=== PATIENT | female | born 1945 | race Caucasian/White ===

== ENCOUNTER 2018-09-01 10:24 | Inpatient (IN) ==
[2018-09-01] MEDS ORDERED: LEVAQUIN 750 MG/D5W 750 MG/150 ML IVPB IV SCH (17:15)
[2018-09-01] MEDS ORDERED: VANCOMYCIN IV PER PHARMACY MISC SCH (17:15)
[2018-09-01] MEDS: NS 1,000 ML IV SCH (17:45)
--- NOTE | 2018-09-01 17:45 | Diag Imaging Result Doc PS360 ---
CHEST-PORTABLE - 09/01/2018 INDICATION: congestion COMPARISON: 07/10/2018 FINDINGS: There is a right chest port in good position with the catheter tip at the cavoatrial junction. Lung volumes are severely low. There is bronchovascular crowding centrally bilaterally. There is also mild cardiomegaly. Stable left shoulder replacement. Stable spinal fusion hardware. No new or focal infiltrates. IMPRESSION: New right chest port. Otherwise no change from prior. Electronically signed by Darryl Moore 09/01/2018 5:43 PM
--- NOTE | 2018-09-01 17:47 | Diag Imaging Result Doc PS360 ---
FOOT 2 VIEWS RIGHT - 09/01/2018 INDICATION: wound TECHNIQUE: COMPARISON: None FINDINGS: Bones are severely osteopenic. There is soft tissue swelling over the great toe and the dorsum of the foot. There may be soft tissue gas at the great toe distally. No fractures or bony erosions. IMPRESSION: Severe osteopenia. Soft tissue swelling of the great toe and the foot. Possible soft tissue gas at the tip of the great toe. Electronically signed by Darryl Moore 09/01/2018 5:44 PM
[2018-09-01 18:17] LABS: BASO# 0.01 X1000 (0.0-0.2); BASO% 0.2 % (0.0-0.8); EOS# 0.19 X1000 (0.0-0.7); EOS% 3.3 % (0.0-10.0); HEMOGLOBIN 10.2 g/dL (12.0-16.0); LYMPH# 1.29 X1000 (1.2-3.4); LYMPH% 22.1 % (20.5-51.1); MCH 25.6 PG (27-31); MCV 85.2 FL (81-99); MONO# 0.41 X1000 (0.11-0.59); MPV 11.2 FL (7.4-10.4); NEUT# 3.93 X1000 (1.4-6.5); NEUT% 67.4 % (42.2-75.2); PLT 165 X1000 (130-400); RBC 3.99 XMIL (4.2-5.4); WBC 5.83 X1000 (4.8-10.8)
[2018-09-01] MEDS: NORCO-10 PO PRN (18:20)
[2018-09-01] MEDS: LOVENOX SUBQ SCH (18:22)
[2018-09-01] MEDS: PROTONIX IV SCH (18:26)
[2018-09-01 18:35] LABS: CALCIUM 8.5 mg/dL (8.8-10.2); POTASSIUM 4.2 mmol/L (3.5-5.1)
[2018-09-01] MEDS ORDERED: VANCOMYCIN 1,650 MG in NS 250 ML IV ONE (20:00)
[2018-09-01] MEDS: DESYREL PO SCH (21:18)
[2018-09-01] MEDS: ABILIFY PO SCH (21:18)
[2018-09-01] MEDS: REQUIP PO SCH (21:18)
[2018-09-02] MEDS: NORCO-10 PO PRN ×4 (00:51→21:33)
--- NOTE | 2018-09-02 06:22 | HISTORY AND PHYSICAL ---
HISTORY OF PRESENT ILLNESS: Ms. Heredia is a 72-year-old white female, who has been bedridden for a long time, has developed cellulitis on the right leg as well as right foot. There was some pus-containing discharge from the right big toe, and the cellulitis did not improve with oral Levaquin therapy, and she was admitted as an outpatient failure for her treatment. She is a known case of severe degenerative disk disease in the entire spine including cervical, dorsal, and lumbar spine. She had multiple spine surgeries, somewhere around 17 surgeries on the spine. She had multiple abdominal surgeries and knee replacement as well as hip replacement. Ms. Heredia recently underwent suprapubic cystostomy as she had a chronic indwelling catheter, which was leaking with recurrent UTIs, and she was found to have multiple bladder and bilateral renal calculi, and the renal calculi were taken care of with lithotripsy by under the guidance of Dr. Hancock. She has been on chronic pain medication for a long time. MEDICATIONS: Her medicines include Abilify or aripiprazole, aspirin, baclofen 10 mg 3 times a day, Klonopin 1 mg b.i.d., donepezil for dementia, duloxetine for multiple joint pains, oral fluconazole for a history of previous fungemia, and fluticasone nasal spray, folic acid, Lasix 40 mg twice a day, [place] 10 four times a day p.r.n., Imdur 60 mg daily, multivitamin tablets, nitroglycerin p.r.n. for chest pain, Zofran, Prilosec, prescribed Protonix 40 mg daily, KCl 10 mEq daily, ropinirole 2 mg b.i.d., and trazodone 50 mg at bedtime. SOCIAL HISTORY: She is a nonsmoker. Does not drink. She has severe edema of the left forearm and has bilateral leg edema. REVIEW OF SYSTEMS: At present, except for pain in both feet, is noncontributory. PHYSICAL EXAMINATION: VITAL SIGNS: Temperature normal. Pulse 88 per minute, respiratory rate 20 per minute, blood pressure 136/80. HEAD: Normocephalic. PUPILS: PERRLA. Fundus examination normal. NECK: Supple. JVP normal. ENT: Unremarkable. LYMPHOVASCULAR: There is no evidence of lymphadenopathy, thyroid enlargement, or calf tenderness. She has bilateral leg edema as well as edema on her feet with severe cellulitis in both feet more on the right side. There is some pus coming up from the right big toe with cellulitis over the foot. BREAST: Normal. CHEST: Normal inspection. LUNGS: Clear on auscultation. HEART: PMI in the normal position. Heart sounds normal. No murmur, gallop, or rub noted. ABDOMEN: Nondistended. Hernial orifices normal. No guarding, rigidity, free fluid, masses, or organomegaly. Bowel sounds normal. RECTAL: Deferred. BARBERING TEACHER: Higher functions are normal. Cranial nerves normal. Motor and sensory system examination unremarkable except for the presence of coarse tremors from Parkinson disease. Deep tendon reflexes normal. Plantars downgoing. Skull and spine examination reveals multiple surgeries on the spine with multiple scars, severely painful movements of the lumbosacral and cervical spine. No cerebellar signs or signs of meningeal irritation. Focal motor exam and skin exam unremarkable. She has a Port-A-Cath on the right side and a suprapubic catheter. CLINICAL IMPRESSION: Severe cellulitis on the right leg more than the left and right foot with possible osteomyelitis of the right big toe. PLAN: Start IV antibiotics first, later on get circulation studies. Arterial and venous flow studies in her legs. cc: Amando Berman MD
[2018-09-02] MEDS ORDERED: PROTONIX PO SCH (09:00)
[2018-09-02] MEDS ORDERED: MICRO-K PO SCH (09:00)
[2018-09-02] MEDS: DIFLUCAN PO SCH (09:28)
[2018-09-02] MEDS: UROGESIC-BLUE PO SCH ×3 (09:28→18:15)
[2018-09-02] MEDS: NITROGLYCERIN 0.4 MG/HR PATCH TD SCH ×2 (09:28→09:42)
[2018-09-02] MEDS: THERA M PLUS PO SCH (09:28)
[2018-09-02] MEDS: CYMBALTA PO SCH (09:28)
[2018-09-02] MEDS: REQUIP PO SCH ×2 (09:28→19:54)
[2018-09-02] MEDS: KLOR-CON PO SCH (09:28)
[2018-09-02] MEDS: FOLIC ACID PO SCH (09:28)
[2018-09-02] MEDS: LIORESAL PO SCH ×3 (09:29→18:15)
[2018-09-02] MEDS: ASPIRIN PO SCH (09:29)
[2018-09-02] MEDS: ARICEPT PO SCH (09:29)
[2018-09-02] MEDS: IMDUR PO SCH (09:29)
[2018-09-02] MEDS: FLONASE NAS SCH (09:32)
[2018-09-02] MEDS: LASIX IV SCH ×2 (09:32→19:54)
--- NOTE | 2018-09-02 09:47 | PROGRESS NOTE ---
DATE: 09/02/2018 Ms. Heredia was admitted last night with severe cellulitis. I am going to ask for an ID consult with Dr. Elaine, vascular studies and after that I will ask for surgical consultation if necessary. -2 cc: Amando Berman MD
[2018-09-02] MEDS: AZACTAM 1 GM in NS 50 ML IV SCH ×2 (15:06→21:34)
[2018-09-02] MEDS: CUBICIN 500 MG in NS 100 ML IV SCH (16:11)
[2018-09-02] MEDS: LOVENOX SUBQ SCH (18:15)
[2018-09-02] MEDS: SODIUM CHLORIDE 0.9% INJ SCH (18:15)
[2018-09-02] MEDS: PROTONIX IV SCH (18:15)
[2018-09-02] MEDS: NS 1,000 ML IV SCH (18:16)
[2018-09-02] MEDS: ABILIFY PO SCH (19:55)
[2018-09-03] MEDS: ABILIFY PO SCH ×2 (02:45→20:02)
[2018-09-03] MEDS: DESYREL PO SCH ×2 (02:46→20:02)
[2018-09-03] MEDS: LASIX IV SCH ×3 (02:46→20:14)
[2018-09-03] MEDS: REQUIP PO SCH ×3 (02:46→20:02)
[2018-09-03] MEDS: NORCO-10 PO PRN ×4 (03:24→21:54)
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
[2018-09-03] MEDS: AZACTAM 1 GM in NS 50 ML IV SCH ×3 (05:49→21:53)
[2018-09-03] MEDS ORDERED: VANCOMYCIN 1,450 MG in NS 250 ML IV SCH (08:00)
--- NOTE | 2018-09-03 08:45 | VASCULAR LAB ---
DATE: 09/01/2018 PROCEDURE: Bilateral lower extremity segmental Doppler exam. REQUESTING PHYSICIAN: Amando Berman MD. INTERPRETING PHYSICIAN: Adan Walters MD. MACHINE HAND: Darlene. INDICATION: Leg pain and edema. FINDINGS: Brachial on the right is 67. High thigh on the right is 131, on the left 122. Low thigh on the right is 96, on the left 88. Calf on the right is 97, on the left 97. DP on the right is 80, on the left 74. PT on the right is 80, on the left not obtainable. Toe pressure on the right is 43, on the left 51. CHUCK on the right is 1.1, on the left 1.10. Toe-brachial index on the right is 0.64, on the left 0.76. IMPRESSION: Pulsatile flow noted to the level of the toes. The PT is absent in the left which would suggest some degree of atherosclerotic changes, but the ABIs are maintained in the runoff vessels. Some blunting of the waveforms is noted throughout but pressures appear normal. If clinical suspicion is high, would recommend correlation with angiography. cc: MD Amando Nichole MD
--- NOTE | 2018-09-03 09:11 | PROGRESS NOTE ---
DATE: 09/03/2018 Ms. Heredia is doing fairly well. She was seen by Dr. Elaine yesterday. He changed antibiotics to daptomycin, and aztreonam, or Azactam q.8 hours. She appears to have some venous and arterial insufficiency. However, we had done the venous and arterial flow studies, a foot x- ray shows presence of severe osteoporosis. Three-phase bone scan has been ordered. Depending on the vascular and other results as well as the cultures, we will decide about surgical consult at a later date. cc: Amadno Berman MD
[2018-09-03] MEDS: KLOR-CON PO SCH (10:09)
[2018-09-03] MEDS: DIFLUCAN PO SCH (10:09)
[2018-09-03] MEDS: ARICEPT PO SCH (10:09)
[2018-09-03] MEDS: IMDUR PO SCH (10:09)
[2018-09-03] MEDS: LIORESAL PO SCH ×3 (10:09→17:38)
[2018-09-03] MEDS: UROGESIC-BLUE PO SCH ×3 (10:09→17:38)
[2018-09-03] MEDS: FOLIC ACID PO SCH (10:09)
[2018-09-03] MEDS: ASPIRIN PO SCH (10:09)
[2018-09-03] MEDS: THERA M PLUS PO SCH (10:09)
[2018-09-03] MEDS: CYMBALTA PO SCH (10:09)
[2018-09-03] MEDS: NITROGLYCERIN 0.4 MG/HR PATCH TD SCH (10:18)
[2018-09-03] MEDS: FLONASE NAS SCH (10:23)
--- NOTE | 2018-09-03 12:22 | INFECTIOUS DISEASE PROGRESS NO ---
DATE: 09/03/2018 PRESENT ILLNESS: Ms. Heredia has a bilateral lower extremity cellulitis, which is improving on IV antibiotics. So far, there is no growth on the preliminary culture. MEDICATIONS: She is receiving daptomycin 500 mg IV every 24 hours and aztreonam 1 gram IV every 8 hours. She is also on fluconazole 100mg p.o. daily as prophylactic treatment due to her fungemia history. PHYSICAL EXAM: Vital Signs: Temperature is 98.2 degrees, pulse rate 52, respiratory rate 16, blood pressure 118/82, O2 saturation 99% on 2 L nasal cannula. General: This is a chronically ill- appearing, elderly female. She is lying in the bed. Currently with some mild pain to her lower extremities. HEENT: Atraumatic, normocephalic. Oral mucous membranes are pink and moist. Conjunctivae are pink. Neck: Has a decrease in suppleness. Trachea is midline. Cardiovascular: Heart rate is regular. Pedal and radial pulses are weak bilaterally. Respiratory: Lung sounds are generally clear to auscultation. Diminished in the bases. Abdomen: Soft, obese and nontender. Bowel sounds are active. Integumentary: Skin is warm and dry. She does have erythematous areas to both feet and calves bilaterally, which have improved since yesterday. She also has a dried eschar on her right great toe. There is palpable and visible metal in her left arm, which has not come through the skin, but looks as though it may in the near future. There is generalized edema noted of all extremities, particularly the right lower and left upper which is 2 to 3+. There is a Port-A-Cath in place to the right chest wall. The site is without edema, erythema, or drainage. Neurologic: She is awake, alert, and oriented. She does have paralysis to her lower extremities and left upper extremity, but is able to use her right arm and hand. LABORATORY AND X-RAY: None available today. So far, the routine culture of her right great toe has no growth, and blood cultures have shown no growth after 48 hours. No imaging reports today. ASSESSMENT AND PLAN: Ms. Heredia has bilateral lower extremity cellulitis which has improved quite a bit since yesterday. Since she is doing so well, we will continue her daptomycin and aztreonam as ordered, and check a creatine kinase as well as regular lab work on Thursday. We are awaiting the results of her triple phase bone scan, which was done this morning. She has a history of fungemia, so we will continue daily fluconazole. These plans have been discussed with and recommended by Dr. Elaine. COMORBIDITIES: for Ms. Heredia include that she is elderly and bed bound with paraplegia, recurrent urinary tract infections with suprapubic catheter, and extensive metal in her left arm. Dictated by BABS Martins for Lucio Elaine MD This chart was documented by, BABS Martins and accurately reflects the services performed, treatment plan and medical decisions as attested by the providers signature Lucio Elaine MD. cc: MD Amando Mc MD MTDD
--- NOTE | 2018-09-03 14:01 | Extremity Venous Study ---
PROCEDURE NAME: Venous U/S Bilateral Legs - 09/01/2018 PICKING CREW SUPERVISOR: Darlene REQUESTING PHYSICIAN: Dr. Berman INDICATION: Edema. FINDINGS: The deep and superficial veins of bilateral lower extremities were visualized along their course. All vessel appear compressible with forward flow. No evidence of deep or superficial venous thrombus. There was edema noted in bilateral lower legs. SUMMARY: No deep or superficial venous thrombus seen in bilateral lower extremities. cc: MD Amando Nichole MD
[2018-09-03] MEDS: CUBICIN 500 MG in NS 100 ML IV SCH (16:34)
--- NOTE | 2018-09-03 16:49 | Diag Imaging Result Doc PS360 ---
3 PHASE BONE SCAN - 09/02/2018 INDICATION: bilateral foot osteomyelitis TECHNIQUE: Three phase bone scan of the feet. 28.7 mCi of MDP was administered. COMPARISON: X-rays from 09/01/2018 FINDINGS: There is diffuse hyperemia and increased blood pool phase activity throughout the right lower leg, ankle and foot. There is some mild increased blood pool phase activity at the left midfoot of uncertain origin. The right great toe was not imaged very well. There is some degenerative uptake at the right ankle and left midfoot. IMPRESSION: 1. Right great toe was not imaged well. Repeat exam recommended. 2. Apparent diffuse cellulitis of the right lower leg, ankle and foot. 3. Mildly increased uptake at the left midfoot, this may also represent some cellulitis. Electronically signed by Darryl Moore 09/03/2018 4:47 PM
[2018-09-03] MEDS: NS 1,000 ML IV SCH (17:38)
[2018-09-03] MEDS: PROTONIX IV SCH (17:38)
[2018-09-03] MEDS: LOVENOX SUBQ SCH (17:38)
[2018-09-03] MEDS: SODIUM CHLORIDE 0.9% INJ SCH (17:38)
[2018-09-04] MEDS: AZACTAM 1 GM in NS 50 ML IV SCH ×3 (05:36→21:29)
[2018-09-04] MEDS: NORCO-10 PO PRN ×3 (08:17→20:18)
[2018-09-04] MEDS: REQUIP PO SCH ×2 (08:18→20:18)
[2018-09-04] MEDS: NITROGLYCERIN 0.4 MG/HR PATCH TD SCH (08:18)
[2018-09-04] MEDS: LASIX IV SCH ×2 (08:18→20:19)
[2018-09-04] MEDS: DIFLUCAN PO SCH (08:19)
[2018-09-04] MEDS: ASPIRIN PO SCH (08:19)
[2018-09-04] MEDS: CYMBALTA PO SCH (08:19)
[2018-09-04] MEDS: THERA M PLUS PO SCH (08:19)
[2018-09-04] MEDS: UROGESIC-BLUE PO SCH ×3 (08:19→17:55)
[2018-09-04] MEDS: LIORESAL PO SCH ×3 (08:19→17:55)
[2018-09-04] MEDS: ARICEPT PO SCH (08:19)
[2018-09-04] MEDS: KLOR-CON PO SCH (08:19)
[2018-09-04] MEDS: IMDUR PO SCH (08:20)
[2018-09-04] MEDS: FLONASE NAS SCH (08:20)
[2018-09-04] MEDS: FOLIC ACID PO SCH (08:20)
--- NOTE | 2018-09-04 14:48 | PROGRESS NOTE ---
DATE: 09/04/2018 SUBJECTIVE: A 72-year-old white female who is well known to this hospital, patient of Dr. Berman, admitted on 09/01/2018. Cellulitis of the right leg more than the left. Osteomyelitis possible in the right big toe. PAST MEDICAL HISTORY: Reviewed. PAST SURGICAL HISTORY: Reviewed. MEDICINES: Reviewed. ALLERGIES: Reviewed. REVIEW OF SYSTEMS: Not able to be obtained. Patient is confused. Consultants notes were reviewed by Dr. Lucio Elaine. EXAMINATION: Vital Signs: Temperature is 97, pulse is 99 on 2 liters nasal cannula 100%. Vitals are stable. This is heavy set. Bedridden with multiple surgeries in the past. No anemia, no cyanosis. Chest: Bilateral air entry. Heart: Sounds are regular. Abdomen: Belly is soft, nontender. Redness is getting better on the right leg. INVESTIGATIONS: Blood cultures: 1 is positive for Staph epidermatitis. Labs were not done since 09/01/2018. ASSESSMENT AND PLAN: 1. Cellulitis of the right leg. Intravenous daptomycin 500 q. 24 hours, aztreonam 1 g q. 8 hours. Bone scan did not show any evidence of osteomyelitis. , 2. Anxiety and depression on Abilify and trazodone and Klonopin. 3. Dementia on Aricept. 4. Chronic pain with depression on Cymbalta. 5. Deep vein thrombosis prophylaxis with Lovenox. 6. Oral thrush on Diflucan. 7. Gastric prophylaxis with intravenous Protonix. We will check the labs on . LEVEL OF DOCUMENTATION: 36 minutes. cc: MD Amando Almazan MD MTDD
[2018-09-04] MEDS: CUBICIN 500 MG in NS 100 ML IV SCH (15:14)
[2018-09-04] MEDS: PROTONIX IV SCH (17:55)
[2018-09-04] MEDS: NS 1,000 ML IV SCH (17:55)
[2018-09-04] MEDS: SODIUM CHLORIDE 0.9% INJ SCH (17:55)
[2018-09-04] MEDS: LOVENOX SUBQ SCH (17:55)
[2018-09-04] MEDS: ABILIFY PO SCH (20:18)
[2018-09-04] MEDS: DESYREL PO SCH (20:19)
[2018-09-05] MEDS: NORCO-10 PO PRN ×4 (02:33→21:18)
[2018-09-05] MEDS: AZACTAM 1 GM in NS 50 ML IV SCH ×3 (05:43→21:18)
[2018-09-05] MEDS: REQUIP PO SCH ×2 (08:33→21:18)
[2018-09-05] MEDS: DIFLUCAN PO SCH (08:33)
[2018-09-05] MEDS: CYMBALTA PO SCH (08:33)
[2018-09-05] MEDS: ASPIRIN PO SCH (08:33)
[2018-09-05] MEDS: LIORESAL PO SCH ×3 (08:33→16:51)
[2018-09-05] MEDS: NITROGLYCERIN 0.4 MG/HR PATCH TD SCH (08:33)
[2018-09-05] MEDS: ARICEPT PO SCH (08:33)
[2018-09-05] MEDS: IMDUR PO SCH (08:34)
[2018-09-05] MEDS: UROGESIC-BLUE PO SCH ×3 (08:34→16:50)
[2018-09-05] MEDS: FOLIC ACID PO SCH (08:34)
[2018-09-05] MEDS: LASIX IV SCH ×2 (08:34→21:18)
[2018-09-05] MEDS: THERA M PLUS PO SCH (08:34)
[2018-09-05] MEDS: KLOR-CON PO SCH (08:34)
[2018-09-05] MEDS: FLONASE NAS SCH (08:35)
--- NOTE | 2018-09-05 15:34 | PROGRESS NOTE ---
DATE: 09/05/2018 SUBJECTIVE: The patient's daughter is at bedside. Patient is in good spirits. No complaints. Feeling better. Right leg redness still present. REVIEW OF SYSTEMS: None reported. EXAMINATION: Vital Signs: Afebrile. Vitals are stable. General: The patient is bedridden with multiple surgeries. Right leg is decreasing cellulitis. ASSESSMENT AND PLAN: 1. Cellulitis of right leg. On IV daptomycin, and Aztreonam as per Dr. Elaine. 2. Anxiety, depression. Continue present medical therapy. 3. Chronic pain, on pain management. 4. DVT prophylaxis. As per the order sheet. 5. Checking the labs tomorrow by Dr. Elaine. LEVEL OF DOCUMENTATION: 25 minutes. cc: MD Amando Almazan MD MTDD
[2018-09-05] MEDS: CUBICIN 500 MG in NS 100 ML IV SCH (16:50)
[2018-09-05] MEDS: SODIUM CHLORIDE 0.9% INJ SCH (17:00)
[2018-09-05] MEDS: PROTONIX IV SCH (17:00)
[2018-09-05] MEDS: NS 1,000 ML IV SCH (17:17)
[2018-09-05] MEDS: LOVENOX SUBQ SCH (17:18)
[2018-09-05] MEDS: KLONOPIN PO PRN (21:18)
[2018-09-05] MEDS: ABILIFY PO SCH (21:18)
[2018-09-05] MEDS: DESYREL PO SCH (21:19)
[2018-09-06] MEDS: AZACTAM 1 GM in NS 50 ML IV SCH ×3 (06:25→21:15)
[2018-09-06 07:14] LABS: BASO# 0.02 X1000 (0.0-0.2); BASO% 0.4 % (0.0-0.8); EOS# 0.19 X1000 (0.0-0.7); EOS% 3.9 % (0.0-10.0); HEMATOCRIT 31.3 % (37.0-47.0); HEMOGLOBIN 9.3 g/dL (12.0-16.0); LYMPH# 1.38 X1000 (1.2-3.4); LYMPH% 28.5 % (20.5-51.1); MCH 25.5 PG (27-31); MCHC 29.7 g/dL (33-37); MONO# 0.33 X1000 (0.11-0.59); MONO% 6.8 % (1.7-9.3); MPV 11.3 FL (7.4-10.4); NEUT# 2.93 X1000 (1.4-6.5); NEUT% 60.4 % (42.2-75.2); PLT 135 X1000 (130-400); RBC 3.64 XMIL (4.2-5.4); RDW 14.7 % (11.5-14.5); WBC 4.85 X1000 (4.8-10.8)
[2018-09-06 07:35] LABS: CALCIUM 8.2 mg/dL (8.8-10.2); POTASSIUM 3.5 mmol/L (3.5-5.1)
[2018-09-06] MEDS: FOLIC ACID PO SCH (08:15)
[2018-09-06] MEDS: IMDUR PO SCH (08:15)
[2018-09-06] MEDS: LIORESAL PO SCH ×3 (08:15→17:37)
[2018-09-06] MEDS: CYMBALTA PO SCH (08:15)
[2018-09-06] MEDS: THERA M PLUS PO SCH (08:15)
[2018-09-06] MEDS: KLOR-CON PO SCH (08:15)
[2018-09-06] MEDS: UROGESIC-BLUE PO SCH ×3 (08:15→17:37)
[2018-09-06] MEDS: ASPIRIN PO SCH (08:15)
[2018-09-06] MEDS: REQUIP PO SCH ×2 (08:16→21:15)
[2018-09-06] MEDS: ARICEPT PO SCH (08:16)
[2018-09-06] MEDS: DIFLUCAN PO SCH (08:16)
[2018-09-06] MEDS: LASIX IV SCH ×2 (08:21→21:16)
[2018-09-06] MEDS: NORCO-10 PO PRN ×3 (08:24→21:15)
[2018-09-06] MEDS: NITROGLYCERIN 0.4 MG/HR PATCH TD SCH (08:28)
[2018-09-06] MEDS: FLONASE NAS SCH (08:28)
--- NOTE | 2018-09-06 09:54 | PROGRESS NOTE ---
DATE: 09/06/2018 Ms. Heredia is in 371-A. She is improving as far as the cellulitis is concerned. Her vascular studies are unremarkable actually. The nuclear bone scan was not very informative about the osteomyelitis. It does say that the patient has cellulitis. However, they could not evaluate the big toe. Repeat test was advised. However, we will ask for a surgical consult with Dr. Walters to see if he can offer any surgical treatment. In the meantime, we will continue daptomycin and Azactam as prescribed by Dr. Elaine. cc: Amando Berman MD
[2018-09-06] MEDS: CUBICIN 500 MG in NS 100 ML IV SCH (15:00)
[2018-09-06] MEDS: NS 1,000 ML IV SCH (17:34)
[2018-09-06] MEDS: LOVENOX SUBQ SCH (17:37)
[2018-09-06] MEDS: SODIUM CHLORIDE 0.9% INJ SCH (17:37)
[2018-09-06] MEDS: PROTONIX IV SCH (17:37)
--- NOTE | 2018-09-06 18:42 | CONSULTATION ---
DATE OF CONSULTATION: 09/06/2018 CONSULTING PHYSICIAN: Dash Hampton MD. REASON FOR CONSULTATION: Urinary incontinence. HISTORY OF PRESENT ILLNESS: 72-year-old female known to me secondary to a history of bilateral renal stones as well as bladder stones and neurogenic bladder as well as recurrent UTIs. She underwent cystoscopy with suprapubic tube placement in June of 2018 followed by left extracorporal shock for lithotripsy on a left staghorn stone. She also has undergone cystolitholapaxy for the bladder stones. Her bladder is currently managed with suprapubic tube. She was seen in my office approximately two weeks ago at which time her suprapubic tube was changed for the first time by our nursing staff. She reports that she has done fairly well, but over the last several days, she developed worsening incontinence via her urethra. She denies significant incontinence around the suprapubic tube. She reports that there is quite a bit of urine coming out through the suprapubic tube. She denies flank pain currently. She reports two day left flank pain history over a week ago which then resolved and was followed by passage of the kidney stone. PAST MEDICAL HISTORY: Cervical injury leading to quadriplegia, hypertension, degenerative disk disease, recurrent UTIs, and urolithiasis. PAST SURGICAL HISTORY: Lumbar and cervical fusions, left shoulder arthroplasty , abdominal herniorrhaphy, knee replacement, hysterectomy. ALLERGIES: Demerol, codeine, penicillin and Reglan. HOME MEDICATIONS: 1. Aripiprazole. 2. Aspirin. 3. Baclofen. 4. Klonopin. 5. Folic acid. 6. Lasix. 7. ISMN 8. Urogesic Blue. 9. Multivitamin. 10.Nitroglycerin. 11.Zofran. 12.Potassium. 13.Ropinirole. 14.Trazodone. 15.Aricept. 16.Cymbalta. 17.Fluticasone. 18.Protonix. 19.[place]. 20.Diflucan. SOCIAL HISTORY: She denies tobacco, alcohol or drug use. FAMILY HISTORY: No malignancies. REVIEW OF SYSTEMS: 12 systems were reviewed and were reviewed with the exception of right lower extremity cellulitis and purulent drainage from the right big toe. PHYSICAL EXAMINATION: Vital signs: Temperature 98, pulse 63, blood pressure 93/59. General: No acute distress. Pleasant female. Resting in bed. HEENT: Normocephalic, atraumatic. Cardiovascular: Regular rhythm. Pulmonary: Bilateral breath sounds. Abdomen : Nontender to palpation. Suprapubic tube in good position, healthy granulation tissue noted around the tube. Green urine seen coming through the suprapubic tube. Bladder is nontender to palpation. Flank has no CVA tenderness. Dermatologic: No obvious skin rashes, but there is erythema over the right lower extremity. Neurological: Alert and oriented x3. Psychiatric: Appropriate mood and affect. LABORATORY: White cell count 5,000, creatinine 1.0. Pertinent microbiology: none. Pertinent images: none. ASSESSMENT AND PLAN: 72-year-old female with neurogenic bladder managed with suprapubic tube who has leakage via the urethra. Her suprapubic tube drains well, and we discussed that leakage via the urethra is likely due to bladder spasms. She has tried Urogesic Blue, and it did not seem to help. I have discussed with her that we could try anticholinergics, but in elderly people and people with dementia, one of the side effects could be related to cognition. We also discussed dry mouth and constipation. The patient also asked me if I could address her right staghorn calculus which we discussed she would need PCNL for. I have explained to her that if Dr. Walters has to operate with her having an infected toe, it may not be the most optimal time to do percutaneous nephrostolithotomy, but if general surgery went well, and she was recovering well and wanted to proceed with PCNL while in the hospital, that would be reasonable by me if cleared by her other doctors. PLAN: 1. Ditropan 5 mg t.i.d. 2. Will follow. cc: MD Amando Castro MD [facility]ITALDeirdre
--- NOTE | 2018-09-06 19:27 | INFECTIOUS DISEASE PROGRESS NO ---
DATE: 09/06/2018 PRESENT ILLNESS: The patient is admitted the hospital with bilateral leg cellulitis. The patient at one time had fungemia and the patient does have metal in her which may have become infected hematogenously. MEDICATIONS: The patient is on a combination now of daptomycin and aztreonam. The patient also receives fluconazole daily on a chronic basis. PHYSICAL EXAMINATION: Vital Signs: Temperature is 98 degrees, pulse 63, respirations 18, blood pressure 93/50. General: This is a chronically ill-appearing elderly female. She is in no acute distress. Head, eyes, ears, nose, and throat: She can hear my spoken words and see near objects. She does not have any white coating on her tongue. Neck: No meningismus. Lungs: Clear to auscultation. Cardiovascular: Regular heart rate. Thorax: The patient's Port-A-Cath site on the right side is not erythematous or swollen. Abdomen: Soft and nontender. Neurologic: Patient is awake. It is difficult for her to move her extremities. She is extremely weak. Integument: No rash noted. LAB AND X-RAY: The patient's right great toe grew Staph epidermidis. Blood cultures are negative. CK is 18, creatinine is 1. GFR is 55. CBC shows a white count of 4850, hemoglobin 9.3, and platelet count 135,000. PHYSICAL EXAM: Vital signs: Temperature is 98 degrees, pulse 63, respirations 18, blood pressure 93/50. General: This is an ill-appearing elderly female. She is in no acute distress. Head, eyes, ears, nose, and throat: She can hear my spoken words and see near objects. There was no white coating on her tongue. Neck: No meningismus. Lungs: Clear to auscultation. Cardiovascular: Regular heart rate. Abdomen: Soft and nontender. A suprapubic catheter is in place. Bones, joints, muscles: There is extensive metal that can be palpated in the patient's left arm. Thorax: Patient has a Port-A-Cath present on the right side. The site is not erythematous or swollen. Neurologic: Patient is awake, she is very weak. There is no tremor. LAB AND X-RAY: No new radiographic study for today. The culture from the great toe grew Staph epidermidis. Blood cultures negative. Creatinine is 1. GFR is 55. CK is 18. CBC shows a white count of 4850, hemoglobin 9.3, and platelet count 135,000. ASSESSMENT AND PLAN: The patient has bilateral leg cellulitis. I plan to continue both daptomycin and aztreonam. She is doing much better. Regarding the patient's cellulitis, we plan to continue keeping the patient's legs elevated and giving the patient daptomycin and aztreonam. As regarding the patient's prior fungemia we will be continuing fluconazole on a chronic basis. Patient has leg cellulitis. We will continue the current antibiotics. Dr. Walters is going to be seeing the patient. COMORBIDITIES: She is elderly, she is bed bound, she has recurrent urinary tract infections. She has a suprapubic catheter in place and extensive metal in her left arm. cc: MD Amando Mc MD
[2018-09-06] MEDS: ABILIFY PO SCH (21:15)
[2018-09-06] MEDS: DESYREL PO SCH (21:15)
[2018-09-07] MEDS: NORCO-10 PO PRN ×4 (03:36→22:34)
[2018-09-07] MEDS: AZACTAM 1 GM in NS 50 ML IV SCH ×3 (06:47→22:35)
--- NOTE | 2018-09-07 09:28 | PROGRESS NOTE ---
DATE: 09/07/2018 Ms. Heredia is feeling better. Cellulitis is somewhat better. We are going to increase the Lasix as there is more edema. She was seen by Dr. Hancock yesterday who wants to put her on Ditropan to prevent a leak from the bladder and wants to follow her after that. She has not been seen by Dr. Walters yet. We are continuing the IV antibiotics. We will repeat her electrolytes today. cc: Amando Berman MD
[2018-09-07] MEDS: ARICEPT PO SCH (11:12)
[2018-09-07] MEDS: KLOR-CON PO SCH (11:12)
[2018-09-07] MEDS: LIORESAL PO SCH ×3 (11:12→18:20)
[2018-09-07] MEDS: ASPIRIN PO SCH (11:12)
[2018-09-07] MEDS: IMDUR PO SCH (11:12)
[2018-09-07] MEDS: DIFLUCAN PO SCH (11:13)
[2018-09-07] MEDS: THERA M PLUS PO SCH (11:13)
[2018-09-07] MEDS: FOLIC ACID PO SCH (11:13)
[2018-09-07] MEDS: UROGESIC-BLUE PO SCH ×3 (11:13→18:21)
[2018-09-07] MEDS: DITROPAN PO SCH ×3 (11:13→18:20)
[2018-09-07] MEDS: CYMBALTA PO SCH (11:13)
[2018-09-07] MEDS: REQUIP PO SCH ×2 (11:13→20:56)
[2018-09-07] MEDS: FLONASE NAS SCH (11:14)
[2018-09-07] MEDS: NITROGLYCERIN 0.4 MG/HR PATCH TD SCH (11:14)
[2018-09-07] MEDS: LASIX IV SCH ×2 (11:15→20:56)
[2018-09-07] MEDS: CUBICIN 500 MG in NS 100 ML IV SCH (16:19)
[2018-09-07] MEDS: ZOFRAN IV PRN (16:58)
[2018-09-07] MEDS: LOVENOX SUBQ SCH (18:20)
[2018-09-07] MEDS: PROTONIX IV SCH (18:21)
[2018-09-07] MEDS: NS 1,000 ML IV SCH (18:21)
--- NOTE | 2018-09-07 19:33 | GENERAL SURGERY CONSULTATION ---
DATE: 09/07/2018 HISTORY OF PRESENT ILLNESS: This is a 72-year-old female known to me. She has a history of quadriplegia or hemiparesis. She has poor peripheral access. I have had to place ports and remove them for infections in the past. She presents with apparently erythema and cellulitis of her lower extremities. She was admitted on 09/01/2018. She has been treated for this. She has had workup, including bone scans and x-rays and no obvious evidence of abscess or infection. Apparently she is improved. Dr. Hancock was seeing her for nephrolithiasis, staghorn calculi, and possibly plans to intervene here. PAST MEDICAL HISTORY: 1. Cervical spine injury causing quadriplegia. 2. Hypertension. 3. Recurrent UTIs. 4. Nephrolithiasis and urolithiasis. SURGICAL HISTORY: She has had multiple spinal operations, shoulder arthroplasty, hysterectomy, and knee replacement. She has had multiple ports placed and removed. MEDICATIONS: Numerous. SOCIAL HISTORY: No current tobacco, alcohol, or drugs. FAMILY HISTORY: Reviewed. REVIEW OF SYSTEMS: A 10-point review of systems negative, otherwise as mentioned in HPI. OBJECTIVE: Temperature is 98.0, pulse 65, blood pressure 99/50, oxygen saturation 100%. General: She is a chronically ill appearing female, but she is alert and seems to be in good spirits. HEENT: There is no scleral icterus. Cardiovascular: Normal rate. Pulmonary: No increased work of breathing. Abdomen: Abdomen is soft. Integument: Warm and dry. Psychiatric: Appropriate affect. Neurologic: Quadriplegia with only trace of movements of her upper extremities. Peripheral vascular: She has 2+ lower extremity edema. She has a right internal jugular vein port with no cellulitis at its access. It seems to be functioning well with her baseline amount of upper extremity edema. Musculoskeletal: She does have chronic deformities of her feet. She has no evidence of ulcerations. I do not see any cellulitis at this time. No open wounds. LABS: We reviewed her labs. White count is normal at 4. Creatinine is 1.0. ASSESSMENT AND PLAN: This is a 72-year-old female with multiple medical issues. She was admitted for cellulitis. I do not see any signs of abscess or ongoing infection of her feet. I would strongly advise against any surgical intervention on her toes at this juncture, as this would most definitely leave her with a nonhealing wound. Will continue to monitor her closely and follow along. cc: MD Amando Nichole MD
[2018-09-07] MEDS: DESYREL PO SCH (20:56)
[2018-09-07] MEDS: ABILIFY PO SCH (20:56)
--- NOTE | 2018-09-08 01:01 | INFECTIOUS DISEASE PROGRESS NO ---
DATE: 09/07/2018 PRESENT ILLNESS: The patient has bilateral leg cellulitis. The patient had fungemia, and this could have infected the metal she has in her body, especially that in the left arm. The fungemia happened a while ago. MEDICATIONS: The patient is receiving daptomycin and aztreonam for the cellulitis. The patient takes fluconazole daily on a chronic basis, in case some of the metal in the patient may have become infected hematogenously. It would be extremely hard to thoroughly sterilize the metal from becoming infected with the fungus. PHYSICAL EXAMINATION: Vital Signs: Temperature is 98 degrees, pulse 65, respirations 20, blood pressure 99/50. General: This is a chronically ill-appearing, elderly female. She is in no acute distress. Head, Eyes, Ears, Nose, and Throat: She can hear my spoken words, see near objects. She does not have any white coating on her tongue. Neck: No stiffness. Lungs: Clear to auscultation. Cardiovascular: Regular heart rate. Thorax: The patient has a Port-A- Cath on the right side. The site is not swollen or draining. Abdomen: Soft and nontender. The patient has a suprapubic catheter in place. Neurologic: The patient can only move her right arm. The rest of her extremities are paralyzed. Extremities: The extensive metal the patient has in her left arm is palpable. LAB AND X-RAY: The patient's CK is 18. There is no other new laboratory study. Also, there is no new radiographic study. ASSESSMENT AND PLAN: The patient has bilateral leg cellulitis. I plan to continue with the current antibiotics, namely daptomycin and aztreonam. As for the patient's prior fungemia, I plan to keep the patient on fluconazole on a chronic basis. COMORBIDITIES: She is elderly. She is bed-bound. She has recurrent urinary tract infections. She has a suprapubic tube in place. She has extensive metal in her left arm. cc: MD Amando Mc MD
[2018-09-08] MEDS: NORCO-10 PO PRN ×3 (04:28→18:18)
[2018-09-08] MEDS: AZACTAM 1 GM in NS 50 ML IV SCH ×4 (05:16→15:01)
--- NOTE | 2018-09-08 09:22 | PROGRESS NOTE ---
DATE: 09/08/2018 SUBJECTIVE: Ms. Heredia is doing better. The cellulitis is slowly improving. She is s seen by Dr. Walters, who mentions that surgical treatment is not indicated at the present time. He wants to wait. She was seen by Dr. Hancock earlier, who put her on Ditropan thinking probably she had leakage because of bladder spasm. He does not think it is the proper time to do the percutaneous nephrolithotomy. He decided that surgical treatment is not needed at the present time. cc: Amando Berman MD
[2018-09-08] MEDS: KLOR-CON PO SCH (09:26)
[2018-09-08] MEDS: THERA M PLUS PO SCH (09:26)
[2018-09-08] MEDS: LASIX IV SCH ×2 (09:26→20:47)
[2018-09-08] MEDS: ASPIRIN PO SCH (09:26)
[2018-09-08] MEDS: DIFLUCAN PO SCH (09:26)
[2018-09-08] MEDS: DITROPAN PO SCH ×3 (09:26→20:47)
[2018-09-08] MEDS: NITROGLYCERIN 0.4 MG/HR PATCH TD SCH ×2 (09:26→09:35)
[2018-09-08] MEDS: ARICEPT PO SCH (09:26)
[2018-09-08] MEDS: LIORESAL PO SCH ×3 (09:27→20:47)
[2018-09-08] MEDS: IMDUR PO SCH (09:27)
[2018-09-08] MEDS: CYMBALTA PO SCH (09:27)
[2018-09-08] MEDS: UROGESIC-BLUE PO SCH ×3 (09:27→20:47)
[2018-09-08] MEDS: FOLIC ACID PO SCH (09:27)
[2018-09-08] MEDS: REQUIP PO SCH ×2 (09:27→20:47)
[2018-09-08] MEDS: FLONASE NAS SCH (09:32)
[2018-09-08 09:33] LABS: AGAP 9; BUN 24 mg/dL (8-22); CALCIUM 7.9 mg/dL (8.8-10.2); CHLORIDE 101 mmol/L (98-107); COSMO 287; CREATININE 0.8 mg/dL (0.5-0.9); ESTIMATED GFR > 60; GLUCOSE 93 mg/dL (70-104); POTASSIUM 3.8 mmol/L (3.5-5.1); SODIUM 142 mmol/L (136-145); TCO2 32 mmol/L (25-35)
[2018-09-08 09:46] LABS: ALB/GLOB RATIO 1.6; ALBUMIN 3.1 g/dL (3.5-5.0); ALKALINE PHOSPHATASE 95 U/L (32-104); DIRECT BILIRUBIN < 0.10 mg/dL (0.00-0.20); GOT 16 U/L (10-30); GPT 10 U/L (10-36); TOTAL BILIRUBIN 0.16 mg/dL (0.20-1.00)
[2018-09-08] MEDS: ZOFRAN IV PRN (16:27)
[2018-09-08] MEDS: CUBICIN 500 MG in NS 100 ML IV SCH (16:28)
[2018-09-08] MEDS: LOVENOX SUBQ SCH ×2 (16:33→18:19)
[2018-09-08] MEDS: PROTONIX IV SCH ×2 (16:33→18:19)
[2018-09-08] MEDS: SODIUM CHLORIDE 0.9% INJ SCH (16:33)
[2018-09-08] MEDS: NS 1,000 ML IV SCH (18:21)
[2018-09-08] MEDS ORDERED: CALMOSEPTINE OINTMENT TOP PRN (18:36)
[2018-09-08] MEDS: ABILIFY PO SCH (20:47)
[2018-09-08] MEDS: KLONOPIN PO PRN (20:47)
[2018-09-08] MEDS: DESYREL PO SCH (20:47)
[2018-09-09] MEDS: NORCO-10 PO PRN ×4 (00:13→19:49)
[2018-09-09] MEDS: ZOFRAN IV PRN ×4 (00:50→22:35)
--- NOTE | 2018-09-09 04:53 | INFECTIOUS DISEASE PROGRESS NO ---
DATE: 09/08/2018 PRESENT ILLNESS: The patient has lower extremity cellulitis bilaterally. There is also a history of fungemia in March of last year, with extensive metal to her left upper extremity. MEDICATIONS: She is on day 6 of daptomycin 500 mg IV every 24 hours and aztreonam 1 g IV every 8 hours. She is also receiving fluconazole 100 mg p.o. daily as a prophylactic dose due to her history of fungemia with metal in her arm. PHYSICAL EXAM: Vital Signs: Temperature is 98.9 degrees, pulse rate 63, respiratory rate 20, blood pressure 88/48, O2 saturation 97% on 2 L nasal cannula. General: This is a chronically ill- appearing, elderly female. She is lying in the bed currently in no acute distress. HEENT: Atraumatic, normocephalic. Oral mucous membranes are pink and moist. Conjunctivae are pale. Neck: Has a decrease in suppleness. Trachea is midline. Respiratory: Lung sounds are clear to auscultation. Cardiovascular: Heart rate is regular. Pedal and radial pulses are palpable bilaterally. She does have a generalized edema noted, pitting to her bilateral lower extremities and left upper extremity, 2-3+. There is also a Port-A-Cath site to the right chest without any edema, erythema, or drainage to the site. Abdomen: Soft, obese, and nontender. Bowel sounds are active. She does have a suprapubic catheter in place. Neurologic: She does have a history of paralysis with limited mobility. She can move her right upper extremity with less weakness. LABORATORY AND X-RAY: Today her creatinine is 0.8. Estimated GFR is greater than 60. AST is 16, ALT 10, alkaline phosphatase 95. No CBC today. Her right great toe has grown a Staph epidermidis. No imaging reports today. ASSESSMENT AND PLAN: Ms. Heredia has bilateral lower extremity cellulitis, which has improved somewhat. She still complains of some stinging and burning to her legs, and there is some mild erythema to the right lower extremity. For now, we will continue her daptomycin and aztreonam as ordered. We will also continue her fluconazole as a prophylactic dose for her prior fungemia due to the metal she has in her left upper extremity. These plans have been discussed with and recommended by Dr. Elaine. COMORBIDITIES: for Ms. Heredia include that she is elderly and bedbound with a suprapubic catheter and recurrent urinary tract infections as well as extensive metal to the left upper extremity. Dictated by BABS Martins for Lucio Elaine MD This chart was documented by, BABS Martins and accurately reflects the services performed, treatment plan and medical decisions as attested by the providers signature Lucio Elaine MD. cc: MD Amando Mc MD [facility]ITAL[facility]irdre
--- NOTE | 2018-09-09 04:54 | GENERAL SURGERY PROGRESS NOTE ---
DATE: 09/08/2018 SUBJECTIVE: No complaints. No events overnight. OBJECTIVE: Vital Signs: No fevers. No tachycardia. General: She is alert. Extremities: Bilateral legs have stable edema with no cellulitis. Laboratory Data: No new labs other than a creatinine of 0.8 and a glucose of 93. ASSESSMENT/PLAN: This is a 72-year-old female with cellulitis of bilateral lower extremities. This seems to be improving. We will continue to follow along. I agree with current antibiotics. Dr. Hancock plans on a stone procedure and from a general surgery standpoint, I would not let anything with her feet hold that up. cc: MD Amando Nichole MD
[2018-09-09] MEDS: LASIX IV SCH ×3 (09:13→22:38)
[2018-09-09] MEDS: AZACTAM 1 GM in NS 50 ML IV SCH ×2 (09:13→16:20)
[2018-09-09] MEDS: REQUIP PO SCH ×3 (09:15→22:39)
[2018-09-09] MEDS: FLONASE NAS SCH (09:15)
[2018-09-09] MEDS: KLOR-CON PO SCH (09:16)
[2018-09-09] MEDS: CYMBALTA PO SCH (09:16)
[2018-09-09] MEDS: THERA M PLUS PO SCH (09:16)
[2018-09-09] MEDS: ARICEPT PO SCH (09:16)
[2018-09-09] MEDS: IMDUR PO SCH (09:16)
[2018-09-09] MEDS: ASPIRIN PO SCH (09:16)
[2018-09-09] MEDS: DITROPAN PO SCH ×3 (09:16→17:55)
[2018-09-09] MEDS: LIORESAL PO SCH ×3 (09:16→17:55)
[2018-09-09] MEDS: FOLIC ACID PO SCH (09:16)
[2018-09-09] MEDS: DIFLUCAN PO SCH (09:16)
[2018-09-09] MEDS: UROGESIC-BLUE PO SCH ×3 (09:17→17:55)
[2018-09-09] MEDS: NITROGLYCERIN 0.4 MG/HR PATCH TD SCH (09:18)
--- NOTE | 2018-09-09 09:38 | PROGRESS NOTE ---
DATE: 09/09/2018 Ms. Heredia is receiving IV daptomycin as well as Azactam for her severe cellulitis, which is improving. She still has some redness and some symptoms of pain and burning in the foot. She is to go through urology procedure tomorrow by Dr Hancock Vital signs are stable. Overall condition is unchanged. We will continue with the current management on her. cc: Amando Berman MD MTDD
--- NOTE | 2018-09-09 11:40 | GENERAL SURGERY PROGRESS NOTE ---
DATE: 09/09/2018 SUBJECTIVE: She is doing okay. She has had some tingling in her legs and feet, but no fevers. No tachycardia. OBJECTIVE: Vital signs: Blood pressure 100/50. General: She is alert. Extremities: Bilateral feet edema is stable. There is no cellulitis of her toes or feet. No new labs today. ASSESSMENT AND PLAN: A 72-year-old female with quadriplegia and lower extremity cellulitis that seems to have resolved. I do not see any open wounds that need debridement. cc: MD Amando Nichole MD
--- NOTE | 2018-09-09 11:45 | PROGRESS NOTE ---
DATE: 09/09/2018 SUBJECTIVE: Ms. Heredia has had a decent night overnight. I have discussed her situation with Dr. Berman, and he is on board with the patient having right percutaneous nephrostolithotomy of a right staghorn stone. OBJECTIVE: Vital Signs: T 98.1, P 52, BP 100/50. Her urine output was recorded in the amount of 2950 mL. PHYSICAL EXAMINATION: General: In no acute distress. Abdomen nontender and nondistended. : Bladder is nontender to palpation. Suprapubic tube in place draining straw- colored urine. PERTINENT LABORATORIES: None today. ASSESSMENT AND PLAN: A 72-year-old female with a right staghorn calculus and recurrent urinary tract infections. She desires to proceed with right percutaneous nephrostolithotomy. We discussed cystoscopy with a right occlusion balloon placement, percutaneous antegrade nephroscopy access, right percutaneous nephrostolithotomy with the risks of the procedure including but not limited to bleeding, infection, injury to the kidney, injury to adjacent structures, inability to remove all of the stone burden and need for additional interventions explained. She voiced understanding and wants to proceed. I have also discussed with her that she would either have a nephrostomy tube at the conclusion of the case which could be removed the next day versus ureteral stent which would be removed a couple of weeks after the procedure. She voiced understanding and wants to proceed. PLAN: 1. NPO after midnight. 2. To OR tomorrow for above-stated procedure. cc: MD Amando Castro MD [facility]
--- NOTE | 2018-09-09 13:02 | PROGRESS NOTE ---
DATE: 09/08/2018 SUBJECTIVE: Ms. Heredia reported a decent night overnight. She is not sure if she has less leakage from the suprapubic tube. She was reportedly told by Dr. Walters that she did not need surgical intervention on her lower extremity. She desires to have her right staghorn renal stone treated if possible. OBJECTIVE: Vital Signs: T 98.1 degrees, P 68, BP 129/74. General: No acute distress. Abdomen: Nontender, Not distended Genitourinary: Suprapubic tube is draining straw-colored urine. PERTINENT DIAGNOSTIC DATA: From 09/08/2018, her creatinine is 0.8. ASSESSMENT AND PLAN: 1. A 72-year-old female who was admitted with cellulitis that is nonoperative per General Surgery. 2. She feels strongly about having her staghorn stone addressed, and I have discussed with the patient that I will clear it with Dr. Berman, as well as the Surgery Board in order to accommodate her in the next couple days. cc: MD Amando Castro MD [facility]
[2018-09-09] MEDS: CUBICIN 500 MG in NS 100 ML IV SCH (14:01)
[2018-09-09] MEDS: LOVENOX SUBQ SCH (17:55)
[2018-09-09] MEDS: PROTONIX IV SCH (17:56)
[2018-09-09] MEDS: KLONOPIN PO PRN (19:50)
[2018-09-09] MEDS: NS 1,000 ML IV SCH (19:50)
[2018-09-09] MEDS: ABILIFY PO SCH ×2 (19:50→22:39)
[2018-09-09] MEDS: DESYREL PO SCH ×2 (19:50→22:39)
--- NOTE | 2018-09-10 00:49 | INFECTIOUS DISEASE PROGRESS NO ---
DATE: 09/09/2018 PRESENTING ILLNESS: The patient had lower extremity cellulitis bilaterally. This has all cleared up well. She had fungemia last year, and the metal in her left arm could have become hematogenously infected from it. MEDICATIONS: This is the 7th day of treatment with daptomycin and aztreonam. The patient is on fluconazole 100 mg daily as a prophylactic measure because of the fungemia last year, which may have hematogenously infected the metal in her left arm. PHYSICAL EXAMINATION: Vital Signs: Temperature is 98.1 degrees, pulse 59, respirations 18, blood pressure 132/82. General: This is a chronically ill-appearing elderly female. She is in no acute distress. Head, Eyes, Ears, Nose, and Throat: She can hear my spoken words and see near objects. There is no drainage from the nose or ears. Neck: No stiffness. Lungs: Clear to auscultation. Cardiovascular: Heart rate is regular. Thorax: The patient has a Port-A-Cath in the right chest area. The site is not erythematous or draining. Abdomen: Soft and nontender. Patient has a suprapubic tube in place. Neurologic: Patient is alert. She has paralysis, except for her right arm. LAB AND X-RAY: Creatinine 0.8, GFR is greater than 60. Liver function studies are normal. ASSESSMENT AND PLAN: Patient's cellulitis has cleared. I am discontinuing daptomycin and aztreonam. The patient is on fluconazole on a chronic basis, and that will be continued. I will discontinue the aztreonam tomorrow night, rather than now, because she is going to have some type of lithotripsy done tomorrow, and if there is a Gram negative christo with the stones, then the aztreonam will prevent it from being systemic. COMORBIDITIES: She is elderly. She is bed-bound. She has suprapubic catheter. She has recurrent urinary tract infections. She has extensive metal in her left arm. I am signing off the patient's case now. I have discontinued aztreonam and daptomycin. I am available to see her on a p.r.n. basis. cc: MD Amando Mc MD
[2018-09-10] MEDS: NORCO-10 PO PRN ×2 (02:03→19:58)
[2018-09-10] MEDS: AZACTAM 1 GM in NS 50 ML IV SCH ×3 (02:03→15:10)
[2018-09-10] MEDS ORDERED: HURRICAINE SPRAY (DOSE) ONE (07:50)
[2018-09-10] MEDS ORDERED: LUBRIFRESH PM OPH OINTMENT ONE (07:52)
[2018-09-10] MEDS ORDERED: STERILE WATER INJ. ONE (08:05)
[2018-09-10] MEDS ORDERED: DIPRIVAN 1% ONE (08:05)
[2018-09-10] MEDS ORDERED: NORCURON ONE (08:05)
[2018-09-10] MEDS ORDERED: XYLOCAINE-MPF 2% ONE (08:05)
[2018-09-10] MEDS ORDERED: ROBINUL ONE (08:05)
[2018-09-10] MEDS ORDERED: QUELICIN (DOSE) ONE (08:05)
[2018-09-10] MEDS ORDERED: FENTANYL ONE (08:06)
[2018-09-10 08:41] LABS: BASO# 0.01 X1000 (0.0-0.2); BASO% 0.2 % (0.0-0.8); EOS# 0.19 X1000 (0.0-0.7); EOS% 3.4 % (0.0-10.0); HEMATOCRIT 29.8 % (37.0-47.0); LYMPH# 1.27 X1000 (1.2-3.4); LYMPH% 22.8 % (20.5-51.1); MCHC 30.2 g/dL (33-37); MCV 86.1 FL (81-99); MONO# 0.32 X1000 (0.11-0.59); MONO% 5.7 % (1.7-9.3); MPV 11.5 FL (7.4-10.4); NEUT# 3.78 X1000 (1.4-6.5); NEUT% 67.9 % (42.2-75.2); PLT 135 X1000 (130-400); RBC 3.46 XMIL (4.2-5.4); RDW 14.7 % (11.5-14.5); WBC 5.57 X1000 (4.8-10.8)
[2018-09-10 09:01] LABS: INR 0.96; PROTIME 13.6 Seconds (11.0-16.0)
[2018-09-10] MEDS: ZOFRAN IV PRN (09:01)
[2018-09-10 09:03] LABS: AGAP 10; BUN 25 mg/dL (8-22); CHLORIDE 98 mmol/L (98-107); COSMO 283; CREATININE 0.7 mg/dL (0.5-0.9); ESTIMATED GFR > 60; GLUCOSE 91 mg/dL (70-104); POTASSIUM 3.8 mmol/L (3.5-5.1); SODIUM 140 mmol/L (136-145); TCO2 32 mmol/L (25-35)
[2018-09-10] MEDS ORDERED: NEO-SYNEPHRINE ONE (09:24)
[2018-09-10] MEDS ORDERED: SODIUM CHLORIDE 0.9% 0 ML ONE (09:24)
[2018-09-10] MEDS ORDERED: EPHEDRINE ONE (09:26)
[2018-09-10] MEDS ORDERED: SODIUM CHLORIDE 0.9% 10 ML ONE (09:26)
--- NOTE | 2018-09-10 10:34 | PROGRESS NOTE ---
DATE: 09/10/2018 Ms. Heredia's vital signs are stable. She is doing fairly well this morning. She has gone now for surgery for right-sided nephrolithostomy to get the stone out. She has a suprapubic catheter. Overall condition is unchanged. She is basically admitted with cellulitis and has been on daptomycin and Azactam. We will continue the current management. cc: Amando Berman MD
[2018-09-10] MEDS ORDERED: ZOFRAN ONE ×2 (10:35→13:24)
[2018-09-10] MEDS ORDERED: NEOSTIGMINE ONE (11:03)
--- NOTE | 2018-09-10 12:38 | Diag Imaging Result Doc PS360 ---
EXAM: FLUROSCOPY CYSTO HISTORY: PERCUTANEOUS NEPHROLITHOTOMY, STENT PLACEMENT RIGHT TECHNIQUE: Five films submitted COMPARISON: None. FINDINGS: There is contrast within the right ureter. Film show the placement of a right sided stent. Electronically signed by Prosper Gonzalez 09/10/2018 12:35 PM
[2018-09-10] MEDS: MORPHINE ONE ×4 (13:13→13:31)
[2018-09-10 13:16] LABS: HEMATOCRIT 30.5 % (37.0-47.0); HEMOGLOBIN 9.4 g/dL (12.0-16.0); MCH 26.5 PG (27-31); MCHC 30.8 g/dL (33-37); MCV 85.9 FL (81-99); MPV 11.6 FL (7.4-10.4); RBC 3.55 XMIL (4.2-5.4); RDW 14.7 % (11.5-14.5); WBC 9.02 X1000 (4.8-10.8)
--- NOTE | 2018-09-10 13:27 | Diag Imaging Result Doc PS360 ---
EXAM: CHEST-PORTABLE HISTORY: pacu 2 post op perc neph TECHNIQUE: Portable chest COMPARISON: 09/01/2018 FINDINGS: The patient is rotated to the right. The lungs are well expanded. There are no infiltrates. No cardiomegaly. No pleural effusions identified. No change in the right-sided portacatheter. There are surgical clips and sutures in the mid and upper right chest. IMPRESSION: Negative exam. Electronically signed by Prosper Gonzalez 09/10/2018 1:25 PM
[2018-09-10 13:30] LABS: AGAP 12; BUN 24 mg/dL (8-22); CALCIUM 7.8 mg/dL (8.8-10.2); CHLORIDE 100 mmol/L (98-107); COSMO 288; CREATININE 0.7 mg/dL (0.5-0.9); ESTIMATED GFR > 60; GLUCOSE 118 mg/dL (70-104); POTASSIUM 3.2 mmol/L (3.5-5.1); SODIUM 142 mmol/L (136-145); TCO2 30 mmol/L (25-35)
[2018-09-10] MEDS: NORCO-10 ONE ×2 (13:43→17:43)
[2018-09-10] MEDS: ZOFRAN ONE ×2 (13:46→17:43)
[2018-09-10] MEDS: UROGESIC-BLUE PO SCH ×3 (15:11→17:49)
[2018-09-10] MEDS: DITROPAN PO SCH ×3 (15:12→17:49)
[2018-09-10] MEDS: LIORESAL PO SCH ×3 (15:12→17:49)
[2018-09-10] MEDS: REQUIP PO SCH ×2 (15:12→19:59)
[2018-09-10] MEDS: FOLIC ACID PO SCH (15:13)
[2018-09-10] MEDS: LASIX IV SCH ×3 (15:13→22:20)
[2018-09-10] MEDS: NITROGLYCERIN 0.4 MG/HR PATCH TD SCH (15:14)
[2018-09-10] MEDS: ASPIRIN PO SCH (15:15)
[2018-09-10] MEDS: CYMBALTA PO SCH (15:15)
[2018-09-10] MEDS: ARICEPT PO SCH (15:16)
[2018-09-10] MEDS: THERA M PLUS PO SCH (15:18)
[2018-09-10] MEDS: KLOR-CON PO SCH (15:19)
[2018-09-10] MEDS: DIFLUCAN PO SCH (15:22)
[2018-09-10] MEDS: IMDUR PO SCH (15:22)
[2018-09-10] MEDS: FLONASE NAS SCH (17:37)
[2018-09-10] MEDS: CHLORASEPTIC SPRAY MT PRN (17:47)
[2018-09-10] MEDS: PROTONIX IV SCH (17:55)
[2018-09-10] MEDS: KLONOPIN PO PRN (19:58)
[2018-09-10] MEDS: DESYREL PO SCH (19:59)
[2018-09-10] MEDS: NS 1,000 ML IV SCH (19:59)
[2018-09-10] MEDS: ABILIFY PO SCH (19:59)
[2018-09-11] MEDS: NORCO-10 PO PRN ×4 (02:42→22:35)
[2018-09-11] MEDS: TYLENOL PO PRN ×2 (05:13→16:32)
[2018-09-11] MEDS: ZOFRAN IV PRN ×3 (06:56→19:36)
[2018-09-11 07:45] LABS: BASO# 0.02 X1000 (0.0-0.2); BASO% 0.1 % (0.0-0.8); EOS# 0.02 X1000 (0.0-0.7); EOS% 0.1 % (0.0-10.0); HEMATOCRIT 24.4 % (37.0-47.0); HEMOGLOBIN 7.5 g/dL (12.0-16.0); IMM GRAN# 0.03 X1000 (0.0-0.04); IMM GRAN% 0.2 % (0.0-0.5); LYMPH# 0.52 X1000 (1.2-3.4); LYMPH% 3.7 % (20.5-51.1); MCH 26.3 PG (27-31); MCHC 30.7 g/dL (33-37); MCV 85.6 FL (81-99); MONO# 0.53 X1000 (0.11-0.59); MONO% 3.8 % (1.7-9.3); NEUT# 12.85 X1000 (1.4-6.5); NEUT% 92.1 % (42.2-75.2); PLT 145 X1000 (130-400); RBC 2.85 XMIL (4.2-5.4); RDW 15.1 % (11.5-14.5); WBC 13.97 X1000 (4.8-10.8)
[2018-09-11 08:14] LABS: CALCIUM 7.5 mg/dL (8.8-10.2); POTASSIUM 3.8 mmol/L (3.5-5.1)
[2018-09-11 08:16] LABS: BANDS 22 % (0-1); MONO 2 % (1-9); SEGS 76 % (42-75)
[2018-09-11 08:17] LABS: ANISOCYTOSIS OCCASIONAL; MICROCYTOSIS OCCASIONAL
[2018-09-11] MEDS: ARICEPT PO SCH (09:15)
[2018-09-11] MEDS: CYMBALTA PO SCH (09:15)
[2018-09-11] MEDS: KLOR-CON PO SCH (09:15)
[2018-09-11] MEDS: ASPIRIN PO SCH (09:15)
[2018-09-11] MEDS: THERA M PLUS PO SCH (09:15)
[2018-09-11] MEDS: REQUIP PO SCH ×2 (09:15→21:25)
[2018-09-11] MEDS: DITROPAN PO SCH ×3 (09:15→18:16)
[2018-09-11] MEDS: LASIX IV SCH ×2 (09:15→21:25)
[2018-09-11] MEDS: LIORESAL PO SCH ×3 (09:15→18:17)
[2018-09-11] MEDS: IMDUR PO SCH (09:15)
[2018-09-11] MEDS: DIFLUCAN PO SCH (09:15)
[2018-09-11] MEDS: FLONASE NAS SCH (09:16)
[2018-09-11] MEDS: FOLIC ACID PO SCH (09:16)
[2018-09-11] MEDS: NITROGLYCERIN 0.4 MG/HR PATCH TD SCH (09:16)
[2018-09-11] MEDS: UROGESIC-BLUE PO SCH (09:17)
--- NOTE | 2018-09-11 09:54 | PROGRESS NOTE ---
DATE: 09/11/2018 SUBJECTIVE: Ms. Heredia reports having done reasonably well overnight. She has had right flank pain which she states has improved this morning. She also reports having had fevers. Her documented highest temperature was 102.1 at 4:00 a.m. She denies chills or nausea. OBJECTIVE: Vital Signs: T 99.5, P 96, BP 100/60. Her urine output was recorded in the amount of 2150 mL. PHYSICAL EXAMINATION: General: No apparent distress. Upper extremities: Stable bruising of both arms. Abdomen is nontender, nondistended. : Suprapubic tube in place, draining dark cranberry-colored urine without clots. PERTINENT LABORATORY DATA: Her white cell count is 14,000. Hematocrit is 24.4. Creatinine is 1.0. ASSESSMENT AND PLAN: A 72-year-old female status post right percutaneous nephrostolithotomy of the large staghorn stone who is doing fairly well. I have discussed with the patient that postop fever could be related secondary to release of bacteria, likely harbored by the large renal stone. She is on Azactam per Dr. Elaine' recommendations as well as Diflucan orally secondary to history of Candidemia. I have reviewed her urine culture reports in the past. In 06/2018 , she had Klebsiella pneumonia. I have attempted to contact Dr. Elaine, but he is reportedly not available on Saturdays. I have also discussed the patient with Dr. Wolfe. I recommended observing her temperature for now and not expand antibiotic coverage at this time. I also was called to the patient's bedside yesterday evening secondary to her daughter being concerned about patient having bruising of upper extremities after the procedure. The patient is quadriplegic and has fairly contracted upper extremities. She has been on Lovenox and is on aspirin 81 mg. I have discussed with the patient and her daughter that we have handled her very carefully, and I was present in the room during the patient being moved onto the operating room table and, after the surgery, back on the stretcher. We discussed that secondary to her contracted upper extremities, we did our best to pad both of them, but obviously her upper body likely had some compression onto those upper extremities which has led to bruising. I have reassured the patient and her daughter that this should be temporary. PLAN: 1. Continue antibiotics per Dr. Elaine. 2. Keep suprapubic tube to gravity drainage. 3. I will follow the patient. cc: MD Amando Castro MD [facility]
--- NOTE | 2018-09-11 10:24 | PROGRESS NOTE ---
DATE: 09/11/2018 SUBJECTIVE: A 72-year-old white female patient with multiple medical problems. Admitted with severe cellulitis affecting both feet more so on the right than the left. The patient also had some fever. Multiple medical problems. The patient was not responding to outpatient treatment. The patient had a surgical consult done by Dr. Walters and recommendation noted. The patient had a large staghorn calculus. Patient underwent lithotripsy yesterday. Patient spiked fever around 102.1 degrees last night. The patient is on Azactam which we continue. The patient was given some Tylenol. Her fever came down to 99.5. Patient is also on Diflucan. Her presentation and plan discussed with the urologist. The patient was also complaining of a bruised left forearm and arm more than the right forearm and arm which the patient was attributing to strapping during surgery. The patient claims she does have hardware in both of her arms. She did have some nausea. No vomiting. No diarrhea. No typical chest pain. History part was limited. Past medical history and medications noted. Admission history and physical reviewed. OBJECTIVE: Vital Signs: Blood pressure 100/60, pulse 96, temperature 99.5, O2 saturation was 99%. The patient does have a bruised left upper limb. Lungs: Decreased air entry both the bases. CVS: 2/6 systolic murmur at the apex. Abdomen soft, globular. Bowel sounds present. No acute DVT in the legs. 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 LABORATORY DATA: The patient's lab data done today: WBC count 13.97, hemoglobin 7.5, hematocrit 24.4, platelet count 145,000. BUN 26, creatinine 1. PATIENT'S PROBLEMS: 1. Fever. 2. Nephrolithiasis. 3. Chronic pain. 4. She had a history of cellulitis in the feet but doing better. 5. History of recurrent urinary tract infection. 6. Anxiety and depression. 7. The patient had multiple back surgeries and chronic back pain. PLAN: Lab and medication noted. We are going to recheck blood work tomorrow. Overall plan discussed with the patient, and she is in agreement. Dr. Hancock requested ID consult. cc: MD Amando Tyson MD
[2018-09-11] MEDS: CHLORASEPTIC SPRAY MT PRN ×2 (12:47→21:25)
[2018-09-11] MEDS: NS 1,000 ML IV SCH (18:17)
[2018-09-11] MEDS: SODIUM CHLORIDE 0.9% INJ SCH (18:17)
[2018-09-11] MEDS: PROTONIX IV SCH (18:17)
[2018-09-11] MEDS: ABILIFY PO SCH (21:25)
[2018-09-11] MEDS: KLONOPIN PO PRN (21:26)
[2018-09-11] MEDS: DESYREL PO SCH (21:26)
[2018-09-12] MEDS: ZOFRAN IV PRN ×4 (02:56→23:20)
[2018-09-12] MEDS: NORCO-10 PO PRN ×4 (05:00→23:19)
[2018-09-12 07:56] LABS: BASO# 0.01 X1000 (0.0-0.2); BASO% 0.2 % (0.0-0.8); EOS# 0.14 X1000 (0.0-0.7); EOS% 2.3 % (0.0-10.0); HEMATOCRIT 20.8 % (37.0-47.0); HEMOGLOBIN 6.1 g/dL (12.0-16.0); LYMPH# 0.64 X1000 (1.2-3.4); LYMPH% 10.6 % (20.5-51.1); MCH 25.3 PG (27-31); MCHC 29.3 g/dL (33-37); MCV 86.3 FL (81-99); MONO# 0.36 X1000 (0.11-0.59); MPV 12.1 FL (7.4-10.4); NEUT# 4.86 X1000 (1.4-6.5); NEUT% 80.9 % (42.2-75.2); PLT 113 X1000 (130-400); RBC 2.41 XMIL (4.2-5.4); WBC 6.01 X1000 (4.8-10.8)
[2018-09-12 08:12] LABS: ALB/GLOB RATIO 1.1; ALBUMIN 2.4 g/dL (3.5-5.0); CREATININE 1.2 mg/dL (0.5-0.9); MAGNESIUM 1.6 mg/dL (1.5-2.7); POTASSIUM 3.8 mmol/L (3.5-5.1); TOTAL BILIRUBIN 0.23 mg/dL (0.20-1.00); TOTAL PROTEIN 4.5 g/dL (6.3-8.3)
[2018-09-12 08:20] LABS: CALCIUM 6.8 mg/dL (8.8-10.2)
--- NOTE | 2018-09-12 10:19 | PROGRESS NOTE ---
DATE: 09/12/2018 SUBJECTIVE: Ms. Heredia is doing fair. She was concerned about hardware in her left upper limb. Also, pain in the right shoulder. She denied any typical chest pain, unusual shortness of breath. The patient did have some bleeding from her sinuses, which was minor. No typical chest pain. Oral intake is variable. The patient had a lithotripsy done for large staghorn calculi. Her vital signs noted. Her fever is under control. T-max yesterday was 99.6. Patient does have bruise funmi on the left upper limb, also on the right shoulder. OBJECTIVE: Neck: Supple. Lungs: Bibasilar crepitation. Heart: S1 and S2 heard. Abdomen: Soft, globular. Bowel sounds present. GLAZIER METAL FURNITURE: Alert, awake, answering questions fairly well. LABORATORY DATA: Lab data done: Hemoglobin 6.1, WBC count 6.01, platelet count was 113. Electrolytes: Calcium was 6.8, corrected calcium is normal. Potassium 3.8, sodium 138, BUN 28, creatinine 1.2. CONSIDERATION: Anemia most likely due to blood loss. The patient does have bruise funmi on the left upper limb and right shoulder patient is concerned about. I am going to get x-ray done. Kidney stones status post lithotripsy, chronic pain, resistant depression, dementia. PLAN: To continue current treatment and close observation. We are going to transfuse 2 units of packed RBC. Infectious Disease specialist is going to evaluate the patient today. The plan discussed with the patient and she is in agreement. cc: MD Amando Tyson MD
[2018-09-12] MEDS: REQUIP PO SCH ×2 (10:45→20:40)
[2018-09-12] MEDS: IMDUR PO SCH (10:46)
[2018-09-12] MEDS: FOLIC ACID PO SCH (10:46)
[2018-09-12] MEDS: CYMBALTA PO SCH (10:46)
[2018-09-12] MEDS: ARICEPT PO SCH (10:47)
[2018-09-12] MEDS: KLOR-CON PO SCH (10:47)
[2018-09-12] MEDS: ASPIRIN PO SCH (10:47)
[2018-09-12] MEDS: LIORESAL PO SCH ×3 (10:47→17:10)
[2018-09-12] MEDS: THERA M PLUS PO SCH (10:47)
[2018-09-12] MEDS: DIFLUCAN PO SCH (10:47)
[2018-09-12] MEDS: LOVENOX SUBQ SCH (10:48)
[2018-09-12] MEDS: DITROPAN PO SCH ×3 (10:48→17:10)
[2018-09-12] MEDS: FLONASE NAS SCH (10:48)
[2018-09-12] MEDS: NITROGLYCERIN 0.4 MG/HR PATCH TD SCH (10:49)
[2018-09-12] MEDS: LASIX IV SCH ×2 (10:51→20:41)
--- NOTE | 2018-09-12 11:30 | Diag Imaging Result Doc PS360 ---
EXAM: SHOULDER 1 VIEW RIGHT - 09/12/2018 HISTORY: c/o pain TECHNIQUE: Portable AP right shoulder one view COMPARISON: None. FINDINGS: The bones are possibly osteopenic. There are some osteoarthritic changes. There are no erosive or destructive changes identified. There is no fracture or dislocation identified. IMPRESSION: Osteoarthritic changes. No visible acute bony abnormality. Electronically signed by Fab Feliciano 09/12/2018 11:28 AM
--- NOTE | 2018-09-12 11:37 | Diag Imaging Result Doc PS360 ---
EXAM: HUMERUS-LEFT - 09/12/2018 HISTORY: c/o pain TECHNIQUE: Left humerus two views COMPARISON: 11/27/2011 left shoulder FINDINGS: There is a left shoulder prosthesis. There is associated intramedullary christo in the left humerus. There is a metallic plate with anchoring wires and screw which extends along the mid and distal left humerus. There is mild deformity at the proximal shaft of the left humerus just above the proximal margin of the metallic plate. There is curvilinear lucency in the lateral cortex at the deformity, which may relate to fracture. There is no substantial displacement identified. There is prominent dense material lateral near the elbow, which appears to extend from the distal humerus to the overlying lateral soft tissues. This may represent unusually prominent heterotopic bone formation. IMPRESSION: Postsurgical changes with metallic hardware. Possible nondisplaced fracture at proximal shaft of humerus. Apparent prominent heterotopic bone formation about the distal humerus. Electronically signed by Fab Feliciano 09/12/2018 11:34 AM
[2018-09-12] MEDS: SODIUM CHLORIDE 0.9% INJ SCH (17:10)
[2018-09-12] MEDS: PROTONIX IV SCH (17:10)
[2018-09-12] MEDS: NS 1,000 ML IV SCH (19:47)
[2018-09-12] MEDS: TYLENOL PO PRN (20:40)
[2018-09-12] MEDS: ABILIFY PO SCH (20:40)
[2018-09-12 21:53] LABS: BASO# 0.04 X1000 (0.0-0.2); BASO% 0.4 % (0.0-0.8); EOS# 0.16 X1000 (0.0-0.7); EOS% 1.8 % (0.0-10.0); HEMATOCRIT 31.7 % (37.0-47.0); HEMOGLOBIN 9.9 g/dL (12.0-16.0); IMM GRAN# 0.02 X1000 (0.0-0.04); IMM GRAN% 0.2 % (0.0-0.5); LYMPH# 0.65 X1000 (1.2-3.4); LYMPH% 7.3 % (20.5-51.1); MCH 28.1 PG (27-31); MCHC 31.2 g/dL (33-37); MCV 90.1 FL (81-99); MONO# 0.52 X1000 (0.11-0.59); MONO% 5.8 % (1.7-9.3); MPV 12.6 FL (7.4-10.4); NEUT% 84.5 % (42.2-75.2); PLT 112 X1000 (130-400); RBC 3.52 XMIL (4.2-5.4); RDW 15.5 % (11.5-14.5); WBC 8.89 X1000 (4.8-10.8)
[2018-09-13] MEDS: DESYREL PO SCH ×2 (03:44→20:16)
[2018-09-13] MEDS: ZOFRAN IV PRN ×4 (05:13→23:55)
[2018-09-13] MEDS: NORCO-10 PO PRN ×4 (05:13→23:55)
[2018-09-13] MEDS: CYMBALTA PO SCH (08:32)
[2018-09-13] MEDS: REQUIP PO SCH ×2 (08:32→20:16)
[2018-09-13] MEDS: FOLIC ACID PO SCH (08:33)
[2018-09-13] MEDS: LIORESAL PO SCH ×3 (08:33→16:13)
[2018-09-13] MEDS: DIFLUCAN PO SCH (08:33)
[2018-09-13] MEDS: KLOR-CON PO SCH (08:33)
[2018-09-13] MEDS: ASPIRIN PO SCH (08:33)
[2018-09-13] MEDS: ARICEPT PO SCH (08:33)
[2018-09-13] MEDS: IMDUR PO SCH (08:33)
[2018-09-13] MEDS: LOVENOX SUBQ SCH (08:33)
[2018-09-13] MEDS: DITROPAN PO SCH ×3 (08:33→16:14)
[2018-09-13] MEDS: THERA M PLUS PO SCH (08:33)
[2018-09-13] MEDS: LASIX IV SCH ×2 (08:33→20:16)
[2018-09-13] MEDS: FLONASE NAS SCH (08:33)
--- NOTE | 2018-09-13 08:51 | Diag Imaging Result Doc PS360 ---
EXAM: FOREARM-LEFT HISTORY: c/o pain TECHNIQUE: Left forearm, two views COMPARISON: None. FINDINGS: The bones are markedly osteopenic. There has been extensive surgery to the humerus. There is deformity to the distal radius from an old healed fracture. Long-standing arthritic changes are found at the wrist. IMPRESSION: No acute bony injury. Electronically signed by Prosper Gonzalez 09/13/2018 8:48 AM
[2018-09-13] MEDS ORDERED: CALCIUM GLUCONATE IV PUSH ONE (09:19)
[2018-09-13] MEDS: NITROGLYCERIN 0.4 MG/HR PATCH TD SCH (09:21)
--- NOTE | 2018-09-13 09:35 | PROGRESS NOTE ---
DATE: 09/13/2018 SUBJECTIVE: Ms. Heredia had a Nephrology procedure done. She still is passing some blood in the urine. She became anemic, was transfused 2 units over the weekend. Hemoglobin has come back up from 6.1 to 9.9 now. Her electrolytes are stable this morning. The creatinine is 1.2 and a calcium was 6.8 earlier. We will give her some extra calcium today. -0 cc: Amando Berman MD
[2018-09-13] MEDS ORDERED: CALCIUM GLUCONATE 1 GM in NS 50 ML IV ONE (10:00)
[2018-09-13] MEDS: SODIUM CHLORIDE 0.9% INJ SCH (15:56)
[2018-09-13] MEDS: NS 1,000 ML IV SCH ×2 (17:38→19:41)
[2018-09-13] MEDS: PROTONIX IV SCH (19:40)
[2018-09-13] MEDS: TYLENOL PO PRN (19:41)
[2018-09-13] MEDS: ABILIFY PO SCH (20:16)
--- NOTE | 2018-09-13 23:20 | GENERAL SURGERY PROGRESS NOTE ---
DATE: 09/13/2018 SUBJECTIVE: She has had some bruising on her arm related to her urologic procedure. Otherwise she seems to be doing okay. No complaints of lower extremities. No fevers. No tachycardia. Blood pressure been systolics in the 90s for the most part. Oxygen saturation high 90s, low 100. Reviewed her labs. She has been anemic but this is improved. White count remains normal. ASSESSMENT AND PLAN: This is a 72-year-old female cellulitis of legs has resolved. She is having procedure related to her stones be managed by Urology. Will continue to follow but no plans for surgical intervention. cc: MD Amando Nichole MD
[2018-09-14] MEDS: NORCO-10 PO PRN ×2 (05:46→12:17)
[2018-09-14] MEDS: ZOFRAN IV PRN ×2 (05:46→11:46)
--- NOTE | 2018-09-14 07:33 | PROGRESS NOTE ---
DATE: 09/13/2018 SUBJECTIVE: Ms. Heredia reports she had a good night overnight. She did receive 2 units of red blood cells secondary to a drop in her hemoglobin to 7.5 from 9.4. It has come up to 9.9. She denies flank pain. She reports suprapubic pressure and urgency. She still continues to do well with a suprapubic tube without significant leakage. OBJECTIVE: Vital Signs: T 98.3 degrees, P 54, BP 100/58. The urine output was recorded in the amount of 1150 mL. Physical Examination: General: No acute distress. Abdomen: Nontender, nondistended. : Suprapubic tube in place, draining brownish-appearing urine without evidence of clots. Pertinent Labs: Hematocrit is 32. Creatinine is 1.2. ASSESSMENT: A 72-year-old female status post right percutaneous nephrostolithotomy. She is currently doing well. She reports slowly improving discomfort from the bruising to her upper extremities. Of note, her x-rays of the forearm, shoulder, and humerus were all without evidence of fracture. I have discussed with the patient and her daughter that from the urologic standpoint, she is clear for discharge. She has a right ureteral stent which we will remove in clinic in approximately 2 weeks. From the wound care standpoint, she has chromic sutures over her back incision which will dissolve on their own. There is a dressing that can be changed as needed over it, just to keep her clothes from being soiled. The family voiced understanding. PLAN: No further urologic intervention needed at this point. We will follow while the patient in the hospital. cc: MD Amando Castro MD
[2018-09-14 08:46] LABS: CALCIUM 7.6 mg/dL (8.8-10.2); CREATININE 1.2 mg/dL (0.5-0.9); POTASSIUM 3.8 mmol/L (3.5-5.1)
[2018-09-14] MEDS: FLONASE NAS SCH (08:57)
[2018-09-14] MEDS: LASIX IV SCH (08:57)
[2018-09-14] MEDS: IMDUR PO SCH (08:57)
[2018-09-14] MEDS: CYMBALTA PO SCH (08:57)
[2018-09-14] MEDS: REQUIP PO SCH (08:57)
[2018-09-14] MEDS: LOVENOX SUBQ SCH (08:57)
[2018-09-14] MEDS: THERA M PLUS PO SCH (08:58)
[2018-09-14] MEDS: LIORESAL PO SCH (08:58)
[2018-09-14] MEDS: DITROPAN PO SCH (08:58)
[2018-09-14] MEDS: DIFLUCAN PO SCH (08:58)
[2018-09-14] MEDS: KLOR-CON PO SCH (08:58)
[2018-09-14] MEDS: ARICEPT PO SCH (08:58)
[2018-09-14] MEDS: FOLIC ACID PO SCH (08:58)
[2018-09-14] MEDS: ASPIRIN PO SCH (08:58)
[2018-09-14] MEDS: NITROGLYCERIN 0.4 MG/HR PATCH TD SCH (08:59)
[2018-09-14 09:00] LABS: BASO# 0.01 X1000 (0.0-0.2); BASO% 0.2 % (0.0-0.8); EOS# 0.17 X1000 (0.0-0.7); EOS% 3.3 % (0.0-10.0); HEMATOCRIT 26.5 % (37.0-47.0); LYMPH# 0.89 X1000 (1.2-3.4); LYMPH% 17.3 % (20.5-51.1); MCH 26.8 PG (27-31); MCHC 30.2 g/dL (33-37); MCV 88.9 FL (81-99); MONO# 0.48 X1000 (0.11-0.59); MONO% 9.3 % (1.7-9.3); MPV 11.3 FL (7.4-10.4); NEUT# 3.59 X1000 (1.4-6.5); NEUT% 69.9 % (42.2-75.2); PLT 151 X1000 (130-400); RBC 2.98 XMIL (4.2-5.4); RDW 15.2 % (11.5-14.5); WBC 5.14 X1000 (4.8-10.8)
--- NOTE | 2018-09-14 09:41 | PROGRESS NOTE ---
DATE: 09/14/2018 SUBJECTIVE/OBJECTIVE: Ms. Heredia is doing better. Her vital signs are stable. Lungs clear. Abdomen is soft, nontender. ASSESSMENT AND PLAN: She was seen by Dr. Hancock who mentioned that no urological intervention is necessary for the time being. Her cellulitis is better. I am going to discharge her today. -3 cc: Amando Berman MD
--- NOTE | 2018-09-14 09:43 | PROGRESS NOTE ---
DATE: 09/14/2018 SUBJECTIVE: Ms. Heredia reports no events overnight. She has had right shoulder pain which she states has minimally improved. OBJECTIVE: Vital Signs: T 98, P 50, BP 125/70. Her urine output was recorded in the amount of 3300 mL. Physical Examination: General: No acute distress. Abdomen: Nontender, nondistended. : Suprapubic tube in place, draining diluted cranberry juice colored urine without clots. Pertinent Labs: Hematocrit is 26.5. Her creatinine is 1.2. ASSESSMENT AND PLAN: A 72-year-old female status post right percutaneous nephrostolithotomy which went well but she has had acute blood loss anemia as well as bruising to her upper extremities secondary to immobility despite adequate precautions for padding intraoperatively. Her bruising appears to be improved. Her shoulder pain is no worse. I have reassured the patient that she would have to give it some time. I have discussed with her that from a urologic standpoint, there is nothing to do during this hospitalization and as long as her blood count stabilizes, she will be cleared for discharge from my standpoint, with a plan to have the stent removed in 2 weeks. cc: MD Amando Castro MD
[2018-09-14 14:15] VITALS: BP 92/49
--- NOTE | 2018-09-15 09:42 | DISCHARGE SUMMARY ---
ADMISSION DATE: 09/02/2018 DISCHARGE DATE: 09/14/2018 REASON FOR HOSPITALIZATION: Ms. Heredia, who is a 72-year-old white female, had cellulitis which was not responding to outpatient therapy. LAB DATA IN THE HOSPITAL: CBC was unremarkable. Hemoglobin was 9 grams which fell to 6.1. She was transfused 2 units, and repeat hemoglobin was 9.9. Electrolytes are normal. BUN 28, creatinine 1.2, calcium was 6.8. At one point, stone analysis has been done. The results are not back. INR was 0.96. COURSE IN THE HOSPITAL: She was initially treated with IV antibiotics. Dr. Elaine was consulted, and he changed it to daptomycin and Azactam. They were continued. IV Lasix was given. She continued to improve. She had some leakage from the suprapubic catheter. Dr. Hancock was consulted. Ditropan was started. Later on, he did a percutaneous nephrostomy procedure. Postoperative complications were none, and she was discharged. Prior to discharge, she was transfused 2 units. We will see her in the office in about 7 days. cc: Amando Berman MD
--- NOTE | 2018-10-14 12:59 | OPERATIVE NOTE ---
PROCEDURE DATE: 09/10/2018 SURGEON: Dr. Kavin Hancock. PREOPERATIVE DIAGNOSIS: Right large staghorn calculus (over 3 cm), chronic urinary tract infection, neurogenic bladder, suprapubic tube. PROCEDURE: Cystoscopy with placement of right ureteral open-ended catheter, antegrade nephrostomy access with a stick via lower pole calyx, right percutaneous nephrostolithotomy of the staghorn stone, placement of 6-Irish, 24 cm ureteral stent. INDICATIONS: A 72-year-old, pleasant female with history of paraplegia after an unfortunate fall. She has neurogenic bladder and has had suprapubic tube placed in the past. She has had recurrent UTIs with imaging revealing bilateral staghorn stones. She has undergone left-sided ESWL with partial fragmentation. Given the partial fragmentation, she was counseled on right PCNL of her staghorn stone on that side. She wants to proceed. FINDINGS: Access was gained via lower pole calyx. Approximately 90% of the stone burden was addressed. There were 2 or 3 smaller stone fragments that were difficult to access due to the angle. Successful placement of 6-Irish, 24 cm stent which was confirmed fluoroscopically. PROCEDURE IN DETAIL: After obtaining informed consent, patient was brought to the operating room. Perioperative antibiotics and general endotracheal anesthesia were administered. She was placed in a frogleg position, although her extremities did not bend easily on the stretcher. Her genitals were prepped and draped in sterile fashion. The suprapubic tube was clamped and a 21- Irish rigid cystoscope was used to gain access to the urethra and the bladder. It was briefly examined and had erythematous mucosa consistent with chronic indwelling suprapubic tube, as well as small bladder stones, but no evidence of concerning mucosal lesions. I turned attention to right ureteral orifice, which was cannulated with PTFE wire that was in turn advanced up to the level of the renal pelvis. I then introduced a 5-Irish open-ended ureteral catheter over the wire to the approximately 20 cm funmi. We then removed the rigid cystoscope and introduced 16- Irish Arnold catheter with 10 mL of sterile water introduced in the balloon, and we secured the open-ended ureteral catheter to the Arnold catheter with 0 silk suture. The ureteral catheter was connected to IV tubing in order to be able to perform retrograde pyelograms. We then carefully repositioned the patient into prone orientation. We padded her upper and lower extremities, but of course her extremities were very stiff due to her paraplegia. We then prepped and draped her. We used the fourth arm in the anterior-posterior orientation, as well as a 20 degree angle, to identify a lower pole calyx. After injecting 50% diluted Omnipaque dye, I then used a finder needle after making a small stab incision with 11 blade under skin to introduce into the lower pole calyx. Once the inner sheath was removed, I was able to visualize clear urine emanating from the needle. I then used PTFE wire and introduced it via the needle sheath into the renal pelvis. It was difficult to advance it into the ureter due to the large staghorn in the way. Hence, we elected to use that as our safety wire. The needle was withdrawn. Her incision on the bag was deepened with 11 blade, as well as extended to approximately 1 cm. We then used 8-Irish dilator followed by 10-Irish dilator and 12-Irish dilator to sequentially dilate the tract over the PTFE wire with the tip of the dilator into the lower pole calyx. This was followed by introduction of the dual lumen sheath over the wire and removal of the inner sheath in order to accommodate introduction of a second wire which was a Sensor wire. It also appeared to curl in the renal pelvis. Once that was done, I introduced the dilator balloon with the radiopaque tip at the level of the lower pole calyx. This was done over the wire. Then Omnipaque dye was instilled into the balloon up to a pressure of 12 cm of water. We appeared to have excellent angle into the lower pole calyx. We then advanced a 30-Irish sheath over the balloon. The balloon was deflated and retrieved. We then used a rigid nephroscope and gained access to the lower pole calyx. She had again a very large staghorn stone and I was able to visualize the stone beginning at the proximal portion of the calyx and the renal pelvis. We used ultrasound wand to address the stone in the renal pelvis as well as the upper pole calyx and lower pole calyx. Due to the angle, the interpolar sariah was hard to access. I also used Perc NCircle in order to retrieve some of the larger fragments. I then switched to a flexible 16-Irish cystoscope and was able to use a Zero Nitinol basket to bring some of the inner pole fragments into the renal pelvis that were eventually dressed without ultrasonic wand or retrieval through the sheath. On fluoroscopy, we were satisfied with the disappearance of the staghorn stone in the renal pelvis and lower pole. There appeared to be a 7 to 8 mm fragment in the inner pole area, as well as a 6 to 7 mm fragment in the upper pole. There was an approximately 4 to 5 mm fragment that appeared to be just adjacent to the sheath, but likely a very acute angle. I used the flexible cystoscope and, for some time, continued to look for those fragments. Eventually I was able to find 1 of them and we addressed that by retrieval. As the patient has been on operating room table for quite some time and, in order to prevent hypothermia given the amount of fluids we had to irrigate the nephroscope with, we decided to stop the procedure. I estimated we took care of over 90% of the stone burden. Nephroscope was retrieved and a 21-Irish rigid cystoscope was introduced via the sheath. The PTFE wire was now introduced down the ureteropelvic junction area, which did not appear to have injury or stones lodged in it. Open-ended ureteral catheter was removed and the wire was advanced into the bladder as confirmed fluoroscopically. We then placed 6-Irish, 24 cm ureteral stent over the wire until the bladder coil was visualized fluoroscopically and the proximal coil in the renal pelvis was directly seen. We obviously detached the string. We then removed the cystoscope and sheath. Her incision was closed with interrupted 3-0 chromic sutures with application of surgical dressing over it. We then carefully turned the patient over on her back. She was extubated and taken to PACU for further recovery. ESTIMATED BLOOD LOSS: 200 mL. COMPLICATIONS: None. DISPOSITION: To PACU with chest x-ray and blood work and subsequently onto the floor. cc: MD Amando Castro MD
== END 2018-09-14 14:23 | disposition home health service (06) | DRG 982 ==
LOC: DIRADM 10:24 → 3N 16:13
PROVIDERS: ADMIT Internal Medicine; ATTEND Internal Medicine
CPT/HCPCS: 36430; 71010; 71045; 73020; 73060; 73090; 73620; 76000; 78315; 80048; 80053; 80076; 82360; 82550; 83735; 85025; 85027; 85610; 86850; 86870; 86900; 86901; 86905; 86920; 86922; 87040; 87070; 87077; 87186; 88300; 93923; 93970; 94760; 94761; A9270; A9503; C9113; J0330; J0610; J0878; J1650; J1940; J1956; J2270; J2370; J2405; J3010; J3370; J7030; J7050; P9016; S0073; S0164

== ENCOUNTER 2018-10-13 16:26 | Inpatient (IN) ==
[2018-10-13] MEDS ORDERED: LEVAQUIN 750 MG/D5W 750 MG/150 ML IVPB IV ONE ×2 (17:17→22:36)
--- NOTE | 2018-10-13 17:49 | PROVIDER DOCUMENTATION ---
This chart was entered by Azra Sierra Scribe, acting as scribe for Candelario Marin MD. HPI-General Adult - General Stated Complaint: FTT Time Seen by Provider: 10/13/18 16:54 Source: family (daughter) Allergies/Adverse Reactions: Patient Allergies Allergy/AdvReac Type Severity Reaction Status Date / Time codeine [Codeine] Allergy Unknown Unknown Verified 04/02/16 14:11 meperidine HCl * Allergy Unknown Unknown Verified 04/02/16 14:11 [From Demerol] metoclopramide HCl * Allergy Unknown Unknown Verified 04/02/16 14:11 [From Reglan] Penicillins Allergy Unknown Unknown Verified 04/02/16 14:11 Sulfa (Sulfonamide Allergy Unknown Unknown Verified 04/02/16 14:11 Antibiotics) Home Medications: Home Medication List Medication Instructions Recorded Confirmed Last Taken Type Aripiprazole 1 each PO QHS 07/10/18 09/01/18 08/31/18 21:00 History Aspirin 81 mg PO QAM 07/10/18 09/01/18 09/01/18 09:00 History Baclofen 10 mg PO TID 07/10/18 09/01/18 09/01/18 09:00 History Clonazepam 1 each PO BID PRN PRN 07/10/18 09/01/18 08/31/18 21:00 History Folic Acid 1 each PO QAM 07/10/18 09/01/18 09/01/18 09:00 History Furosemide [Lasix] 40 mg PO BID 07/10/18 09/01/18 09/01/18 09:00 History Isosorbide Mononitrate [Isosorbide 60 mg PO QAM 07/10/18 09/01/18 09/01/18 09: 00 History Mononitrate ER] Methen/Sod Phos/Meth Blue/Hyos 1 each PO TID 07/10/18 09/01/18 09/01/18 09:00 History [In-Bzxowj-Bw-Hyo 1 Tablet] Multivitamin [Multivitamins] 1 each PO QAM 07/10/18 09/01/18 09/01/18 09:00 History Nitroglycerin [Nitroglycerin 0.4 1 each TD QAM 07/10/18 09/01/18 09/01/18 09:00 History mg/Hr Patch] Ondansetron [Zofran Odt] 4 mg SL TID 07/10/18 09/01/18 08/31/18 21:00 History Potassium Chloride 1 each PO QAM 07/10/18 09/01/18 09/01/18 09:00 History Ropinirole HCl 2 mg PO BID 07/10/18 09/01/18 09/01/18 09:00 History Donepezil [Aricept] 10 mg PO QAM tablet 07/23/18 09/01/18 09/01/18 09:00 Rx Duloxetine [Cymbalta] 60 mg PO QAM capsule 07/23/18 09/01/18 09/01/18 09:00 Rx Fluticasone 50 Mcg Nasal Egnar 1 spray PALMER DAILY bottle 07/23/18 09/01/1809/01 09:00 Rx [Flonase] Hydrocodone/APAP 10 mg/325 mg 1 each PO Q6H PRN PRN tablet 07/23/18 09/01/18 09:00 Rx [Flushing-10] Pantoprazole [Protonix] 40 mg PO QAM tablet 07/23/18 09/01/18 09/01/18 09:00 Rx Trazodone [Desyrel] 50 mg PO QHS tablet 07/23/18 09/01/18 08/31/18 21:00 Rx Fluconazole 100 mg PO DAILY 09/01/18 09/01/18 09/01/18 09:00 History Furosemide [Lasix] 09/01/18 09/01/18 Unknown History Acetaminophen [Tylenol] 500 mg PO Q6H PRN PRN tablet 09/14/18 Unknown Rx Aripiprazole [Abilify] 5 mg PO QHS tablet 09/14/18 Unknown Rx Aspirin 81 mg PO QAM chewtab 09/14/18 Unknown Rx Baclofen [Lioresal] 10 mg PO TID tablet 09/14/18 Unknown Rx Clonazepam [Klonopin] 1 mg PO BID PRN PRN tablet 09/14/18 Unknown Rx Donepezil [Aricept] 10 mg PO QAM tablet 09/14/18 Unknown Rx Duloxetine [Cymbalta] 60 mg PO QAM capsule 09/14/18 Unknown Rx Fluconazole [Diflucan] 100 mg PO DAILY tablet 09/14/18 Unknown Rx Fluticasone 50 Mcg Nasal Egnar 1 spray PALMER DAILY bottle 09/14/18 Unknown Rx [Flonase] Folic Acid 0.4 mg PO QAM tablet 09/14/18 Unknown Rx Hydrocodone/APAP 10 mg/325 mg 1 each PO Q6H PRN PRN tablet 09/14/18 Unknown Rx [Flushing-10] Isosorbide Mononitrate E.r. [Imdur] 60 mg PO QAM tablet 09/14/18 Unknown Rx Menthol/Zinc Oxide Ointment 1 gm TOP PRN PRN tube 09/14/18 Unknown Rx [Calmoseptine Ointment] Multivit,Fe,Ca,FA & Min [Thera M 1 each PO QAM tablet 09/14/18 Unknown Rx Plus] Nitroglycerin [Nitroglycerin 0.4 1 each TD QAM patch.td24 09/14/18 Unknown Rx mg/Hr Patch] Oxybutynin [Ditropan] 5 mg PO TID tablet 09/14/18 Unknown Rx Phenol 1.4% Egnar [Chloraseptic 1 ml MT PRN PRN bottle 09/14/18 Unknown Rx Egnar] Potassium Chloride E.r. [Klor-Con] 10 meq PO QAM tablet 09/14/18 Unknown Rx Ropinirole [Requip] 2 mg PO BID tablet 09/14/18 Unknown Rx Trazodone [Desyrel] 50 mg PO QHS tablet 09/14/18 Unknown Rx - History of Present Illness -Gen Adult Nature of Presenting Problems: Patient is a 72 year old female who presents to the ED via EMS with multiple complaints. Patient's daughter states symptoms of weakness, constipation, nausea and hallucinations. Patient's daughter states symptoms have been gradually worsening for 2 weeks. Patient's daughter states patient has a history of UTI and kidney stones. Patient's daughter states patient is paralysis on left side due to a prior spinal injury 9 years ago. Location of Pain/Injury: reports: none Pain Radiation: reports: no radiation Quality of Pain: reports: none Severity: reports: mild Onset/Duration: reports: gradual, other (2 weeks ago) Timing: reports: still present, getting worse Modifying Factors: improves with: nothing Associated Symptoms: reports: constipation, nausea, weakness, other ( hallucinations) Similar Symptoms Previously?: Yes Recently seen or treated by another doctor?: Yes Review of Systems - Adult - REVIEW OF SYSTEMS - ADULT ROS:: ROS per family (mother) Constitutional: reports: no symptoms reported. denies: chills, fever, fatique Eyes: reports: no symptoms reported Ears, Nose, Mouth & Throat: reports: no symptoms reported Cardiovascular: reports: no symptoms reported Respiratory: reports: no symptoms reported Gastrointestinal: reports: constipation, nausea. denies: abdominal pain, diarrhea, vomiting Genitourinary: reports: no symptoms reported Musculoskeletal: reports: muscle weakness. denies: back pain, muscle aches, neck pain Integumentary: reports: no symptoms reported Neurological: reports: no symptoms reported Psychiatric: reports: other (hallucinations). denies: anxiety, depression, suicidal thoughts Endocrine: reports: no symptoms reported Hematologic/Lymphatic: reports: no symptoms reported Allergic/Immunologic: reports: no symptoms reported All Other Systems: Reviewed and Negative Past History - Adult - PAST MEDICAL HISTORY-ADULT Review of Records: reports: Nursing Assessment Review, Medications Reviewed, Social history reviewed & non-contributory. Major Childhood Illnesses: reports: denies history Cardiovascular: reports: CHF Respiratory: reports: asthma, COPD Gastrointestinal: reports: denies history Obstetrical/Gynecological: reports: denies history Genitourinary: reports: chronic UTI's Musculoskeletal: reports: denies history Neurological: reports: Parkinson's, other (paralysis) Psychiatric: reports: denies history Endocrine/Immune: reports: denies history Other Conditions: reports: denies history Additional History: paralysis from left arm and bilateral legs - PRIOR SURGERIES/PROCEDURES Surgical/Procedure History: reports: cholecystectomy, tonsillectomy, hernia repair, orthopedic (extremity) (shoulder), joint replacement (TKR) - IMMUNIZATION STATUS Childhood Immunizations: See Nurse Assessment Flu Vaccine: See Nurse Assessment - FAMILY HISTORY Family History: reviewed, not pertinent - SOCIAL HISTORY Smoking: denies Substance Use: denies Living Situation: family Physical Exam-General - PHYSICAL EXAM-ADULT Initial Vital Signs Reviewed: Yes - CONSTITUTIONAL General Appearance: alert, no apparent distress - RESPIRATORY Respiratory: chest non-tender, lungs clear, normal breath sounds - CARDIOVASCULAR Cardiovascular: normal peripheral pulses, regular rate, rhythm - MUSCULOSKELETAL Extremity: erythema (right 1st, 2nd and 3rd toes), swelling (right 1st, 2nd and 3rd toes), tenderness (right 1st, 2nd and 3rd toes) - SKIN Integumentary: erythema (right 1st, 2nd and 3rd toes), swelling (right 1st, 2nd and 3rd toes), tenderness (right 1st, 2nd and 3rd toes) - NEUROLOGIC Neurologic: grossly normal, no motor/sensory deficits - PSYCHIATRIC Psych/Mental Status: normal mood/affect Progress - CONSULTS/PCP/HOSPITALIST Notification #1 *Consult/PCP/Hospitalist*: DR ALARCON Time Discussed: 19:09 Consult Disposition: Admit, other (WILL BE GLAD TO CAME TO ER AND SEE AND ADMIT THE PT FOR UTI AND MENTAL STATUS CHANGES.) Departure - Departure Date of Disposition Decision: 10/13/18 Time of Disposition Decision: 19:08 DIAGNOSIS: UTI (urinary tract infection), Altered mental status Disposition: ADMITTED INPATIENT 09 Certified Medical Emergency: Emergent Condition: Stable - Critical Care Note This patient required my direct & personal management of CC.: Yes Total Time (mins): 15 Critical Care Statement: This patient required my direct personal management to treat or rule out processes, the absence of which, could potentiallly result in sudden, clinically significant life or limb threatening deterioration. Attestation - Physician/ YOKO Attestation Patient care was provided by Advanced Practice Provider:: No The physician spent face to face time with patient:: Yes Advanced Practice Provider documentation review:: Supervising physician onsite and consulted in the evaluation and care of this patient. The physician did have a face to face encounter with the patient. This chart was documented by the indicated scribe, (Azra Sierra Scribe) and accurately reflects the services I performed and decisions made by me, Candelario Marin MD, as attested by the provider's signature.
[2018-10-13 18:22] LABS: URINE SOURCE CATH
[2018-10-13 18:35] LABS: BILIRUBIN URINE NEGATIVE (NEGATIVE); BLOOD URINE SMALL (NEGATIVE); COLOR YELLOW; GLUCOSE URINE NEGATIVE (NEGATIVE); KETONE URINE NEGATIVE (NEGATIVE); LEUKOCYTES URINE LARGE (NEGATIVE); NITRITE URINE NEGATIVE (NEGATIVE); PH URINE 6.5; PROTEIN URINE NEGATIVE (NEGATIVE); TURBIDITY URINE HAZY (CLEAR); UROBILINOGEN URINE NORMAL (NORMAL)
[2018-10-13 18:36] LABS: UR EPITHELIAL CELLS <10 /HPF (<10); URINE BACTERIA 3+ /HPF; URINE RBC <10 /HPF (<10); URINE WBC TNTC /HPF (<10)
--- NOTE | 2018-10-13 18:55 | ED EKG INTERP ---
This chart was entered by Trace Lamar Scribe, acting as scribe for Candelario Marin MD. EKG Interpretation - EKG Time of EKG reading by physician:: 18:29 EKG Read and Signed by:: Candelario Marin EKG Interpretation (*Must complete 3 of following elements*): Abnormal Rate: 62 Rhythm: NSR Comments: Junctional ST depression, probabley abnormal Attestation - Physician/ YOKO Attestation Patient care was provided by Advanced Practice Provider:: No The physician spent face to face time with patient:: Yes Advanced Practice Provider documentation review:: Supervising physician onsite and consulted in the evaluation and care of this patient. The physician did have a face to face encounter with the patient. This chart was documented by the indicated scribe, (Trace Lamar Scribe) and accurately reflects the services I performed and decisions made by me, Candelario Marin MD, as attested by the provider's signature.
[2018-10-13] MEDS ORDERED: CALMOSEPTINE OINTMENT TOP PRN (20:21)
[2018-10-13] MEDS ORDERED: ZOFRAN IV PRN (20:21)
[2018-10-13] MEDS ORDERED: VANCOMYCIN IV PER PHARMACY MISC SCH ×2 (20:45→22:23)
--- NOTE | 2018-10-13 20:54 | Diag Imaging Result Doc PS360 ---
EXAM: KUB ABDOMEN 10/13/2018 HISTORY: constipation TECHNIQUE: KUB COMMENT: There is stool throughout the colon. This is particularly true in the sigmoid where there is formed stool. There are scattered surgical clips and phleboliths. There are rods in the lumbar spine. There is no evidence organomegaly or mass. There is bilateral nephrolithiasis. IMPRESSION: Constipation. Apparent nephrolithiasis. Electronically signed by Chandan Reza 10/13/2018 8:52 PM
--- NOTE | 2018-10-13 20:55 | Diag Imaging Result Doc PS360 ---
EXAM: CHEST-PORTABLE 10/13/2018 HISTORY: delirium TECHNIQUE: AP portable at 2039 COMMENT: The inspiration is less optimal than on 09/10/2018. There is questionable atelectasis in both lung bases. IMPRESSION: Poor inspiration, questionable atelectasis or pneumonia bilaterally. Electronically signed by Chandan Reza 10/13/2018 8:53 PM
--- NOTE | 2018-10-13 21:31 | HISTORY AND PHYSICAL ---
CHIEF COMPLAINT: Confusion. HISTORY OF PRESENT ILLNESS: The patient is a 72-year-old, white female, followed by Dr. Berman. 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 This occurred in 2010 after she suffered a fall and had a spinal cord injury. She comes in with a 2- day history of foul-smelling urine and her daughter, who is very diligent in her care, says she has not been doing exactly well since she had a stent removal from her ureter per Dr. Hancock on September 28. She became confused last evening and that has persisted throughout the day today. The patient had Staph epidermidis UTI which was resistant to oxacillin on recent hospitalization back in August and had a cellulitis in her right foot and leg and bilateral legs. Actually, that required treatment with outpatient IV antibiotics. She also has had a history of fungemia back in March 2018 and has been on prophylactic dose of Diflucan long-term. She has been followed by Dr. Elaine and has had a port in place in the right upper chest. The port has not been able to be aspirated for blood draw as she is a difficult stick and the daughter, who is in attendance with her, has been refusing blood draw peripherally and through arterial means as the aspiration of the port was unsuccessful in the emergency room. We have discussed that with the patient and her daughter and they were both in agreement to allow the blood stick to see if we can get blood work going to help in her care. Urinalysis is markedly abnormal. This is from a suprapubic catheter that is in place long-term. She has had a history of bilateral kidney stones and had lithotripsy in the past and recently got the stent out per Dr. Hancock on September 28. MEDICATIONS: Prior to admission are Abilify 5 mg p.o. at bedtime. Aspirin 81 mg p.o. daily. Baclofen 10 mg p.o. t.i.d., Klonopin 1 mg p.o. b.i.d. p.r.n. anxiety. Folic acid 0.4 mg p.o. daily. Lasix 40 mg p.o. b.i.d., Imdur 60 mg p.o. q.a.m., Urogesic Blue p.o. t.i.d., multivitamin 1 p.o. daily. Nitroglycerin patch 0.4 mg to skin daily. Unclear if she is on this versus the Imdur. Zofran 4 mg ODT p.o. t.i.d., KCl 10 mEq p.o. daily, Requip 2 mg p.o. b.i.d., trazodone 50 mg p.o. at bedtime, Aricept 10 mg p.o. daily. Cymbalta 60 mg p.o. daily, Flonase nasal spray 1 spray each nostril daily, Protonix 40 mg p.o. daily, Diflucan 100 mg p.o. daily. ALLERGIES: To Reglan, Demerol, codeine, penicillins, sulfa. PAST MEDICAL HISTORY: 1. In 2010, spinal cord injury after a fall which rendered her without use of her left arm and bilateral legs and she has been bed-bound since then. She had cage placement and stabilization of the cervical vertebrae and I believe some of the upper thoracic vertebrae as well. 2. Dementia. 3. Kidney stones. 4. Frequent UTIs with suprapubic catheter in place due to neurogenic bladder. 5. Depression with anxiety. 6. History of fungemia. 7. History of cellulitis lower extremities with resulting clearing of that as followed by Dr. Lucio Elaine, Infectious Disease. 8. CHF. 9. History of diverticulosis and diverticular bleed. PAST SURGICAL HISTORY: 1. Cervical and upper thoracic vertebral stabilization 2010. 2. Left shoulder replacement and this hardware has come loose and is at the distal left humeral area. 3. Hysterectomy. 4. Ventral hernia repair. 5. Right TKR. 6. Right second toe amputation. FAMILY HISTORY: Noncontributory. SOCIAL HISTORY: The patient lives with her daughter. She has never been a smoker and does not drink alcohol. REVIEW OF SYSTEMS: Notable for constipation. PHYSICAL EXAMINATION: VITAL SIGNS: Pulse 60, respirations 16, temperature 98, blood pressure 103/63, O2 saturation 100% on 2 L per nasal cannula. Weight estimated at 185, and 5 feet 7 inches tall. GENERAL: Obese, white female, bed-bound with chronic left arm and bilateral leg paresis. SKIN: No distinct breakdown over the feet, heels, or backside. Trace redness right lower extremity. Suprapubic catheterization without signs of infection, and the right port in her upper chest shows no signs of active infection. HEENT: SEBAS, EOMI. Sclerae clear. Oropharynx: No redness. Tongue in the midline. NECK: No lymphadenopathy, thyromegaly, JVD or bruits. CARDIOVASCULAR: Distant heart sounds. Regular rate and rhythm. LUNGS: Distant breath sounds. Clear to auscultation. ABDOMEN: Protuberant. Active bowel sounds. Mild distention. BREASTS, PELVIC, RECTAL: Deferred. EXTREMITIES: 2+ lower extremity edema bilaterally. Right 2nd toe surgically absent. NEURO: Patient is alert and oriented x3. She has minimal confusion at most, presently is conversant with me and her daughter. LABS: Accu-Chek 154. Urinalysis too numerous to count WBCs, large leukocytes, small blood, no ketones, glucose negative, 3+ bacteria, that is a suprapubic cath specimen. ASSESSMENT: 1. Delirium, thought related to #2. 2. Urinary tract infection with history of frequent urinary tract infections and history of Staph epidermidis a little over a month ago per urine culture. 3. History of cellulitis lower extremities, status post clearing with IV antibiotics of daptomycin and aztreonam per Dr. Elaine. 4. History of kidney stones. 5. Left arm and bilateral leg paresis secondary to prior history of spinal cord injury. 6. Hardware in place left arm and right knee. 7. History of fungemia. 8. Dementia. 9. Constipation. 10. History of congestive heart failure. PLAN: Daughter was extremely reluctant to allow blood work, but at this time has changed her mind and will allow blood work via peripheral approach from the lab. If we are unsuccessful, we will be able to use the port for installation of medications, but we cannot aspirate and get any blood at this point. So she might be a candidate for additional lab sticks or arterial sticks to try to obtain further data. Note on her blood work recently in August, her creatinine was 1.2. She was anemic with a hemoglobin of 8. We will hold on IV fluids at this time as she has a history of CHF and her blood pressure is stable. She has received some Levaquin per the ER physician and urine culture has been obtained. We will obtain blood cultures in addition to her other labs including a lactate level and we will go ahead and start her on IV vancomycin if we can get documentation of a satisfactory creatinine. Continue her home medications to include Diflucan for prophylaxis of fungemia. The patient likely would need consultation tomorrow morning with Dr. Elaine regarding further recommendations and also might need evaluation per Dr. Eldon Walters regarding her port on the right. cc: Domingo Schreiber MD
[2018-10-13] MEDS: MIRALAX PO SCH (21:48)
[2018-10-13] MEDS: LIORESAL PO SCH (21:50)
[2018-10-13] MEDS: ABILIFY PO SCH (21:50)
[2018-10-13] MEDS: DITROPAN PO SCH (21:52)
[2018-10-13 22:00] LABS: BASO# 0.01 X1000 (0.0-0.2); BASO% 0.1 % (0.0-0.8); EOS# 0.08 X1000 (0.0-0.7); EOS% 0.5 % (0.0-10.0); HEMATOCRIT 31.3 % (37.0-47.0); HEMOGLOBIN 10.8 g/dL (12.0-16.0); IMM GRAN# 0.04 X1000 (0.0-0.04); IMM GRAN% 0.2 % (0.0-0.5); LYMPH# 0.83 X1000 (1.2-3.4); LYMPH% 4.9 % (20.5-51.1); MCH 26.2 PG (27-31); MCHC 34.5 g/dL (33-37); MONO# 1.11 X1000 (0.11-0.59); MONO% 6.6 % (1.7-9.3); MPV 11.3 FL (7.4-10.4); NEUT# 14.73 X1000 (1.4-6.5); NEUT% 87.7 % (42.2-75.2); PLT 196 X1000 (130-400); RBC 4.12 XMIL (4.2-5.4); RDW 14.9 % (11.5-14.5)
[2018-10-13 22:34] LABS: ALB/GLOB RATIO 0.7; ALBUMIN 2.9 g/dL (3.5-5.0); CALCIUM 8.5 mg/dL (8.8-10.2); CREATININE 1.3 mg/dL (0.5-0.9); POTASSIUM 2.9 mmol/L (3.5-5.1); TOTAL BILIRUBIN 0.54 mg/dL (0.20-1.00)
[2018-10-13] MEDS ORDERED: VANCOMYCIN 1,650 MG in NS 250 ML IV ONE (23:30)
[2018-10-13] MEDS: POTASSIUM CHLORIDE 30 MEQ in NS 1,000 ML IV SCH (23:33)
--- NOTE | 2018-10-14 07:16 | EKG Report ---
Test Performed on : 10/13/2018 6:29:56 PM Test Reason : AMS Blood Pressure : / mmHG Vent. Rate : 062 BPM Atrial Rate : 062 BPM P-R Int : 204 ms QRS Dur : 104 ms QT Int : 620 ms P-R-T Axes : 054 041 028 degrees QTc Int : 629 ms Normal sinus rhythm. Junctional ST depression, probably abnormal Abnormal ECG When compared with ECG of 14-APR-2018 14:37, QRS duration has increased Nonspecific T wave abnormality, improved in Anterolateral leads QT has lengthened Unconfirmed Result
[2018-10-14] MEDS ORDERED: NITROGLYCERIN 0.4 MG/HR PATCH TD SCH (09:00)
[2018-10-14] MEDS ORDERED: DITROPAN PO SCH (09:00)
[2018-10-14] MEDS ORDERED: IMDUR PO SCH (09:00)
[2018-10-14] MEDS: LIORESAL PO SCH ×3 (09:41→20:15)
[2018-10-14] MEDS: MIRALAX PO SCH ×2 (09:41→20:15)
[2018-10-14] MEDS: THERA M PLUS PO SCH (09:41)
[2018-10-14] MEDS: DIFLUCAN PO SCH (09:42)
[2018-10-14] MEDS: FOLIC ACID PO SCH (09:42)
[2018-10-14] MEDS: PROTONIX PO SCH (09:42)
[2018-10-14] MEDS: CYMBALTA PO SCH (09:43)
[2018-10-14] MEDS: ASPIRIN PO SCH (09:43)
[2018-10-14] MEDS: DITROPAN PO SCH ×3 (09:43→20:15)
[2018-10-14] MEDS: ARICEPT PO SCH (09:43)
[2018-10-14 16:20] LABS: BASO# 0.01 X1000 (0.0-0.2); EOS# 0.02 X1000 (0.0-0.7); EOS% 0.1 % (0.0-10.0); HEMATOCRIT 24.7 % (37.0-47.0); HEMOGLOBIN 8.3 g/dL (12.0-16.0); IMM GRAN# 0.06 X1000 (0.0-0.04); IMM GRAN% 0.3 % (0.0-0.5); LYMPH# 0.53 X1000 (1.2-3.4); LYMPH% 2.4 % (20.5-51.1); MCH 25.8 PG (27-31); MCHC 33.6 g/dL (33-37); MCV 76.7 FL (81-99); MONO# 0.35 X1000 (0.11-0.59); MONO% 1.6 % (1.7-9.3); NEUT# 21.11 X1000 (1.4-6.5); NEUT% 95.6 % (42.2-75.2); PLT 178 X1000 (130-400); RBC 3.22 XMIL (4.2-5.4); RDW 14.9 % (11.5-14.5); WBC 22.08 X1000 (4.8-10.8)
[2018-10-14 16:44] LABS: BANDS 1 % (0-1); CALCIUM 6.5 mg/dL (8.8-10.2); SEGS 99 % (42-75)
[2018-10-14] MEDS ORDERED: CALCIUM GLUCONATE 2 GM in NS 100 ML IV ONE (16:46)
[2018-10-14] MEDS: POTASSIUM CHLORIDE 80 MEQ in NS 500 ML IV SCH (17:42)
[2018-10-14] MEDS: FLONASE NAS SCH (18:31)
[2018-10-14] MEDS: POTASSIUM CHLORIDE 30 MEQ in NS 1,000 ML IV SCH ×2 (18:44→18:52)
[2018-10-14] MEDS: NORCO-5 PO PRN (20:15)
[2018-10-14] MEDS: ABILIFY PO SCH (20:15)
[2018-10-14] MEDS: TYLENOL PO PRN (23:25)
[2018-10-15] MEDS: POTASSIUM CHLORIDE 80 MEQ in NS 500 ML IV SCH (01:00)
[2018-10-15] MEDS: NORCO-5 PO PRN (02:15)
[2018-10-15] MEDS ORDERED: TENORMIN PO ONE (03:17)
--- NOTE | 2018-10-15 03:56 | PROGRESS NOTE ---
DATE: 10/14/2018 HISTORY OF PRESENT ILLNESS: A 72-year-old white female was admitted yesterday by Dr. Schreiber for Dr. Berman with mental confusion and electrolyte abnormalities. The patient is very complex, bedridden and apparently she has been very sick with multiple problems. I did review all the H and P that was done by Dr. Schreiber very extensively. The patient is a poor historian. There is a problem of getting labs because not able to access from the port on the right side of the chest. Blood pressures are running on the low side. PAST MEDICAL HISTORY: Reviewed. PAST SURGICAL HISTORY: Reviewed. MEDICINES: Reviewed. ALLERGIES: Reported to penicillin, meperidine, codeine and Reglan. REVIEW OF SYSTEMS: The patient is awake, not conversing very well. She is morbidly obese, lying in the bed. Not able to move on the left side. PHYSICAL EXAMINATION: Temperature is 97.8 degrees, pulse is 79, blood pressure is 100/50. Heavyset. HEENT exam: Slightly red. Pupils equal, reactive to light. Port seen on the right side. Poor air entry. Distant heart sounds. Left arm is completely weak, 1/5. Belly is soft, protuberant. SPC catheter was noted. Also multiple scars present on the right side on the abdomen. New scar on the right knee present. LABORATORY DATA: Labs reported white cell count 22, hematocrit 24, platelets 178,000. Sodium 115, potassium 2.0, BUN 45, creatinine 1.0, calcium 6.7. Blood cultures and urine culture are pending. DIAGNOSTIC DATA: Chest x-ray: Poor inspiration; questionable atelectasis; port on the right side; Plascencia rods in the spine; left shoulder replacement. EKG: Normal sinus, nothing acute. ASSESSMENT AND PLAN: 1. Chronic dementia, stable. 2. History of cervical spine injury with left arm weakness and bilateral legs, bedbound, with multiple surgeries which include left shoulder replacement, Plascencia rods in the spine, right total knee replacement, port on the right side. Admitted to the hospital with altered mental status. 3. Hyponatremia, hypotension. Intravenous fluids. 4. Hypokalemia. Replace the potassium. 5. Azotemia. Follow up on hydration. 6. Hypocalcemia. Replace the electrolytes. 7. Hematocrit is low. Hemoccult stools, and transfusion of 1 unit of packed red blood cells. 8. History of kidney stones and urinary tract infection. Currently the patient is under treatment with intravenous vancomycin. 9. History of yeast infection, on Diflucan. Reconcile home medications. 10. Chronic pain, on [place]. 11. We will repeat the labs in the morning. 12. Living Will is Full Code. Level of documentation was 35 minutes. cc: MD Domingo Almazan MD
[2018-10-15] MEDS ORDERED: MAGNESIUM SULFATE 2 GM/S.W.I. 2 GM/50 ML IVPB IV ONE (07:56)
[2018-10-15 08:06] LABS: BASO# 0.01 X1000 (0.0-0.2); BASO% 0.1 % (0.0-0.8); EOS# 0.04 X1000 (0.0-0.7); EOS% 0.2 % (0.0-10.0); HEMATOCRIT 27.8 % (37.0-47.0); HEMOGLOBIN 9.3 g/dL (12.0-16.0); IMM GRAN# 0.04 X1000 (0.0-0.04); IMM GRAN% 0.2 % (0.0-0.5); LYMPH% 4.1 % (20.5-51.1); MCH 25.6 PG (27-31); MCHC 33.5 g/dL (33-37); MCV 76.6 FL (81-99); MONO# 0.92 X1000 (0.11-0.59); MONO% 5.4 % (1.7-9.3); MPV 11.4 FL (7.4-10.4); NEUT# 15.32 X1000 (1.4-6.5); PLT 197 X1000 (130-400); RBC 3.63 XMIL (4.2-5.4); WBC 17.03 X1000 (4.8-10.8)
--- NOTE | 2018-10-15 08:28 | EKG Report ---
Test Performed on : 10/15/2018 08:05:08 AM Test Reason : HR 40 Blood Pressure : / mmHG Vent. Rate : 051 BPM Atrial Rate : 051 BPM P-R Int : 234 ms QRS Dur : 108 ms QT Int : 492 ms P-R-T Axes : 044 040 060 degrees QTc Int : 453 ms Sinus bradycardia. with 1st degree AV block. Otherwise normal ECG When compared with ECG of 13-OCT-2018 18:29, (Unconfirmed) [place] interval has increased QT has shortened Unconfirmed Result
[2018-10-15] MEDS ORDERED: POTASSIUM CHLORIDE 30 MEQ in NS 1,000 ML IV SCH (09:15)
[2018-10-15] MEDS: LEVAQUIN 500 MG/D5W 500 MG/100 ML IVPB IV SCH (10:44)
[2018-10-15] MEDS: PROTONIX PO SCH (11:01)
[2018-10-15] MEDS: CYMBALTA PO SCH (11:01)
[2018-10-15] MEDS: FOLIC ACID PO SCH (11:01)
[2018-10-15 11:02] LABS: CREATININE 1.2 mg/dL (0.5-0.9)
[2018-10-15] MEDS: DITROPAN PO SCH ×3 (11:02→21:18)
[2018-10-15] MEDS: LIORESAL PO SCH ×3 (11:02→21:19)
[2018-10-15] MEDS: THERA M PLUS PO SCH (11:02)
[2018-10-15] MEDS: ARICEPT PO SCH (11:02)
[2018-10-15] MEDS: ASPIRIN PO SCH (11:02)
[2018-10-15] MEDS: DIFLUCAN PO SCH (11:02)
[2018-10-15] MEDS: FLONASE NAS SCH (11:04)
[2018-10-15] MEDS: MIRALAX PO SCH ×2 (11:05→21:20)
[2018-10-15 11:08] LABS: POTASSIUM 6.8 mmol/L (3.5-5.1)
[2018-10-15] MEDS: NS 1,000 ML IV SCH (11:28)
[2018-10-15] MEDS: TYLENOL PO PRN (14:20)
[2018-10-15 16:37] LABS: EOS# 0.04 X1000 (0.0-0.7); EOS% 0.3 % (0.0-10.0); HEMATOCRIT 25.8 % (37.0-47.0); HEMOGLOBIN 8.5 g/dL (12.0-16.0); IMM GRAN# 0.03 X1000 (0.0-0.04); IMM GRAN% 0.3 % (0.0-0.5); LYMPH# 0.68 X1000 (1.2-3.4); LYMPH% 5.7 % (20.5-51.1); MCH 25.7 PG (27-31); MCHC 32.9 g/dL (33-37); MCV 77.9 FL (81-99); MONO# 0.85 X1000 (0.11-0.59); MONO% 7.1 % (1.7-9.3); MPV 10.6 FL (7.4-10.4); NEUT% 86.6 % (42.2-75.2); PLT 189 X1000 (130-400); RBC 3.31 XMIL (4.2-5.4)
[2018-10-15 16:43] LABS: CALCIUM 8.7 mg/dL (8.8-10.2); CREATININE 1.1 mg/dL (0.5-0.9); POTASSIUM 4.6 mmol/L (3.5-5.1)
[2018-10-15 16:53] LABS: BANDS 1 % (0-1); LYMPHS 8 % (21-51); MONO 1 % (1-9); SEGS 90 % (42-75)
--- NOTE | 2018-10-15 20:04 | PROGRESS NOTE ---
DATE: 10/15/2018 SUBJECT: Level 3 documentation. A 72-year-old white female, chronically sick patient had significant ventricular tachycardia last night associated with low blood pressure, electrolyte abnormalities, anemia, hypertension. The patient is poor historian, mentally confused. Patient caregiver was in the ICU. Review of systems unable to obtain. The patient has moved to the ICU. Patient was seen twice. The patient is full code. The patient has a large bowel movement, heme- positive stools. PHYSICAL EXAMINATION: She is bradycardic. Blood pressure is kind of low, 101/44, and confused. Chronically bedridden. Bilateral air entry.Heart: Sounds are bradycardic, no murmur. Belly is soft, and bedbound with weakness in both legs and the left arm. INVESTIGATIONS: White cell count 11, hematocrit 25, platelets 189,000, sodium 116, potassium 4.6. Chloride 78, BUN 40, creatinine 1.1. Calcium 8.7, magnesium 1.9. Stool Hemoccult positive. Urine cultures gram-negative rods. ASSESSMENT AND PLAN: 1. Altered mental status due to metabolic encephalopathy. 2. Hypotension. Increased IV fluids 80 mL/hour. 3. Hyponatremia. Gentle hydration until hemodynamics stable. 4. Hypokalemia, better. Hypocalcemia is better. Wide complex tachycardia. His electrolytes are normal. Magnesium sulfate was given. Bradycardic. Transferred to the ICU. 5. Anemia heme-positive stool. Continue on IV Protonix. 6. Urinary tract infection. Gram-negative rods. Based on the previous sensitivity Klebsiella, we will start on IV Levaquin and currently on IV vancomycin. Family wants Dr. Elaine to be consulted. 7. History of kidney stones. Seen by urologist in the past. 8. Anemia. Transfused a unit of packed RBCs. 9. Living Will is full code. LEVEL OF DOCUMENTATION: 35 minutes. cc: MD Domingo Almazan MD
[2018-10-15] MEDS: ABILIFY PO SCH (21:19)
[2018-10-15] MEDS ORDERED: VANCOMYCIN 1,450 MG in NS 250 ML IV SCH (23:00)
[2018-10-16] MEDS: NS 1,000 ML IV SCH ×2 (03:02→15:00)
[2018-10-16 06:07] LABS: EOS# 0.07 X1000 (0.0-0.7); EOS% 0.6 % (0.0-10.0); HEMATOCRIT 30.1 % (37.0-47.0); HEMOGLOBIN 10.1 g/dL (12.0-16.0); IMM GRAN# 0.04 X1000 (0.0-0.04); IMM GRAN% 0.4 % (0.0-0.5); LYMPH# 0.53 X1000 (1.2-3.4); LYMPH% 4.7 % (20.5-51.1); MCH 25.8 PG (27-31); MCHC 33.6 g/dL (33-37); MCV 76.8 FL (81-99); MONO# 0.79 X1000 (0.11-0.59); MPV 11.6 FL (7.4-10.4); NEUT# 9.78 X1000 (1.4-6.5); NEUT% 87.3 % (42.2-75.2); PLT 190 X1000 (130-400); RBC 3.92 XMIL (4.2-5.4); RDW 15.7 % (11.5-14.5); WBC 11.21 X1000 (4.8-10.8)
[2018-10-16 06:28] LABS: CALCIUM 8.3 mg/dL (8.8-10.2); POTASSIUM 3.9 mmol/L (3.5-5.1)
[2018-10-16 06:44] LABS: BANDS 4 % (0-1); LYMPHS 2 % (21-51); MONO 2 % (1-9); SEGS 92 % (42-75)
[2018-10-16] MEDS: CYMBALTA PO SCH (08:21)
[2018-10-16] MEDS: FOLIC ACID PO SCH (08:21)
[2018-10-16] MEDS: DIFLUCAN PO SCH (08:22)
[2018-10-16] MEDS: LIORESAL PO SCH ×3 (08:22→20:27)
[2018-10-16] MEDS: THERA M PLUS PO SCH (08:22)
[2018-10-16] MEDS: DITROPAN PO SCH ×3 (08:22→20:27)
[2018-10-16] MEDS: NORCO-5 PO PRN (08:22)
[2018-10-16] MEDS: ARICEPT PO SCH (08:23)
[2018-10-16] MEDS: ASPIRIN PO SCH (08:23)
[2018-10-16] MEDS: FLONASE NAS SCH (08:24)
[2018-10-16] MEDS: LEVAQUIN 500 MG/D5W 500 MG/100 ML IVPB IV SCH (08:25)
[2018-10-16] MEDS: MIRALAX PO SCH ×2 (08:25→21:51)
[2018-10-16] MEDS: PROTONIX IV SCH (10:16)
[2018-10-16] MEDS: SODIUM CHLORIDE 0.9% INJ SCH (10:16)
--- NOTE | 2018-10-16 12:15 | PROGRESS NOTE ---
DATE: 10/16/2018 SUBJECTIVE: The patient remains in ICU and is slightly improved. Her daughter is attentive in her care and at her bedside. OBJECTIVE: General: Her mentation has improved some. She is alert and oriented x3. Still very mild confusion. Vital Signs: Afebrile, pulse 48, respirations 22, blood pressure 129/46, O2 saturation on 2 L 97% to 99%, Cardiovascular: RRR. Lungs: Clear. Abdomen: Soft. Active bowel sounds. Nontender. Extremities: Trace to 1+ lower extremity edema. Paralysis left arm and both legs noted. Neurologic: Patient alert and oriented x3. She does not know the president. DIAGNOSTIC DATA: Blood cultures x2 are negative. Stool was positive yesterday for occult blood. She is growing out gram-negative rods in her urine [*]. Lab data otherwise shows white count down to 11.2, hemoglobin 10.1 after transfusion yesterday, platelets 190,000. Sodium 123, potassium 3.9, chloride 85, CO2 of 27, BUN 39, creatinine 1, calcium 8.3. ASSESSMENT: 1. Delirium, improving, thought multifactorial and related to gram-negative christo urinary tract infection and pronounced hyponatremia. 2. Gram-negative christo urinary tract infection. 3. Pronounced hyponatremia, thought related to diuretic she was on prior to admission. 4. Probable mild dementia. 5. Chronic constipation. 6. Congestive heart failure, stable. 7. History of fungemia. 8. Chronic paralysis of left arm and both legs after spinal cord injury in 2010 via fall. 9. Gastrointestinal blood loss anemia. PLAN: 1. Continue IV Levaquin and vancomycin and monitor her urine culture results and adjust antibiotics accordingly. 2. Continue IV normal saline as her sodium is improving. Her blood pressure is improved as well. 3. She is adamant she wants to try a mechanical soft diet, so we advanced her. 4. Continue IV PPI. 5. Monitor her hemoglobin and hematocrit closely. Transfuse if required. 6. Leave off BP medications and any anticoagulant drugs at this point. 7. We will go ahead and stop her aspirin. cc: Domingo Schreiber MD
[2018-10-16] MEDS: ABILIFY PO SCH (20:27)
[2018-10-17] MEDS: NS 1,000 ML IV SCH (03:24)
[2018-10-17 04:58] LABS: BASO# 0.01 X1000 (0.0-0.2); BASO% 0.1 % (0.0-0.8); EOS# 0.08 X1000 (0.0-0.7); HEMATOCRIT 29.6 % (37.0-47.0); HEMOGLOBIN 9.6 g/dL (12.0-16.0); IMM GRAN# 0.02 X1000 (0.0-0.04); IMM GRAN% 0.3 % (0.0-0.5); LYMPH# 0.85 X1000 (1.2-3.4); LYMPH% 10.7 % (20.5-51.1); MCH 25.3 PG (27-31); MCHC 32.4 g/dL (33-37); MCV 78.1 FL (81-99); MONO# 0.76 X1000 (0.11-0.59); MONO% 9.6 % (1.7-9.3); MPV 10.8 FL (7.4-10.4); NEUT# 6.21 X1000 (1.4-6.5); NEUT% 78.3 % (42.2-75.2); PLT 175 X1000 (130-400); RBC 3.79 XMIL (4.2-5.4); RDW 15.9 % (11.5-14.5); WBC 7.93 X1000 (4.8-10.8)
[2018-10-17 05:26] LABS: AGAP 11; BUN 27 mg/dL (8-22); CALCIUM 8.8 mg/dL (8.8-10.2); CHLORIDE 96 mmol/L (98-107); COSMO 273; CREATININE 0.9 mg/dL (0.5-0.9); ESTIMATED GFR > 60; GLUCOSE 100 mg/dL (70-104); POTASSIUM 3.3 mmol/L (3.5-5.1); SODIUM 134 mmol/L (136-145); TCO2 27 mmol/L (25-35)
[2018-10-17] MEDS: CYMBALTA PO SCH (08:42)
[2018-10-17] MEDS: FOLIC ACID PO SCH (08:43)
[2018-10-17] MEDS: SODIUM CHLORIDE 0.9% INJ SCH (08:43)
[2018-10-17] MEDS: DITROPAN PO SCH ×3 (08:43→20:34)
[2018-10-17] MEDS: NORCO-5 PO PRN ×2 (08:43→20:34)
[2018-10-17] MEDS: THERA M PLUS PO SCH (08:43)
[2018-10-17] MEDS: LIORESAL PO SCH ×3 (08:43→20:35)
[2018-10-17] MEDS: ARICEPT PO SCH (08:43)
[2018-10-17] MEDS: DIFLUCAN PO SCH (08:43)
[2018-10-17] MEDS: LEVAQUIN 500 MG/D5W 500 MG/100 ML IVPB IV SCH (08:44)
[2018-10-17] MEDS: PROTONIX IV SCH (08:44)
[2018-10-17] MEDS: FLONASE NAS SCH (08:44)
[2018-10-17] MEDS: MIRALAX PO SCH (08:57)
[2018-10-17] MEDS ORDERED: GENTAMICIN IV PER PHARMACY MISC SCH (11:30)
[2018-10-17] MEDS ORDERED: NS 1,000 ML IV SCH (11:45)
--- NOTE | 2018-10-17 11:49 | PROGRESS NOTE ---
DATE: 10/17/2018 SUBJECTIVE: Patient remains in the ICU. Mentation is improving. She is alert and oriented x3 today and knows the president, whereas she did not know the president yesterday. She has no specific complaints. OBJECTIVE: Vital signs: Afebrile, pulse in the 50s, respirations 12, blood pressure 120/69, O2 saturation on 2 L per nasal cannula 96%. Cardiovascular: RRR. Lungs: Clear. Abdomen: Soft, nontender. No mass or organomegaly. Extremities: Trace to 1+ lower extremity edema, chronic. Neurological: She moves right arm well. Has flaccid paralysis, left arm and both legs, chronic. DIAGNOSTIC STUDIES: White count down to 7.9, hemoglobin 9.6, platelets 175,000. Sodium 134, potassium 3.3, chloride 96, CO2 of 27, BUN 27, creatinine 0.9 glucose 100. Urine culture was done twice on the day of admission and one was growing gram-negative rods and they reported out the first one that was done and I was unaware of that being on the computer. It shows Pseudomonas and appears to be the same as the 2nd culture. It is not sensitive to Levaquin. ASSESSMENT: 1. Delirium, resolved. 2. Pseudomonas urinary tract infection, not sensitive to Levaquin. We will be switching the patient over to gentamicin, stopping her vancomycin. 3. Hyponatremia, improved. We will decrease IV fluid rate now that she is eating fairly well. 4. Probable mild dementia. 5. Chronic constipation. 6. Congestive heart failure (CHF), stable. 7. History of fungemia. 8. Chronic paralysis, left arm and both legs after spinal cord injury in 2010. 9. Gastrointestinal (GI) blood loss anemia, stabilized. PLAN: Again change off Levaquin and vancomycin and onto IV gentamicin. Decrease IV normal saline. Continue soft diet. Continue IV PPI, monitoring for GI blood loss worsening. Leave off antihypertensive medications and we have her off her aspirin at this point due to GI blood loss. cc: Domingo Schreiber MD
[2018-10-17] MEDS: POTASSIUM CHLORIDE 30 MEQ in NS 1,000 ML IV SCH (13:10)
[2018-10-17] MEDS ORDERED: GENTAMICIN IV SCH (14:00)
[2018-10-17] MEDS ORDERED: NS IV SCH (14:00)
[2018-10-17] MEDS: TYLENOL PO PRN (14:15)
[2018-10-17] MEDS: MERREM 1 GM in NS 50 ML IV SCH ×2 (14:57→21:45)
--- NOTE | 2018-10-17 15:22 | INFECTIOUS DISEASE CONSULT REP ---
DATE: 10/17/2018 CONCLUSION: The patient has a multiple drug-resistant Pseudomonas urinary tract infection which is symptomatic. The patient also has oral candidiasis. RECOMMENDATIONS: I have started the patient on meropenem and I have requested that the nurse observe the patient during the first dose. I am going to order a renal ultrasound. I have asked the microbiology laboratory to send the patient's Pseudomonas isolate from the urine for susceptibility testing against meropenem. PRESENT ILLNESS: It was difficult for me to get a full history from the patient. A lot of the history was taken from the daughter. The patient approximately 2 weeks ago became anorectic. She was lethargic. She did not have fever or chills. She did have a foul odor to her urine. She has been admitted to the hospital. Yesterday she was on vancomycin and Levaquin and she developed a diffuse erythematous rash. The patient's culture is growing a multiple drug-resistant Pseudomonas infection. The urine shows white cells and bacteria. Culture shows Pseudomonas. Blood culture is negative. Chest x-ray shows bibasilar atelectasis/pneumonia. The patient's abdominal x-ray shows constipation and nephrolithiasis. The patient now has a Arnold catheter in place. PAST MEDICAL HISTORY / REVIEW OF SYSTEMS: I was unable to get this from the patient. The patient's daughter lives with her, says that the patient is paralyzed on the left side and she is unable to walk. OBSTETRICS/GYNECOLOGIC HISTORY: Patient is a 5, para 5, AB 0. She has had a hysterectomy. PREVIOUS HOSPITALIZATIONS AND OPERATIONS: She has had labor and deliveries, a hysterectomy, multiple admissions for cellulitis of the legs and/or urinary tract infection. She has had multiple back surgeries. She has had a right total knee arthroplasty. She has had surgery for renal calculi. She has had an appendectomy and cholecystectomy. 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 The patient has a bipolar disorder, congestive heart failure and peptic ulcer disease, which resulted in upper GI bleeding. INFECTIOUS DISEASE HISTORY: Positive for recurrent urinary tract infections. The patient has had pneumonia in the past. FAMILY HISTORY: Positive for diabetes mellitus, myocardial infarction, stroke and cancer. SOCIAL HISTORY: [place] She does not smoke cigarettes, drink alcoholic beverages or abuse drugs. ALLERGIES: She is allergic to penicillin and sulfa. When I asked the patient about a penicillin allergy, she said it was a red rash, but not hives. The patient has a dog and a cat for pets at home. The patient's drug allergies include codeine, Demerol, Reglan, sulfa, and as mentioned above, penicillin. HOME MEDICATIONS: Include the following: Abilify, baclofen, Klonopin, Aricept, Cymbalta, fluconazole, Flonase, Lasix, hydrocodone, Isordil, mononitrate, Ditropan, Protonix, ropinirole, Aldactazide and Desyrel. PHYSICAL EXAMINATION: Vital Signs: Temperature is 97.5, pulse 50, respirations 17, blood pressure 139/56. The patient is 5 feet 5 inches tall, weighs 180 pounds. General: This is an ill-appearing elderly female. She is in no acute distress. Head, Eyes, Ears, Nose and Throat: She can hear my spoken words and see near objects. She does have some white patches on her tongue suggestive of oral candidiasis. Neck: No meningismus. Lungs: Clear to auscultation. Cardiovascular: Heart rate is regular. Abdomen: Soft and nontender. Neurologic: The patient was lethargic. She cannot move her left arm or leg. There is no tremor. Integument: No rash noted. Thank you for the consult. cc: MD Domingo Mc MD
--- NOTE | 2018-10-17 17:39 | Diag Imaging Result Doc PS360 ---
EXAM: US RENAL 2 (RETROPER) COMPLETE INDICATION: UTI TECHNIQUE: COMPARISON: None. FINDINGS: There is a shadowing echogenic focus associated with the right kidney indicating an intrarenal stone. The left kidney is almost completely obscured due to body habitus and inability to move the patient due to condition. However, there does appear to be an intrarenal stone that is vaguely identified on the left. No solid renal masses or hydronephrosis can be identified. The right kidney measures 12 cm in the greatest longitudinal axis and the right renal cortex measures 1.1 cm in thickness. The left kidney could not be measured due to its nearly completely being obscured. There is a Arnold catheter in the urinary bladder and the bladder is nondistended. IMPRESSION: 1.Very limited visualization of the left kidney for the reasons discussed above. 2.Nephrolithiasis. Electronically signed by Buck Silva 10/17/2018 5:37 PM
[2018-10-17] MEDS: MYCOSTATIN SUSP PO SCH ×2 (18:49→20:33)
[2018-10-17] MEDS: ABILIFY PO SCH (20:35)
[2018-10-18 04:40] LABS: BASO# 0.01 X1000 (0.0-0.2); BASO% 0.1 % (0.0-0.8); EOS# 0.17 X1000 (0.0-0.7); EOS% 1.9 % (0.0-10.0); HEMATOCRIT 31.6 % (37.0-47.0); IMM GRAN# 0.03 X1000 (0.0-0.04); IMM GRAN% 0.3 % (0.0-0.5); LYMPH# 1.19 X1000 (1.2-3.4); LYMPH% 13.2 % (20.5-51.1); MCH 24.9 PG (27-31); MCHC 31.6 g/dL (33-37); MCV 78.8 FL (81-99); MONO# 0.68 X1000 (0.11-0.59); MONO% 7.5 % (1.7-9.3); NEUT# 6.93 X1000 (1.4-6.5); PLT 206 X1000 (130-400); RBC 4.01 XMIL (4.2-5.4); RDW 16.1 % (11.5-14.5); WBC 9.01 X1000 (4.8-10.8)
[2018-10-18 04:57] LABS: CALCIUM 8.9 mg/dL (8.8-10.2); POTASSIUM 3.6 mmol/L (3.5-5.1)
[2018-10-18] MEDS: MERREM 1 GM in NS 50 ML IV SCH ×3 (05:45→23:17)
[2018-10-18] MEDS: FLONASE NAS SCH (07:59)
[2018-10-18] MEDS: FOLIC ACID PO SCH (07:59)
[2018-10-18] MEDS: THERA M PLUS PO SCH (07:59)
[2018-10-18] MEDS: CYMBALTA PO SCH (07:59)
[2018-10-18] MEDS: DIFLUCAN PO SCH (07:59)
[2018-10-18] MEDS: MYCOSTATIN SUSP PO SCH ×4 (07:59→20:01)
[2018-10-18] MEDS: ARICEPT PO SCH (08:00)
[2018-10-18] MEDS: NORCO-5 PO PRN ×3 (08:00→22:00)
[2018-10-18] MEDS: DITROPAN PO SCH ×3 (08:00→20:01)
[2018-10-18] MEDS: LIORESAL PO SCH ×3 (08:00→20:01)
[2018-10-18] MEDS: PROTONIX IV SCH (08:12)
[2018-10-18] MEDS ORDERED: MIRALAX PO SCH (09:00)
--- NOTE | 2018-10-18 11:59 | INFECTIOUS DISEASE PROGRESS NO ---
DATE: 10/18/2018 PRESENT ILLNESS: The patient has a symptomatic multiple drug-resistant Pseudomonas urinary tract infection. She also has oral candidiasis. MEDICATIONS: Currently, the patient is receiving meropenem for the urinary tract infection and nystatin and fluconazole for the oral candidiasis, which may have spread to the esophagus. PHYSICAL EXAMINATION: Vital Signs: Temperature is 98.3 degrees, pulse 59, respirations 18, blood pressure 133/61. General: This is an ill-appearing elderly female. She is in no acute distress. Head/eyes/ears/nose/throat: She can hear my spoken words and see near objects. There is no drainage from the nose or ears. Today she does not have as much white coating on her tongue as she did yesterday. Neck: No meningismus. Lungs: Clear to auscultation. Cardiovascular: The patient's heart rate is regular. Abdomen: Soft and nontender. Neurologic: The patient is awake. She has a left hemiparalysis. She does not have a tremor. Integument: No rash. LABORATORY AND X-RAY: The patient's CBC shows a white count of 9010, hemoglobin 10, platelet count 206,000. Creatinine is 1. GFR is 55. Blood cultures are negative. Urine culture is growing a gram-negative christo. A renal ultrasound showed nephrolithiasis. ASSESSMENT AND PLAN: 1. The patient has a multiple drug-resistant Pseudomonas urinary tract infection. Also, the patient has oral candidiasis, which could have spread to the esophagus. The plan is to continue both meropenem and nystatin and fluconazole. 2. Comorbidities: She is elderly and she has had a stroke. She also has peptic ulcer disease, bipolar disorder and congestive heart failure. cc: MD Domingo Mc MD
[2018-10-18] MEDS: POTASSIUM CHLORIDE 30 MEQ in NS 1,000 ML IV SCH (13:20)
[2018-10-18] MEDS: ABILIFY PO SCH (20:01)
--- NOTE | 2018-10-18 21:35 | PROGRESS NOTE ---
DATE: 10/18/2018 Events noted over the weekend. I appreciated Dr. Elaine' consult. Patient was seen multiple drug- resistant Pseudomonas and oral candidiasis. Currently she is taking meropenem, nystatin and fluconazole. The patient did receive a unit of packed RBCs. Mental status improved. Patient slowly eating well. Arnold was placed. EXAM: Temperature is 97 degrees, pulse is 63, blood pressure 132/67, morbidly bedridden with multiple problems and chest is bilateral air entry. Heart sounds are regular and no power in both legs and the left arm. LABS: CBC, white cell count 9, hematocrit 31, platelets 206,000. SMA 7 sodium 136, potassium 3.6, BUN 22, creatinine 1.0, glucose 107 and Pseudomonas in the urine. ASSESSMENT AND PLAN: 1. Altered mental status due to metabolic encephalopathy improved. 2. Hyponatremia is much improved. 3. Nonsustained ventricular tachycardia and cardiac status is stable. 4. Hypotension is better. Currently on intravenous fluids 35 mL/h. 5. Urinary tract infection due to Pseudomonas on meropenem 1 g q.8. 6. Oral candidiasis on nystatin and fluconazole. 7. Hypokalemia improved. 8. Heme-positive stools, anemia status post 1 unit of packed red blood cells stable. 9. Living will, full code. Appreciate Dr. Elaine consult and if she is stable, will transfer to the regular floor and will discuss the antibiotic situation with Dr. Elaine. LEVEL OF DOCUMENTATION: 25 minutes. cc: MD Domingo Almazan MD
[2018-10-19 05:17] LABS: BASO# 0.01 X1000 (0.0-0.2); BASO% 0.1 % (0.0-0.8); EOS# 0.18 X1000 (0.0-0.7); EOS% 2.4 % (0.0-10.0); HEMATOCRIT 30.7 % (37.0-47.0); HEMOGLOBIN 9.8 g/dL (12.0-16.0); IMM GRAN# 0.02 X1000 (0.0-0.04); IMM GRAN% 0.3 % (0.0-0.5); LYMPH# 1.53 X1000 (1.2-3.4); LYMPH% 20.6 % (20.5-51.1); MCH 25.3 PG (27-31); MCHC 31.9 g/dL (33-37); MCV 79.3 FL (81-99); MONO# 0.65 X1000 (0.11-0.59); MONO% 8.7 % (1.7-9.3); MPV 10.3 FL (7.4-10.4); NEUT# 5.04 X1000 (1.4-6.5); NEUT% 67.9 % (42.2-75.2); PLT 201 X1000 (130-400); RBC 3.87 XMIL (4.2-5.4); RDW 16.4 % (11.5-14.5); WBC 7.43 X1000 (4.8-10.8)
[2018-10-19 05:42] LABS: AGAP 11; BUN 18 mg/dL (8-22); CALCIUM 8.4 mg/dL (8.8-10.2); CHLORIDE 97 mmol/L (98-107); COSMO 272; CREATININE 0.7 mg/dL (0.5-0.9); ESTIMATED GFR > 60; GLUCOSE 100 mg/dL (70-104); SODIUM 135 mmol/L (136-145); TCO2 27 mmol/L (25-35)
[2018-10-19] MEDS: MERREM 1 GM in NS 50 ML IV SCH ×3 (07:50→23:06)
[2018-10-19] MEDS: FLONASE NAS SCH (08:25)
[2018-10-19] MEDS: DITROPAN PO SCH ×3 (08:25→23:06)
[2018-10-19] MEDS: CYMBALTA PO SCH (08:25)
[2018-10-19] MEDS: MYCOSTATIN SUSP PO SCH ×4 (08:25→23:06)
[2018-10-19] MEDS: DIFLUCAN PO SCH (08:25)
[2018-10-19] MEDS: PROTONIX IV SCH (08:25)
[2018-10-19] MEDS: ARICEPT PO SCH (08:25)
[2018-10-19] MEDS: THERA M PLUS PO SCH (08:25)
[2018-10-19] MEDS: FOLIC ACID PO SCH (08:25)
[2018-10-19] MEDS: LIORESAL PO SCH ×3 (08:25→23:06)
--- NOTE | 2018-10-19 08:54 | INFECTIOUS DISEASE PROGRESS NO ---
DATE: 10/19/2018 PRESENT ILLNESS: The patient has a symptomatic multidrug resistant Pseudomonas urinary tract infection. She also has oral candidiasis. MEDICATIONS: This is day #2 of meropenem. The patient also is on Mycostatin swish and swallow. PHYSICAL EXAMINATION: Vital Signs: Temperature is 98.3 degrees, pulse 76, respirations 19, blood pressure 144/61. General: This is an ill-appearing elderly female. She is in no acute distress. Head/eyes/ears/nose/throat: She can hear my spoken words and she can see near objects. There is no drainage from her nose or ears. She does not today have any white coating of her tongue. Neck: No stiffness. Lungs: Clear to auscultation. Cardiovascular: Heart rate is regular. Abdomen: Soft and nontender. Neurologic: The patient is awake. She has a left hemiparalysis. She does not have a tremor. Integument: No rash. LABORATORY AND X-RAY: CBC shows a white count of 7430, hemoglobin 9.8 and platelet count 201,000. Repeat urine culture is pending. Creatinine is 0.7. GFR is greater than 60. ASSESSMENT AND PLAN: 1. Treating the patient's multidrug resistant Pseudomonas urinary tract infection. The patient also has oral candidiasis, which may have spread to the esophagus. Therefore, she is not only on nystatin swish and swallow, she is also getting p.o. fluconazole. 2. Comorbidities: She is elderly and she has had a stroke. She also has peptic ulcer disease, bipolar disorder and congestive heart failure. cc: MD Domingo Mc MD
[2018-10-19] MEDS: TYLENOL PO PRN (15:00)
[2018-10-19] MEDS: POTASSIUM CHLORIDE 30 MEQ in NS 1,000 ML IV SCH (15:05)
[2018-10-19] MEDS: NORCO-5 PO PRN (18:09)
--- NOTE | 2018-10-19 19:40 | PROGRESS NOTE ---
DATE: 10/19/2018 SUBJECTIVE: Patient doing much better in ICU, no complaints. Mental status is better. Patient is eating well on Arnold. REVIEW OF SYSTEMS: None reported. EXAMINATION: Temperature is 99.7 degrees, pulse 77, blood pressure is 130/57.HEENT: Within normal limits. No oral thrush noted. Chest: Bilateral air entry. Heart: Sounds are regular. Belly: Soft, nontender. Arnold was placed. INVESTIGATIONS: CBC. White cell count 7.4, hematocrit 30, platelets 201,000. SMA 7 sodium 135, potassium 4.0, chloride 97, BUN 18, creatinine 0.7, glucose 100. Urine cultures gram-negative rods with Pseudomonas. ASSESSMENT AND PLAN: 1. Anemia, heme-positive stools stable. 2. Nonsustained ventricular tachycardia, stable. 3. Altered mental status improved. 4. Electrolyte abnormalities which includes hyponatremia is better. 5. Oral thrush on nystatin and fluconazole. 6. Discussed with Dr. Elaine. He wants to continue on meropenem for 14 days. She has a port, can arrange outpatient antibiotics at home. Will discuss with the family. 7. Patient is stable. She is a full code. Transfer to regular floor. Please see the transfer orders. LEVEL OF DOCUMENTATION: Is 25 minutes. cc: MD Domingo Almazan MD
[2018-10-19] MEDS: ABILIFY PO SCH (23:05)
[2018-10-20] MEDS: MERREM 1 GM in NS 50 ML IV SCH (06:21)
[2018-10-20] MEDS: NORCO-5 PO PRN ×3 (07:56→20:47)
[2018-10-20] MEDS: THERA M PLUS PO SCH (08:03)
[2018-10-20] MEDS: SODIUM CHLORIDE 0.9% INJ SCH (08:04)
[2018-10-20] MEDS: ARICEPT PO SCH (08:04)
[2018-10-20] MEDS: PROTONIX IV SCH (08:04)
[2018-10-20] MEDS: LIORESAL PO SCH ×3 (08:04→20:39)
[2018-10-20] MEDS: CYMBALTA PO SCH (08:05)
[2018-10-20] MEDS: FLONASE NAS SCH (08:05)
[2018-10-20] MEDS: MYCOSTATIN SUSP PO SCH ×4 (08:05→20:39)
[2018-10-20] MEDS: DIFLUCAN PO SCH (08:05)
[2018-10-20] MEDS: DITROPAN PO SCH ×3 (08:05→20:39)
[2018-10-20] MEDS: FOLIC ACID PO SCH (08:09)
[2018-10-20] MEDS ORDERED: MERREM 2 GM in NS 50 ML IV SCH (13:45)
--- NOTE | 2018-10-20 14:13 | INFECTIOUS DISEASE PROGRESS NO ---
DATE: 10/20/2018 PRESENT ILLNESS: Ms. Heredia is being treated for a multidrug resistant Pseudomonas urinary tract infection and oral candidiasis. MEDICATIONS: Today is day 3 of meropenem. She is also receiving nystatin swish and swallow and fluconazole. PHYSICAL EXAMINATION: Vital Signs: Temperature is 98.4 degrees pulse rate 69, respiratory rate 16, blood pressure 126/60 and O2 saturations 96% on room air. General: This is a chronically ill- appearing, elderly female. She is lying in the bed, currently in no acute distress. HEENT: Atraumatic, normocephalic. Oral mucous membranes are pink and moist. She has a small blister to the right oral vestibule. Conjunctiva are pale. Neck: Has a decrease in suppleness. Trachea is midline. Respiratory: Lung sounds are clear to auscultation, diminished in the bases. Cardiovascular: Heart rate and rhythm are regular. Normal sinus rhythm on the monitor. Abdomen: Soft, obese and nontender. Bowel sounds are active. Neurologic: She is awake , alert, and oriented. Very diminished capacity for movement due to paraplegia, but has good use of her right upper extremity. LABORATORY AND X-RAY: Today her white count is 7.43, hemoglobin 9.8, platelet count 201,000. Creatinine is 0.7, estimated GFR is greater than 60. Her urine has previously grown multidrug- resistant Pseudomonas, and urine collected yesterday shows a gram-negative christo which will most likely be the same. No imaging reports today. ASSESSMENT AND PLAN: Ms. Heredia is being treated for a multidrug-resistant Pseudomonas urinary tract infection which was symptomatic for her. After receiving meropenem for the last 2 days, the recheck of urine is still positive. However, I have spoken to the Microbiology Lab, who have confirmed that the Pseudomonas is susceptible to meropenem. So, at this point, we will increase the dose to 2 g IV every 8 hours and plan to recheck her urine on Thursday morning. She has a small blister inside her right cheek which I have swabbed, and we will check for herpes simplex virus on that. For now, we will continue her on nystatin and fluconazole for her oral candidiasis. These plans have been discussed with and recommended by Dr. Elaine. COMORBIDITIES: Comorbidities for Ms. Heredia include that she is elderly with a previous stroke, peptic ulcer disease, bipolar disorder, congestive heart failure, and she is bed bound with extremely limited movement. Dictated by BABS Martins for Lucio Elaine MD This chart was documented by, BABS Martins and accurately reflects the services performed, treatment plan and medical decisions as attested by the providers signature Lucio Elaine MD. cc: MD Domingo Mc MD [facility]ENTERDeirdre
[2018-10-20] MEDS: MERREM 2 GM in NS 100 ML IV SCH (16:31)
[2018-10-20] MEDS: POTASSIUM CHLORIDE 30 MEQ in NS 1,000 ML IV SCH ×2 (18:14→20:38)
--- NOTE | 2018-10-20 20:18 | PROGRESS NOTE ---
DATE: 10/20/2018 SUBJECTIVE: The patient is much improved and she is eating well. She is conversing more. REVIEW OF SYSTEMS: None reported. Family was not at bedside. OBJECTIVE: Vital Signs: On exam, temperature is 98, pulse 69. Vitals are stable. general: On physical exam, the patient is more awake, eating well and had a port on the right side. Physical exam no change. LABS: No investigation reported. ASSESSMENT AND PLAN: 1. Multi drug resistant Pseudomonas urinary tract infection. We will discontinue Arnold. Discussed with Dr. Elaine. Will arrange outpatient IV antibiotics. 2. Oral thrush, is improving. 3. Electrolyte abnormalities. This is better, I am going to discuss with the daughter tomorrow, as well as Dr. Elaine about the transitioning of the antibiotics, maybe as an outpatient set up since she is medically stable. LEVEL OF DOCUMENTATION: 25 minutes. cc: MD Domingo Almazan MD
[2018-10-20] MEDS: ABILIFY PO SCH (20:38)
[2018-10-21] MEDS: MERREM 2 GM in NS 100 ML IV SCH ×2 (00:41→09:13)
[2018-10-21] MEDS: TYLENOL PO PRN (01:44)
[2018-10-21] MEDS ORDERED: NORCO-5 ONE (09:12)
[2018-10-21] MEDS: NORCO-5 PO PRN ×2 (09:13→13:54)
[2018-10-21] MEDS: CYMBALTA PO SCH (09:13)
[2018-10-21] MEDS: THERA M PLUS PO SCH (09:13)
[2018-10-21] MEDS: DIFLUCAN PO SCH (09:14)
[2018-10-21] MEDS: FOLIC ACID PO SCH (09:14)
[2018-10-21] MEDS: PROTONIX IV SCH (09:14)
[2018-10-21] MEDS: FLONASE NAS SCH (09:14)
[2018-10-21] MEDS: LIORESAL PO SCH ×4 (09:14→21:50)
[2018-10-21] MEDS: ARICEPT PO SCH (09:14)
[2018-10-21] MEDS: MYCOSTATIN SUSP PO SCH ×4 (09:14→21:50)
[2018-10-21] MEDS: DITROPAN PO SCH ×4 (09:26→21:49)
[2018-10-21] MEDS: MERREM 1 GM in NS 50 ML IV SCH ×2 (13:54→21:50)
--- NOTE | 2018-10-21 14:01 | INFECTIOUS DISEASE PROGRESS NO ---
DATE: 10/21/2018 PRESENT ILLNESS: Ms. Heredia has a multidrug resistant Pseudomonas urinary tract infection and an oral candidiasis. Today she has had some change in her mentation. MEDICATIONS: She is on day 4 of meropenem, which has been changed from 2 g IV every 8 hours to 1 g IV every 8 hours. She is also receiving fluconazole 100 mg by mouth daily, and nystatin swish and swallow 4 times a day. PHYSICAL EXAMINATION: Vital Signs: Temperature is 98.2 degrees, pulse rate 93, respiratory rate 16, blood pressure 127/74, O2 saturation is 96% on room air. General: This is a chronically ill- appearing elderly female. She is lying in the bed, currently talking non-stop and not making much sense. HEENT: She is atraumatic, normocephalic. Oral mucous membranes are pink and moist with some mild white patches noted. Respiratory: Lung sounds are clear in the upper lobes. Diminished in the bases. Cardiovascular: Heart rate is regular. Abdomen: Soft, obese, and tender on palpation. Bowel sounds are active. Neurologic: The patient is able to answer questions appropriately, but talking frequently, erratically and inappropriately based on her daughter's statements. She is able to move her right upper extremity fairly well, with minimal use of left extremity, which has some mild 1+ pitting edema, and no movement to lower extremities. LABORATORY AND X-RAY: None available today. ASSESSMENT AND PLAN: Ms. Heredia has a multidrug resistant Pseudomonas urinary tract infection. Yesterday we increased her meropenem from 1 to 2 g IV every 8 hours. However, during the night and today she has become more confused and delirious according to the nurse. We will go ahead and decrease the meropenem back to 1 g every 8 hours and see if she responds appropriately. Unfortunately, due to multidrug resistance, we are very limited as to what we can give her at this point. The micro lab has confirmed that her bacteria is susceptible to meropenem. We will go ahead and recheck her urine in the morning hoping to get a negative culture. For now, we will continue her on the fluconazole and nystatin for her oral candidiasis. We will recheck labs in a.m. These plans have been discussed with and recommended by Dr. Elaine. COMORBIDITIES: Comorbidities for Ms. Heredia include that she is elderly and bed-bound with history of stroke, peptic ulcer disease, bipolar disorder and congestive heart failure. Dictated by BABS Martins for Lucio Elaine MD This chart was documented by, BABS Martins and accurately reflects the services performed, treatment plan and medical decisions as attested by the providers signature Lucio Elaine MD. cc: MD Domingo Mc MD [facility]ITALDe[facility]
[2018-10-21] MEDS: POTASSIUM CHLORIDE 30 MEQ in NS 1,000 ML IV SCH (16:07)
--- NOTE | 2018-10-21 20:06 | PROGRESS NOTE ---
DATE: 10/21/2018 SUBJECTIVE: The patient is slowly better and she has some low-grade fever.HEENT: Within normal limits. Chest: Chest is clear. Cardiovascular: Heart sounds are regular. Abdomen: Belly is soft, nontender. INVESTIGATIONS: Urine cultures are Pseudomonas aeruginosa. Currently receiving meropenem. ASSESSMENT AND PLAN: 1. Altered mental status, improving. We will arrange outpatient antibiotics with Dr. Elaine. 2. We will repeat the labs in the morning. 3. HSV is negative. Discussed with the daughter about the options of transitioning care at home. Apparently, she just wants to wait and see. 4. Code status is full code. LEVEL OF DOCUMENTATION: 25 minutes. cc: MD Domingo Almazan MD
[2018-10-21] MEDS: ABILIFY PO SCH (21:50)
[2018-10-22 06:04] LABS: BASO# 0.01 X1000 (0.0-0.2); BASO% 0.1 % (0.0-0.8); EOS# 0.21 X1000 (0.0-0.7); EOS% 3.1 % (0.0-10.0); HEMATOCRIT 31.9 % (37.0-47.0); HEMOGLOBIN 9.9 g/dL (12.0-16.0); IMM GRAN# 0.03 X1000 (0.0-0.04); IMM GRAN% 0.4 % (0.0-0.5); LYMPH# 1.24 X1000 (1.2-3.4); LYMPH% 18.5 % (20.5-51.1); MCH 25.1 PG (27-31); MCV 80.8 FL (81-99); MONO# 0.57 X1000 (0.11-0.59); MONO% 8.5 % (1.7-9.3); MPV 9.8 FL (7.4-10.4); NEUT# 4.64 X1000 (1.4-6.5); NEUT% 69.4 % (42.2-75.2); PLT 196 X1000 (130-400); RBC 3.95 XMIL (4.2-5.4); RDW 16.8 % (11.5-14.5)
[2018-10-22] MEDS: MERREM 1 GM in NS 50 ML IV SCH ×3 (06:17→22:37)
[2018-10-22 07:01] LABS: AGAP 11; ALB/GLOB RATIO 1.2; ALKALINE PHOSPHATASE 87 U/L (32-104); BUN 14 mg/dL (8-22); CALCIUM 8.5 mg/dL (8.8-10.2); CHLORIDE 107 mmol/L (98-107); COSMO 278; CREATININE 0.6 mg/dL (0.5-0.9); ESTIMATED GFR > 60; GLUCOSE 107 mg/dL (70-104); GOT 14 U/L (10-30); GPT 7 U/L (10-36); POTASSIUM 4.4 mmol/L (3.5-5.1); SODIUM 139 mmol/L (136-145); TCO2 21 mmol/L (25-35); TOTAL BILIRUBIN 0.35 mg/dL (0.20-1.00); TOTAL PROTEIN 5.6 g/dL (6.3-8.3)
[2018-10-22] MEDS: SODIUM CHLORIDE 0.9% INJ SCH (10:11)
[2018-10-22] MEDS: FLONASE NAS SCH (10:11)
[2018-10-22] MEDS: PROTONIX IV SCH (10:11)
[2018-10-22] MEDS: CYMBALTA PO SCH (10:11)
[2018-10-22] MEDS: MYCOSTATIN SUSP PO SCH ×4 (10:11→20:09)
[2018-10-22] MEDS: ARICEPT PO SCH (10:12)
[2018-10-22] MEDS: DIFLUCAN PO SCH (10:12)
[2018-10-22] MEDS: THERA M PLUS PO SCH (10:12)
[2018-10-22] MEDS: LIORESAL PO SCH ×3 (10:12→20:09)
[2018-10-22] MEDS: DITROPAN PO SCH ×3 (10:12→20:09)
[2018-10-22] MEDS: FOLIC ACID PO SCH (10:12)
[2018-10-22] MEDS: TYLENOL PO PRN (11:22)
--- NOTE | 2018-10-22 13:35 | INFECTIOUS DISEASE PROGRESS NO ---
DATE: 10/22/2018 PRESENT ILLNESS: Ms. Heredia is being treated for a multidrug resistant Pseudomonas urinary tract infection as well as an oral candidiasis. MEDICATION: She is on day 5 of meropenem which is now 1 gram IV every 8 hours. She is also receiving 100 mg of fluconazole and Nystatin swish and swallow 4 times a day. PHYSICAL EXAMINATION: Vital Signs: Temperature is 98.5 degrees, pulse rate 79, respiratory rate 18, blood pressure 138/95, O2 saturation 100% on room air. General: This is a chronically ill- appearing elderly female, she is lying in the bed, currently in no acute distress. HEENT: Oral mucous membranes do have some mild white patches noted. Conjunctivae are pale. Neck: Has a decrease in suppleness. Trachea is midline. Cardiovascular: Heart rate is regular. Respiratory: Lung sounds are clear to auscultation in the upper lobes. Diminished in the bases. Abdomen: Soft, obese and tender on palpation. Bowel sounds are active. Neurologic: She is awake, alert, oriented, less talkative and more appropriate today. She has a Port-A-Cath in place to the right chest. Site is without edema, erythema, or drainage. LABORATORY AND X-RAY: Today her white count is 6.7, hemoglobin 9.9, platelet count 196,000. Creatinine is 0.6, estimated GFR is greater than 60. Total bilirubin is 0.35, AST 14, ALT 7 alkaline phosphatase 87. Her HSV 1 and 2 are negative. Her urine has grown Pseudomonas aeruginosa. There was also another urine culture which has been ordered for this morning. No imaging reports today. ASSESSMENT AND PLAN: Ms. Heredia is being treated for a symptomatic, multidrug resistant Pseudomonas urinary tract infection. She is receiving meropenem which we will continue. We are looking for a negative urine culture and that is to be done this morning. Hopefully it will be negative once the weekend is over and she will be ready to go home. She will need at least 2 weeks of treatment with meropenem. The micro lab has verified that the Pseudomonas is susceptible. We will also continue her on the fluconazole and nystatin. She take fluconazole chronically for her previous fungemia. The nystatin is for her oral candidiasis. These plans have been discussed with and recommended by Dr. Elaine. COMORBIDITIES: For Ms. Heredia include that she is elderly and bed bound with a history of stroke, bipolar disorder, peptic ulcer disease and congestive heart failure. Dictated by BABS Martins for Lucio Elaine MD This chart was documented by, BABS Martins and accurately reflects the services performed, treatment plan and medical decisions as attested by the providers signature Lucio Elaine MD. cc: MD Domingo Mc MD [facility]ITALDeird[facility]
[2018-10-22] MEDS: NORCO-5 PO PRN ×2 (16:02→22:28)
[2018-10-22] MEDS: POTASSIUM CHLORIDE 30 MEQ in NS 1,000 ML IV SCH (16:02)
[2018-10-22] MEDS: ABILIFY PO SCH (20:09)
--- NOTE | 2018-10-22 20:14 | PROGRESS NOTE ---
DATE: 10/22/2018 SUBJECTIVE: The patient is a little better. Apparently, Dr. Elaine wants to continue multidrug- resistance Pseudomonas infection at least for 2 weeks. OBJECTIVE: The patient has some low-grade fever. Hemodynamics were stable. Mental status improved. Basically bedridden without any activities of daily living. Patient has SPC catheter. Repeat urine cultures. No growth. ASSESSMENT AND PLAN: 1. Altered mental status is improving. 2. Continue oral thrush medicines and IV antibiotics as per Dr. Elaine, and we will continue the present IV antibiotics for the weekend and Dr. Berman will decide disposition on Thursday. LEVEL OF DOCUMENTATION: 25 minutes. cc: MD Domingo Almazan MD
[2018-10-23] MEDS: MERREM 1 GM in NS 50 ML IV SCH ×3 (04:59→23:10)
[2018-10-23] MEDS: SODIUM CHLORIDE 0.9% INJ SCH (10:20)
[2018-10-23] MEDS: FLONASE NAS SCH (10:20)
[2018-10-23] MEDS: PROTONIX IV SCH (10:20)
[2018-10-23] MEDS: NORCO-5 PO PRN ×3 (10:20→23:08)
[2018-10-23] MEDS: DITROPAN PO SCH ×3 (10:21→23:10)
[2018-10-23] MEDS: THERA M PLUS PO SCH (10:21)
[2018-10-23] MEDS: CYMBALTA PO SCH (10:21)
[2018-10-23] MEDS: ARICEPT PO SCH (10:21)
[2018-10-23] MEDS: MYCOSTATIN SUSP PO SCH ×4 (10:21→23:11)
[2018-10-23] MEDS: FOLIC ACID PO SCH (10:21)
[2018-10-23] MEDS: LIORESAL PO SCH ×3 (10:21→23:10)
[2018-10-23] MEDS: DIFLUCAN PO SCH (10:21)
[2018-10-23] MEDS: POTASSIUM CHLORIDE 30 MEQ in NS 1,000 ML IV SCH (19:20)
--- NOTE | 2018-10-23 19:29 | PROGRESS NOTE ---
DATE: 10/23/2018 SUBJECTIVE: The patient is really attentive, not confused. She knows my name. She is asking when Dr. Berman is coming back. OBJECTIVE: On exam, low-grade fever. Vitals are stable and she is eating well. Physical exam no change. ASSESSMENT AND PLAN: 1. Altered mental status. Improving. 2. All electrolyte abnormalities better. No signs of active bleeding. 3. Pseudomonas aeruginosa infection with the SPC catheter. Repeat cultures are negative. 4. Antibiotics. Continue IV meropenem as per Dr. Elaine and will make the arrangements over the weekend. LEVEL OF DOCUMENTATION: 15 minutes. cc: MD Domingo Almazan MD
[2018-10-23] MEDS: ABILIFY PO SCH (23:10)
[2018-10-24] MEDS: MERREM 1 GM in NS 50 ML IV SCH (06:45)
[2018-10-24] MEDS: DITROPAN PO SCH ×3 (08:43→21:32)
[2018-10-24] MEDS: CYMBALTA PO SCH (08:43)
[2018-10-24] MEDS: NORCO-5 PO PRN ×3 (08:43→21:32)
[2018-10-24] MEDS: LIORESAL PO SCH ×3 (08:43→21:32)
[2018-10-24] MEDS: THERA M PLUS PO SCH (08:43)
[2018-10-24] MEDS: FOLIC ACID PO SCH (08:44)
[2018-10-24] MEDS: PROTONIX IV SCH (08:44)
[2018-10-24] MEDS: ARICEPT PO SCH (08:44)
[2018-10-24] MEDS: MYCOSTATIN SUSP PO SCH ×4 (08:44→21:32)
--- NOTE | 2018-10-24 12:52 | PROGRESS NOTE ---
DATE: 10/24/2018 SUBJECTIVE: The patient is doing much better. No complaints. OBJECTIVE: Vital Signs: Temp is 98 degrees, pulse is 59, blood pressure is stable. HEENT: Within normal limits. Port on the right side noted. Chest: Clear. Heart: Heart sounds are regular. Abdomen: Belly is soft, nontender. SPC catheter was noted. LABORATORY DATA: Repeat urine cultures were negative. ASSESSMENT AND PLAN: 1. Altered mental status, improving. 2. The patient is back to the baseline. 3. Chronic pain, stable. 4. Suprapubic catheter with recurrent urinary tract infection, on intravenous antibiotics. Dr. Elaine is going to plan how long she needs intravenous antibiotics. The patient has a resistant Pseudomonas, and currently on meropenem 1 gram every [address] Berman is going to follow up and make the disposition tomorrow for IV antibiotics at home. LEVEL OF DOCUMENTATION: 25 minutes. cc: MD Domingo Almazan MD
[2018-10-24] MEDS: DIFLUCAN PO SCH (15:07)
[2018-10-24] MEDS: FLONASE NAS SCH (15:07)
--- NOTE | 2018-10-24 17:37 | INFECTIOUS DISEASE PROGRESS NO ---
DATE: 10/24/2018 PRESENT ILLNESS: The patient is being treated for a drug-resistant Pseudomonas urinary tract infection. She is totally asymptomatic today of the urinary tract infection and since the patient had a culture positive for the Pseudomonas organism, there have been 2 urine cultures since then that are sterile. Therefore, I think the patient's infection has cleared. Patient also has oral candidiasis. A swab from her mouth was sent for HSV by PCR and it is negative therefore the patient does not have herpes oral mucositis and it appears that the oral candidiasis has cleared as well. MEDICATIONS: The patient is on meropenem, nystatin swish and swallow and fluconazole. PHYSICAL EXAMINATION: Vital Signs: Temperature is 98.3 degrees, pulse 59, respirations 16, blood pressure 120/63. General: This is a chronically ill-appearing, elderly female. She is lying in bed. She does have a tremor secondary to her Parkinson disease. Head/eyes/ears/nose/throat: She can hear my spoken words and see near objects. There is no drainage from the nose or ears. She does not have a white coating anymore of her tongue. Neck: No meningismus. Lungs: Clear to auscultation. Cardiovascular: Heart rate is regular. Thorax: Patient has a Port-A-Cath on the right side. The site is not swollen, erythematous or tender. Abdomen: Soft and nontender. The patient has a suprapubic tube in place. The tube site is not erythematous or draining. Neurologic: The patient is awake. She does have a tremor in her hand as mentioned above. She can hear my spoken words and see near objects. LAB AND X-RAY: The patient has had 2 recent urine cultures that were negative for any growth. The PCR for HSV in the patient's mouth is negative. CBC shows a white count of 6700, hemoglobin 9.9, platelet count 196,000. Creatinine is 0.6. GFR is greater than 60. There is no new radiographic study for today. ASSESSMENT AND PLAN: The patient is over her urinary tract infection. I am going to stop her meropenem. The patient's oral candidiasis appears to have cleared also and I am going to discontinue fluconazole and nystatin tomorrow. The patient does not need any further antibiotics or nystatin or fluconazole and I think she can be discharged tomorrow from an infectious disease point of view. COMORBIDITIES: She is elderly and she has Parkinson disease. She is bed bound, she has bipolar disorder, congestive heart failure, and peptic ulcer disease. cc: MD Domingo Mc MD
--- NOTE | 2018-10-24 17:51 | INFECTIOUS DISEASE PROGRESS NO ---
DATE: 10/24/2018 ADDENDUM: I am signing off the patient's case but I am available to see the patient on a p.r.n. basis. I have stopped her meropenem and I have also stopped her fluconazole and nystatin after 12 noon tomorrow, on ThursdayOctober 25. cc: MD Domingo Mc MD
[2018-10-24] MEDS: POTASSIUM CHLORIDE 30 MEQ in NS 1,000 ML IV SCH (18:49)
[2018-10-24] MEDS: ABILIFY PO SCH (21:32)
[2018-10-25] MEDS: NORCO-5 PO PRN ×2 (03:52→10:35)
--- NOTE | 2018-10-25 09:24 | PROGRESS NOTE ---
DATE: 10/25/2018 SUBJECTIVE: Ms. Heredia is doing fairly well. Her lungs are clear. Heart sounds are normal. Her vital signs are stable. Blood pressure is 118/57. Mental status is normal. She is afebrile. She was seen by Dr. Elaine today, who suggested that she can be discharged today. She does not need any more IV antibiotics. Will discharge her today in ambulance. cc: MD Domingo Singh MD
[2018-10-25] MEDS: MYCOSTATIN SUSP PO SCH (10:34)
[2018-10-25] MEDS: FLONASE NAS SCH (10:34)
[2018-10-25] MEDS: PROTONIX IV SCH (10:34)
[2018-10-25] MEDS: ARICEPT PO SCH (10:35)
[2018-10-25] MEDS: THERA M PLUS PO SCH (10:35)
[2018-10-25] MEDS: SODIUM CHLORIDE 0.9% INJ SCH (10:35)
[2018-10-25] MEDS: LIORESAL PO SCH (10:35)
[2018-10-25] MEDS: DIFLUCAN PO SCH (10:35)
[2018-10-25] MEDS: CYMBALTA PO SCH (10:35)
[2018-10-25] MEDS: FOLIC ACID PO SCH (10:35)
[2018-10-25] MEDS: DITROPAN PO SCH (10:35)
[2018-10-25 15:27] VITALS: BP 135/82
--- NOTE | 2018-10-26 09:30 | DISCHARGE SUMMARY ---
ADMISSION DATE: 10/13/2018 DISCHARGE DATE: 10/25/2018 HISTORY AND HOSPITAL COURSE: Ms. Heredia, who is a 72-year-old white female, was admitted with delirium, acute urinary tract infection, history of cellulitis in the lower extremities. Renal ultrasound revealed very limited visualization of the left kidney. There was nephrolithiasis. Chest x-ray revealed poor inspiration with questionable atelectasis and/or pneumonia. The patient had a history of drug-resistant pneumonia in the past and multiple comorbidities. She was seen by Dr. Elaine, Infectious Disease specialist. CBC was unremarkable, except for anemia. Hemoglobin was 9.9. Electrolytes initially revealed sodium of 116. She had metabolic encephalopathy. Urinalysis had revealed too numerous WBCs and a large amount of leukocytes. Herpes 1 and 2 were negative. Microbiology: The culture studies grew Pseudomonas aeruginosa, gram-negative urinary tract infection. Blood culture was negative. She was treated appropriately with antibiotics, as well as IV saline solution. She became alert. She was alert and oriented when she was discharged yesterday. FINAL DIAGNOSIS: Metabolic encephalopathy secondary from severe hyponatremia, recurrent resistant Pseudomonas infection, recurrent fungal infections. The patient was covered with all the antibiotics under the direction of Dr. Elaine. cc: MD Domingo Singh MD
--- NOTE | 2018-10-29 11:43 | DISCHARGE SUMMARY ---
ADMISSION DATE: 10/13/2018 DISCHARGE DATE: 10/25/2018 DISCHARGE SUMMARY ADDENDUM: The patient had been getting recurrent urinary tract infections, probably secondary to suprapubic catheter. cc: MD Domingo Singh MD
== END 2018-10-25 16:03 | disposition home health service (06) | DRG 698 ==
LOC: ED 16:26 → EDIPHOLD 20:26 → 3N 10-14 01:11 → ICU 10-15 10:01 → 4N 10-19 16:18
PROVIDERS: ADMIT Family Medicine; ATTEND Internal Medicine
CPT/HCPCS: 36430; 71010; 71045; 74000; 74018; 76770; 80048; 80053; 80202; 81001; 82272; 82948; 83605; 83735; 84100; 84484; 85025; 86850; 86870; 86900; 86901; 86905; 86920; 86922; 87040; 87077; 87088; 87186; 87275; 87276; 87529; 87804; 93005; 93010; 96365; 96366; 96368; 99285; A9270; C9113; J0610; J1956; J2185; J3370; J3475; J3480; J7030; J7040; J7050; P9016; S0164; XXXXX

== ENCOUNTER 2018-12-28 10:09 | Inpatient (IN) ==
[2018-12-28] MEDS ORDERED: CALMOSEPTINE OINTMENT TOP PRN (18:08)
[2018-12-28 18:33] LABS: URINE SOURCE CATH
[2018-12-28 18:41] LABS: BILIRUBIN URINE NEGATIVE (NEGATIVE); BLOOD URINE SMALL (NEGATIVE); CLARITY CLEAR (CLEAR); COLOR YELLOW; GLUCOSE URINE NEGATIVE (NEGATIVE); KETONE URINE NEGATIVE (NEGATIVE); LEUKOCYTES URINE LARGE (NEGATIVE); NITRITE URINE NEGATIVE (NEGATIVE); PROTEIN URINE NEGATIVE (NEGATIVE); UROBILINOGEN URINE 0.2 EU/dL (0.2-1.0)
[2018-12-28] MEDS: REQUIP PO SCH (20:09)
[2018-12-28] MEDS: DESYREL PO SCH (20:09)
[2018-12-28] MEDS: KLONOPIN PO SCH (20:09)
[2018-12-28] MEDS: MAXIPIME 1 GM in NS 50 ML IV SCH (20:09)
[2018-12-28] MEDS: LASIX PO SCH (20:09)
[2018-12-28] MEDS: DITROPAN PO SCH (20:10)
--- NOTE | 2018-12-28 20:19 | HISTORY AND PHYSICAL ---
HISTORY OF PRESENT ILLNESS: Ms. Heredia is a 73-year-old white female who was admitted with recurrent urinary tract infections. She had Pseudomonas aeruginosa isolated from her urine, sensitive to only parenteral medications. This is a recurrent infection for her. She had Pseudomonas septicemia and was very sick and hypotensive from it. When she has a UTI like this, we always admit her to the hospital. At present she is not running any temperature; however, she is nauseous. She has some greenish discharge from her vagina. She has had multiple surgeries in the past. In fact, she had about 17 surgeries on her spine, starting from lumbar to cervical and dorsal spine. She also had a knee replacement on the right side, and she had a Staph infection after the knee replacement. At present she has a small wound in the suprapatellar area. She also had a shoulder surgery done on the left side, and after shoulder surgery she had severe edema of the entire upper extremity, and dislocation. She also had phlebitis in that area. Besides this she has had multiples stones. Recently she had lithotripsy done by Dr. Hancock. She also had a suprapubic catheter put in by Dr. Hancock on account of her recurrent urinary tract infections with a Arnold catheter. She has had multiple gastric surgeries and abdominal surgeries done on her also. She has developed dementia. Had some coronary artery disease and hypertension and has been dependent on pain medication as well as anxiolytics. SOCIAL HISTORY: She is a nonsmoker. Does not drink. MEDICATIONS: 1. Spironolactone/hydrochlorothiazide. 2. Ropinirole. 3. Pantoprazole. 4. Oxybutynin. 5. [place] 10. 6. Klonopin. 7. Isosorbide mononitrate. 8. Donepezil. REVIEW OF SYSTEMS: At present, other than some recurrent wound infections, it is noncontributory. PHYSICAL EXAMINATION: VITAL SIGNS: Temperature normal, pulse 87 per minute, respiratory rate 16 per minute, blood pressure 99/79. HEAD AND NECK: Normocephalic. Pupils PERRLA. Fundus examination normal. Neck supple, JVP normal. ENT examination unremarkable. There is no evidence of lymphadenopathy or thyroid enlargement. EXTREMITIES: No pedal edema, calf tenderness, anemia, cyanosis or clubbing. Pedal pulses well felt. BREAST EXAM: Normal. CHEST: Normal inspection. LUNGS: Clear to auscultation. ABDOMEN: Revealed multiple scars from previous surgeries. There is no guarding, atypical masses, or organomegaly. Bowel sounds normal. RECTAL: Deferred. SECURITIES COUNSELOR: Higher functions normal. Cranial nerves normal. Motor and sensory system examination unremarkable except that she does not move the extremities, as she is hypotonic. She also has some Parkinsonian tremor. NEUROLOGIC: Deep tendon reflexes are sluggish. There are no cerebellar signs. No signs of meningeal irritation. EXTREMITIES: Locomotor exam and skin exam unremarkable except for a wound over the right knee area. IMPRESSION: Recurrent Pseudomonas urinary tract infection. Plan to start ceftazidime and continue the fluconazole. cc: Amando Berman MD MTDD
[2018-12-28] MEDS: NORCO-10 PO PRN (21:03)
[2018-12-29] MEDS: NORCO-10 PO PRN ×4 (03:42→21:35)
[2018-12-29 07:03] LABS: BASO# 0.02 X1000 (0.0-0.2); BASO% 0.3 % (0.0-0.8); EOS% 2.6 % (0.0-10.0); HEMATOCRIT 33.8 % (37.0-47.0); HEMOGLOBIN 10.8 g/dL (12.0-16.0); LYMPH# 1.85 X1000 (1.2-3.4); LYMPH% 24.3 % (20.5-51.1); MCH 26.3 PG (27-31); MCV 82.4 FL (81-99); MONO# 0.57 X1000 (0.11-0.59); MONO% 7.5 % (1.7-9.3); MPV 10.7 FL (7.4-10.4); NEUT# 4.97 X1000 (1.4-6.5); NEUT% 65.3 % (42.2-75.2); PLT 223 X1000 (130-400); RDW 17.4 % (11.5-14.5); WBC 7.61 X1000 (4.8-10.8)
[2018-12-29] MEDS: MAXIPIME 1 GM in NS 50 ML IV SCH (07:08)
[2018-12-29] MEDS: PROTONIX PO SCH (07:08)
--- NOTE | 2018-12-29 07:39 | Diag Imaging Result Doc PS360 ---
EXAM: CHEST-PORTABLE INDICATION: routine TECHNIQUE: One view COMPARISON: 10/13/2018 FINDINGS: Right chest port is in stable position. Inspiration is suboptimal similar to the previous study. No well-defined airspace consolidation is identified. The lungs are grossly clear. There is no definite pleural fluid collection or pneumothorax identified. Cardiac silhouette is essentially unremarkable. IMPRESSION: Low lung volumes. No definite acute pathology by plain radiograph, otherwise. Electronically signed by Buck Silva 12/29/2018 7:37 AM
[2018-12-29 07:42] LABS: CREATININE 1.2 mg/dL (0.5-0.9); POTASSIUM 2.9 mmol/L (3.5-5.1)
[2018-12-29 07:43] LABS: ALB/GLOB RATIO 1.1; ALBUMIN 3.5 g/dL (3.5-5.0); CALCIUM 8.7 mg/dL (8.8-10.2); TOTAL BILIRUBIN 0.26 mg/dL (0.20-1.00); TOTAL PROTEIN 6.6 g/dL (6.3-8.3)
--- NOTE | 2018-12-29 08:06 | EKG Report ---
Test Performed on : 12/29/2018 06:44:23 AM Test Reason : CP Blood Pressure : / mmHG Vent. Rate : 058 BPM Atrial Rate : 058 BPM P-R Int : 196 ms QRS Dur : 090 ms QT Int : 484 ms P-R-T Axes : 038 050 035 degrees QTc Int : 475 ms Sinus bradycardia. Nonspecific ST and T wave abnormality Abnormal ECG When compared with ECG of 15-OCT-2018 08:05, MD interval has decreased Nonspecific T wave abnormality now evident in Anterior leads Confirmed by Josh WALL, Samm Rivero ([id number]) on 12/29/2018 10:23:48 AM
[2018-12-29] MEDS: CLARITIN-D 24 HR PO SCH ×2 (09:00→15:25)
[2018-12-29] MEDS: CULTURELLE PO SCH (09:27)
[2018-12-29] MEDS: KLONOPIN PO SCH ×2 (09:28→20:20)
[2018-12-29] MEDS: DIFLUCAN PO SCH (09:28)
[2018-12-29] MEDS: IMDUR PO SCH (09:28)
[2018-12-29] MEDS: ALDACTAZIDE 25/25 PO SCH (09:28)
[2018-12-29] MEDS: REQUIP PO SCH ×2 (09:28→20:20)
[2018-12-29] MEDS: LASIX PO SCH ×2 (09:28→20:19)
[2018-12-29] MEDS: DITROPAN PO SCH ×2 (09:29→20:20)
--- NOTE | 2018-12-29 09:29 | PROGRESS NOTE ---
DATE: 12/29/2018 Ms. Heredia is admitted with recurrent Pseudomonas UTI. She has some infected area from the suprapubic catheter site. History of recurrent UTIs. We will get Dr. Hancock's consult as well as Dr. Elaine to see her. -3 cc: Amando Berman MD
--- NOTE | 2018-12-29 12:59 | INFECTIOUS DISEASE CONSULT REP ---
DATE: 12/29/2018 CONCLUSION: Dr. Berman asked me to see the patient about her urinary tract infection. She certainly appears to have a urinary tract infection. In the past, she has had pseudomonas causing the infection. The patient may have sinusitis as well. RECOMMENDATIONS: I agree with the decision to treat the patient with cefepime, which she is tolerating now well. I have increased the dose to 2 g IV every 12 hours. The culture and susceptibility data are pending. I am going to obtain a Paula view of the sinuses. Since the patient has had so many infections, I will go ahead and check her immunoglobulin levels. DISCUSSION: The patient, in the past week, has felt weak and tired. She has run a low-grade fever with the maximum being 99.6. She has noted that her urine has an odor to it and is a darker color. Laboratory studies thus far show a CBC with a white count of 7610, hemoglobin is 10.8, and platelet count is 223,000. Creatinine is 1.2. GFR is 44. Liver function studies are normal. Urinalysis showed white cells but no nitrites. PAST MEDICAL HISTORY/REVIEW OF SYSTEMS: I was unable to get a complete review of systems from the patient. She did tell me that in the last 2 weeks, she has had an itching feeling in her left shoulder which has previously had surgery on it. She also tells me that for the past 10 days, she has had epistaxis and congestion in the left maxillary sinus. 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 She has had a hysterectomy. PREVIOUS HOSPITALIZATIONS AND OPERATIONS: She has had labor and deliveries, a hysterectomy, multiple admissions for leg cellulitis and urinary tract infection. She has had multiple back surgeries. She has had a right total knee arthroplasty. She has also had surgery on her left shoulder. Also, she has had spinal surgery as well as surgery for renal calculi. Finally, the patient has had an appendectomy and cholecystectomy. The patient has also had a right-sided Port- A-Cath placed. 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 She has bipolar disorder, congestive heart failure, and peptic ulcer disease. She has also had upper GI tract bleeding. INFECTIOUS DISEASE HISTORY: Positive for recurrent urinary tract infections and pneumonia, recurrent sinus infections. FAMILY HISTORY: Positive for diabetes mellitus, myocardial infarction, stroke, and cancer. SOCIAL HISTORY: [place]. She does not smoke cigarettes, drink alcoholic beverages, or abuse drugs. ALLERGIES: The patient is allergic to penicillin manifested by a rash. She has been receiving cefepime in the hospital and tolerating it well. Other patient allergies include codeine, Demerol, Reglan, and sulfa. HOME MEDICATIONS: Include the following: Abilify, baclofen, Klonopin, Aricept, Cymbalta, fluconazole, Flonase, Lasix, hydrocodone, Isordil, Ditropan, Protonix, ropinirole, Aldactazide, and Desyrel. PHYSICAL EXAMINATION: Vital Signs: Temperature is 97.7 degrees, pulse 59, respirations 16, blood pressure 104/52, patient weighs 182 pounds. General: This is an ill-appearing, elderly female. She is in no acute distress. Head, Eyes, Ears, Nose, and Throat: She can hear my spoken words and see near objects. She does not have any white patches on her tongue. Neck: The patient does not have pain when her neck is passively moved. Thorax: The patient has a dorsal kyphosis. At the top of the spine, you can feel a hard area which may be due to having metal in her spine. There is no erythema. Abdomen: Soft and nontender. Neurologic: The patient is awake. She can move her arms but she did not seem to be able to move her legs during my interview. Legs, no erythema noted. Thank you for the consult. cc: MD Amando Mc MD
--- NOTE | 2018-12-29 13:23 | INFECTIOUS DISEASE CONSULT REP ---
DATE: 12/29/2018 ADDENDUM: This is in addition to the consultation I just dictated. I omitted some of the patient's medical history. 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 She has had a hysterectomy. PREVIOUS HOSPITALIZATIONS AND OPERATIONS: She has had labor and deliveries, a hysterectomy, multiples admissions for cellulitis of the legs and/or urinary tract infection. She has had multiple back surgeries. She has had a right total knee arthroplasty. She has had surgery for renal calculi, and she has also had an appendectomy and cholecystectomy. 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 The patient has bipolar disorder, congestive heart failure, and peptic ulcer disease with upper GI bleeding. INFECTIOUS DISEASE HISTORY: Positive for recurrent urinary tract infections and pneumonia. FAMILY HISTORY: Positive for diabetes mellitus, myocardial infarction, stroke and cancer. SOCIAL HISTORY: [place]. She does not smoke cigarettes, drink alcoholic beverages or abuse drugs. ALLERGIES: The patient has a has an allergy to penicillin and sulfa, the penicillin allergy was a rash, but not hives. The patient has a dog and a cat for pets at home. Her drug allergies include codeine, Demerol, Reglan, sulfa and penicillin. HOME MEDICATIONS: Include 1. Spironolactone/hydrochlorothiazide. 2. Ropinirole. 3. Pantoprazole. 4. Oxybutynin. 5. [place] 10. 6. Klonopin. 7. Isordil. 8. Donepezil. PAST MEDICAL HISTORY: Past medical history was very difficult for me to get from the patient, she did not have a good memory. cc: MD Amando Mc MD
[2018-12-29] MEDS: MAXIPIME 2 GM in NS 50 ML IV SCH ×2 (13:47→23:17)
--- NOTE | 2018-12-29 15:17 | Diag Imaging Result Doc PS360 ---
EXAM: SINUSES PAULA VIEW ONLY 12/29/2018 HISTORY: sinusitis TECHNIQUE: Paula view COMMENT: There are no apparent air-fluid levels. There is hyperostosis of the calvarium. The mastoid air cells appear to be pneumatized bilaterally. There are multiple dental implants and there is apparent periodontal disease in the anterior mandible. There has been multilevel fusion in the cervical spine. IMPRESSION: No evidence of acute paranasal sinus disease. Electronically signed by Chandan Reza 12/29/2018 3:15 PM
[2018-12-29] MEDS ORDERED: VANCOMYCIN IV PER PHARMACY MISC SCH (17:30)
[2018-12-29] MEDS ORDERED: VANCOMYCIN 1,650 MG in NS 250 ML IV ONE (20:00)
[2018-12-29] MEDS: DESYREL PO SCH (20:19)
[2018-12-30] MEDS: NORCO-10 PO PRN ×4 (03:44→22:30)
[2018-12-30] MEDS: PROTONIX PO SCH (06:24)
[2018-12-30] MEDS: DIFLUCAN PO SCH (08:32)
[2018-12-30] MEDS: REQUIP PO SCH ×2 (08:32→20:50)
[2018-12-30] MEDS: CLARITIN-D 24 HR PO SCH (08:32)
[2018-12-30] MEDS: KLONOPIN PO SCH ×2 (08:32→20:50)
[2018-12-30] MEDS: IMDUR PO SCH (08:33)
[2018-12-30] MEDS: DITROPAN PO SCH ×2 (08:33→20:50)
[2018-12-30] MEDS: ALDACTAZIDE 25/25 PO SCH (08:33)
[2018-12-30] MEDS: CULTURELLE PO SCH (08:33)
[2018-12-30] MEDS: LASIX PO SCH ×2 (08:33→20:50)
--- NOTE | 2018-12-30 09:45 | PROGRESS NOTE ---
DATE: 12/30/2018 Ms. Heredia is doing better. She did not have any epistaxis. X-ray of the nasal passages is unremarkable. We have put her on Claritin-D. She had a mild sore throat. General condition is unchanged. We will continue the current management. She had Staphylococcus aureus coagulase- negative isolated from 1 bottle of blood culture. Yesterday, we started vancomycin IV. We may change it later on. -8 cc: Amando Berman MD
[2018-12-30] MEDS: MAXIPIME 2 GM in NS 100 ML IV SCH ×2 (11:03→22:34)
--- NOTE | 2018-12-30 11:08 | CONSULTATION ---
DATE OF CONSULTATION: 12/29/2018 REASON FOR CONSULTATION: Recurrent UTI's and evaluate for suprapubic tube site. HISTORY OF PRESENT ILLNESS: Ms. Heredia is a very pleasant 73-year-old female who is known to me secondary to history of paraplegia with resultant neurogenic bladder, bilateral staghorn stones, recurrent UTIs, and suprapubic tube. She has had treatment for her right Staghorn stone with a right PCNL on 09/10/2018. She also had treatment of her other side with ESWL. Per record review, she has had documented Pseudomonas aeruginosa in September of 2018 and October of 2018, and December of 2018. Her suprapubic tube was exchanged every 4 weeks by home health. She also reports that the home health irrigates her bladder once a week. She denies pain or gross hematuria. She does report sediment in her Arnold bag. She also reports fevers are typical signs of impending UTI. She reports her most recent suprapubic tube was changed 3 weeks ago. Currently, her urine culture is growing gram-negative rods from 12/28/2018. PAST MEDICAL HISTORY: Cervical injury leading to quadriplegia, hypertension, degenerative disk disease, recurrent UTIs, and urolithiasis. PAST SURGICAL HISTORY: Lumbar fusion, cervical fusion, left shoulder arthroplasty, abdominal herniorrhaphy, hysterectomy, knee replacement, right PCNL and left ESWL. ALLERGIES: 1. Demerol. 2. Codeine. 3. Penicillin. 4. Reglan. HOME MEDICATIONS: 1. Aspirin. 2. Baclofen. 3. Folic Acid. 4. ISMN. 5. Multivitamin. 6. Nitroglycerin. 7. Zofran. 8. Ropinirole. 9. Trazodone. 10. Aricept. 11. Fluticasone. 12. Protonix. 13. Abilify. 14. Cymbalta. 15. Diflucan. 16. Vitamin B12. 17. Spironolactone-hydrochlorothiazide. 18. Multivitamin. 19. Linzess. 20. Klonopin. 21. Potassium chloride. 22. Lactulose. SOCIAL HISTORY: She denies tobacco, alcohol or drug use. FAMILY HISTORY: There is no malignancies. REVIEW OF SYSTEMS: Reviewed and 12 systems negative with exception to the history of present illness. OBJECTIVE: Vital Signs: T 97.8 degrees, P 69, BP 102/51. General: A pleasant female. HEENT: Normocephalic. Cardiovascular: Regular rate and rhythm. Pulmonary: Bilateral breath sounds. Abdomen: Soft, nontender, and nondistended. Protuberant. : Suprapubic tube in place with mild encrustation around the suprapubic site and mild erythema at the suprapubic tube insertion, but no evidence of purulent drainage. Her Arnold bag has straw- colored urine. Back: No CVA tenderness. Dermatologic: No obvious skin rashes. Neurologic: Alert and oriented x3. Psychiatric: Appropriate mood and affect. LABORATORY: Her white cell count of 8000 and creatinine is 1.2. PERTINENT IMAGES: None at this hospitalization according to Urology. She had a renal ultrasound on 10/17/2018 as well as abdominal x-ray on 10/13/2018 revealing the kidney stones. ASSESSMENT/PLAN: A 73-year-old female who has multiple urologic issues including neurogenic bladder, which is currently managed with suprapubic tube as well as bilateral renal stones. The majority of her stones were addressed, but she does have some residual urolithiasis, and the patient is aware of it. She has had UTIs leading to hospitalizations as well as bacteremia. I have discussed with the patient her difficult situation. I have reassured her that the encrustation around the suprapubic tube site is not an infection. I have advised that home health change her suprapubic tube to every 3 weeks as opposed to 4 weeks to decrease the recurrent UTIs. We also discussed that she would benefit from having her bladder irrigated with sterile saline water 3 times a week as opposed to once a week as she does get home health nursing agency to come out at least 3 times a week. We have finally discussed that she may benefit from oral prophylaxis with fosfomycin. It is an old antibiotic that has been having resurgence recently due to fairly well documented lack of resistance. I have discussed this issue with Dr. Lucio Elaine, and was told that we can request microbiology lab to test her urine culture for sensitivity to the fosfomycin. If it is indeed sensitive, then she would benefit from fosfomycin 3 g orally every 10 days for at least 3 months. I have discussed this with Viviane in the microbiology lab who stated that she will pass along the message and have this tested on 12/30/2018. In a sterile fashion, I removed her old suprapubic tube which was 20-[place]. After prepping her, I exchanged the tube without difficulties with 7 mL of sterile water placed into the balloon. She tolerated the procedure well, and clear urine was returned. PLAN: 1. Recommend suprapubic tube changes every 3 weeks by home health. 2. I recommend Home Health to irrigate her bladder 3 times a week with sterile water or saline to decrease sediment. 3. If the urine culture which will likely be Pseudomonas comes back sensitive to fosfomycin, she would benefit from prophylaxis with 3 g of fosfomycin orally every 10 days. 4. I have discussed with the patient that she may benefit from addressing her residual stone burden, but right now I would like for her to get stronger and recover from this UTI. 5. Please call with questions. cc: MD Amando Castro MD MTDD
--- NOTE | 2018-12-30 18:12 | INFECTIOUS DISEASE PROGRESS NO ---
DATE: 12/30/2018 PRESENT ILLNESS: The patient has a gram-negative christo urinary tract infection. The identity and susceptibility of the isolate is not yet returned, but should be back tomorrow. The patient has 1 of 2 blood cultures growing a coagulase-negative staph. This is a contaminant and does not require antibiotic treatment. MEDICATIONS: Currently, the patient is getting vancomycin and cefepime. PHYSICAL EXAMINATION: Vital Signs: Temperature is 99.2 degrees, pulse 72, respirations 14, blood pressure 114/56. General: This is an ill-appearing elderly female. She is in no acute distress. Head, Eyes, Ears, Nose, Throat: She can hear my spoken words and see near objects. There is no drainage coming from her nose or ears. Neck: There is no stiffness. Lungs: Clear to auscultation. Cardiovascular: Heart rate is regular. Abdomen: Soft and nontender. The patient does have a suprapubic catheter in place. The site is not erythematous or draining. Neurologic: Patient is awake. She can move her arms. She does not have a tremor. LAB AND X-RAY: As mentioned above, 1 of 2 blood cultures is growing a coagulase-negative staphylococcus, and urine is growing a gram-negative christo. ASSESSMENT AND PLAN: The coagulase negative staphylococcus in 1 of 2 blood cultures is a contaminant and does not require antibiotic treatment. Therefore, I have discontinued vancomycin. The urine is growing a gram-negative christo, the identity of which is not yet back. For now, I am going to keep the patient on cefepime pending final results. COMORBIDITIES: Include she is elderly; she also has a neurogenic bladder and bilateral renal stones. She has a history also of congestive heart failure. cc: MD Amando Mc MD
[2018-12-30] MEDS: DESYREL PO SCH (20:50)
[2018-12-31] MEDS: NORCO-10 PO PRN ×2 (05:50→15:06)
[2018-12-31] MEDS: PROTONIX PO SCH ×2 (05:50→08:05)
[2018-12-31] MEDS: CULTURELLE PO SCH (10:21)
[2018-12-31] MEDS: KLONOPIN PO SCH ×2 (10:21→22:29)
[2018-12-31] MEDS: REQUIP PO SCH ×2 (10:22→22:29)
[2018-12-31] MEDS: CLARITIN-D 24 HR PO SCH (10:22)
[2018-12-31] MEDS: DIFLUCAN PO SCH (10:22)
[2018-12-31] MEDS: ALDACTAZIDE 25/25 PO SCH (10:22)
[2018-12-31] MEDS: IMDUR PO SCH (10:23)
[2018-12-31] MEDS: LASIX PO SCH ×2 (10:23→22:29)
[2018-12-31] MEDS: DITROPAN PO SCH ×2 (10:23→22:29)
[2018-12-31] MEDS: MAXIPIME 2 GM in NS 100 ML IV SCH ×2 (12:03→22:30)
--- NOTE | 2018-12-31 13:07 | PROGRESS NOTE ---
DATE: 12/31/2018 SUBJECTIVE: Ms. Heredia has coag-negative Staph and Pseudomonas aeruginosa in the urine. Her water view x-ray is negative. She does not have any motor epistaxis. Her hemoglobin is 10.8, white count is 7.61. She is getting IV cefepime, and we are going to continue that. -3 cc: Amando Berman MD
[2018-12-31] MEDS ORDERED: ZYPREXA IM ONE (18:58)
[2018-12-31] MEDS ORDERED: VANCOMYCIN 1,400 MG in NS 250 ML IV SCH (20:00)
[2018-12-31] MEDS: DESYREL PO SCH (22:29)
--- NOTE | 2018-12-31 22:50 | INFECTIOUS DISEASE PROGRESS NO ---
DATE: 12/31/2018 PRESENT ILLNESS: The patient has a symptomatic Pseudomonas urinary tract infection. MEDICATIONS: The patient is receiving cefepime. PHYSICAL EXAMINATION: Vital Signs: Temperature is 98.1 degrees, pulse 81, respirations 12, blood pressure 119/63. General: This is an ill-appearing, elderly female. She is in no acute distress. Head/eyes/ears/nose/throat: She can hear my spoken words and see near objects. She does not have any white patches on her tongue. Neck: She does not seem to have any pain when she moves her neck. Lungs: Clear to auscultation. Cardiovascular: Regular heart rate. Abdomen: Soft and nontender. She has a suprapubic catheter in place. The site is not erythematous or draining. Neurologic: The patient is alert. She can move her right arm. Her left arm is very difficult for her to move. LAB AND X-RAY: There is no new lab or x-ray. ASSESSMENT AND PLAN: Patient has a Pseudomonas urinary tract infection. I plan to continue the patient on cefepime because the urinary tract infection is symptomatic. I plan for a total treatment course of 2 weeks. COMORBIDITIES: The patient is elderly. She has a neurogenic bladder and bilateral renal calculi. She also has a history of congestive heart failure. cc: MD Amando Mc MD
[2019-01-01] MEDS: PROTONIX PO SCH (06:29)
[2019-01-01] MEDS: REQUIP PO SCH ×2 (08:02→21:55)
[2019-01-01] MEDS: LASIX PO SCH ×2 (08:02→21:55)
[2019-01-01] MEDS: KLONOPIN PO SCH ×2 (08:02→21:55)
[2019-01-01] MEDS: IMDUR PO SCH (08:02)
[2019-01-01] MEDS: DITROPAN PO SCH ×2 (08:02→21:55)
[2019-01-01] MEDS: CULTURELLE PO SCH (08:02)
[2019-01-01] MEDS: CLARITIN-D 24 HR PO SCH (08:02)
[2019-01-01] MEDS: ALDACTAZIDE 25/25 PO SCH (08:02)
[2019-01-01] MEDS: DIFLUCAN PO SCH (08:02)
[2019-01-01] MEDS: MAXIPIME 2 GM in NS 100 ML IV SCH ×2 (11:28→22:30)
[2019-01-01] MEDS: NORCO-7.5 PO PRN (16:10)
[2019-01-01] MEDS: DESYREL PO SCH (21:55)
--- NOTE | 2019-01-01 22:02 | PROGRESS NOTE ---
DATE: 01/01/2019 VITAL SIGNS: Stable, with temperature 97.7 degrees, heart rate 85, respirations 20, blood pressure 121/71, O2 saturation on room air 94%. SUBJECTIVE: The patient is alert and oriented. According to the daughter, she became more confused last night. She had delusion, thinking that the patient in the next bed was going to kill her. I spoke with the nurse and assumed that she had been moved to another room, but apparently not. She was given Zyprexa which helped. She is currently on cefepime for Pseudomonas urinary tract infection. Dr. Elaine wanted her to stay on cefepime for 2 weeks. She may be able to have this given as an outpatient at home. PLAN: Transfer to private room if available, decrease [place] to 7.5 mg q.6 hours p.r.n., and make Zyprexa 5 mg IM p.r.n. agitation and confusion. cc: MD Amando Carlson MD
[2019-01-01] MEDS: ZYPREXA IM PRN (22:04)
[2019-01-01] MEDS ORDERED: STERILE WATER INJ. ONE (22:09)
[2019-01-02] MEDS: PROTONIX PO SCH (06:05)
[2019-01-02] MEDS: DIFLUCAN PO SCH (11:30)
[2019-01-02] MEDS: LASIX PO SCH ×2 (11:31→21:52)
[2019-01-02] MEDS: DITROPAN PO SCH ×2 (11:31→21:52)
[2019-01-02] MEDS: KLONOPIN PO SCH ×2 (11:31→21:52)
[2019-01-02] MEDS: REQUIP PO SCH ×2 (11:31→21:52)
[2019-01-02] MEDS: IMDUR PO SCH (11:31)
[2019-01-02] MEDS: ALDACTAZIDE 25/25 PO SCH (11:32)
[2019-01-02] MEDS: CLARITIN-D 24 HR PO SCH (11:32)
[2019-01-02] MEDS: CULTURELLE PO SCH (11:32)
[2019-01-02] MEDS: TAZIDIME 1 GM in NS 50 ML IV SCH ×2 (13:45→23:30)
[2019-01-02] MEDS: NORCO-7.5 PO PRN (13:54)
--- NOTE | 2019-01-02 14:43 | INFECTIOUS DISEASE PROGRESS NO ---
DATE: 01/02/2019 PRESENT ILLNESS: The patient has a symptomatic Pseudomonas urinary tract infection. MEDICATIONS: The patient has been receiving cefepime. It has been noted in the last couple days that the patient is having hallucinations and it may be the cefepime is causing that. The patient is receiving cefepime. This is day 3 of treatment with cefepime. PHYSICAL EXAMINATION: Vital Signs: Temperature is 98 degrees, pulse 85, respirations 16, blood pressure 138/79. General: This is an ill-appearing elderly female. She is in no acute distress. Head/eyes/ears/nose/throat: She can hear my spoken words and see near objects. She does not have any white coating on her tongue. Neck: She can move her head without having neck pain. Lungs: Clear to auscultation. Thorax: The patient has a Port-A-Cath present on the right side. The site is not erythematous or tender. Cardiovascular: Regular heart rate. Abdomen: Soft and nontender. The patient has a suprapubic tube in place. The site is not erythematous or purulent. Neurologic: The patient is alert. She can move her right arm. The nurses reported last site the patient was having hallucinations. This morning she is not having the hallucinations. LAB AND X-RAY: There is no new lab or x-ray for today. Tomorrow a CBC and BMP have been ordered. The patient's organism was sent to the [facility] for susceptibility to fosfomycin. However, the [facility] lab was unable to determine if the organism was susceptible to fosfomycin or not. ASSESSMENT AND PLAN: The patient has a Pseudomonas urinary tract infection. She is being treated with cefepime. This is the third day of treatment with cefepime. It may be that the patient is having hallucinations secondary to cefepime. My plan is to discontinue cefepime. The patient's organism is not susceptible to Levaquin so I cannot use that antibiotic. Likewise, the patient's organism is susceptible to Zosyn but the patient has a penicillin allergy. The organism is sensitive to ceftazidime, so my plan is to discontinue cefepime and start the patient on ceftazidime, the dose of which will be modified because of the patient's renal insufficiency. This is day 3 of treatment for the patient's urinary tract infection with an antibiotic. COMORBIDITIES: The patient is elderly. She has a neurogenic bladder and bilateral renal calculi. She also has a history of congestive heart failure. cc: MD Amando Mc MD
--- NOTE | 2019-01-02 15:22 | PROGRESS NOTE ---
DATE: 01/02/2019 OBJECTIVE: Vital Signs: Stable with temperature 97.4 degrees, heart rate 89, respirations 16, blood pressure 114/79, O2 saturation on room air 97%. SUBJECTIVE: The patient rested poorly last night, but has had no further delusional thoughts of someone hurting her. PLAN: Dr. Elaine wants her to be on cefepime for 2 weeks. Hopefully, this can be arranged as an outpatient home. Lab will be recheck tomorrow morning. cc: MD Amando Carlson MD
[2019-01-02] MEDS: DESYREL PO SCH (21:52)
[2019-01-02] MEDS: ZYPREXA IM PRN (21:58)
[2019-01-02] MEDS ORDERED: STERILE WATER INJ. ONE (22:04)
[2019-01-03] MEDS: PROTONIX PO SCH (06:10)
[2019-01-03 06:41] LABS: BASO# 0.04 X1000 (0.0-0.2); BASO% 0.4 % (0.0-0.8); EOS# 0.08 X1000 (0.0-0.7); EOS% 0.8 % (0.0-10.0); HEMATOCRIT 44.4 % (37.0-47.0); HEMOGLOBIN 14.7 g/dL (12.0-16.0); IMM GRAN# 0.02 X1000 (0.0-0.04); IMM GRAN% 0.2 % (0.0-0.5); LYMPH# 1.26 X1000 (1.2-3.4); LYMPH% 11.9 % (20.5-51.1); MCH 26.7 PG (27-31); MCHC 33.1 g/dL (33-37); MCV 80.7 FL (81-99); MONO# 0.99 X1000 (0.11-0.59); MONO% 9.3 % (1.7-9.3); MPV 11.7 FL (7.4-10.4); NEUT# 8.22 X1000 (1.4-6.5); NEUT% 77.4 % (42.2-75.2); PLT 248 X1000 (130-400); RDW 17.9 % (11.5-14.5); WBC 10.61 X1000 (4.8-10.8)
[2019-01-03 07:08] LABS: CALCIUM 9.9 mg/dL (8.8-10.2); CREATININE 1.4 mg/dL (0.5-0.9)
[2019-01-03 07:15] LABS: POTASSIUM 2.5 mmol/L (3.5-5.1)
--- NOTE | 2019-01-03 08:08 | PROGRESS NOTE ---
DATE: 01/03/2019 SUBJECTIVE: I called yesterday regarding the patient having leakage around the catheter. The patient's catheter was draining with clear yellow urine, but family and patient were concerned about leaking around the catheter. This was not continuous, but came in spasms like frequency. I recommended increasing her dose of Ditropan which was started last night. No obvious leakage is seen around the catheter this morning. The patient denies any significant leakage. No one else at bedside. OBJECTIVE: Vital Signs: Temperature 98.6, heart rate 100, blood pressure 121/82, oxygen saturation 96% on room air. General: No acute distress. Resting comfortably in bed. Alert and oriented. Respiratory: Good respiratory effort without audible wheezing or rales. Abdomen: Soft, nontender, and nondistended. : No suprapubic tenderness. Suprapubic tube in place draining clear yellow urine. No evidence of any clots or leakage around the catheter. The patient's bladder appears to be decompressed. Neurologic: Evidence of lower extremity paralysis and limited mobility of upper extremities. The patient is alert and oriented to person, place, time, and situation. LABORATORY: White blood cell count 10.6, hemoglobin 14.7, hematocrit 44.4, platelets 248,000. Sodium 138, potassium 2.5, chloride 86, anion gap 20, BUN 42, creatinine 1.4, and glucose 134. ASSESSMENT/PLAN: The patient is a 73-year-old who has been followed by Dr. Hancock who has an extensive Past Medical History history of hypertension, degenerative disk disease, cervical injury leading to quadriplegia and recurrent urinary tract infections and urolithiasis. The patient has been followed by Dr. Hancock for a number of years now with indwelling suprapubic tube. The patient currently is being treated for urinary tract infection. The patient's suprapubic tube was exchanged on 12/30/[address] Hancock. I was called yesterday regarding drainage around the catheter. The patient seemingly has bladder spasms which have improved after increasing of her Ditropan to TID. The patient seems to be tolerating this well. I think ultimately between her infection and underlying neurologic disorder likely this is leading to bladder spasms, I would keep her on the t.i.d. Ditropan for the time being and see if her symptoms improve. May take several doses prior to recognizing any difference. Dr. Hancock will continue to monitor. Please call with questions or concerns. cc: MD Amando Ramirez MD MTDD
--- NOTE | 2019-01-03 09:45 | PROGRESS NOTE ---
DATE: 01/03/2019 Ms. Heredia is getting IV cefepime for Pseudomonas urinary tract infection. Her CBC is unremarkable. Potassium was 2.5. She was started on oral potassium. She is being followed by Dr. Aamir Willoughby for the infection around the suprapubic catheter with some leakage of urine. Overall condition is unchanged. We will continue with the current management. -1 cc: Amando Berman MD
[2019-01-03] MEDS: TAZIDIME 1 GM in NS 50 ML IV SCH ×2 (09:50→15:28)
[2019-01-03] MEDS: DIFLUCAN PO SCH (09:51)
[2019-01-03] MEDS: DITROPAN PO SCH ×3 (09:51→21:46)
[2019-01-03] MEDS: CULTURELLE PO SCH (09:51)
[2019-01-03] MEDS: LASIX PO SCH ×2 (09:51→21:46)
[2019-01-03] MEDS: REQUIP PO SCH ×2 (09:52→21:46)
[2019-01-03] MEDS: IMDUR PO SCH (09:52)
[2019-01-03] MEDS: ALDACTAZIDE 25/25 PO SCH (09:52)
[2019-01-03] MEDS: CLARITIN-D 24 HR PO SCH (09:52)
[2019-01-03] MEDS: KLOR-CON PO SCH ×2 (09:52→21:46)
[2019-01-03] MEDS: KLONOPIN PO SCH ×2 (09:53→21:46)
[2019-01-03] MEDS: NORCO-7.5 PO PRN ×2 (15:00→21:47)
--- NOTE | 2019-01-03 17:30 | INFECTIOUS DISEASE PROGRESS NO ---
DATE: 01/03/2019 HISTORY OF PRESENT ILLNESS: The patient has a symptomatic Pseudomonas urinary tract infection. MEDICATIONS: The patient had been on cefepime, but she had hallucinations and because of this, I switched her yesterday to ceftazidime. She has had a total now of 4 days of treatment of her Pseudomonas urinary tract infection. PHYSICAL EXAMINATION: Vital Signs: Temperature is 98.2 degrees, pulse 99, respirations 16, blood pressure 120/72. General: This is an ill-appearing elderly female. She is in no acute distress. Head/eyes/ears/nose/throat: She can hear my spoken words and see near objects. She does not have any white patches on her tongue. Neck: She does not complain of any pain when she turns her head. Lungs: Clear to auscultation. Cardiovascular: Heart rate is regular. Thorax: The patient has a Port-A-Cath on the right side. The site is not swollen or tender. Abdomen: Soft and nontender. The patient has a suprapubic tube in place. There is no drainage that I can see coming from around the tube at this time. Neurologic: The patient is awake. Currently, she is not having hallucinations. LABS AND X-RAY: There is no new radiographic study for today. Laboratory studies show a CBC with a white count of 10,610, hemoglobin 14.7, and platelet count 248,000. Creatinine is 1.4. GFR is 37. Immunoglobulin levels are normal. ASSESSMENT AND PLAN: The patient has Pseudomonas urinary tract infection. She had hallucinations which may be due to cefepime. I plan to continue with ceftazidime and hopefully the hallucinations will stop. COMORBIDITIES: The patient is elderly. She has a neurogenic bladder. She has bilateral renal calculi. She also has a history of congestive heart failure. cc: MD Amando Mc MD
--- NOTE | 2019-01-03 17:39 | Diag Imaging Result Doc PS360 ---
EXAM: HIP 1 VIEW RIGHT INDICATION: R hip pain TECHNIQUE: One view COMPARISON: 09/12/2010 FINDINGS: The bones are osteopenic. There is questionable mild irregularity involving the femoral neck. It cannot be further evaluated on this single image. If there is recent trauma, I suppose a fracture of the femoral neck is possible. If there is concern for this, consider a full plain radiograph series of the right hip. No dislocation or intrinsic osseous lesion is appreciated, otherwise. The surrounding soft tissues are essentially unremarkable. IMPRESSION: Osteopenia and questionable mild irregularity involving the femoral head. Please see above discussion. Electronically signed by Buck Silva 01/03/2019 5:36 PM
[2019-01-03] MEDS: DESYREL PO SCH (21:46)
[2019-01-04] MEDS: PROTONIX PO SCH (06:15)
[2019-01-04 07:10] LABS: CALCIUM 9.1 mg/dL (8.8-10.2); CREATININE 1.5 mg/dL (0.5-0.9); POTASSIUM 2.8 mmol/L (3.5-5.1)
[2019-01-04] MEDS ORDERED: MORPHINE IV ONE (08:35)
[2019-01-04] MEDS: REQUIP PO SCH ×2 (09:51→21:58)
[2019-01-04] MEDS: DIFLUCAN PO SCH (09:51)
[2019-01-04] MEDS: TAZIDIME 1 GM in NS 50 ML IV SCH ×4 (09:51→16:24)
[2019-01-04] MEDS: CLARITIN-D 24 HR PO SCH (09:52)
[2019-01-04] MEDS: CULTURELLE PO SCH (09:52)
[2019-01-04] MEDS: KLOR-CON PO SCH ×2 (09:52→21:59)
[2019-01-04] MEDS: IMDUR PO SCH (09:52)
[2019-01-04] MEDS: KLONOPIN PO SCH ×2 (09:52→21:59)
[2019-01-04] MEDS: LASIX PO SCH ×2 (09:52→21:59)
[2019-01-04] MEDS: ALDACTAZIDE 25/25 PO SCH (09:52)
[2019-01-04] MEDS: DITROPAN PO SCH ×3 (09:52→21:58)
--- NOTE | 2019-01-04 12:14 | Diag Imaging Result Doc PS360 ---
XRAY HIP UNILATERAL RT - 01/04/2019 INDICATION: possible Rt Hip fracture. TECHNIQUE: Four views COMPARISON: 01/03/2019 FINDINGS: There is clearly deformity of the right femoral neck, which has changed since 09/05/1710. The bones are extremely osteopenic. No dislocation. IMPRESSION: Right femoral neck fracture, age indeterminate. Severe osteopenia. Electronically signed by Darryl Moore 01/04/2019 12:12 PM
--- NOTE | 2019-01-04 13:58 | PROGRESS NOTE ---
DATE: 01/04/2019 Ms. Heredia is still very confused. Her potassium has come back up to 2.8. There is no definite history of fall. However, the hip x-ray portable that was done showed there was osteoporosis, and a possible fracture. Our full plan radiograph series of the right hip is indicated, and we will do that. We will give morphine to her before we do that. Blood cultures were negative. We will continue with the current management progress note. -0 cc: Amando Berman MD
--- NOTE | 2019-01-04 14:31 | INFECTIOUS DISEASE PROGRESS NO ---
DATE: 01/04/2019 PRESENT ILLNESS: The patient has symptomatic Pseudomonas urinary tract infection. Yesterday the family asked me if I would get an x-ray of the patient's right hip because the patient had been complaining of pain in the hip and the results showed that there was a questionable mild irregularity involving the femoral head which may actually be a fracture. MEDICATIONS: The patient had been receiving cefepime, but she had an altered mental status so I switched her to ceftazidime. She has had a total now of 5 days of treatment of her Pseudomonas urinary tract infection. PHYSICAL EXAMINATION: Vital Signs: Temperature is 98.6 degrees, pulse 109, respirations 18, blood pressure 113/89. General: This is an ill-appearing elderly female. She is in no acute distress. Head/eyes/ears/nose/throat: She appears to be able to hear my spoken words and see near objects. She does not have any white patches on her tongue. Neck: She moves her head without complaining of neck pain. Thorax: Patient has a Port-A-Cath on the right side. The site is not swollen or erythematous. Lungs: Clear to auscultation. Cardiovascular: Heart rate is regular. Abdomen: Soft and nontender. The patient's suprapubic tube is in place. There is no surrounding erythema. Neurologic: Unfortunately, the patient does seem to be confused today. Integument: No rash noted. LAB AND X-RAY: Creatinine is 1.5. GFR is 34. There is no CBC for today. The patient's hip x- ray as mentioned above showed there is a possibility of a fracture. ASSESSMENT AND PLAN: The patient has Pseudomonas urinary tract infection. She had hallucinations on cefepime and unfortunately, even though I switched her to ceftazidime she still appears to be having some. I am going to give ceftazidime however another day or 2 and see if the hallucinations continue. The patient is going to be going down to radiology to get more views of her possible fractured hip. COMORBIDITIES: The patient is elderly. She has a neurogenic bladder. She has bilateral renal calculi. She also has a history of congestive heart failure. She may have a hip fracture as well. cc: MD Amando Mc MD
--- NOTE | 2019-01-04 19:39 | ORTHOPAEDICS CONSULTATION ---
DATE: 01/04/2019 CHIEF COMPLAINT: Right leg pain. HISTORY OF PRESENT ILLNESS: Ms. Heredia is a 73-year-old female who was admitted for recurrent urinary tract infections. She was noted to have Pseudomonas aeruginosa in her urine. They are treating her with IV antibiotics for this at this time. Orthopedics was consulted to come see her for her right hip pain. The hospitalist ordered an x-ray of her right hip, and it was noted that she had a right femoral neck fracture. SOCIAL HISTORY: The patient is a nonsmoker. REVIEW OF SYSTEMS: Fourteen-point review of systems was performed and pertinent positives are listed in HPI. PHYSICAL EXAMINATION: Vital signs: Temperature 97.5 degrees, pulse rate 109, respiratory rate 18, blood pressure 115/82, oxygen saturation 93% on room air. Generally the patient is awake and alert, lying in the bed comfortably.HEENT: Head is normocephalic, atraumatic. Pupils equal, round and reactive. Abdomen is soft, nontender. Right lower extremity exam: Her right lower extremity is slightly externally rotated. There is anterior joint line tenderness about the hip. There is some edema noted about the right lateral hip. There is no redness or obvious signs of infection. There are good pedal pulses. There is negative Homans sign. ASSESSMENT: Right femoral neck fracture. PLAN: We will plan on doing a pinning of the right hip sometime afternoon. We will need to get consent from the family before we can do the surgery. We will check back on her then. Dictated by BABS Darden for Buck Sahu MD cc: BABS Darden MD Amit V. Vora, MD
[2019-01-04] MEDS: DESYREL PO SCH (21:58)
[2019-01-05] MEDS: TAZIDIME 1 GM in NS 50 ML IV SCH ×4 (01:56→23:54)
[2019-01-05] MEDS: PROTONIX PO SCH (06:33)
[2019-01-05] MEDS: IMDUR PO SCH (09:22)
[2019-01-05] MEDS: CULTURELLE PO SCH (09:22)
[2019-01-05] MEDS: DITROPAN PO SCH ×3 (09:22→20:15)
[2019-01-05] MEDS: CLARITIN-D 24 HR PO SCH (09:22)
[2019-01-05] MEDS: LASIX PO SCH ×2 (09:22→20:15)
[2019-01-05] MEDS: ALDACTAZIDE 25/25 PO SCH (09:22)
[2019-01-05] MEDS: KLOR-CON PO SCH ×2 (09:22→20:15)
[2019-01-05] MEDS: DIFLUCAN PO SCH (09:23)
[2019-01-05] MEDS: KLONOPIN PO SCH ×3 (09:27→20:14)
[2019-01-05] MEDS: REQUIP PO SCH ×2 (09:36→20:14)
[2019-01-05] MEDS: NORCO-7.5 PO PRN ×2 (09:37→16:01)
--- NOTE | 2019-01-05 09:45 | PROGRESS NOTE ---
DATE: 01/05/2019 SUBJECTIVE: Ms. Heredia's mental status is somewhat better. Her x-ray of the elbow has been done. It shows osteoporosis. Final report will follow. She had fracture of the right hip. She was seen by Dr. Sahu who is going to operate on her. Her last electrolytes revealed a potassium of 2.8. We are going to repeat the electrolytes today. -1 cc: Amando Berman MD
[2019-01-05 10:26] LABS: CREATININE 1.7 mg/dL (0.5-0.9)
--- NOTE | 2019-01-05 10:28 | Diag Imaging Result Doc PS360 ---
EXAM: ELBOW 2 VIEWS LEFT INDICATION: fx TECHNIQUE: 3 views COMPARISON: 09/13/2018 FINDINGS: There has been a prior right shoulder arthroplasty and there is extensive irregularity involving the humerus related to an old fracture. There is a metallic plate and screws associated with the left humerus in stable position. The stem of the humeral component of the shoulder arthroplasty hardware extends outside of the medullary cavity of the humerus but it is stable. 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 The bones are markedly osteopenic. No definite acute fracture or dislocation is appreciated. Surrounding soft tissues are essentially unremarkable aside from the heterotopic ossification. IMPRESSION: Stable chronic posttraumatic changes and postsurgical changes as described. No evidence of acute osseous abnormality. Electronically signed by Buck Silva 01/05/2019 10:25 AM
--- NOTE | 2019-01-05 10:55 | ORTHOPAEDICS PROGRESS NOTE ---
DATE: 01/05/2019 Ms. Heredia is seen status post consultation for right hip fracture. She continues to have pain and tenderness about the right hip. I have discussed with both her and her daughter, percutaneous fixation of the hip to try and restore less pain with bed mobility. They are in agreement of this and would like to proceed. Will plan on proceeding with that tomorrow around noon, pending medical clearance. She does need to be evaluated today for some low potassium and from a medical standpoint. Will plan on fixing her hip tomorrow. We have discussed the risks and benefits, including risks such as anesthetic-related risk, damage to tendon, nerve, or blood vessel, infection, failure of the fixation, ongoing pain, blood clots, and risk of loss of life or limb, and other imponderables, and she understands and is willing to proceed. cc: MD Amando Muñoz MD
--- NOTE | 2019-01-05 14:27 | INFECTIOUS DISEASE PROGRESS NO ---
DATE: 01/05/2019 PRESENT ILLNESS: The patient has a symptomatic pseudomonas urinary tract infection. MEDICATIONS: The patient was switched from cefepime to ceftazidime. Since that has been done, the patient has become coherent and not confused. This is the 6th day of treatment between both antibiotics, namely cefepime and ceftazidime, of the patient's urinary tract infection. PHYSICAL EXAMINATION: Vital Signs: Temperature is 98.2 degrees, pulse 95, respirations 18, blood pressure is 114/83. General: This is an ill-appearing, elderly female. She is in no acute distress. Head, Eyes, Ears, Nose, and Throat: She can hear my spoken words and see near objects. She does not have any white patches on her tongue. Neck: She does not have any pain when I moved her head. Thorax: The patient has a Port-A-Cath on the right side. The site is not erythematous or swollen. Lungs: Clear to auscultation. Cardiovascular: Heart rate is regular. Abdomen: Soft and nontender. The patient has a suprapubic tube in place. There is no surrounding erythema. Neurologic: Today, the patient is coherent and can carry on a conversation. She is not confused. Integument: No rash. LAB AND X-RAY: The patient's creatinine is 1.7. The GFR is 30. The patient's more detailed x- ray of her hip shows that she does have a fracture. ASSESSMENT AND PLAN: As regarding the patient's pseudomonas urinary tract infection, she will need 8 more days of treatment with ceftazidime. From an infectious disease point of view, I think the patient can have the hip surgery that Dr. Sahu is going to do because the infection that she has, namely the pseudomonas urinary tract infection, has been treated already for 6 days with an antibiotic and will be continued on antibiotics for 8 more days. I am going to sign off on the patient's case today. She needs 8 more days of ceftazidime intravenously in a dose of 1 g intravenous every 8 hours. I am available to see the patient on an as needed basis. I am signing off the patient's case now but I am available to see the patient on an as needed basis. The ceftazidime needs to be continued for 8 more days to complete treatment of her pseudomonas urinary tract infection. COMORBIDITIES: She is elderly and she has a neurogenic bladder as well as bilateral renal calculi. cc: MD Amando Mc MD
[2019-01-05] MEDS: DESYREL PO SCH (20:15)
--- NOTE | 2019-01-05 22:08 | Diag Imaging Result Doc PS360 ---
CT RENAL STONE SEARCH - 01/05/2019 INDICATION: chronic UTIs, kidney stones COMPARISON: 07/16/2018 FINDINGS: The lung bases are clear and the heart size is normal. Stable extensive surgical changes to the spine and severely abnormal pelvis. There is a suprapubic catheter in good position. There are numerous stones in the urinary bladder similar to prior. There are about a dozen stones, measuring up to 11 mm. There are numerous bilateral renal stones somewhat decreased from the prior exam. These measure up to 2 cm. These are mostly calyceal stones, with perhaps one stone in the right renal pelvis. There is significant constipation. No bowel obstruction or inflammation. No acute bony lesions. IMPRESSION: 1. Several renal and bladder stones. No hydronephrosis. Renal stone burden is slightly decreased from prior. Bladder stone burden is grossly stable. 2. Significant constipation. This exam was performed using automated exposure control, adjustment of mA or kV according to patient size, and/or use of iterative reconstruction technique Electronically signed by Darryl Moore 01/05/2019 10:06 PM
[2019-01-06] MEDS: NORCO-7.5 PO PRN ×2 (03:53→16:20)
[2019-01-06] MEDS: PROTONIX PO SCH (06:28)
[2019-01-06 06:55] LABS: BASO# 0.03 X1000 (0.0-0.2); BASO% 0.3 % (0.0-0.8); EOS# 0.17 X1000 (0.0-0.7); EOS% 1.6 % (0.0-10.0); HEMATOCRIT 39.9 % (37.0-47.0); HEMOGLOBIN 12.8 g/dL (12.0-16.0); IMM GRAN# 0.03 X1000 (0.0-0.04); IMM GRAN% 0.3 % (0.0-0.5); LYMPH# 1.58 X1000 (1.2-3.4); LYMPH% 14.9 % (20.5-51.1); MCH 26.1 PG (27-31); MCHC 32.1 g/dL (33-37); MCV 81.4 FL (81-99); MONO# 0.98 X1000 (0.11-0.59); MONO% 9.3 % (1.7-9.3); MPV 11.8 FL (7.4-10.4); NEUT% 73.6 % (42.2-75.2); PLT 226 X1000 (130-400); RDW 16.9 % (11.5-14.5); WBC 10.59 X1000 (4.8-10.8)
[2019-01-06 07:30] LABS: CREATININE 1.7 mg/dL (0.5-0.9); POTASSIUM 3.2 mmol/L (3.5-5.1)
[2019-01-06] MEDS: TAZIDIME 1 GM in NS 50 ML IV SCH ×2 (07:47→16:10)
[2019-01-06] MEDS ORDERED: KEFZOL 1 GM/D5W 2 GM/100 ML IVPB ONE (11:42)
[2019-01-06] MEDS ORDERED: ZOFRAN ONE (13:02)
[2019-01-06] MEDS: KLONOPIN PO SCH ×2 (13:19→22:50)
[2019-01-06] MEDS: REQUIP PO SCH ×2 (13:19→22:42)
[2019-01-06] MEDS: KLOR-CON PO SCH ×2 (13:19→22:43)
[2019-01-06] MEDS: DITROPAN PO SCH ×3 (13:19→22:43)
[2019-01-06] MEDS: LASIX PO SCH ×2 (13:19→22:42)
[2019-01-06] MEDS: ALDACTAZIDE 25/25 PO SCH (13:19)
[2019-01-06] MEDS: CLARITIN-D 24 HR PO SCH (13:20)
[2019-01-06] MEDS: CULTURELLE PO SCH (13:20)
[2019-01-06] MEDS: DIFLUCAN PO SCH (13:20)
[2019-01-06] MEDS: IMDUR PO SCH (13:20)
[2019-01-06] MEDS ORDERED: NS 1,000 ML IV SCH (14:45)
[2019-01-06] MEDS ORDERED: HALDOL IV PRN (14:45)
--- NOTE | 2019-01-06 15:15 | PROGRESS NOTE ---
DATE: 01/06/[address]redia [address] a CT scan of the kidney, which revealed several renal and bladder stones, and significant constipation. She has a right hip fracture. She is going to have surgery for it today. Her vital signs are stable. Repeat blood work, potassium has come back up to 3.2. Her CBC showed a white count of 10.59, hemoglobin was 12.8, hematocrit 39.9. We will continue with the current management on her. -9 cc: Amando Berman MD
[2019-01-06] MEDS: TYLENOL PO SCH ×2 (16:21→22:42)
[2019-01-06] MEDS: MILK OF MAGNESIA PO PRN (16:24)
--- NOTE | 2019-01-06 19:47 | OPERATIVE NOTE ---
PROCEDURE DATE: 12/28/2018 PREOPERATIVE DIAGNOSIS: Right femoral neck fracture, minimally displaced. POSTOPERATIVE DIAGNOSIS: Right femoral neck fracture, minimally displaced. PROCEDURE: Closed reduction and percutaneous pinning, right femoral neck fracture. SURGEON: Gonzalo Sahu MD BODY TRIMMER UPHOLSTERER: BABS Darden ANESTHESIA: General. COMPLICATIONS: None. PROCEDURE IN DETAIL: This 73-year-old female presents for surgical stabilization of right femoral neck fracture for pain management. Risks, benefits and no guarantees were discussed, and she is willing to proceed. She was taken the operating room and satisfactory anesthesia obtained. She was placed on the fracture table and the right hip prepped and draped in the usual sterile fashion. A time-out was taken to confirm operative site, procedure and patient. Gentle longitudinal traction and internal rotation was utilized to reduce the hip near anatomically. Under fluoroscopic guidance, a 1-inch incision was made over the lateral thigh and a 7.3 cannulated screw guide pin advanced down to the lateral aspect of the proximal femur. Under multiplanar image guidance, this was advanced up into the central aspect of the femoral head, through the fracture site intramedullary. Two additional guidewires were placed in a triangular fashion. Each screw was measured, and two 95 and one 100 length partially threaded cancellous bone screws were inserted into the fracture. The bone was noted to be osteoporotic due to immobility; however, all 3 screws had good purchase in the bone. The guidewire was removed and the C-arm used to verify accurate fracture reduction and hardware placement. The wound was irrigated and closed in layers with 2-0 Vicryl and skin kevin. Sterile bandages were applied. She was recovered from anesthesia and transferred to the recovery room in stable condition. cc: MD Amando Muñoz MD
[2019-01-06] MEDS: KEFZOL 1 GM/D5W 1 GM/50 ML IVPB IV SCH (22:41)
[2019-01-06] MEDS: COLACE PO SCH (22:41)
[2019-01-06] MEDS: DESYREL PO SCH (22:42)
[2019-01-06] MEDS: PERIDEX MT SCH (22:44)
[2019-01-07] MEDS: TAZIDIME 1 GM in NS 50 ML IV SCH ×3 (00:45→16:43)
[2019-01-07] MEDS: PROTONIX PO SCH (06:01)
[2019-01-07] MEDS: TYLENOL PO SCH ×3 (06:01→22:52)
[2019-01-07] MEDS: XARELTO PO SCH (06:01)
[2019-01-07] MEDS: KEFZOL 1 GM/D5W 1 GM/50 ML IVPB IV SCH ×2 (06:02→14:24)
[2019-01-07] MEDS: NORCO-7.5 PO PRN ×3 (06:12→20:51)
[2019-01-07 07:12] LABS: HEMATOCRIT 36.2 % (37.0-47.0); HEMOGLOBIN 11.5 g/dL (12.0-16.0)
[2019-01-07 07:37] LABS: CALCIUM 8.7 mg/dL (8.8-10.2); CREATININE 1.6 mg/dL (0.5-0.9); POTASSIUM 2.9 mmol/L (3.5-5.1)
[2019-01-07] MEDS: IMDUR PO SCH (09:03)
[2019-01-07] MEDS: CLARITIN-D 24 HR PO SCH (09:03)
[2019-01-07] MEDS: FERROUS SULFATE PO SCH (09:04)
[2019-01-07] MEDS: LASIX PO SCH ×2 (09:04→20:51)
[2019-01-07] MEDS: DITROPAN PO SCH ×3 (09:04→20:51)
[2019-01-07] MEDS: PERIDEX MT SCH ×2 (09:04→20:53)
[2019-01-07] MEDS: DIFLUCAN PO SCH (09:04)
[2019-01-07] MEDS: REQUIP PO SCH ×2 (09:04→20:51)
[2019-01-07] MEDS: CULTURELLE PO SCH (09:04)
[2019-01-07] MEDS: LACTULOSE PO SCH (09:04)
[2019-01-07] MEDS: KLONOPIN PO SCH ×2 (09:04→20:52)
[2019-01-07] MEDS: ALDACTAZIDE 25/25 PO SCH (09:04)
[2019-01-07] MEDS: KLOR-CON PO SCH ×2 (09:05→20:51)
[2019-01-07] MEDS: D5 1/2 NS + KCL 30 MEQ 1,000 ML IV SCH (11:45)
--- NOTE | 2019-01-07 11:52 | PROGRESS NOTE ---
DATE: 01/07/2019 Ms. Heredia is more confused today. The daughter is somewhat upset because of the fracture. I explained to her that this happens with somebody who has severe osteopenia. The CT scan of the abdomen reveals bilateral kidney stones as well as stones in the bladder. She is being followed by Dr. Hancock. We will continue with the current management on her. She had surgery by Dr. Sahu. -6 cc: Amando Berman MD
[2019-01-07] MEDS: MYCOSTATIN SUSP PO SCH ×3 (12:56→20:52)
--- NOTE | 2019-01-07 13:15 | ORTHOPAEDICS PROGRESS NOTE ---
DATE: 01/07/2019 SUBJECTIVE DATA: Ms. Heredia is seen on postop day 1 of her right hip pinning. She reports she is doing well at this time. She reports her pain is a 4/10 at this time. She reports she has not worked much with physical therapy at this time. SUBJECTIVE DATA: The incision site is clean and dry to the right hip. There is negative Homans sign. There is still some slight tenderness to the lateral hip. There is no redness or signs of infection. There are good pedal pulses. ASSESSMENT: Right femoral neck fracture with hip pinning. PLAN: We plan on seeing Ms. Heredia in the office in 10 to 14 days for staple removal. We will need to begin physical therapy at that time. She is to call us with any questions or concerns. We will check back on her then. Dictated by BABS Darden for Buck Sahu MD cc: BABS Darden MD Amit V. Vora, MD
[2019-01-07] MEDS: DESYREL PO SCH (20:52)
[2019-01-07] MEDS: COLACE PO SCH (20:52)
[2019-01-07] MEDS: MILK OF MAGNESIA PO PRN (23:08)
[2019-01-08] MEDS: D5 1/2 NS + KCL 30 MEQ 1,000 ML IV SCH ×2 (01:18→17:20)
[2019-01-08] MEDS: TAZIDIME 1 GM in NS 50 ML IV SCH ×3 (01:20→17:20)
[2019-01-08] MEDS: XARELTO PO SCH (06:10)
[2019-01-08] MEDS: TYLENOL PO SCH ×3 (06:10→22:50)
[2019-01-08] MEDS: PROTONIX PO SCH (06:10)
[2019-01-08 07:26] LABS: BASO# 0.02 X1000 (0.0-0.2); BASO% 0.4 % (0.0-0.8); EOS% 3.9 % (0.0-10.0); IMM GRAN# 0.02 X1000 (0.0-0.04); IMM GRAN% 0.4 % (0.0-0.5); LYMPH# 1.27 X1000 (1.2-3.4); LYMPH% 24.8 % (20.5-51.1); MCH 26.1 PG (27-31); MCHC 31.3 g/dL (33-37); MCV 83.6 FL (81-99); MONO# 0.65 X1000 (0.11-0.59); MONO% 12.7 % (1.7-9.3); MPV 12.4 FL (7.4-10.4); NEUT# 2.96 X1000 (1.4-6.5); NEUT% 57.8 % (42.2-75.2); PLT 152 X1000 (130-400); RBC 3.83 XMIL (4.2-5.4); RDW 16.6 % (11.5-14.5); WBC 5.12 X1000 (4.8-10.8)
[2019-01-08 07:59] LABS: CALCIUM 8.3 mg/dL (8.8-10.2); CREATININE 1.5 mg/dL (0.5-0.9); POTASSIUM 3.4 mmol/L (3.5-5.1)
[2019-01-08] MEDS: FERROUS SULFATE PO SCH (08:58)
[2019-01-08] MEDS: NORCO-7.5 PO PRN ×2 (08:58→15:06)
[2019-01-08] MEDS: KLONOPIN PO SCH ×2 (08:58→22:50)
[2019-01-08] MEDS: DIFLUCAN PO SCH (08:58)
[2019-01-08] MEDS: DITROPAN PO SCH ×3 (08:58→22:50)
[2019-01-08] MEDS: KLOR-CON PO SCH ×2 (08:59→22:49)
[2019-01-08] MEDS: REQUIP PO SCH ×2 (08:59→22:50)
[2019-01-08] MEDS: LACTULOSE PO SCH (08:59)
[2019-01-08] MEDS: IMDUR PO SCH (08:59)
[2019-01-08] MEDS: LASIX PO SCH ×2 (08:59→22:50)
[2019-01-08] MEDS: PERIDEX MT SCH ×2 (08:59→22:50)
[2019-01-08] MEDS: MYCOSTATIN SUSP PO SCH ×4 (08:59→22:48)
[2019-01-08] MEDS: ALDACTAZIDE 25/25 PO SCH (09:00)
[2019-01-08] MEDS: CULTURELLE PO SCH (09:00)
[2019-01-08] MEDS: CLARITIN-D 24 HR PO SCH (09:00)
[2019-01-08] MEDS ORDERED: POTASSIUM CHLORIDE 40 MEQ/SWI 40 MEQ/100 ML IVPB IV ONE (12:50)
--- NOTE | 2019-01-08 14:09 | PROGRESS NOTE ---
DATE: 01/08/2019 SUBJECTIVE: This 73-year-old white female has been admitted to the hospital several times. This time she was admitted on 12/28/2018 and she has a recurrent pseudomonas infection. INTERVAL HISTORY: Apparently the patient has right hip pain with fracture repair by Dr. Sahu. The patient complains of sores in the mouth. The patient is eating well with assistance. I have known her well from before. PAST MEDICAL HISTORY: Reviewed. PAST SURGICAL HISTORY: Reviewed. MEDICATIONS: Reviewed. ALLERGIES: Codeine, meperidine, and penicillin. PHYSICAL EXAMINATION: Vital Signs: On examination temperature is 97, pulse 69, and blood pressure 133/71. HEENT: Exam is within normal limits. No lesions noted. Chest: There is bilateral air entry. Cardiovascular: Heart sounds are regular. Gastrointestinal: Belly is soft. Suprapubic catheter is noted. She is basically bedridden. Extremities: The right hip is still tilted outside. INVESTIGATIONS: CBC: White cell count is 5, hematocrit 32, AND platelets 152. SMA7: Sodium is 133, potassium 3.4, BUN 58, and creatinine 1.5. ASSESSMENT AND PLAN: 1. Recurrent pseudomonas infection due to bladder stone disease. Suprapubic catheter. Currently receiving IV Fortaz 1 g every 8 hours. 2. Right hip fracture status post nailing. 3. Dehydration and hypokalemia. The patient is getting IV fluids of D5 1/2. Replete potassium. Continue the present treatment and we will check labs in the morning. LEVEL OF DOCUMENTATION: 25 minutes. cc: MD Amando Almazan MD
[2019-01-08] MEDS: ZOFRAN IV PRN (17:24)
--- NOTE | 2019-01-08 20:32 | ORTHOPAEDICS PROGRESS NOTE ---
DATE: 01/08/2019 Ms. Calix is seen status post pinning of her hip. Presently, she is afebrile with stable vital signs. Her incision is clean and dry. She really is unable to mobilize due to her bedridden condition. Surgically, she is stable. There are no signs of infection or DVT. At this point, she will need rehab placement when it is available. We will be signing off at this point. We will need to see her in 2 to 4 weeks for followup x-rays of the hip. Esau can be removed in 10 days. I will be available as needed. cc: MD Amando Muñoz MD
[2019-01-08] MEDS: COLACE PO SCH (22:49)
[2019-01-08] MEDS: DESYREL PO SCH (22:50)
[2019-01-09] MEDS: TAZIDIME 1 GM in NS 50 ML IV SCH ×3 (01:24→16:12)
[2019-01-09] MEDS: OXY IR PO PRN ×3 (01:55→22:07)
[2019-01-09] MEDS: XARELTO PO SCH (06:34)
[2019-01-09] MEDS: TYLENOL PO SCH ×3 (06:34→21:58)
[2019-01-09] MEDS: PROTONIX PO SCH (06:34)
[2019-01-09 06:57] LABS: WBC 5.18 X1000 (4.8-10.8)
[2019-01-09 06:58] LABS: BASO# 0.01 X1000 (0.0-0.2); BASO% 0.2 % (0.0-0.8); EOS# 0.19 X1000 (0.0-0.7); EOS% 3.7 % (0.0-10.0); HEMATOCRIT 30.9 % (37.0-47.0); HEMOGLOBIN 9.7 g/dL (12.0-16.0); IMM GRAN# 0.02 X1000 (0.0-0.04); IMM GRAN% 0.4 % (0.0-0.5); LYMPH# 1.36 X1000 (1.2-3.4); LYMPH% 26.3 % (20.5-51.1); MCH 26.3 PG (27-31); MCHC 31.4 g/dL (33-37); MCV 83.7 FL (81-99); MONO# 0.52 X1000 (0.11-0.59); MPV 11.8 FL (7.4-10.4); NEUT# 3.08 X1000 (1.4-6.5); NEUT% 59.4 % (42.2-75.2); PLT 179 X1000 (130-400); RBC 3.69 XMIL (4.2-5.4); RDW 16.4 % (11.5-14.5)
[2019-01-09 07:33] LABS: CALCIUM 8.8 mg/dL (8.8-10.2); CREATININE 1.3 mg/dL (0.5-0.9)
[2019-01-09] MEDS: D5 1/2 NS + KCL 30 MEQ 1,000 ML IV SCH ×2 (07:57→19:41)
[2019-01-09] MEDS: DIFLUCAN PO SCH (08:42)
[2019-01-09] MEDS: FERROUS SULFATE PO SCH (08:42)
[2019-01-09] MEDS: IMDUR PO SCH (08:43)
[2019-01-09] MEDS: LASIX PO SCH ×2 (08:43→21:59)
[2019-01-09] MEDS: KLOR-CON PO SCH ×2 (08:43→21:59)
[2019-01-09] MEDS: CLARITIN-D 24 HR PO SCH (08:44)
[2019-01-09] MEDS: DITROPAN PO SCH ×3 (08:44→21:58)
[2019-01-09] MEDS: CULTURELLE PO SCH (08:44)
[2019-01-09] MEDS: ALDACTAZIDE 25/25 PO SCH (08:44)
[2019-01-09] MEDS: KLONOPIN PO SCH ×2 (08:44→21:58)
[2019-01-09] MEDS: MYCOSTATIN SUSP PO SCH ×4 (08:45→21:59)
[2019-01-09] MEDS: PERIDEX MT SCH ×2 (08:45→21:59)
[2019-01-09] MEDS: LACTULOSE PO SCH (08:45)
[2019-01-09] MEDS: MILK OF MAGNESIA PO PRN (09:16)
[2019-01-09] MEDS ORDERED: RELISTOR SUBQ ONE (10:48)
[2019-01-09] MEDS: NORCO-7.5 PO PRN ×2 (11:30→23:04)
[2019-01-09] MEDS: REQUIP PO SCH ×2 (11:35→21:58)
--- NOTE | 2019-01-09 14:51 | PROGRESS NOTE ---
DATE: 01/09/2019 SUBJECTIVE: The patient has a lot of pain in the right side. Eating well and no other complaints. PHYSICAL EXAMINATION: Temperature is 97 degrees, pulse 74, blood pressure is 103/61. HEENT Examination: Within normal limits. Neck: Supple. No lymphadenopathy. Port placed on the right side and right upper extremity externally rotated. INVESTIGATIONS: CBC: White cell count 5, hematocrit 30, platelets 179,000. SMA-7: Sodium 132, potassium 5, BUN 48, creatinine 1.3. ASSESSMENT AND PLAN: 1. Recurrent pseudomonas infection. Suprapubic catheter, on intravenous Fortaz. 2. Right hip fracture, stable. 3. Dehydration. 4. Hypokalemia, improving. 5. Constipation. Added on Relistor subcutaneous once daily along with stool softeners and Dr. Berman is going to follow up. LEVEL OF DOCUMENTATION: 25 minutes. cc: MD Amando Almazan MD
[2019-01-09] MEDS: COLACE PO SCH (21:58)
[2019-01-09] MEDS: DESYREL PO SCH (21:59)
[2019-01-10] MEDS: TAZIDIME 1 GM in NS 50 ML IV SCH ×3 (01:01→16:07)
[2019-01-10] MEDS: NORCO-7.5 PO PRN ×3 (03:36→20:38)
[2019-01-10] MEDS: TYLENOL PO SCH ×4 (05:16→23:09)
[2019-01-10] MEDS: PROTONIX PO SCH ×2 (05:17→06:09)
[2019-01-10] MEDS: XARELTO PO SCH (05:17)
[2019-01-10] MEDS: D5 1/2 NS + KCL 30 MEQ 1,000 ML IV SCH ×2 (05:18→08:21)
[2019-01-10 06:11] LABS: BASO# 0.02 X1000 (0.0-0.2); BASO% 0.4 % (0.0-0.8); EOS# 0.17 X1000 (0.0-0.7); EOS% 3.4 % (0.0-10.0); HEMATOCRIT 32.4 % (37.0-47.0); IMM GRAN# 0.02 X1000 (0.0-0.04); IMM GRAN% 0.4 % (0.0-0.5); LYMPH# 1.62 X1000 (1.2-3.4); LYMPH% 32.3 % (20.5-51.1); MCH 25.9 PG (27-31); MCHC 30.9 g/dL (33-37); MCV 83.9 FL (81-99); MONO# 0.47 X1000 (0.11-0.59); MONO% 9.4 % (1.7-9.3); MPV 11.9 FL (7.4-10.4); NEUT# 2.72 X1000 (1.4-6.5); NEUT% 54.1 % (42.2-75.2); PLT 206 X1000 (130-400); RBC 3.86 XMIL (4.2-5.4); RDW 16.3 % (11.5-14.5); WBC 5.02 X1000 (4.8-10.8)
[2019-01-10 06:31] LABS: CALCIUM 8.9 mg/dL (8.8-10.2); CREATININE 1.2 mg/dL (0.5-0.9); POTASSIUM 5.5 mmol/L (3.5-5.1)
[2019-01-10] MEDS: LACTULOSE PO SCH (09:26)
[2019-01-10] MEDS: MYCOSTATIN SUSP PO SCH ×4 (09:26→20:38)
[2019-01-10] MEDS: PERIDEX MT SCH ×2 (09:26→20:38)
[2019-01-10] MEDS: FERROUS SULFATE PO SCH (09:27)
[2019-01-10] MEDS: REQUIP PO SCH ×2 (09:27→20:38)
[2019-01-10] MEDS: IMDUR PO SCH (09:27)
[2019-01-10] MEDS: DIFLUCAN PO SCH (09:28)
[2019-01-10] MEDS: ALDACTAZIDE 25/25 PO SCH (09:28)
[2019-01-10] MEDS: CULTURELLE PO SCH (09:28)
[2019-01-10] MEDS: DITROPAN PO SCH ×3 (09:28→20:38)
[2019-01-10] MEDS: CLARITIN-D 24 HR PO SCH (09:28)
[2019-01-10] MEDS: LASIX PO SCH ×2 (09:28→20:38)
[2019-01-10] MEDS: KLONOPIN PO SCH ×2 (09:28→20:42)
[2019-01-10] MEDS: KLOR-CON PO SCH (11:16)
[2019-01-10] MEDS: ZOFRAN IV PRN (12:11)
[2019-01-10] MEDS: DESYREL PO SCH (20:38)
[2019-01-10] MEDS: COLACE PO SCH (20:38)
[2019-01-10] MEDS: OXY IR PO PRN (23:08)
[2019-01-11] MEDS: TAZIDIME 1 GM in NS 50 ML IV SCH ×4 (01:20→17:10)
[2019-01-11] MEDS: D5 1/2 NS + KCL 30 MEQ 1,000 ML IV SCH ×3 (01:35→13:15)
--- NOTE | 2019-01-11 04:04 | PROGRESS NOTE ---
DATE: 01/10/2019 SUBJECTIVE: Ms. Heredia is doing fairly well except that she has bilateral leg edema, some stasis dermatitis, and she also has some irritation of the skin. OBJECTIVE: Vital Signs: Stable. Hemoglobin is 10 and hematocrit is 32.4. Potassium has come up to 5.5. She had right hip surgery with fracture. -0 cc: Amando Berman MD
[2019-01-11] MEDS: PROTONIX PO SCH ×2 (05:58→07:30)
[2019-01-11] MEDS: TYLENOL PO SCH ×3 (05:58→20:01)
[2019-01-11] MEDS: XARELTO PO SCH (05:58)
[2019-01-11 07:33] LABS: BASO# 0.02 X1000 (0.0-0.2); BASO% 0.3 % (0.0-0.8); EOS# 0.13 X1000 (0.0-0.7); EOS% 1.9 % (0.0-10.0); HEMATOCRIT 34.3 % (37.0-47.0); HEMOGLOBIN 10.8 g/dL (12.0-16.0); IMM GRAN# 0.03 X1000 (0.0-0.04); IMM GRAN% 0.4 % (0.0-0.5); LYMPH# 1.73 X1000 (1.2-3.4); LYMPH% 25.2 % (20.5-51.1); MCH 26.1 PG (27-31); MCHC 31.5 g/dL (33-37); MCV 82.9 FL (81-99); MONO# 0.61 X1000 (0.11-0.59); MONO% 8.9 % (1.7-9.3); NEUT# 4.34 X1000 (1.4-6.5); NEUT% 63.3 % (42.2-75.2); PLT 238 X1000 (130-400); RBC 4.14 XMIL (4.2-5.4); RDW 16.5 % (11.5-14.5); WBC 6.86 X1000 (4.8-10.8)
[2019-01-11 07:52] LABS: CALCIUM 8.8 mg/dL (8.8-10.2); CREATININE 1.2 mg/dL (0.5-0.9); POTASSIUM 4.4 mmol/L (3.5-5.1)
--- NOTE | 2019-01-11 09:34 | PROGRESS NOTE ---
DATE: 01/11/2019 Ms. Heredia is doing fairly well actually this morning. However, she says she had a bad night with severe muscle spasms all over the body, especially in her back. I am going to see if she is on any muscle relaxers or increase the dose. We will postpone the discharge until tomorrow. Her electrolytes status is normal. CBC is stable now. -8 cc: Amando Berman MD
[2019-01-11] MEDS: REQUIP PO SCH ×2 (10:07→20:01)
[2019-01-11] MEDS: NORCO-7.5 PO PRN (10:07)
[2019-01-11] MEDS: DIFLUCAN PO SCH (10:07)
[2019-01-11] MEDS: LASIX PO SCH ×2 (10:08→20:03)
[2019-01-11] MEDS: FERROUS SULFATE PO SCH (10:08)
[2019-01-11] MEDS: IMDUR PO SCH (10:08)
[2019-01-11] MEDS: KLONOPIN PO SCH ×2 (10:08→20:02)
[2019-01-11] MEDS: CLARITIN-D 24 HR PO SCH (10:08)
[2019-01-11] MEDS: MYCOSTATIN SUSP PO SCH ×4 (10:08→20:03)
[2019-01-11] MEDS: ALDACTAZIDE 25/25 PO SCH (10:09)
[2019-01-11] MEDS: CULTURELLE PO SCH (10:09)
[2019-01-11] MEDS: DITROPAN PO SCH ×3 (10:09→20:03)
[2019-01-11] MEDS: PERIDEX MT SCH ×2 (13:02→20:03)
--- NOTE | 2019-01-11 13:14 | Diag Imaging Result Doc PS360 ---
XRAY HIP UNILATERAL RT - 01/11/2019 INDICATION: hip fx TECHNIQUE: Two views COMPARISON: 01/04/2019 FINDINGS: There are now three internal fixation screws through the right femoral neck. No hardware fracture or loosening. Stable impacted subcapital right femoral neck fracture. No new abnormalities. Severe osteopenia. IMPRESSION: No complication. Electronically signed by Darryl Moore 01/11/2019 1:11 PM
[2019-01-11] MEDS: LACTULOSE PO SCH (13:15)
--- NOTE | 2019-01-11 13:15 | Diag Imaging Result Doc PS360 ---
KNEE 1-2 VIEWS-RIGHT - 01/11/2019 INDICATION: hip fx TECHNIQUE: Two views COMPARISON: 09/05/1710 FINDINGS: There is a grossly stable long stemmed, hinged knee prosthesis. There is severe osteopenia which has clearly worsened since prior. There are some ill-defined deformity at the level of the tibial stem tip, and both the tibia and fibular mid shafts. These are probably chronic insufficiency fractures here. IMPRESSION: Severe chronic abnormalities. Electronically signed by Darryl Moore 01/11/2019 1:13 PM
[2019-01-11] MEDS: NORCO-10 PO PRN ×2 (17:03→20:01)
[2019-01-11] MEDS: ZOFRAN IV PRN (17:08)
[2019-01-11] MEDS: OXY IR PO PRN (20:02)
[2019-01-11] MEDS: DESYREL PO SCH (20:02)
[2019-01-11] MEDS: FLEXERIL PO SCH (20:02)
[2019-01-11] MEDS: COLACE PO SCH (20:03)
[2019-01-12] MEDS: D5 1/2 NS + KCL 30 MEQ 1,000 ML IV SCH ×2 (00:22→12:16)
[2019-01-12] MEDS: TAZIDIME 1 GM in NS 50 ML IV SCH ×3 (00:22→16:16)
[2019-01-12] MEDS: NORCO-10 PO PRN ×3 (01:51→20:14)
[2019-01-12] MEDS: TYLENOL PO SCH ×6 (03:28→23:51)
[2019-01-12] MEDS: XARELTO PO SCH (05:43)
[2019-01-12] MEDS: OXY IR PO PRN ×4 (05:43→22:47)
[2019-01-12] MEDS: PROTONIX PO SCH ×2 (05:43→06:12)
[2019-01-12] MEDS: REQUIP PO SCH ×2 (08:07→20:15)
[2019-01-12] MEDS: CLARITIN-D 24 HR PO SCH (08:07)
[2019-01-12] MEDS: ALDACTAZIDE 25/25 PO SCH (08:07)
[2019-01-12] MEDS: DITROPAN PO SCH ×3 (08:08→20:15)
[2019-01-12] MEDS: LACTULOSE PO SCH (08:08)
[2019-01-12] MEDS: LASIX PO SCH ×2 (08:08→20:14)
[2019-01-12] MEDS: MYCOSTATIN SUSP PO SCH ×4 (08:08→20:15)
[2019-01-12] MEDS: PERIDEX MT SCH ×2 (08:08→20:15)
[2019-01-12] MEDS: IMDUR PO SCH (08:08)
[2019-01-12] MEDS: KLONOPIN PO SCH ×2 (08:08→20:15)
[2019-01-12] MEDS: FLEXERIL PO SCH ×2 (08:08→20:15)
[2019-01-12] MEDS: DIFLUCAN PO SCH (08:08)
[2019-01-12] MEDS: CULTURELLE PO SCH (08:08)
[2019-01-12] MEDS: FERROUS SULFATE PO SCH (08:08)
--- NOTE | 2019-01-12 09:54 | PROGRESS NOTE ---
DATE: 01/12/2019 Ms. Heredia complained of a severe pain in the right knee area. Yesterday, she had pain along the entire right side. Right hip x-ray shows that the pins are in place. The right knee x-ray shows the processes. However, there are some fractures along the tibial surface which appear to be from chronic insufficiency fractures. She has severe osteoporosis. Other than that, it looks okay. She has bilateral stones since suprapubic catheter. She wants to be seen by both Dr. Hancock and Dr. Sahu today. I will try to call Dr. Sahu, and we will inform Dr. Hancock today. We probably will discharge her in the morning. cc: Amando Berman MD
[2019-01-12] MEDS: ZOFRAN IV PRN (14:34)
[2019-01-12] MEDS: DESYREL PO SCH (20:15)
[2019-01-12] MEDS: COLACE PO SCH (20:15)
[2019-01-13] MEDS: D5 1/2 NS + KCL 30 MEQ 1,000 ML IV SCH ×3 (00:26→18:34)
[2019-01-13] MEDS: TAZIDIME 1 GM in NS 50 ML IV SCH ×3 (00:26→18:34)
[2019-01-13] MEDS: NORCO-10 PO PRN ×4 (04:07→22:13)
[2019-01-13] MEDS: PROTONIX PO SCH (06:05)
[2019-01-13] MEDS: XARELTO PO SCH (06:05)
[2019-01-13] MEDS: TYLENOL PO SCH ×3 (06:05→22:15)
[2019-01-13] MEDS ORDERED: FENTANYL ONE (08:08)
[2019-01-13] MEDS ORDERED: DIPRIVAN 1% ONE (08:08)
--- NOTE | 2019-01-13 09:11 | PROGRESS NOTE ---
DATE: 01/13/2019 SUBJECTIVE: Ms. Heredia reports she had a decent night overnight. She complains mainly of right lower extremity discomfort. She also reports that she has had worsening bladder spasms. OBJECTIVE: Vital Signs: Temperature 97.3 degrees, pulse 71, BP 100/62. Her urine output was recorded in the amount of 2950 mL. General: No acute distress. Abdomen: Soft, nontender. : Suprapubic tube in place, draining straw-colored urine. PERTINENT LABORATORY DATA: None today. Her last hematocrit was 34 on 01/11/2019. Her creatinine is 1.2. ASSESSMENT: A 73-year-old female with quadriplegia and neurogenic bladder, who has multiple bladder stones as well as renal stones. I have discussed with the patient that her bladder stones are what likely is causing her worsening bladder spasms. We discussed right extracorporeal shockwave lithotripsy as well as holmium laser cystolitholapaxy in order to address the bladder stones and the right residual renal stones. We discussed the risks of the procedure, including but not limited to, bleeding, infection, injury to the kidney, injury to the bladder, inability to address all the stones, and need for additional interventions. She voiced understanding and wants to proceed. PLAN: 1. NPO this morning. 2. To operating room for a right extracorporeal shockwave lithotripsy and holmium laser cystolitholapaxy. cc: MD Amando Castro MD
--- NOTE | 2019-01-13 09:34 | PROGRESS NOTE ---
DATE: 01/13/2019 SUBJECTIVE: Ms. Heredia was seen by Dr. Hancock who initially suggested that she could go home; however, then he decided to do the lithotripsy for bladder stone and she is going for lithotripsy today. PLAN: I am really going to wait to discharge her until tomorrow as she has Pseudomonas infection and I do want her to get any spiking temperature. Because of this, we will wait until tomorrow and discharge her with home health care. cc: Amando Berman MD
[2019-01-13] MEDS ORDERED: NEO-SYNEPHRINE ONE (10:28)
[2019-01-13] MEDS ORDERED: SODIUM CHLORIDE 0.9% 10 ML ONE (10:28)
[2019-01-13] MEDS ORDERED: AMIDATE ONE (10:28)
[2019-01-13] MEDS: DILAUDID ONE ×6 (11:11→11:41)
[2019-01-13] MEDS: MYCOSTATIN SUSP PO SCH ×4 (12:11→22:13)
[2019-01-13] MEDS: REQUIP PO SCH ×2 (12:12→22:13)
[2019-01-13] MEDS: PERIDEX MT SCH ×2 (12:12→22:12)
[2019-01-13] MEDS: IMDUR PO SCH (12:13)
[2019-01-13] MEDS: LASIX PO SCH ×2 (12:13→22:15)
[2019-01-13] MEDS: FLEXERIL PO SCH ×2 (12:14→22:13)
[2019-01-13] MEDS: KLONOPIN PO SCH ×2 (12:14→22:12)
[2019-01-13] MEDS: DITROPAN PO SCH ×3 (12:15→22:15)
[2019-01-13] MEDS: DIFLUCAN PO SCH (12:25)
[2019-01-13] MEDS: FERROUS SULFATE PO SCH (12:26)
[2019-01-13] MEDS: ALDACTAZIDE 25/25 PO SCH (12:26)
[2019-01-13] MEDS: CLARITIN-D 24 HR PO SCH (12:26)
[2019-01-13] MEDS: CULTURELLE PO SCH (12:27)
[2019-01-13] MEDS: LACTULOSE PO SCH (12:28)
--- NOTE | 2019-01-13 14:27 | ORTHOPAEDICS PROGRESS NOTE ---
DATE: 01/13/2019 SUBJECTIVE DATA: The patient is seen postop her right hip pinning. Family reports she has been doing well but having some significant pain during this time. Family states that she has been having trouble with her knee and they were worried about the x-rays. OBJECTIVE DATA: There is good sensation in the right lower extremity. There are good pedal pulses. The patient can flex her quadriceps muscles without difficulty. There is good capillary refill in toes. There is no redness or obvious signs of infection there. Bandages are clean and dry. ASSESSMENT: Right femoral neck fracture with pinning and chronic osteopenic fracture of the knee. PLAN: We will plan to treat this chronic fracture of the knee nonsurgically. She will need to be placed on some calcium supplementation by her primary care provider. As far as the hip goes, she will need to have her kevin removed in roughly 10 days. They will need to be careful turning the patient. They should turn the patient up on the nonoperative side to prevent collapse of the hip. We will be available as needed throughout her hospital stay. I told the family they could call us with any questions or concerns in the office. Dictated by BABS Darden for Buck Sahu MD cc: BABS Darden MD Amit V. Vora, MD
[2019-01-13] MEDS: OXY IR PO PRN ×2 (15:34→22:41)
[2019-01-13] MEDS: ZOFRAN IV PRN (18:35)
[2019-01-13] MEDS: DESYREL PO SCH (22:13)
[2019-01-13] MEDS: COLACE PO SCH (22:13)
[2019-01-14] MEDS: TAZIDIME 1 GM in NS 50 ML IV SCH ×2 (02:17→10:22)
[2019-01-14] MEDS: OXY IR PO PRN ×3 (03:16→13:33)
[2019-01-14] MEDS: XARELTO PO SCH (05:51)
[2019-01-14] MEDS: TYLENOL PO SCH (05:51)
[2019-01-14] MEDS: PROTONIX PO SCH (06:07)
[2019-01-14] MEDS: D5 1/2 NS + KCL 30 MEQ 1,000 ML IV SCH (08:43)
[2019-01-14] MEDS: NORCO-10 PO PRN (08:49)
[2019-01-14] MEDS: PERIDEX MT SCH (10:14)
[2019-01-14] MEDS: DIFLUCAN PO SCH (10:14)
[2019-01-14] MEDS: DITROPAN PO SCH (10:14)
[2019-01-14] MEDS: IMDUR PO SCH (10:15)
[2019-01-14] MEDS: REQUIP PO SCH (10:17)
[2019-01-14] MEDS: LASIX PO SCH (10:17)
[2019-01-14] MEDS: CULTURELLE PO SCH (10:18)
[2019-01-14] MEDS: FERROUS SULFATE PO SCH (10:18)
[2019-01-14] MEDS: KLONOPIN PO SCH (10:19)
[2019-01-14] MEDS: CLARITIN-D 24 HR PO SCH (10:21)
[2019-01-14] MEDS: MYCOSTATIN SUSP PO SCH (10:21)
[2019-01-14] MEDS: ALDACTAZIDE 25/25 PO SCH (10:22)
[2019-01-14] MEDS: LACTULOSE PO SCH (10:22)
[2019-01-14] MEDS: FLEXERIL PO SCH (10:23)
[2019-01-14] MEDS: ZOFRAN IV PRN (10:47)
[2019-01-14] MEDS ORDERED: DULCOLAX PR ONE (11:57)
[2019-01-14 13:31] VITALS: BP 110/71
--- NOTE | 2019-01-14 16:03 | PROGRESS NOTE ---
DATE: 01/14/2019 The patient has some swelling on the leg. However, there is not significant cellulitis. Her pain is because of the knee and hip. The knee is going to be treated conservatively. She was told that she should lie down on that side. She is going to be discharged today. She will be discharged in an ambulance to her home. She is followed by [facility]. -9 cc: Amando Berman MD
--- NOTE | 2019-01-15 04:54 | DISCHARGE SUMMARY ---
ADMISSION DATE: 12/28/2018 DISCHARGE DATE: 01/14/2019 HISTORY: Ms. Hereida was admitted with resistant Pseudomonas aeruginosa urinary tract infection. Urine culture grew that. LABORATORY DATA: CBC was unremarkable except for some evidence of anemia. Her PTT was 28.4. Chemistry profile revealed levels of potassium from 3.2 to 5.5. Urinalysis showed large WBCs. Her immunoglobulin levels were checked and her IgA was 167, IgG was 1019, and IgM was 49; all were within normal range. Aerobic susceptibility results were TNP. She had orders of the sinus x- rays, it was negative. Chest x-ray was negative. Hip x-ray showed fracture of the right hip. Right knee x-ray showed some small fractures of the tibial surface. These are small micro fractures. The renal CT revealed several renal and bladder stones. Significant constipation was noted. COURSE IN HOSPITAL: She was treated with IV cefepime. Dr. Elaine was consulted. She had severe osteoporosis and somehow she developed a fracture of the right hip. Dr. Sahu was consulted who did Hip ]nailing and repair of the fracture. She also had some microfractures in the right knee. Her suprapubic catheter was changed twice. It was advised to change it every so often by home health care. She had lithotripsy done of bladder stone done by Dr. Hancock. She is to be followed with him later on. She has kevin in the hip area which they will be removed by the [facility]. She usually does not move much. She has been placed on Xarelto, which we will probably give her for about a month. She will be discharged today. We will continue all her medications. FINAL DIAGNOSES: 1. Pseudomonas urinary tract infection. 2. Fracture of the right hip. 3. Microfractures of the right knee. 4. Multiple kidney and bladder stones status post lithotripsy. cc: Amando Berman MD [facility]
--- NOTE | 2019-02-15 18:57 | OPERATIVE NOTE ---
PROCEDURE DATE: 01/13/2019 SURGEON: Kavin Hancock MD PREOPERATIVE DIAGNOSES: 1. Neurogenic bladder. 2. Bladder stones. 3. Bladder spasms. POSTOPERATIVE DIAGNOSES: 1. Neurogenic bladder. 2. Bladder stones. 3. Bladder spasms. PROCEDURE: Cystoscopy with cystolitholapaxy with holmium laser. INDICATIONS: A 73-year-old female who is quadriplegic with resultant neurogenic bladder. He has been managed with a suprapubic tube. She was admitted for an orthopedic issue, but in the process complained of worsening bladder spasms and urinary incontinence. She underwent imaging that revealed multiple bladder stones. She presents for definitive intervention for that. She is on blood thinners. FINDINGS: Multiple bladder stones were treated, the largest one approximately 1 cm. They were discarded at the conclusion of the case. PROCEDURE IN DETAIL: After obtaining informed consent, patient was brought to the operating room. Perioperative antibiotics and laryngeal mask anesthesia were administered. She was placed in a modified lithotomy position, prepped and draped sterile fashion. A 21-Spanish rigid cystoscope was used to gain access to the bladder via the urethra. The stones were easily seen. A 900 micron laser fiber was used with holmium laser settings of 1 joule and 10 hertz to break the stones up into smaller fragments. Those were then evacuated via the cystoscope. Eventually, once all the stones were treated, inspection of bladder revealed no evidence of active bleeding, no evidence of sizable residual stone fragments. Again, her stone fragments were discarded. The cystoscope was removed and her 20-Spanish suprapubic tube which was previously present was placed to gravity drainage. She was extubated, taken to PACU for further recovery. ESTIMATED BLOOD LOSS: 0 mL. COMPLICATIONS: None. SPECIMENS: Bladder stones which were discarded. DRAINS: A 20-Spanish suprapubic tube which was same as preoperatively. DISPOSITION: To PACU and subsequently floor for further recovery. cc: MD Amando Castro MD
== END 2019-01-14 13:42 | disposition home health service (06) | DRG 981 ==
LOC: DIRADM 10:09 → 4N 16:21
PROVIDERS: ADMIT Internal Medicine; ATTEND Internal Medicine
CPT/HCPCS: 70210; 71010; 71045; 73070; 73500; 73501; 73502; 73560; 74176; 76000; 80048; 80053; 81003; 82784; 85014; 85018; 85025; 85730; 87040; 87077; 87088; 87186; 93005; 93010; 94761; 94799; A9270; J0690; J0692; J0713; J1170; J2270; J2358; J2370; J2405; J3010; J3370; J3480; J7030; J7050

== ENCOUNTER 2019-01-17 19:47 | Inpatient (IN) ==
--- NOTE | 2019-01-17 20:54 | Diag Imaging Result Doc PS360 ---
EXAM: PELVIS HISTORY: PAIN, POST OP TECHNIQUE: Pelvis single view COMPARISON: None. FINDINGS: The bones are osteopenic. There is been orthopedic surgery to each hip. Neither hip is dislocated. No widening of the pubic symphysis. IMPRESSION: No acute abnormality identified. Electronically signed by Prosper Gonzalez 01/17/2019 8:52 PM
--- NOTE | 2019-01-17 20:56 | Diag Imaging Result Doc PS360 ---
EXAM: CHEST-PORTABLE HISTORY: POSS ams TECHNIQUE: Chest single view COMPARISON: 12/29/2018 FINDINGS: Poor inspiratory effort. The heart is not enlarged. The change in the right portacatheter. The vessels are not distended. There are no infiltrates. No effusion identified. There has been extensive surgery to the back. IMPRESSION: Stable exam. Electronically signed by Prosper Gonzalez 01/17/2019 8:54 PM
--- NOTE | 2019-01-17 20:57 | Diag Imaging Result Doc PS360 ---
EXAM: KUB ABDOMEN HISTORY: NO bm TECHNIQUE: Abdomen single view COMPARISON: None. FINDINGS: No bowel obstruction. No organomegaly. There has been extensive surgery to the thoracic and lumbar spine. IMPRESSION: No acute abnormality identified. Electronically signed by Prosper Gonzalez 01/17/2019 8:55 PM
[2019-01-17] MEDS ORDERED: RELISTOR SUBQ ONE (21:29)
[2019-01-17 21:35] LABS: URINE SOURCE CATH
[2019-01-17 21:43] LABS: BILIRUBIN URINE NEGATIVE (NEGATIVE); BLOOD URINE MODERATE (NEGATIVE); COLOR YELLOW; GLUCOSE URINE NEGATIVE (NEGATIVE); KETONE URINE NEGATIVE (NEGATIVE); LEUKOCYTES URINE LARGE (NEGATIVE); NITRITE URINE NEGATIVE (NEGATIVE); PH URINE 5.5; PROTEIN URINE 30 mg/dL (NEGATIVE); SP GRAVITY URINE 1.003; TURBIDITY URINE CLEAR (CLEAR); UR EPITHELIAL CELLS <10 /HPF (<10); URINE BACTERIA 1+ /HPF; URINE RBC TNTC /HPF (<10); URINE WBC 20-40 /HPF (<10); UROBILINOGEN URINE NORMAL (NORMAL)
[2019-01-17 22:19] LABS: BASO# 0.03 X1000 (0.0-0.2); BASO% 0.3 % (0.0-0.8); EOS# 0.08 X1000 (0.0-0.7); EOS% 0.8 % (0.0-10.0); HEMATOCRIT 33.1 % (37.0-47.0); HEMOGLOBIN 10.7 g/dL (12.0-16.0); IMM GRAN# 0.02 X1000 (0.0-0.04); IMM GRAN% 0.2 % (0.0-0.5); LYMPH% 16.4 % (20.5-51.1); MCH 26.2 PG (27-31); MCHC 32.3 g/dL (33-37); MCV 80.9 FL (81-99); MONO# 0.62 X1000 (0.11-0.59); MONO% 6.4 % (1.7-9.3); MPV 11.1 FL (7.4-10.4); NEUT% 75.9 % (42.2-75.2); PLT 298 X1000 (130-400); RBC 4.09 XMIL (4.2-5.4); RDW 16.2 % (11.5-14.5); WBC 9.75 X1000 (4.8-10.8)
[2019-01-17 22:58] LABS: AGAP 7; ALB/GLOB RATIO 1.1; ALBUMIN 3.4 g/dL (3.5-5.0); ALKALINE PHOSPHATASE 145 U/L (32-104); BUN 40 mg/dL (8-22); CALCIUM 8.2 mg/dL (8.8-10.2); CHLORIDE 91 mmol/L (98-107); COSMO 274; CREATININE 1.1 mg/dL (0.5-0.9); ESTIMATED GFR 49; GLUCOSE 121 mg/dL (70-104); GOT 12 U/L (10-30); GPT < 5 U/L (10-36); POTASSIUM 2.7 mmol/L (3.5-5.1); SODIUM 131 mmol/L (136-145); TCO2 33 mmol/L (25-35); TOTAL BILIRUBIN 0.25 mg/dL (0.20-1.00); TOTAL PROTEIN 6.5 g/dL (6.3-8.3)
--- NOTE | 2019-01-18 00:08 | PROVIDER DOCUMENTATION ---
This chart was entered by Arely Silva Scribe, acting as scribe for Stephen Martinez MD. HPI-General Adult - General Chief Complaint: Hip Pain Stated Complaint: right hip fx Time Seen by Provider: 01/17/19 20:03 Source: patient, family Allergies/Adverse Reactions: Patient Allergies Allergy/AdvReac Type Severity Reaction Status Date / Time codeine [Codeine] Allergy Unknown Unknown Verified 12/28/18 17:06 meperidine HCl * Allergy Unknown Unknown Verified 12/28/18 17:06 [From Demerol] metoclopramide HCl * Allergy Unknown Unknown Verified 12/28/18 17:06 [From Reglan] Penicillins Allergy Unknown Unknown Verified 12/28/18 17:06 Sulfa (Sulfonamide Allergy Unknown Unknown Verified 12/28/18 17:06 Antibiotics) cefepime AdvReac Intermediate Unknown Verified 01/02/19 09:55 Home Medications: Home Medication List Medication Instructions Recorded Confirmed Last Taken Type Aspirin 81 mg PO QAM 07/10/18 01/17/19 09/01/18 09:00 History Baclofen 10 mg PO 0900,1500,2100 07/10/18 01/17/19 09/01/18 09:00 History Folic Acid 1 each PO QAM 07/10/18 01/17/19 09/01/18 09:00 History Isosorbide Mononitrate [Isosorbide 60 mg PO QAM 07/10/18 01/17/19 09/01/18 09:00 History Mononitrate ER] Multivitamin [Multivitamins] 1 each PO QAM 07/10/18 01/17/19 09/01/18 09:00 History Nitroglycerin [Nitroglycerin 0.4 1 each TD QAM 07/10/18 01/17/19 09/01/18 09:00 History mg/Hr Patch] Ondansetron [Zofran Odt] 4 mg SL TID 07/10/18 01/17/19 08/31/18 21:00 History Ropinirole HCl 2 mg PO BID 07/10/18 01/17/19 09/01/18 09:00 History Pantoprazole [Protonix] 40 mg PO QAM tablet 07/23/18 01/17/19 09/01/18 09:00 Rx Duloxetine [Cymbalta] 60 mg PO QAM capsule 09/14/18 01/17/19 Unknown Rx Fluconazole [Diflucan] 100 mg PO DAILY tablet 09/14/18 01/17/19 Unknown Rx Cyanocobalamin (Vitamin B-12) 1,000 mcg PO DAILY 10/13/18 01/17/19 Unknown History [B-12] Hydrocodone/APAP 10 mg/325 mg 1 each PO Q4H PRN PRN 10/13/18 01/17/19 Unknown History [Bolton-10] Spironolact/Hydrochlorothiazid 1 each PO QAM 10/13/18 01/17/19 Unknown History [Aldactazide 25-25 Tablet] Acetaminophen [Tylenol] 500 mg PO Q6H PRN PRN tab 10/25/18 01/17/19 Unknown Rx Clonazepam [Klonopin] 0.5 mg PO BID PRN PRN 12/28/18 01/17/19 Unknown History Linaclotide [Linzess] 1 - 2 cap PO DAILY PRN 12/28/18 01/17/19 Unknown History Potassium Chloride E.r. [Klor-Con] 10 meq PO BID 12/28/18 01/17/19 Unknown History Lactulose [Kristalose] 20 gm PO DAILY 12/29/18 01/17/19 Unknown History Furosemide [Lasix] 40 mg PO BID tab 01/14/19 01/17/19 Unknown Rx Menthol/Zinc Oxide Ointment 1 gm TOP PRN PRN tube 01/14/19 01/17/19 Unknown Rx [Calmoseptine Ointment] Oxybutynin [Ditropan] 5 mg PO 0900,1500,2100 tab 01/14/19 01/17/19 Unknown Rx Rivaroxaban [Xarelto] 10 mg PO Q24H tab 01/14/19 01/17/19 Unknown Rx Trazodone [Desyrel] 50 mg PO QHS tab 01/14/19 01/17/19 Unknown Rx - History of Present Illness -Gen Adult Nature of Presenting Problems: 73 yof presents w/family to er w/cc pt historian is family and jumps all over story. family sts pt came to er for uti and stent was placed december 28. pt broke rt hip while being transferred in hospital. 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 pt family sts [facility] was going to take kevin out but pt was having worsening rt hip pain she came to er. pt family talked to and he told them to come to er if they wanted to. pt family sts pt slept all day yest and ate 1 egg today. family sts pt has been constipated. pt denies fever, runny nose, cough and n/v. pt has hx of gerd, kidney stones and uti. Review of Systems - Adult - REVIEW OF SYSTEMS - ADULT Constitutional: reports: no symptoms reported. denies: fever Eyes: reports: no symptoms reported Ears, Nose, Mouth & Throat: reports: no symptoms reported. denies: nose pain Cardiovascular: reports: no symptoms reported Respiratory: reports: no symptoms reported. denies: cough Gastrointestinal: reports: see HPI, constipation. denies: nausea, vomiting Genitourinary: reports: no symptoms reported Musculoskeletal: reports: see HPI, joint pain (rt hip) Integumentary: reports: no symptoms reported Neurological: reports: no symptoms reported Psychiatric: reports: no symptoms reported Endocrine: reports: no symptoms reported Hematologic/Lymphatic: reports: no symptoms reported Allergic/Immunologic: reports: no symptoms reported All Other Systems: Reviewed and Negative Past History - Adult - PAST MEDICAL HISTORY-ADULT Review of Records: reports: Old Records Reviewed, Nursing Assessment Review, Medications Reviewed, Social history reviewed & non-contributory. Major Childhood Illnesses: reports: denies history Cardiovascular: reports: CHF Respiratory: reports: asthma, COPD Gastrointestinal: reports: denies history Obstetrical/Gynecological: reports: denies history Genitourinary: reports: chronic UTI's Musculoskeletal: reports: denies history Neurological: reports: Parkinson's, other (paralysis) Psychiatric: reports: denies history Endocrine/Immune: reports: denies history Other Conditions: reports: denies history Additional History: paralysis from left arm and bilateral legs - PRIOR SURGERIES/PROCEDURES Surgical/Procedure History: reports: cholecystectomy, tonsillectomy, hernia repair, orthopedic (extremity) (shoulder), joint replacement (TKR, rh), back/neck - IMMUNIZATION STATUS Childhood Immunizations: See Nurse Assessment Flu Vaccine: See Nurse Assessment - FAMILY HISTORY Family History: reviewed, not pertinent - SOCIAL HISTORY Smoking: non-smoker Substance Use: none/never Physical Exam-General - PHYSICAL EXAM-ADULT Initial Vital Signs Reviewed: Yes - CONSTITUTIONAL General Appearance: alert, mild distress. negative: anxious, lethargic, obtund ed - EYES Eyes: PERRL/EOMI, pink conjunctivae - HEAD, EARS, NOSE, MOUTH & THROAT HENMT: normocephalic/atraumatic, moist mucous membranes, normal ENT inspection - NECK Neck: supple. negative: full range of motion, normal inspection - RESPIRATORY Respiratory: chest non-tender, lungs clear, normal breath sounds - CARDIOVASCULAR Cardiovascular: normal peripheral pulses, regular rate, rhythm - GASTROINTESTINAL (ABDOMEN) Abdominal Exam: normal bowel sounds, non tender, distended (slightly). negative: soft, abdominal bruit, abnormal bowel sounds - MUSCULOSKELETAL Back Exam: normal inspection Extremity: other (pt paralyzed from prev injury, left sided and bilat legs.). negative: normal range of motion, non-tender, normal inspection Peripheral Pulses: radial (R): 2+ - SKIN Integumentary: normal color, normal turgor, warm/dry - NEUROLOGIC Neurologic: grossly normal, no motor/sensory deficits, other (pt parlysis left side and bilat legs). negative: aphasia, EOM palsy - PSYCHIATRIC Psych/Mental Status: normal mood/affect, normal thought content, normal thought process, oriented x 3 Progress - PLAN OF CARE/RESULTS Progress/Plan/Lab Results: Vital Signs - 8 hr 01/17/19 19:58 Temperature 98.1 F Pulse Rate 88 Respiratory Rate 16 Blood Pressure 107/74 O2 Sat by Pulse Oximetry 100 Orders Category Date Time Status CHEST-PORTABLE [RAD] Stat Exams 01/17/19 20:28 Ordered KUB ABDOMEN [RAD] Stat Exams 01/17/19 20:23 Ordered PELVIS [RAD] Stat Exams 01/17/19 20:23 Ordered CBC WITH DIFF [HEME] Stat Lab 01/17/19 20:23 Uncollected COMPREHENSIVE METABOLIC PANEL [CHEM] Stat Lab 01/17/19 20:23 Uncollected URINALYSIS W/POSS RFLX CULT [URINALYSIS] Stat Lab 01/17/19 20:28 Uncollected Result Diagrams: 01/17/19 22:04 01/17/19 22:04 - XRAY 1 XRAY: Bilateral XRAY Study: Chest ( EXAM: CHEST-PORTABLE HISTORY: POSS ams TECHNIQUE: Chest single view COMPARISON: 12/29/2018 FINDINGS: Poor inspiratory effort. The heart is not enlarged. The change in the right portacatheter. The vessels are not distended. There are no infiltrates. No effusion identified. There has been extensive surgery to the back. IMPRESSION: Stable exam. Electronically signed by Prosper Malhotra 01/17/2019 8:54 PM) Impression: Normal 2 XRAY: Bilateral XRAY Study: Pelvis (EXAM: PELVIS HISTORY: PAIN, POST OP TECHNIQUE: Pelvis single view COMPARISON: None. FINDINGS: The bones are osteopenic. There is been orthopedic surgery to each hip. Neither hip is dislocated. No widening of the pubic symphysis. IMPRESSION: No acute abnormality identified. Electronically signed by Prosper Gonzalez 01/17/2019 8:52 PM) Impression: Normal Comparison with other Films: no prior study 3 XRAY Study: Abdomen (EXAM: KUB ABDOMEN HISTORY: NO bm TECHNIQUE: Abdomen single view COMPARISON: None. FINDINGS: No bowel obstruction. No organomegaly. There has been extensive surgery to the thoracic and lumbar spine. IMPRESSION: No acute abnormality identified. Electronically signed by Prosper Malhotra 01/17/2019 8:55 PM) Impression: Normal Comparison with other Films: no prior study - CONSULTS/PCP/HOSPITALIST Notification #1 *Consult/PCP/Hospitalist*: [place] Time Discussed: 00:00 Consult Disposition: Will see in ED, Admit Departure - Departure Date of Disposition Decision: 01/18/19 Time of Disposition Decision: 00:06 DIAGNOSIS: Leg edema, right, Hypokalemia, Failure to thrive Disposition: ADMITTED INPATIENT 09 Certified Medical Emergency: Emergent Condition: Good Referrals and Follow-Ups: Amando Berman MD [Primary Care Provider] - - Critical Care Note This patient required my direct & personal management of CC.: No Attestation - Physician/ YOKO Attestation Patient care was provided by Advanced Practice Provider:: No The physician spent face to face time with patient:: Yes Advanced Practice Provider documentation review:: Supervising physician onsite and consulted in the evaluation and care of this patient. The physician did have a face to face encounter with the patient. This chart was documented by the indicated scribe, (Arely Silva Scribe) and accurately reflects the services I performed and decisions made by me, Stephen Martinez MD, as attested by the provider's signature.
[2019-01-18 00:23] LABS: PROTIME 19.4 Seconds (11.0-16.0)
[2019-01-18 00:24] LABS: INR 1.51; PTT 41.9 Seconds (22.3-41.8)
[2019-01-18 00:41] LABS: ALLEN TEST YES; BE 5.7 mmoll (-3.0-3.0); BLOOD TYPE ARTERIAL; HCO3-(ACT) 29.4 mmoll (20.0-26.0); METHB 1.1 % (0.0-1.5); O2(CT) 14.5 mL/dL (15.0-23.0); O2HB 96.5 % (95.0-99.0); PCO2(98.6) 45 mmHg (35-45); PO2(98.6) 124 mmHg (60-100); SAMPLE BLOOD; SAO2 99.7 % (95.0-100.0); THB 10.5 g/dL (11.5-17.4); pH(98.6) 7.44 (7.35-7.45)
[2019-01-18 00:42] LABS: MODALITY CANNULA
[2019-01-18] MEDS ORDERED: KLOR-CON PO ONE (02:23)
[2019-01-18] MEDS ORDERED: POTASSIUM CHLORIDE 40 MEQ/SWI 40 MEQ/100 ML IVPB IV ONE (02:25)
[2019-01-18] MEDS ORDERED: NORCO-10 PO ONE (02:45)
[2019-01-18] MEDS ORDERED: ZOFRAN IV ONE (02:45)
[2019-01-18] MEDS: POTASSIUM CHLORIDE 20 MEQ/SWI 20 MEQ/100 ML IVPB IV SCH ×2 (03:26→06:35)
[2019-01-18] MEDS: TAZIDIME 1 GM in NS 50 ML IV SCH ×2 (05:52→15:58)
[2019-01-18] MEDS ORDERED: CALMOSEPTINE OINTMENT TOP PRN (06:27)
[2019-01-18] MEDS: NORCO-10 PO PRN ×4 (07:44→22:05)
[2019-01-18 08:57] LABS: BASO# 0.02 X1000 (0.0-0.2); BASO% 0.2 % (0.0-0.8); EOS# 0.07 X1000 (0.0-0.7); EOS% 0.8 % (0.0-10.0); HEMATOCRIT 32.4 % (37.0-47.0); HEMOGLOBIN 10.5 g/dL (12.0-16.0); LYMPH# 1.52 X1000 (1.2-3.4); MCH 26.4 PG (27-31); MCHC 32.4 g/dL (33-37); MCV 81.4 FL (81-99); MONO% 6.7 % (1.7-9.3); MPV 11.3 FL (7.4-10.4); NEUT# 6.75 X1000 (1.4-6.5); NEUT% 75.3 % (42.2-75.2); PLT 291 X1000 (130-400); RBC 3.98 XMIL (4.2-5.4); RDW 16.1 % (11.5-14.5); WBC 8.96 X1000 (4.8-10.8)
[2019-01-18 09:29] LABS: AGAP 11; ALB/GLOB RATIO 1.2; ALBUMIN 3.5 g/dL (3.5-5.0); ALKALINE PHOSPHATASE 151 U/L (32-104); BUN 39 mg/dL (8-22); CALCIUM 8.1 mg/dL (8.8-10.2); CHLORIDE 89 mmol/L (98-107); COSMO 269; ESTIMATED GFR 55; GLUCOSE 140 mg/dL (70-104); GOT 13 U/L (10-30); GPT < 5 U/L (10-36); MAGNESIUM 1.6 mg/dL (1.5-2.7); POTASSIUM 3.7 mmol/L (3.5-5.1); SODIUM 128 mmol/L (136-145); TCO2 28 mmol/L (25-35); TOTAL BILIRUBIN 0.24 mg/dL (0.20-1.00); TOTAL PROTEIN 6.4 g/dL (6.3-8.3)
--- NOTE | 2019-01-18 09:31 | Diag Imaging Result Doc PS360 ---
CT ANGIOGRM PULMONARY ARTERIES - 01/18/2019 INDICATION: SOB,Recent right hip surgery TECHNIQUE: Axial CT images were obtained after administering intravenous contrast. Coronal MIP images were generated. COMPARISON: Chest CT 01/07/2014, renal stone search 01/05/2019 FINDINGS: There is mild cardiomegaly. There is a left shoulder prosthesis and extensive spine fusion rods. These cause extensive streak artifact obscuring some parts of most images. There is a right chest port in good position. There is mild cardiomegaly. No pericardial effusion. No pulmonary embolism. There is mild linear infiltrate or scarring mainly in the lung bases. No dense consolidations. There are large stones in the upper pole the left kidney and there is significant left hydronephrosis. IMPRESSION: Negative for pulmonary embolism. Nonspecific findings. This exam was performed using automated exposure control, adjustment of mA or kV according to patient size, and/or use of iterative reconstruction technique Electronically signed by Darryl Moore 01/18/2019 9:29 AM
--- NOTE | 2019-01-18 09:41 | PROGRESS NOTE ---
DATE: 01/18/2019 Ms. Heredia is in about the same general condition. This morning she had a CT scan of the abdomen and pelvis. She is also getting venous ultrasound of the right lower extremity. Her medication does include 10 mg of Xarelto. However, we will try to rule out DVT. Her potassium was 2.7. We are going to give her some IV potassium today. Overall condition is stable. cc: Amando Berman MD
[2019-01-18] MEDS: CENTRUM SILVER PO SCH (10:07)
[2019-01-18] MEDS: CYMBALTA PO SCH (10:07)
[2019-01-18] MEDS: PROTONIX PO SCH (10:08)
[2019-01-18] MEDS: LIORESAL PO SCH ×3 (10:08→22:05)
[2019-01-18] MEDS: FOLIC ACID PO SCH (10:08)
[2019-01-18] MEDS: ASPIRIN PO SCH (10:08)
[2019-01-18] MEDS: IMDUR PO SCH (10:08)
[2019-01-18] MEDS: DITROPAN PO SCH ×3 (10:09→22:05)
[2019-01-18] MEDS: VITAMIN B-12 PO SCH (10:09)
[2019-01-18] MEDS: DIFLUCAN PO SCH (10:09)
[2019-01-18] MEDS: XARELTO PO SCH (10:09)
[2019-01-18] MEDS: COLACE PO SCH ×2 (10:26→22:05)
[2019-01-18] MEDS: REQUIP PO SCH ×2 (10:26→22:05)
[2019-01-18] MEDS: D5 1/2 NS + KCL 30 MEQ 1,000 ML IV SCH (10:26)
[2019-01-18] MEDS: LACTULOSE PO SCH (10:26)
[2019-01-18] MEDS: MIRALAX PO SCH (10:27)
[2019-01-18] MEDS: DESYREL PO SCH (22:04)
[2019-01-19] MEDS: D5 1/2 NS + KCL 30 MEQ 1,000 ML IV SCH ×2 (00:23→12:34)
[2019-01-19] MEDS: TAZIDIME 1 GM in NS 50 ML IV SCH ×2 (04:05→15:18)
--- NOTE | 2019-01-19 04:49 | HISTORY AND PHYSICAL ---
PRIMARY CARE PROVIDER: Dr. Amando Berman. CHIEF COMPLAINT: Right lower extremity swelling and shortness of breath. HISTORY OF PRESENT ILLNESS: Ms. Heredia is a 73-year-old female who was just recently admitted to our facility for urinary tract infection which was positive for Pseudomonas aeruginosa. She does have a suprapubic catheter in place. She was also treated during this admission for renal and bladder stones, and did undergo status post lithotripsy with Dr. Hancock. She also was found to have a fracture of the right hip with a right femoral neck fracture, and did undergo repair of this by Dr. Sahu. She was also found have microfractures of the right knee. She was discharged to rehab. She has been on Xarelto since being discharged from rehab. She was supposed to take this for 30 days, and has continued to take this. Though the patient's daughter states that over the last 2 days that she has been complaining of worsening pain in her right leg. This extremity is swollen worse than the left, warm to the touch. She does have some erythema in the right lower leg area on the right anterior gregory area. Also, her daughter states that yesterday morning on 01/17 that she did become quite short of breath. She does occasionally wear oxygen as needed 3 L at home. Even with this on, she said that Ms. Heredia complained that she could not catch her breath at all. They did have EMS that came out and checked on her. Ultimately, the patient did not decide to go to the ER at that time. They waited to see the home health nurse. When she arrived, she recommended her coming to the hospital. Also, the patient has been complaining of constipation. She states that she has not had a bowel movement since 01/01. She does currently at this time take Linzess and lactulose. Also, her family member at bedside states that she has noticed that her urine has looked darker and more cloudy as well. As previously mentioned, the patient does have a suprapubic catheter. The patient at this time is bed bound. She does live at home with her, and she does have home health that comes out. The patient unfortunately is bed bound. She has had a fall several years ago for which she sustained, from what I understand, a cervical neck fracture which caused her to have paralysis on her left side of her body. She has paralysis in her left upper extremity and left lower extremity. She has also had multiple orthopaedic surgeries. The patient does have osteoporosis, and has had a left shoulder surgery that does have metal hardware. She also has had extensive thoracic and lumbar spine surgeries as well. Upon further questioning, there was some mention of her being confused in the ER notes though after speaking with the daughter, I think she was referring to this being during her last admission when she was seeing people that have been , and were not there. She denied her having any of those hallucination type problems or being confused. During my examination, the patient was alert and oriented to person, place, time, and situation. She was able to answer questions appropriately and follow commands. The patient denies any headache or dizziness. She denies any chest pain or shortness of breath at this present time though she had had the previous episode of shortness of breath this morning. She does complain of constipation, but does not have any reported abdominal pain. She denies any nausea or vomiting. She does have a suprapubic catheter noted. As previously mentioned, her daughter did state that the urine had become darker in color and more cloudy. She does have the chronic pain from her degenerative disk disease, and multiple previous surgeries though does report worsening pain in her right lower extremity. She also has worsening swelling, erythema and warmth. Upon evaluation in the ER, she was noted to be slightly anemic though this does appear to be stable when compared to previous labs. Laboratory results did reveal that she is hypokalemic with potassium 2.7. Urinalysis was positive for moderate blood, large leukocytes, 20 to 40 white blood cells, and 1+ bacteria. Chest x-ray did not show any acute abnormalities. X-ray of the pelvis showed no acute abnormality identified. They did note the bones are osteopenic. There had been orthopedic surgery to each hip though neither hip was dislocated. There was no widening of the pubic symphysis. Abdominal x-ray showed no bowel obstruction. There was no acute abnormality identified either. I would like to add that the daughter did note that the patient has not been eating or drinking well over the last day or 2. At this time, we will admit the patient for swelling in the right lower extremity and rule out DVT, hypokalemia, UTI and constipation. REVIEW OF SYSTEMS: A 14 point review of systems was conducted with the patient. All were negative except for pertinent positives mentioned above in HPI. PAST MEDICAL HISTORY: 1. History of left-sided paralysis with resultant neurogenic bladder secondary to a fall with cervical injury. 2. Neurogenic bladder now with the suprapubic catheter. 3. Recurrent urinary tract infections. 4. Recent renal and bladder stones status post lithotripsy. 5. Recent urinary tract infection positive for Pseudomonas aeruginosa. 6. Hypertension. 7. Degenerative disk disease. 8. Recent right femoral neck fracture status post repair with Dr. Sahu. 9. Chronic pain. 10. Multiple orthopedic surgeries. 11. Osteoporosis. 12. Dementia. 13. Depression with anxiety. 14. History of fungemia. 15. Congestive heart failure. 16. History of diverticulosis and diverticular bleed. PAST SURGICAL HISTORY: 1. Status post repair of a right femoral neck fracture. 2. Status post recent lithotripsy with Dr. Hancock. 3. Cervical fusion. 4. Thoracic and lumbar spine surgery. 5. Left shoulder arthroplasty. 6. Abdominal hernia repair. 7. Hysterectomy. 8. Knee replacement. 9. Recent placement of a suprapubic catheter. SOCIAL HISTORY: There is no known alcohol, tobacco or illicit drug use. The patient does live with her daughter who takes care of her. She does have home health that does come out and checks on her. The patient unfortunately is bed-bound secondary to she does have paralysis of left upper and lower extremities secondary to a fall with a cervical injury several years ago. FAMILY HISTORY: Positive for coronary artery disease. DIAGNOSTIC DATA/LABORATORY RESULTS: White blood cell count 9750, hemoglobin 10.7, hematocrit 33.1 and platelet count is 298,000. PT 19.4, INR 1.51, PTT is 41.9. Sodium 131, potassium 2.7, chloride 91, serum bicarb 33, BUN 40, and creatinine 1.1 with GFR 49. Glucose 121, calcium 8.2. Liver function tests within normal limits. The alkaline phosphatase is slightly elevated at 145. Troponin less than 0.01. ProBNP is 347. Urinalysis was obtained via catheter and was positive for protein, moderate blood, large leukocytes, 20 to 40 white blood cells, and 1+ bacteria. Arterial blood gases were obtained on nasal cannula with 30% FiO2 with a pH of 7.44, pCO2 45, PO2 124. HC03 is 29.4, base excess is 5.7, oxyhemoglobin was 96.5, and O2 saturation was 99.7. 1. Chest x-ray showed no infiltrates. No effusion. Stable exam when compared to previous x-ray on 12/29/2018. 2. Pelvis x-ray showed no acute abnormality identified. There were some bones that were osteopenic. There has been a previous orthopedic surgery to each hip though neither hip is dislocated, and there is no widening of the pubic symphysis noted. 3. Abdominal x-ray showed no bowel obstruction. No organomegaly. There is no acute abnormality identified. Pending diagnostic studies at this time are a CTA angiogram pulmonary artery as well as a right lower extremity venous Doppler. PHYSICAL EXAMINATION: VITAL SIGNS: Temperature 98.3 degrees, heart rate 85, respirations 18, blood pressure is 110/72, oxygen saturation is 100% per nasal cannula at 2 L. GENERAL: Ms. Heredia is a pleasant elderly female who is resting in the ER stretcher. She was in no acute distress. She was awake, alert and able to answer questions appropriately. HEENT: Head is atraumatic, normocephalic. Pupils equal, round, and reactive to light, were 3 mm bilaterally and brisk. Oral mucosa is moist. Oropharynx clear. NECK: Supple. Trachea midline. CARDIOVASCULAR: Patient has S1-S2 present. No murmurs, gallops, or rubs appreciated. The patient has symmetrical chest expansion bilaterally. LUNGS: Sounds are clear to auscultation in bilateral full hill. ABDOMEN: Soft and nondistended. The patient does have a protuberant abdomen noted. She was nontender upon palpation. Bowel sounds were present in all 4 quadrants, and were normoactive. The patient's suprapubic catheter site does appear to be healing well. There is no erythema, warmth or drainage noted. EXTREMITIES: The patient does have paralysis to the left upper extremity. She does have a contracture of the left arm and drawing of the left hand. She also does have hardware secondary to left shoulder arthroplasty at the outlying could be seen through the skin though the skin does not open at the hardware site. The patient's daughter states this has been this way for quite some time. The patient does have paralysis noted to her left lower extremity. She does have quite a bit of swelling noted to her right lower extremity which is worse on the left. This extremity also does have erythema on the right lower leg on the anterior gregory area. It is warm to the touch. She does report pain and tenderness though radial and pedal pulses were 2+ bilaterally. Capillary refill was less than 3. INTEGUMENTARY: The patient's skin is pink, warm and dry. She does have a suprapubic catheter site which does appear to be healing well and within normal limits. She also does have kevin noted in the right hip area. These do appear to be healing well also. The surgical borders are aligned together. There does not appear to be any erythema, warmth or drainage noted either. NEUROLOGICAL: Patient is alert and oriented to person, place, time, and situation. She does answer questions appropriately. She follows commands. She is able to move right upper and lower extremities though she does have paralysis on her left side due to previous cervical injury. Though other than this, she does not appear to have any focal neurological deficits noted. ASSESSMENT AND PLAN: 1. Right lower extremity swelling. Some of this could be secondary to her recent right hip surgery though the leg is swollen worse than the left. She does have warmth and erythema. She does report tenderness and pain. We will rule out a DVT. We have ordered a venous Doppler of the right lower extremity for in the morning. She has been on Xarelto since being discharged for DVT prophylaxis since her right hip repair. We have continued at this time. We will await those results and continue to follow. She will be on strict bedrest. 2. Dyspnea. The patient did have a reported episode of shortness of breath. Given her right lower extremity swelling and recent surgery, we will go ahead and do a CT angiogram of pulmonary arteries to rule out possible pulmonary embolus. We will await those results and continue to follow. At this time, the patient is maintaining adequate oxygen saturations with nasal cannula at 2 L. 3. Hypokalemia. This is of uncertain etiology. The patient's daughter states that she has not been eating well over the past day or 2. She does take Lasix 40 mg twice daily as well. This will be replaced with oral and IV potassium. We will recheck a potassium level later on this morning. 4. Urinary tract infection. The patient does have a suprapubic catheter in place. She does have a history of having recurrent UTIs. Her most recent urine culture was positive for Pseudomonas aeruginosa. She was susceptible to cefepime and ceftazidime, and is penicillin allergic. The patient even though she received cefepime while she was in the hospital during her most recent admission, it is now on her allergy list. Upon further discussion with the daughter and reading Dr. Elaine's note, it looks as though they switched her to ceftazidime secondary to they thought that maybe cefepime was causing her to have some confusion. We will go ahead and place her with antibiotic coverage with ceftazidime 1 g q.12 hours. We have renally dosed this. We will await urine culture results. 5. Constipation. The patient was previously taking Linzess and lactulose. We have continued the lactulose. We will also add on MiraLAX as well as Colace. We will monitor her response to this bowel regimen. 6. DVT prophylaxis will be provided with previously mentioned Xarelto. The patient has been placed on the medical floor with telemetry. She will have vital signs q.4 hours. We will do strict intake and output, incentive spirometry. She will be on a heart healthy diet. We are awaiting results of venous Doppler, and CT angiogram pulmonary artery. Further orders and recommendations pending hospital course, diagnostic studies, and physician evaluation is conducted. Dictated by BABS Burkett for Cooper Tim MD cc: MD Amando Floyd MD
[2019-01-19] MEDS: NORCO-10 PO PRN ×4 (05:02→20:16)
[2019-01-19 07:35] LABS: CALCIUM 7.9 mg/dL (8.8-10.2); POTASSIUM 3.6 mmol/L (3.5-5.1)
--- NOTE | 2019-01-19 07:48 | Extremity Venous Study ---
PROCEDURE NAME: Venous U/S Right Leg - 01/18/2019 REQUESTING PHYSICIAN: Dr. Tim. HYDRAULIC MINER BLASTING: Anahy. INDICATIONS: Edema. Previous comparison from 09/01/2018. EQUIPMENT: [employer] Vivid E9 ultrasound system with a 9 L-D transducer. FINDINGS: Images of the right lower extremity venous systems with a comparison shot to the left common femoral vein were obtained in both sagittal and transverse planes. Doppler was used to evaluate veins for spontaneity, phasicity, respiratory excursion, and digital augmentation. RESULTS: Normal venous compression. Normal venous flow. No obvious superficial or deep venous thrombosis noted. INTERPRETATION: Essentially normal right lower extremity venous study. cc: MD Amando Brice MD
[2019-01-19] MEDS ORDERED: [UNRECOGNIZED DRUG - OTHER] PR ONE (08:33)
--- NOTE | 2019-01-19 09:15 | PROGRESS NOTE ---
DATE: 01/19/2019 SUBJECTIVE: Ms. Heredia is feeling better. She is constipated. Gram positive cocci have been found in the urine. However, the final culture report is not back. The venous flow studies is essentially normal. Right lower extremity venous flow studies without any evidence of DVT. She is severely constipated. We are going to get going to get a Fleet's enema on her. cc: Amando Berman MD
--- NOTE | 2019-01-19 09:16 | PROGRESS NOTE ---
DATE: 01/19/2019 -2 cc: Amando Berman MD
--- NOTE | 2019-01-19 09:16 | PROGRESS NOTE ---
DATE: 01/19/2019 -8 cc: Amando Berman MD
[2019-01-19] MEDS: DIFLUCAN PO SCH (09:20)
[2019-01-19] MEDS: IMDUR PO SCH (09:20)
[2019-01-19] MEDS: REQUIP PO SCH ×2 (09:20→20:23)
[2019-01-19] MEDS: VITAMIN B-12 PO SCH (09:20)
[2019-01-19] MEDS: ASPIRIN PO SCH (09:20)
[2019-01-19] MEDS: KLONOPIN PO PRN ×2 (09:21→20:23)
[2019-01-19] MEDS: XARELTO PO SCH (09:21)
[2019-01-19] MEDS: COLACE PO SCH ×2 (09:21→20:16)
[2019-01-19] MEDS: PROTONIX PO SCH (09:21)
[2019-01-19] MEDS: CYMBALTA PO SCH (09:21)
[2019-01-19] MEDS: DITROPAN PO SCH ×3 (09:21→20:16)
[2019-01-19] MEDS: CENTRUM SILVER PO SCH (09:21)
[2019-01-19] MEDS: LIORESAL PO SCH ×3 (09:21→20:16)
[2019-01-19] MEDS: FOLIC ACID PO SCH (09:21)
[2019-01-19] MEDS: LACTULOSE PO SCH (09:22)
[2019-01-19] MEDS: MIRALAX PO SCH (09:22)
[2019-01-19] MEDS: DESYREL PO SCH (20:16)
[2019-01-20] MEDS: D5 1/2 NS + KCL 30 MEQ 1,000 ML IV SCH (01:23)
[2019-01-20] MEDS: TAZIDIME 1 GM in NS 50 ML IV SCH (03:35)
[2019-01-20] MEDS: NORCO-10 PO PRN ×2 (04:18→10:11)
--- NOTE | 2019-01-20 09:35 | PROGRESS NOTE ---
DATE: 01/20/2019 SUBJECTIVE: Ms. Heredia's kevin were removed. She had a change of the Arnold catheter. She has gram-positive cocci growing, however, the colony count is nonsignificant. We are going to discharge her home today. -3 cc: Amando Berman MD
[2019-01-20] MEDS: LACTULOSE PO SCH (10:04)
[2019-01-20] MEDS: ASPIRIN PO SCH (10:04)
[2019-01-20] MEDS: MIRALAX PO SCH (10:04)
[2019-01-20] MEDS: CENTRUM SILVER PO SCH (10:05)
[2019-01-20] MEDS: FOLIC ACID PO SCH (10:05)
[2019-01-20] MEDS: KLONOPIN PO PRN (10:05)
[2019-01-20] MEDS: CYMBALTA PO SCH (10:07)
[2019-01-20] MEDS: PROTONIX PO SCH (10:08)
[2019-01-20] MEDS: IMDUR PO SCH (10:09)
[2019-01-20] MEDS: XARELTO PO SCH (10:09)
[2019-01-20] MEDS: DITROPAN PO SCH (10:09)
[2019-01-20] MEDS: DIFLUCAN PO SCH (10:11)
[2019-01-20] MEDS: REQUIP PO SCH (10:12)
[2019-01-20] MEDS: VITAMIN B-12 PO SCH (10:12)
[2019-01-20] MEDS: COLACE PO SCH (10:12)
[2019-01-20] MEDS: LIORESAL PO SCH (10:12)
[2019-01-20 11:24] VITALS: BP 115/75
--- NOTE | 2019-01-20 21:21 | DISCHARGE SUMMARY ---
ADMISSION DATE: 01/18/2019 DISCHARGE DATE: 01/20/2019 FINAL DISCHARGE SUMMARY: HOSPITAL COURSE: She was actually admitted with right lower extremity swelling, shortness of breath, and hypokalemia. Her venous ultrasound was negative for blood clots in the right lower extremity. She had a pulmonary arteriogram done which was negative for pulmonary embolism. Right hip and pelvis x-rays were unremarkable for new changes. Abdominal x-ray did not reveal any acute abnormality. LABORATORY DATA: Revealed CBC was unremarkable except for anemia, hemoglobin 10.5, white count was normal. INR was 1.51. Blood gases revealed pH 7.44, pCO2 was 45, pO2 was 124. Her initial potassium was 2.7 which came back up to 3.7 and 3.6. BUN and creatinine are slightly elevated partly on account of Lasix therapy. FINAL DIAGNOSES: 1. Hypokalemia. 2. Severe anxiety. 3. Hyperventilation. She had a urine culture which is also negative. Suprapubic catheter was changed by Dr. Hancock. And she also had her kevin removed. She will be discharged today. cc: Amando Berman MD
--- NOTE | 2019-01-21 07:47 | OPERATIVE NOTE ---
PROCEDURE DATE: 01/19/2019 PREOPERATIVE DIAGNOSES: 1. Neurogenic bladder. 2. Suprapubic tube. PROCEDURE NAME: Exchange of suprapubic tube. INDICATIONS: A 73-year-old female with neurogenic bladder, indwelling suprapubic tube, recurrent UTIs, and bilateral renal stones who was admitted to the hospital multiple times. This most recent time admitted with hip pain. During her admission I was asked to exchange her suprapubic tube as she is due for it. FINDINGS: Successful exchange of 20-Irish suprapubic tube with 5 mL of sterile water in the balloon. DESCRIPTION OF PROCEDURE: With the presence of a networks software consultant, the patient's suprapubic tube site was prepped in sterile fashion. The balloon was deflated and all suprapubic tube was removed. A 20-Irish Arnold catheter was introduced via the suprapubic tract with return of clear urine. Then 5 mL of sterile water were instilled in the balloon. The patient tolerated procedure well. She was educated to follow up with her home health care for further exchanges or other problems. ESTIMATED BLOOD LOSS: None. COMPLICATIONS: None. DISPOSITION: Per Dr. Berman. cc: MD Amando Castro MD
== END 2019-01-20 13:01 | disposition home health service (06) | DRG 641 ==
LOC: SUPCPDRO → ED 19:47 → SUATTDRO 01-18 02:34 → 4N 01-18 02:34
PROVIDERS: ADMIT Internal Medicine; ATTEND Internal Medicine
CPT/HCPCS: 71010; 71045; 71275; 72170; 74000; 74018; 80048; 80053; 81001; 82805; 83735; 83880; 84134; 84484; 85025; 85610; 85730; 87077; 87088; 87186; 93971; 94761; 94799; 96372; 99285; A9270; J0713; J2405; J3480; Q9967

== ENCOUNTER 2019-03-14 12:58 | Inpatient (IN) ==
--- NOTE | 2019-03-14 16:10 | EKG Report ---
Test Performed on : 03/14/2019 4:02:14 PM Test Reason : chest pain Blood Pressure : / mmHG Vent. Rate : 080 BPM Atrial Rate : 080 BPM P-R Int : 176 ms QRS Dur : 090 ms QT Int : 434 ms P-R-T Axes : 078 060 013 degrees QTc Int : 500 ms Normal sinus rhythm. ST & T wave abnormality, consider inferior ischemia ST & T wave abnormality, consider anterolateral ischemia Abnormal ECG When compared with ECG of 29-DEC-2018 06:44, T wave inversion now evident in Lateral leads Best of several attempts. Patient cannot relax arms to side. /KJ Confirmed by Emiliano WALL, Ramez ([id number]) on 03/17/2019 7:15:53 AM
--- NOTE | 2019-03-14 16:33 | Diag Imaging Result Doc PS360 ---
EXAM: CHEST-PORTABLE HISTORY: SOB TECHNIQUE: Portable chest single view COMPARISON: 01/17/2019 FINDINGS: The lungs are well expanded. The heart is not enlarged. The vessels are not distended. There are no infiltrates. No effusion identified. No change in the right-sided portacatheter. No pneumothorax. There has been surgery to the lower neck as well as the lower thoracic and lumbar spine. IMPRESSION: Stable chest. Electronically signed by Prosper Gonzalez 03/14/2019 4:31 PM
[2019-03-14] MEDS ORDERED: CALMOSEPTINE OINTMENT TOP PRN (17:46)
[2019-03-14] MEDS ORDERED: TYLENOL PO PRN (17:46)
[2019-03-14] MEDS ORDERED: LINZESS PO PRN (17:46)
[2019-03-14] MEDS ORDERED: KLONOPIN PO PRN (17:46)
[2019-03-14] MEDS: MAXIPIME 1 GM in NS 50 ML IV SCH (18:24)
[2019-03-14] MEDS: POTASSIUM CHLORIDE 10 MEQ in D5 NS 1,000 ML IV SCH (18:24)
[2019-03-14] MEDS: XARELTO PO SCH (18:28)
[2019-03-14 18:40] LABS: HEMATOCRIT 37.8 % (37.0-47.0); MCH 25.8 PG (27-31); MCHC 31.7 g/dL (33-37); MCV 81.1 FL (81-99); MPV 11.8 FL (7.4-10.4); RBC 4.66 XMIL (4.2-5.4); RDW 15.8 % (11.5-14.5); WBC 8.27 X1000 (4.8-10.8)
[2019-03-14 19:05] LABS: ALB/GLOB RATIO 1.2; ALBUMIN 4.1 g/dL (3.5-5.0); CALCIUM 9.2 mg/dL (8.8-10.2); CREATININE 1.1 mg/dL (0.5-0.9); POTASSIUM 2.9 mmol/L (3.5-5.1); TOTAL BILIRUBIN 0.29 mg/dL (0.20-1.00); TOTAL PROTEIN 7.5 g/dL (6.3-8.3)
[2019-03-14 21:21] LABS: URINE SOURCE CATH
[2019-03-14 21:24] LABS: BILIRUBIN URINE NEGATIVE (NEGATIVE); BLOOD URINE MODERATE (NEGATIVE); COLOR ORANGE; GLUCOSE URINE NEGATIVE (NEGATIVE); KETONE URINE NEGATIVE (NEGATIVE); NITRITE URINE NEGATIVE (NEGATIVE); PH URINE 7.5; PROTEIN URINE 70 mg/dL (NEGATIVE); TURBIDITY URINE TURBID (CLEAR); UROBILINOGEN URINE NORMAL (NORMAL)
[2019-03-14 21:25] LABS: LEUKOCYTES URINE LARGE (NEGATIVE)
[2019-03-14 21:34] LABS: UR EPITHELIAL CELLS >10 /HPF (<10); URINE BACTERIA 4+ /HPF; URINE RBC TNTC /HPF (<10); URINE WBC TNTC /HPF (<10)
[2019-03-14] MEDS: LASIX PO SCH (21:40)
[2019-03-14] MEDS: LIORESAL PO SCH (21:40)
[2019-03-14] MEDS: COLACE PO SCH (21:40)
[2019-03-14] MEDS: DITROPAN PO SCH (21:41)
[2019-03-14] MEDS: REQUIP PO SCH (21:41)
[2019-03-14] MEDS: KLOR-CON PO SCH (21:41)
[2019-03-14 21:43] LABS: URINE CASTS NONE SEEN; URINE CRYSTALS NONE SEEN; URINE YEAST NONE SEEN
[2019-03-14] MEDS: NORCO-10 PO PRN (21:43)
--- NOTE | 2019-03-14 21:51 | HISTORY AND PHYSICAL ---
HISTORY OF PRESENT ILLNESS: Ms. Heredia who is a 73-year-old white female is admitted with history of recurrent nausea, vomiting, and recurrent Pseudomonas urinary tract infection resistant to p.o. medications. Ms. Heredia has multiple bladder and kidney stones. She has suprapubic catheter and she recently passed 3 stones as per the nurse who changed the catheter. She was symptomatic with lower abdominal pain, some dysuria and had nausea, vomiting, and some regurgitation. Ms. Heredia is totally bedridden. She is cared by a [facility] nurses and she has been having recurrent UTIs, has multiple kidney stones. She has severe recurrent fungal infections within her mouth as well as esophagus. She also had a Port-A-Cath removed and deep cultured fungus. She has been on Diflucan on a regular basis. She recently had a Port-A-Cath changed by Dr. Walters. PAST SURGICAL HISTORY: She had multiple spine surgeries starting from the lumbar to cervical spine, almost 17 back surgeries and she had a stent put in her heart. She also had multiple gastric surgeries including a plastic surgery on her abdominal wall. She had multiple joint surgeries including knee and hip replacement and right knee she had staph infection. Besides that she had the last shoulder surgery which was unsuccessful on the left side and it resulted into a dislocation of the prosthesis and severe edema, lymphedema of the left upper extremity where she had recurrent blood clots. Lately she had numerous admissions with a Pseudomonas UTI and 1 time she had a serial gram-negative sepsis. MEDICATIONS: Include baclofen, clonazepam, B12, docusate, duloxetine, fluconazole, folic acid, Zofran, nitroglycerin, multivitamin, Linzess, lactulose for chronic constipation, multivitamin. She also takes ropinirole and Xarelto, Aldactazide, trazodone and pain medication on a regular basis is [place] 10. REVIEW OF SYSTEMS: Other than what has been mentioned is noncontributory. PHYSICAL EXAMINATION: The patient is alert. VITAL SIGNS: Reveal temperature normal, pulse 76 per minute, respiratory rate 16 per minute, blood pressure 99/69. HEENT: Head normocephalic. Pupils PERRLA. Fundus examination normal. NECK: Supple. JVP normal. ENT EXAMINATION: Unremarkable. There is no evidence of lymphadenopathy, thyroid enlargement. EXTREMITIES: There is bilateral leg edema, pitting on pressure. Pedal pulses are feeble. BREAST EXAM: Normal chest, normal inspection. LUNGS: Clear on auscultation. PMI in the normal position. HEART: Sounds normal. No murmur, gallop or rub noted. ABDOMEN: Nondistended. There is suprapubic catheter. No guarding, rigidity, free fluid, masses, or organomegaly. Bowel sounds normal. RECTAL: Deferred. SILK OPENER: Higher functions normal. Cranial nerves normal. Motor and sensory system examination unremarkable except for some parkinsonian like tremors. Deep tendon reflexes are sluggish. Plantars downgoing. SKULL AND SPINE: Examination reveals multiple scars on the spine from multiple surgeries. Movements are painful. SLR cannot be elicited. She cannot lift her legs at all. There are no cerebellar signs or signs of meningeal irritation on local motor exam. SKIN: Unremarkable except for lymphedema on the left arm. CLINICAL IMPRESSION: Recurrent urinary tract infection with Pseudomonas. The patient has nausea and vomiting. She also has a suprapubic catheter with multiple kidney stones and had multiple spine surgery. Patient is bedridden. Start IV fluids as well as IV cefepime as the culture and sensitivities have been done at [facility]. cc: Amando Berman MD
[2019-03-14] MEDS: DESYREL PO SCH (23:10)
[2019-03-15] MEDS: MAXIPIME 1 GM in NS 50 ML IV SCH ×2 (03:36→16:01)
[2019-03-15] MEDS: NORCO-10 PO PRN ×4 (04:34→21:00)
[2019-03-15] MEDS: POTASSIUM CHLORIDE 10 MEQ in D5 NS 1,000 ML IV SCH (09:59)
[2019-03-15] MEDS: MIRALAX PO SCH (10:01)
[2019-03-15] MEDS: NITROGLYCERIN 0.4 MG/HR PATCH TD SCH (10:02)
[2019-03-15] MEDS: CYMBALTA PO SCH (10:02)
[2019-03-15] MEDS: LACTULOSE PO SCH (10:02)
[2019-03-15] MEDS: DIFLUCAN PO SCH (10:03)
[2019-03-15] MEDS: DITROPAN PO SCH ×3 (10:03→21:00)
[2019-03-15] MEDS: ALDACTAZIDE 25/25 PO SCH (10:03)
[2019-03-15] MEDS: PROTONIX PO SCH (10:03)
[2019-03-15] MEDS: COLACE PO SCH ×2 (10:03→21:00)
[2019-03-15] MEDS: LIORESAL PO SCH ×3 (10:03→21:00)
[2019-03-15] MEDS: REQUIP PO SCH ×2 (10:03→21:00)
[2019-03-15] MEDS: ZOFRAN ODT SL SCH ×3 (10:03→16:01)
[2019-03-15] MEDS: LASIX PO SCH ×2 (10:03→21:00)
[2019-03-15] MEDS: KLOR-CON PO SCH ×2 (10:04→21:00)
[2019-03-15] MEDS: VITAMIN B-12 PO SCH (10:04)
[2019-03-15] MEDS: CENTRUM SILVER PO SCH (10:04)
[2019-03-15] MEDS: FOLIC ACID PO SCH (10:04)
[2019-03-15] MEDS: IMDUR PO SCH (10:04)
[2019-03-15] MEDS: ASPIRIN PO SCH (10:05)
--- NOTE | 2019-03-15 10:12 | PROGRESS NOTE ---
DATE: 03/15/2019 Ms. Heredia is feeling weak. Her nausea is somewhat better. Her lungs are clear. Heart sounds are normal. She is to be seen by Dr. Hancock and Dr. Heredia. She is getting IV cefepime, IV fluids. Potassium was 2.7. We have increased oral potassium. She also has dehydration with elevated BUN and creatinine. This is some renal failure with more a prerenal azotemia. cc: Amando Berman MD
[2019-03-15] MEDS: AYR NASAL SPRAY NAS PRN (15:03)
[2019-03-15] MEDS: XARELTO PO SCH (18:17)
[2019-03-15] MEDS: DESYREL PO SCH (21:00)
[2019-03-16] MEDS: POTASSIUM CHLORIDE 10 MEQ in D5 NS 1,000 ML IV SCH ×2 (01:47→21:48)
[2019-03-16] MEDS: MAXIPIME 1 GM in NS 50 ML IV SCH ×2 (03:14→15:55)
[2019-03-16] MEDS ORDERED: MYLICON DROPS ONE (08:27)
[2019-03-16] MEDS ORDERED: XYLOCAINE-MPF 2% ONE (08:36)
[2019-03-16] MEDS ORDERED: ROBINUL ONE (08:36)
[2019-03-16] MEDS ORDERED: DIPRIVAN 1% ONE (08:36)
[2019-03-16] MEDS ORDERED: KETAMINE ONE (08:36)
--- NOTE | 2019-03-16 08:40 | GASTROENTEROLOGY CONSULTATION ---
DATE: 03/15/2019 REASON FOR CONSULT: Dysphagia. HISTORY OF PRESENT ILLNESS: Ms. Mitra Heredia is a 73-year-old bedbound woman with past medical history of recurrent urinary tract infections with Pseudomonas, kidney stones, bladder stones, neurogenic bladder status post suprapubic catheter, prior cervical neck injury, prior history of peptic ulcer disease, remote history of esophageal rupture requiring repair who presents to GI Service with intermittent nausea, vomiting, and dysphagia. The patient reports feeling that her esophagus fills up when she eats. She complains of associated N/V and early satiety. She also reports some lower abdominal pain associated with her urinary tract infection. She is on a PPI and antiemetics with minimal relief. Her last endoscopy was done by Dr. Heredia in 2016 that showed a duodenal vessel that was cauterized, as well as an ulcer in that area. REVIEW OF SYSTEMS: As per HPI, otherwise 12-point review of systems is negative. PAST MEDICAL HISTORY: As per HPI. PAST SURGICAL HISTORY: Suprapubic catheter placement, multiple spine surgeries from her lumbar to cervical spine, she had plastic surgery of the abdominal wall, multiple joint surgeries, including knee and hip, prior surgery for staph infection in the right knee, esophageal rupture repair MEDICATIONS: Baclofen, clonazepam, B12, docusate, duloxetine, fluconazole, folic acid, Zofran, nitroglycerin, multivitamin, Linzess, lactulose for constipation, multivitamin, ropinirole, Xarelto, trazodone, [place]. ALLERGIES: Meperidine, Reglan, penicillin, sulfa, cefepime. FAMILY HISTORY: Reviewed and noncontributory. SOCIAL HISTORY: No smoking, alcohol, or drug use. PHYSICAL EXAMINATION: Vital Signs: Temperature is 98.1 degrees, heart rate 65, respiratory rate 16, blood pressure 108/71, O2 saturation 95% on room air. General: The patient is awake, alert, oriented. No acute distress. HEENT: Sclerae anicteric. Moist mucous membranes. Extraocular motor intact. Neck: Supple. No JVD or lymphadenopathy. Cardiac: Regular. No murmurs. Lungs: Clear to auscultation bilaterally anteriorly. No wheezing. Abdomen: Soft, minimally tender in the lower abdomen. Suprapubic catheter noted. Non-tympanic. No ascites. Bowel sounds are present. Extremities: No clubbing, cyanosis, or edema. Neurologic: The patient has contractures in the left upper extremity. She is essentially paraplegic in the lower extremities, or has severe weakness. LABORATORY DATA: White count of 8.2, hemoglobin 12.0, platelets of 261,000. Sodium 135, potassium 2.9, chloride of 88, BUN 51, creatinine 1.1, glucose of 156. UA positive for blood, large leukocytes, epithelial cells. Urine culture is pending. IMAGING: Chest x-ray on 03/14/2019 shows stable chest. She has a right-sided [id number]-Bkrtezid. ASSESSMENT AND PLAN: Ms. Mitra Heredia is a 73-year-old woman with past medical history of recurrent Pseudomonas urinary tract infections, neurogenic bladder status post suprapubic catheter, remote history of esophageal rupture requiring repair, history of bleeding peptic ulcer disease in the duodenum, and chronic constipation who presents with dysphagia. She says her symptoms are chronic and ongoing for several weeks. She denies any hematemesis or significant upper abdominal symptoms. She reports similar symptoms in the past. She is on a proton pump inhibitor and antiemetics without improvement. Will plan to keep her nothing by mouth after midnight for a diagnostic esophagogastroduodenoscopy, plus or minus dilation or biopsies of the midesophagus to rule out eosinophilic esophagitis. Continue bowel regimen for constipation, MiraLAX is preferable over docusate. She is on Linzess 72 mcg daily; can increase if needed. Will follow with you. Please call with any questions or concerns. # Dysphagia # Constipation # UTI # History of PUD cc: Amando Berman MD [facility]
[2019-03-16] MEDS ORDERED: VERSED ONE (08:47)
[2019-03-16] MEDS ORDERED: QUELICIN (DOSE) ONE (09:22)
[2019-03-16] MEDS ORDERED: ZOFRAN ONE (09:25)
[2019-03-16] MEDS ORDERED: DECADRON ONE (09:25)
--- NOTE | 2019-03-16 10:13 | ENDOSCOPY OPERATIVE NOTE ---
[facility] ENDOSCOPY OPERATIVE NOTE , PATIENT: Mitra Heredia ADMISSION DATE: 03/16/2019 MR#: [id number] : 1945 [id number] EGD PROCEDURE REPORT PROCEDURE DATE: 03/16/2019 SURGEON: Eb Renee MD STATUS: inpatient DRIVER ENGINEER: PREOPERATIVE DIAGNOSIS: The patient is a 73 yr old female here for an EGD due to dysphagia, pharynge al-esophageal . PROCEDURE PERFORMED: EGD, diagnostic MEDICATIONS: Per Anesthesia TOPICAL ANESTHETIC: none CONSENT: The patient understands the risks and benefits of the procedure and understands that these r isks include, but are not limited to: sedation, allergic reaction, infection, perforation and/or bleeding. Alternative means of evaluation and treatment include, among others: physical exam, x-rays, and/or surgical intervention. The patient elects to proceed with this endoscopic procedure. HISORY AND PHYSICAL: 03/16/2019 function. Hand hygiene and appropriate measures for infection prevention was taken. After the risks, benefits and alternatives of the procedure were thoroughly explained, Informed consent was verified, confirmed and timeout was successfully executed by the treatment team. The patient was anesthetized with topical anesthesia and the PX85-[id number] ([id number]) endoscope was introduced through the mouth and advanced to the second portion of the duoden um. Retroflexion was performed in the stomach and revealed Copious amount of food debris in fundus after clearing esop hagus. The gastroscope was then slowly withdrawn and removed. ESOPHAGUS: There was a large amount of solid food seen in the entire esophagus spanning from the uppe r esophagus to the GEJ consistent with food impaction. Endoscope was traversed past the food bolus. No esophageal stri cture or lesions seen in the distal esophagus. The food bolus was pushed through the GEJ starting distally. It took about 1 hour to clear esophagus. There was whole pieces of macaroni seen suggesting inadequate mastication of food. The was mild resistance passing the endoscope through the GEJ suggesting motility disorder. Upon withdrawal of en doscope there was mild irritation of the mucosa in the upper esophagus likely secondary to passing the endoscope multip le times. There was no food debris in the esophagus at the end of procedure. STOMACH: A deformity was found at the pylorus. There was evidence of prior PEG seen in the gastric b nick. DUODENUM: The duodenum was normal. SPECIMENS REMOVED: No ADVERSE EVENTS: There were no complications. POSTOPERATIVE DIAGNOSIS: ESOPHAGUS: There was a large amount of solid food seen in the entire eso phagus spanning from the upper esophagus to the GEJ consistent with food impaction. Endoscope was traversed past the food bolus. No esophageal stricture or lesions seen in the distal esophagus. The food bolus was pushed through the GEJ starting distally. It took about 1 hour to clear esophagus. There was whole pieces of macaroni seen suggesti ng inadequate mastication of food. The was mild resistance passing the endoscope through the GEJ suggesting motili ty disorder. Upon withdrawal of endoscope there was mild irritation of the mucosa in the upper esophagus likely seconda ry to passing the endoscope multiple times. There was no food debris in the esophagus at the end of procedure. STOMACH: A deformity was found at the pylorus. There was evidence of prior PEG seen in the gastric b nick. DUODENUM: The duodenum was normal. RECOMMENDATIONS: REPEAT EXAM: Eb Renee MD eSigned: Eb Renee MD 03/16/2019 10:15 AM Revised: 03/16/2019 10:15 AM cc: STOMACH: A deformity was found at the pylorus. PATIENT NAME: Mitra Heredia MR#: [id number]
[2019-03-16] MEDS: DITROPAN PO SCH ×3 (10:23→21:49)
[2019-03-16] MEDS: ZOFRAN ODT SL SCH ×3 (10:24→17:18)
[2019-03-16] MEDS: LIORESAL PO SCH ×3 (10:24→21:49)
[2019-03-16] MEDS: MIRALAX PO SCH (11:13)
[2019-03-16] MEDS: LACTULOSE PO SCH (11:13)
[2019-03-16] MEDS: LASIX PO SCH ×2 (11:14→21:49)
[2019-03-16] MEDS: CYMBALTA PO SCH (11:14)
[2019-03-16] MEDS: DIFLUCAN PO SCH (11:14)
[2019-03-16] MEDS: ALDACTAZIDE 25/25 PO SCH (11:14)
[2019-03-16] MEDS: VITAMIN B-12 PO SCH (11:14)
[2019-03-16] MEDS: KLOR-CON PO SCH ×2 (11:15→21:49)
[2019-03-16] MEDS: COLACE PO SCH ×2 (11:15→21:49)
[2019-03-16] MEDS: ASPIRIN PO SCH (11:15)
[2019-03-16] MEDS: CENTRUM SILVER PO SCH (11:15)
[2019-03-16] MEDS: PROTONIX PO SCH (11:15)
[2019-03-16] MEDS: NITROGLYCERIN 0.4 MG/HR PATCH TD SCH (11:15)
[2019-03-16] MEDS: FOLIC ACID PO SCH (11:15)
[2019-03-16] MEDS: REQUIP PO SCH ×2 (11:15→21:48)
[2019-03-16] MEDS: IMDUR PO SCH (11:15)
[2019-03-16] MEDS: NORCO-10 PO PRN ×3 (11:28→21:49)
--- NOTE | 2019-03-16 15:08 | CONSULTATION ---
DATE OF CONSULTATION: 03/16/2019 REQUESTING PHYSICIAN: Dr. Berman. REQUESTING PHYSICIAN: Persistent UTIs and stones. HISTORY OF PRESENT ILLNESS: A 73-year-old female who is well known to me secondary to extensive urolithiasis in both kidneys as well as bladder stones and neurogenic bladder. She has quadriplegia and totally bedridden. She has recurrent UTIs which require her to be hospitalized. Her symptoms are typically foul-smelling urine, cloudy urine, and eventually mental status alteration. She most recently has undergone cystolitholapaxy on 01/13/2019. Her daughter is actively involved in her care. She reports that between the home health nurses and her when they irrigated the bladder they notice small particles 2 to 3 mm that appeared to look like bladder stones come through. Ms. Heredia denies gross hematuria. No fevers or chills. She has had some dysphagia for which she has been evaluated by Dr. Renee. PAST MEDICAL HISTORY: Kidney stones. Bladder stones. Neurogenic bladder managed with suprapubic tube. Quadriplegia. Recurrent blood clots. PAST SURGICAL HISTORY: Spine surgeries. Percutaneous coronary intervention. Gastric surgery. Abdominoplasty. Knee and hip replacement. ALLERGIES: Codeine, Demerol, Reglan and penicillins. HOME MEDICATIONS: Baclofen, Klonopin, duloxetine, fluconazole, folic acid, Zofran, nitroglycerin, multivitamin, Linzess, lactulose, Ropinirole, Aldactazide, trazodone, and [place] 10. She has been on Xarelto but has not taken it since Thursday. She started 81 mg aspirin yesterday. REVIEW OF SYSTEMS: Reviewed and 12 systems negative except for HPI. PHYSICAL EXAMINATION: Temperature 97.7 degrees, pulse 76, and BP 122/70.General: No acute distress. Pleasant female. Cardiovascular: Regular rhythm. Pulmonary: Bilateral breath sounds. Abdomen: Nondistended. Suprapubic tube in place. No groin lymphadenopathy appreciated. Suprapubic tube was connected to gravity drainage bag which is draining straw-colored urine. No stones noted within the bag. No blood noted. PERTINENT LABORATORY DATA: White cell count was 8000 on 03/14/2019, creatinine was. 1.1. Urinalysis was positive for bacteria, blood and white cells. MICROBIOLOGY: She is growing gram-negative rods in her urine. PERTINENT IMAGES: None. Her last CT scan was from 01/05/2019 which revealed bilateral renal stones as well as bladder stones. She had a bladder stone addressed at that time. We could not address renal stones secondary to her being on a blood thinner. ASSESSMENT: A 73-year-old female who is quadriplegic and has neurogenic bladder, managed per suprapubic tube, and has bilateral renal stones, bladder stones and recurrent UTIs. The patient's daughter stated that per conversation with Dr. Eaton she was told she may never completely clear the UTIs. I have discussed with the patient and her daughter that the renal stones are likely the source of her UTI as is having a suprapubic tube. We discussed that addressing stone burden by last night are eliminated, and would decrease the frequency of UTIs. She has had a lithotripsy that was partially successful for a large staghorn stone followed by percutaneous nephrostolithotomy on the right side. She had just a couple smaller fragments remaining, and then since then had grown several more stones. There were 6 by my read. 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 I have discussed with the patient that we could perform right extracorporeal shockwave lithotripsy and cystoscopy with possible cystolitholapaxy if she has bladder stones. We discussed the risks of right extracorporeal shockwave lithotripsy including, but not limited to, bleeding, infection, injury to the kidney, inability to pass the fragments which may lead to another procedure requiring extraction of stone fragments. The patient and her daughter voiced understanding, and willing to proceed. PLAN: 1. Continue to hold Xarelto for now. 2. NPO after midnight. 3. To the operating room tomorrow for right extracorporeal shockwave lithotripsy and possible cystolitholapaxy with holmium laser. cc: MD Amando Castro MD
[2019-03-16] MEDS: XARELTO PO SCH (17:22)
[2019-03-16] MEDS: DESYREL PO SCH (21:49)
[2019-03-17] MEDS: MAXIPIME 1 GM in NS 50 ML IV SCH ×2 (05:01→16:16)
[2019-03-17 07:28] LABS: AGAP 12; BUN 34 mg/dL (8-22); CHLORIDE 97 mmol/L (98-107); COSMO 290; CREATININE 0.8 mg/dL (0.5-0.9); ESTIMATED GFR > 60; GLUCOSE 148 mg/dL (70-104); POTASSIUM 2.9 mmol/L (3.5-5.1); SODIUM 140 mmol/L (136-145); TCO2 31 mmol/L (25-35)
--- NOTE | 2019-03-17 08:34 | PROGRESS NOTE ---
DATE: 03/16/2019 SUBJECTIVE: Ms. Heredia is going to have the EGD today by Dr. Renee. OBJECTIVE: Lungs: Clear. Heart: Heart sounds are normal. Abdomen: Soft, nontender. Neurologic: She is alert. PLAN: We will continue with the current management. We are going to repeat the potassium as it was 2.9. cc: Amando Berman MD
[2019-03-17] MEDS ORDERED: DIPRIVAN 1% ONE (08:35)
[2019-03-17] MEDS ORDERED: XYLOCAINE-MPF 2% ONE (08:35)
--- NOTE | 2019-03-17 09:26 | PROGRESS NOTE ---
DATE: 03/17/2019 Ms. Heredia's potassium is still 2.9. She had EGD done yesterday and found food particles. Hence, EGD is to be repeated today. She had some mild stomatitis, which could be fungal. We will start some nystatin swish and swallow on her. She has Pseudomonas UTI, and has been on cefepime for that. Vital signs today reveal blood pressure 109/61. We will continue the current management. cc: Amando Berman MD
[2019-03-17] MEDS ORDERED: ZOFRAN ONE (10:04)
[2019-03-17] MEDS ORDERED: LASIX ONE (10:04)
[2019-03-17] MEDS ORDERED: DECADRON ONE (10:04)
[2019-03-17] MEDS: D5 NS IV SCH (12:07)
[2019-03-17] MEDS: POTASSIUM CHLORIDE IV SCH (12:07)
[2019-03-17] MEDS: REQUIP PO SCH ×2 (12:11→20:58)
[2019-03-17] MEDS: DIFLUCAN PO SCH (12:11)
[2019-03-17] MEDS: DITROPAN PO SCH ×3 (12:12→20:58)
[2019-03-17] MEDS: MIRALAX PO SCH (12:12)
[2019-03-17] MEDS: FOLIC ACID PO SCH (12:12)
[2019-03-17] MEDS: CYMBALTA PO SCH (12:13)
[2019-03-17] MEDS: ASPIRIN PO SCH (12:13)
[2019-03-17] MEDS: NITROGLYCERIN 0.4 MG/HR PATCH TD SCH (12:13)
[2019-03-17] MEDS: ALDACTAZIDE 25/25 PO SCH (12:13)
[2019-03-17] MEDS: COLACE PO SCH ×2 (12:13→20:58)
[2019-03-17] MEDS: MYCOSTATIN SUSP PO SCH ×4 (12:13→20:58)
[2019-03-17] MEDS: CENTRUM SILVER PO SCH (12:13)
[2019-03-17] MEDS: ZOFRAN ODT SL SCH ×3 (12:14→20:58)
[2019-03-17] MEDS: LASIX PO SCH ×2 (12:14→20:58)
[2019-03-17] MEDS: IMDUR PO SCH (12:14)
[2019-03-17] MEDS: PROTONIX PO SCH (12:14)
[2019-03-17] MEDS: LIORESAL PO SCH ×3 (12:14→20:58)
[2019-03-17] MEDS: KLOR-CON PO SCH ×2 (12:14→20:58)
[2019-03-17] MEDS: VITAMIN B-12 PO SCH (12:14)
[2019-03-17] MEDS: LACTULOSE PO SCH (12:17)
[2019-03-17] MEDS: NORCO-10 PO PRN ×2 (12:21→20:57)
--- NOTE | 2019-03-17 15:11 | GASTROENTEROLOGY PROGRESS NOTE ---
DATE: 03/17/2019 SUBJECTIVE: Patient is resting in bed. She is feeling better. She denies any new complaints. She denies any nausea or vomiting. OBJECTIVE: Vital signs: Temperature 98.1 degrees, pulse rate 92, respiratory rate 16, blood pressure 109/61, saturating 98% room air. Body weight of 152 pounds 12.8 ounces, BMI of 27.1 kg/m2. General Appearance: Moderately built, moderately nourished, lying in bed, in no acute distress. HEENT: No pallor. No icterus. Neck: Supple. Abdomen: Soft, nontender, nondistended. No guarding. No rebound. Suprapubic catheter was noted. Extremities: No cyanosis, clubbing. Neurologic: She has contractures of the left upper extremity. She is essentially paraplegic in the lower extremities or has severe weakness. LABS: Sodium 140, potassium 2.9, chloride 97, bicarb 30, anion gap 12, BUN of 34, creatinine 0.8, glucose of 148, calcium is 9. Urine culture showing gram-negative rods x2. IMPRESSION: 1. Pseudomonas urinary tract infection. 2. Food impaction which was relieved yesterday by EGD by Dr. Renee. Suprapubic catheter noted. 3. Multiple spine surgeries on the lumbar and cervical spine. 4. 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 5. Constipation. RECOMMENDATIONS: 1. She will continue on PPIs. She will continue on bowel regimen with MiraLAX and Linzess and lactulose. She is being treated for a UTI by the primary care team. She is on nystatin 5 mL 4 times a day by Dr. Berman. She is on Xarelto so we need to watch her closely for any kind of bleeding. 2. We will sign off at this time. The patient will need to chew her food well and I told her to stay on a pureed diet for now. The above plans were discussed with the patient and the nurse and all questions answered. Please call us with any further questions. cc: MD Amando Cavanaugh MD
[2019-03-17] MEDS: XARELTO PO SCH (18:51)
[2019-03-17] MEDS: DESYREL PO SCH (20:58)
[2019-03-18] MEDS: NORCO-10 PO PRN ×3 (02:53→14:29)
[2019-03-18] MEDS: MAXIPIME 1 GM in NS 50 ML IV SCH ×2 (04:39→15:41)
[2019-03-18] MEDS: D5 NS IV SCH ×3 (05:02→18:31)
[2019-03-18] MEDS: POTASSIUM CHLORIDE IV SCH ×3 (05:02→18:31)
[2019-03-18] MEDS: COLACE PO SCH ×2 (08:02→20:53)
[2019-03-18] MEDS: PROTONIX PO SCH (08:02)
[2019-03-18] MEDS: MIRALAX PO SCH (08:03)
[2019-03-18] MEDS: DIFLUCAN PO SCH (08:05)
[2019-03-18] MEDS: LIORESAL PO SCH ×3 (08:05→20:53)
[2019-03-18] MEDS: FOLIC ACID PO SCH (08:05)
[2019-03-18] MEDS: NITROGLYCERIN 0.4 MG/HR PATCH TD SCH (08:05)
[2019-03-18] MEDS: MYCOSTATIN SUSP PO SCH ×4 (08:06→20:53)
[2019-03-18] MEDS: CYMBALTA PO SCH (08:06)
[2019-03-18] MEDS: IMDUR PO SCH (08:06)
[2019-03-18] MEDS: REQUIP PO SCH ×2 (08:06→20:53)
[2019-03-18] MEDS: LASIX PO SCH ×2 (08:06→20:53)
[2019-03-18] MEDS: CENTRUM SILVER PO SCH (08:06)
[2019-03-18] MEDS: ZOFRAN ODT SL SCH ×3 (08:06→20:53)
[2019-03-18] MEDS: DITROPAN PO SCH ×3 (08:07→20:53)
[2019-03-18] MEDS: ALDACTAZIDE 25/25 PO SCH (08:07)
[2019-03-18] MEDS: VITAMIN B-12 PO SCH (08:07)
[2019-03-18] MEDS: KLOR-CON PO SCH ×2 (08:21→20:53)
[2019-03-18] MEDS: LACTULOSE PO SCH (08:21)
--- NOTE | 2019-03-18 12:16 | OPERATIVE NOTE ---
PROCEDURE DATE: 03/17/2019 SURGEON: Dr. Kavin Hancock. PREOPERATIVE DIAGNOSIS: Right renal stones, recurrent urinary tract infections, neurogenic bladder, and history of bladder stones. POSTOPERATIVE DIAGNOSIS: Right renal stones, recurrent urinary tract infections, neurogenic bladder, and history of bladder stones. PROCEDURE: Right extracorporeal shockwave lithotripsy and diagnostic cystoscopy. INDICATIONS: A 73-year-old female with neurogenic bladder and quadriplegia. Her bladder has been managed per suprapubic tube. She has had bilateral staghorn renal calculi. She has undergone a right PCNL with partial stone burden removal. She has several residual right renal stones up to 1 cm. She also per her daughter has had stone particles coming through the suprapubic tube. She has had a history of bladder stones, and underwent cystolitholapaxy in December of 2018. She was counseled on right extracorporeal shockwave lithotripsy and cystoscopy to evaluate for bladder stones. FINDINGS: Six stones were addressed ranging from 6 mm to 10 mm. All stones appeared to be broken up well with 3000 shocks delivered at a frequency of 1.5 hertz with energy settings from 1 until 7, total fluoroscopy time of 2 minutes and 27 seconds. Cystoscopy revealed suprapubic tube, and revealed no evidence of bladder stones. The rest of the bladder was unremarkable. DESCRIPTION OF PROCEDURE: After obtaining informed consent, patient was brought to the operating room. Perioperative antibiotics and laryngeal mask anesthesia were administered. She was placed into a supine position with her upper and lower extremities padded. We placed the lithotripter over the right side. The stones were easily seen. Above-stated number of shocks were delivered. Then 20 mg of intravenous Lasix were administered. The stone showed good fragmentation. Following completion of lithotripsy, we turned attention to cystoscopy. The suprapubic tube was removed. The suprapubic tube site was prepped with Betadine. She was draped. A 21-Uzbek rigid cystoscope was then used to perform cystoscopy. The suprapubic tract and the bladder mucosa appeared to be fairly unremarkable. There were no evidence of mucosal lesions, excessive trabeculations, significant diverticula or bladder stones noted. I was able to see the bladder neck which appeared normal. The rigid scope was then removed and a 20-Uzbek Arnold catheter was introduced via the suprapubic tract with 5 mL instilled into the balloon. She was extubated and taken to PACU for further recovery. ESTIMATED BLOOD LOSS: None. COMPLICATIONS: None. DISPOSITION: To PACU and subsequently to the floor for further recovery. Again, at the conclusion of the case, her bladder had no stones and her right kidney stones were addressed as visible by fluoroscopy. She still has left stone burden. cc: MD Amando Castro MD
[2019-03-18] MEDS: TAZIDIME 2 GM/NS 2 GM/100 ML IVPB IV SCH (18:49)
[2019-03-18] MEDS: DESYREL PO SCH (20:53)
[2019-03-18] MEDS: KLONOPIN PO PRN (20:53)
--- NOTE | 2019-03-18 22:12 | INFECTIOUS DISEASE CONSULT REP ---
DATE: 03/18/2019 CONCLUSION: The patient has a Proteus and Pseudomonas urinary tract infection. The patient previously had an altered mental status, namely hallucinations when she took cefepime. RECOMMENDATIONS: I have discontinued cefepime and placed the patient on ceftazidime. DISCUSSION: The patient was admitted the hospital. She was having odor in her urine. She was anorectic and weak and the patient herself thought that she had a urinary tract infection causing the above-mentioned reactions. The patient's urine grew out Proteus and Pseudomonas. The patient's CBC shows a white count of 8270, hemoglobin 12 and platelet count 261,000. Creatinine is 0.8. GFR is greater than 60. Urinalysis showed white cells and bacteria. Chest x-ray is clear. The patient during admission had surgery by Dr. Hancock to remove urinary tract stones. PAST MEDICAL HISTORY/REVIEW OF SYSTEMS: Eyes and ears: Patient has decreased hearing and vision. Neck: No stiffness. GI: The patient had food that was impacted in her esophagus due to the fact that the patient was unable to chew the food, but now that she is on liquids and a soft diet, she is not having any problem getting food down. She is not having diarrhea. : See present illness. Bones, joints, muscles: The patient has metal in her shoulder. She also has metal in her spine. Integument: No rashes. Endocrine: No diabetes or thyroid disease. Neurologic: Patient has decreased vision and hearing. 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 PREVIOUS HOSPITALIZATIONS AND OPERATIONS: Patient has had 5 labor and deliveries and 1 miscarriage. She has had multiple admissions for urinary tract infection and for removing stones in the urinary tract. She has had metal placed in her spine. She has had metal placed in her shoulder. She has been admitted before for urinary tract infections. The patient also has a suprapubic catheter. She has had surgery on her right hip and there are screws in the hip. She had a Port-A-Cath on the left side which became infected and it was removed. Now she has a Port-A- Cath on the right side. MEDICAL DISEASES: Positive for neurogenic bladder and renal calculi. INFECTIOUS DISEASE HISTORY: Positive for recurrent urinary tract infections. She has had pneumonia. She has also had infected Port-A-Cath which was removed and placed on the other side. Positive for recurrent urinary tract infections, pneumonia and Port-A-Cath infection. One of the Port-A-Cath infections resulted in fungemia with Andressa albicans and because the patient has metal in her, I have her take regularly fluconazole each day to prevent any reactivity of fungal infection on her metal. FAMILY HISTORY: Positive for diabetes mellitus, cancer, and end-stage renal disease. SOCIAL HISTORY: [place] Her daughter lives with her. She has a cat as a pet. HOME MEDICATIONS: Include she is on baclofen, Klonopin, vitamin B12, Cymbalta, Diflucan, Lasix, hydrocodone, Isordil, Linzess, Protonix, Xarelto, ropinirole, spironolactone/hydrochlorothiazide, brand name of this is called Aldactazide and Desyrel. ALLERGIES: She has an adverse reaction to cefepime manifested by hallucination. The patient also has allergy to codeine the reaction unknown. She is allergic to Demerol. The reaction is unknown. She is allergic to Reglan, also reaction is unknown. She is allergic to penicillin, reaction not known. She is allergic to sulfa, reaction is unknown. PHYSICAL EXAMINATION: Temperature is 98.6 degrees, pulse 89, respirations 18, blood pressure 99/67. The patient is 5 feet 5 inches tall, weighs 162 pounds.General: This is an ill-appearing elderly female. She is in no acute distress. Head/eyes/ears/nose/throat: She can hear my spoken words and see near objects. She does not have any white patches in her mouth. Neck: The patient has decreased movement of her neck due to having surgery on it. Lungs: Clear to auscultation. Cardiovascular: Regular heart rate. Thorax: The patient has a Port-A-Cath on the right side. The site is not erythematous or swollen. Lungs: Clear to auscultation. Cardiovascular: Heart rate is regular. Abdomen: Soft and nontender. The patient has a suprapubic in place. There is no purulent or erythema around it. Neurologic: The patient is awake. She has got a left-sided paralysis including her arm and leg. There is no tremor. The patient's memory is slightly depressed. Integument: No rash noted. Thank you for the consult. cc: MD Amando Mc MD MTDD
--- NOTE | 2019-03-18 23:11 | PROGRESS NOTE ---
DATE: 03/18/2019 SUBJECTIVE: A 73-year-old, white female, who is well known to this hospital as multiple admissions, covering for Dr. Hampton. Apparently, patient had right renal stones, recurrent UTI, neurogenic bladder, and history of bladder stones, had right extracorporeal shockwave lithotripsy and diagnostic cystoscopy by Dr. Kavin Hancock. On 03/14/2019, urine cultures grew Proteus mirabilis and Pseudomonas aeruginosa. The patient complains of rash with Maxipime. Daughter wants Dr. Elaine to consult. Other, there are no complaints. Basically, she is bedridden. No chest pain or shortness of breath. PAST MEDICAL HISTORY: Reviewed. PAST SURGICAL HISTORY: Reviewed. MEDICINES: Reviewed. ALLERGIES: Codeine, meperidine, Reglan, sulfa drugs, cefepime. OBJECTIVE: Temperature is 98 degrees, pulse 83, blood pressure 104/60, 98% on room air.HEENT: Within normal limits. Neck: Supple. Chest: Bilateral air entry. Heart sounds are regular. Obese with neurogenic bladder. Multiple contractures noted. INVESTIGATIONS: Sodium 140, potassium 2.9, BUN 34, creatinine 0.8. Urinalysis positive for infection with Proteus and Pseudomonas. ASSESSMENT: 1. Urinary tract infection due to kidney stones with Proteus and Pseudomonas. 2. Food impaction. Better by EGD by Dr. Renee. 3. History of suprapubic catheter. 4. Multiple spinal surgeries in the lumbar and cervical spine. 5. Constipation. 6. 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 PLAN OF CARE: 1. Oral thrush, giving Diflucan. 2. Family wants Dr. Elaine to consult. I spoke to him on the phone regarding the antibiotic issue. Currently, the patient has been on Fortaz 2 g IV q.8. 3. DVT prophylaxis with Xarelto. Continue on p.o. Protonix for bladder spasms, oxybutynin. Constipation, lactulose p.o. daily. Chronic pain, on hydrocodone. Chronic depression, on Cymbalta. Continue present treatment. We will check the labs in the morning. LEVEL OF DOCUMENTATION: 35 minutes. cc: MD Amando Almazan MD
[2019-03-19] MEDS: TAZIDIME 2 GM/NS 2 GM/100 ML IVPB IV SCH ×3 (02:30→18:14)
[2019-03-19] MEDS: MIRALAX PO SCH (09:33)
[2019-03-19] MEDS: NITROGLYCERIN 0.4 MG/HR PATCH TD SCH (09:33)
[2019-03-19] MEDS: FOLIC ACID PO SCH (09:33)
[2019-03-19] MEDS: COLACE PO SCH ×2 (09:33→20:59)
[2019-03-19] MEDS: LACTULOSE PO SCH (09:33)
[2019-03-19] MEDS: ALDACTAZIDE 25/25 PO SCH (09:33)
[2019-03-19] MEDS: IMDUR PO SCH (09:33)
[2019-03-19] MEDS: VITAMIN B-12 PO SCH (09:34)
[2019-03-19] MEDS: CENTRUM SILVER PO SCH (09:34)
[2019-03-19] MEDS: LASIX PO SCH ×2 (09:34→20:51)
[2019-03-19] MEDS: DITROPAN PO SCH ×3 (09:34→20:51)
[2019-03-19] MEDS: CYMBALTA PO SCH (09:34)
[2019-03-19] MEDS: KLOR-CON PO SCH ×2 (09:35→20:51)
[2019-03-19] MEDS: REQUIP PO SCH ×2 (09:35→20:51)
[2019-03-19] MEDS: LIORESAL PO SCH ×3 (09:35→20:51)
[2019-03-19] MEDS: PROTONIX PO SCH (09:35)
[2019-03-19] MEDS: DIFLUCAN PO SCH (09:35)
[2019-03-19] MEDS: ZOFRAN ODT SL SCH ×3 (09:36→17:05)
[2019-03-19] MEDS: MYCOSTATIN SUSP PO SCH ×4 (09:36→20:51)
[2019-03-19] MEDS: NORCO-10 PO PRN ×3 (09:58→21:03)
[2019-03-19] MEDS: D5 NS IV SCH (12:11)
[2019-03-19] MEDS: POTASSIUM CHLORIDE IV SCH (12:11)
--- NOTE | 2019-03-19 15:02 | PROGRESS NOTE ---
DATE: 03/19/2019 Ms. Heredia reports she is feeling fine. She denies any pain. Her urine in the Arnold bag is finally clearing up. She has had no reported fevers per record review. T 98.2 degrees, P 71, BP 127/63. General, pleasant female. Abdomen nontender, nondistended. suprapubic tube draining dark straw-colored urine. PERTINENT LABORATORY DATA: None today. ASSESSMENT: A 73-year-old female status post right extracorporeal shockwave lithotripsy for multiple right renal stones as well as diagnostic cystoscopy given history of bladder stones and reports of passing small stone particles via suprapubic tube. Her stones were broken up well per fluoroscopy. She still has left-sided stone burden. I have discussed with Ms. Heredia and her daughter who is present at bedside that she would need to have her left side treated. Her options would be left percutaneous nephrostolithotomy versus left extracorporeal shockwave lithotripsy but she would likely require a couple of lithotripsies given the size of the left renal stone. We have also discussed potassium citrate in order to try to decrease her stone burden recurrence. Her main problem is that she is nonmobile and she does not consume enough fluid, however potassium citrate could be evaluated. I have discussed the side effects of potassium citrate with the patient and her family. They want to proceed. PLAN: 1. Keep suprapubic tube to gravity drainage. 2. We will start her on potassium citrate 15 mEq twice a day and she should go home with this prescription. If she does well, I will see her in 6 weeks or so, at which point we can discuss left-sided treatment. cc: MD Amando Castro MD
[2019-03-19 17:02] LABS: BASO# 0.01 X1000 (0.0-0.2); BASO% 0.1 % (0.0-0.8); EOS# 0.09 X1000 (0.0-0.7); EOS% 1.1 % (0.0-10.0); HEMATOCRIT 34.8 % (37.0-47.0); HEMOGLOBIN 10.7 g/dL (12.0-16.0); IMM GRAN# 0.02 X1000 (0.0-0.04); IMM GRAN% 0.2 % (0.0-0.5); LYMPH# 2.15 X1000 (1.2-3.4); LYMPH% 26.3 % (20.5-51.1); MCH 25.5 PG (27-31); MCHC 30.7 g/dL (33-37); MCV 83.1 FL (81-99); MONO# 0.74 X1000 (0.11-0.59); MPV 11.1 FL (7.4-10.4); NEUT# 5.17 X1000 (1.4-6.5); NEUT% 63.3 % (42.2-75.2); PLT 221 X1000 (130-400); RBC 4.19 XMIL (4.2-5.4); RDW 16.3 % (11.5-14.5); WBC 8.18 X1000 (4.8-10.8)
[2019-03-19 17:45] LABS: AGAP 16; ALB/GLOB RATIO 1.3; ALBUMIN 3.5 g/dL (3.5-5.0); ALKALINE PHOSPHATASE 96 U/L (32-104); BUN 26 mg/dL (8-22); CALCIUM 8.3 mg/dL (8.8-10.2); CHLORIDE 97 mmol/L (98-107); COSMO 286; CREATININE 0.9 mg/dL (0.5-0.9); ESTIMATED GFR > 60; GLUCOSE 100 mg/dL (70-104); GOT 14 U/L (10-30); GPT 10 U/L (10-36); POTASSIUM 3.6 mmol/L (3.5-5.1); SODIUM 141 mmol/L (136-145); TCO2 28 mmol/L (25-35); TOTAL PROTEIN 6.3 g/dL (6.3-8.3)
[2019-03-19] MEDS: LOTRIMIN 1% CREAM TOP SCH ×2 (18:15→20:52)
[2019-03-19] MEDS: UROCIT-K PO SCH (18:15)
--- NOTE | 2019-03-19 19:39 | PROGRESS NOTE ---
DATE: 03/19/2019 SUBJECTIVE: The patient's daughter was at bedside. She appreciated Dr. Elaine' consult and complains of rash underneath the breast and on the groin. Arnold was placed. REVIEW OF SYSTEMS: Waiting for lab results for hypokalemia. OBJECTIVE: On examination, temp is 97.8 degrees, pulse 98, blood pressure is 134/81. The patient is basically bedridden. Chest is clear. Heart sounds are regular. Labs are pending. ASSESSMENT AND PLAN: 1. UTI due to kidney stones with Proteus and Pseudomonas. Currently receiving Fortaz 2 g IV q. 8. History of food impaction is better. SPC catheter stable. 2. Chronic pain. Pain is adequately controlled and prophylaxis for constipation was given. 3. Hypokalemia. Check the labs. 4. Candidiasis on Diflucan. We will use nystatin. Appreciated consultants. Discussed with the family care follow up on the pending labs. LEVEL OF DOCUMENTATION: 25 minutes. cc: MD Amando Almazan MD
[2019-03-19] MEDS: DESYREL PO SCH (20:51)
[2019-03-19] MEDS: KLONOPIN PO PRN (20:51)
[2019-03-20] MEDS: TAZIDIME 2 GM/NS 2 GM/100 ML IVPB IV SCH ×4 (00:40→17:33)
[2019-03-20] MEDS: NORCO-10 PO PRN ×4 (02:46→21:16)
[2019-03-20] MEDS: NITROGLYCERIN 0.4 MG/HR PATCH TD SCH (08:55)
[2019-03-20] MEDS: CYMBALTA PO SCH (08:55)
[2019-03-20] MEDS: ALDACTAZIDE 25/25 PO SCH (08:56)
[2019-03-20] MEDS: REQUIP PO SCH ×2 (08:56→21:14)
[2019-03-20] MEDS: IMDUR PO SCH (08:56)
[2019-03-20] MEDS: DITROPAN PO SCH ×3 (08:56→21:13)
[2019-03-20] MEDS: PROTONIX PO SCH (08:56)
[2019-03-20] MEDS: COLACE PO SCH ×2 (08:56→21:17)
[2019-03-20] MEDS: UROCIT-K PO SCH ×2 (08:56→16:58)
[2019-03-20] MEDS: ZOFRAN ODT SL SCH ×3 (08:56→16:58)
[2019-03-20] MEDS: LASIX PO SCH ×2 (08:56→21:14)
[2019-03-20] MEDS: VITAMIN B-12 PO SCH (08:56)
[2019-03-20] MEDS: FOLIC ACID PO SCH (08:56)
[2019-03-20] MEDS: LIORESAL PO SCH ×3 (08:56→21:14)
[2019-03-20] MEDS: CENTRUM SILVER PO SCH (08:56)
[2019-03-20] MEDS: DIFLUCAN PO SCH (08:56)
[2019-03-20] MEDS: MYCOSTATIN SUSP PO SCH ×4 (08:57→21:13)
[2019-03-20] MEDS: KLOR-CON PO SCH ×2 (08:57→21:13)
[2019-03-20] MEDS: MIRALAX PO SCH (08:57)
[2019-03-20] MEDS: LACTULOSE PO SCH (08:58)
[2019-03-20] MEDS: LOTRIMIN 1% CREAM TOP SCH ×2 (09:18→22:20)
[2019-03-20] MEDS: ASPIRIN PO SCH (09:18)
[2019-03-20] MEDS: D5 NS IV SCH (09:47)
[2019-03-20] MEDS: POTASSIUM CHLORIDE IV SCH (09:47)
[2019-03-20] MEDS: XARELTO PO SCH (17:03)
--- NOTE | 2019-03-20 17:41 | PROGRESS NOTE ---
DATE: 03/20/2019 SUBJECTIVE: The patient is doing very well with assistance. The daughter was not here today. Finally, we have lab results for the hypokalemia. Appreciated consultants reports. REVIEW OF SYSTEMS: None. OBJECTIVE: Vital signs: Temp is 98.6, pulse 83, blood pressure 110/60. HEENT: Within normal limits. Skin: Rash underneath the breasts and the groin improving. Physical exam no change. LABS: CBC: White cell count 8.1, hematocrit 34.8, platelets 221,000. Sodium 140, potassium 3.6, chloride 97, BUN 26, creatinine 0.9. LFTs were normal. Urine cultures, Proteus and Pseudomonas. ASSESSMENT AND PLAN: 1. Hypokalemia, improving. 2. Azotemia is better. 3. The patient is eating well without any aspiration, status post food impaction, better. Continue on PPI. 4. Tenia infection under the breast and the groin. Continue on nystatin powder along with fluconazole. 5. Urinary tract infection. Dr. Elaine started on Fortaz [address] Berman will follow up in the morning. Continue on potassium citrate for the prevention of kidney stones as per Urologist. LEVEL OF DOCUMENTATION: Twenty-five minutes. cc: MD Amando Almazan MD
[2019-03-20] MEDS: KLONOPIN PO PRN (21:14)
[2019-03-20] MEDS: DESYREL PO SCH (21:14)
[2019-03-21] MEDS: NORCO-10 PO PRN ×3 (03:07→20:33)
[2019-03-21] MEDS: COLACE PO SCH ×3 (08:28→20:34)
[2019-03-21] MEDS: MIRALAX PO SCH (08:29)
[2019-03-21] MEDS: LACTULOSE PO SCH (08:29)
[2019-03-21] MEDS: DITROPAN PO SCH ×3 (08:30→20:34)
[2019-03-21] MEDS: MYCOSTATIN SUSP PO SCH ×4 (08:30→20:34)
[2019-03-21] MEDS: LASIX PO SCH ×2 (08:30→20:34)
[2019-03-21] MEDS: LIORESAL PO SCH ×3 (08:30→20:33)
[2019-03-21] MEDS: IMDUR PO SCH (08:30)
[2019-03-21] MEDS: ASPIRIN PO SCH (08:30)
[2019-03-21] MEDS: CYMBALTA PO SCH (08:30)
[2019-03-21] MEDS: CENTRUM SILVER PO SCH (08:31)
[2019-03-21] MEDS: UROCIT-K PO SCH ×3 (08:31→17:32)
[2019-03-21] MEDS: ALDACTAZIDE 25/25 PO SCH (08:31)
[2019-03-21] MEDS: KLOR-CON PO SCH ×2 (08:31→20:34)
[2019-03-21] MEDS: VITAMIN B-12 PO SCH (08:31)
[2019-03-21] MEDS: FOLIC ACID PO SCH (08:31)
[2019-03-21] MEDS: DIFLUCAN PO SCH (08:31)
[2019-03-21] MEDS: NITROGLYCERIN 0.4 MG/HR PATCH TD SCH (08:32)
[2019-03-21] MEDS: TAZIDIME 2 GM/NS 2 GM/100 ML IVPB IV SCH ×2 (08:32→17:18)
[2019-03-21] MEDS: ZOFRAN ODT SL SCH ×3 (08:32→17:18)
[2019-03-21] MEDS: REQUIP PO SCH ×2 (08:32→20:34)
[2019-03-21] MEDS: PROTONIX PO SCH (08:32)
[2019-03-21] MEDS: LOTRIMIN 1% CREAM TOP SCH ×2 (12:15→21:58)
[2019-03-21] MEDS: AYR NASAL SPRAY NAS PRN (12:16)
[2019-03-21] MEDS: KLONOPIN PO PRN (15:50)
[2019-03-21] MEDS: XARELTO PO SCH (17:17)
[2019-03-21] MEDS: POTASSIUM CHLORIDE IV SCH ×2 (17:23→18:46)
[2019-03-21] MEDS: D5 NS IV SCH ×2 (17:23→18:46)
--- NOTE | 2019-03-21 18:01 | INFECTIOUS DISEASE PROGRESS NO ---
DATE: 03/21/2019 PRESENT ILLNESS: The patient has a Proteus and Pseudomonas urinary tract infection. The patient is on ceftazidime and tolerating it well. When she has taken cefepime in the past, it has caused her to have an altered mental status. The patient is concerned that her right-sided Port-A-Cath has fluid going through it very well, but the nurses have been unable to draw blood through the Port-A-Cath for laboratory studies. MEDICATIONS: The patient is on ceftazidime 2 g IV every 8 hours. The patient is tolerating the ceftazidime well. PHYSICAL EXAMINATION: Vital Signs: Temperature is 98.5 degrees, pulse 70, respirations 20, blood pressure 96/63. General: This is a chronically ill-appearing elderly female. She is in no acute distress. Head, eyes, ears, nose, and throat: She can hear my spoken words and see near objects. She does not have any white coating of her tongue. Neck: No pain with movement of her neck. Lungs: Clear to auscultation. Cardiovascular: Heart rate is regular. Abdomen: Soft and nontender. The suprapubic catheter site is not erythematous or purulent. Neurologic: The patient is awake. She has a left leg paresis. 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 She does not have a tremor. LAB AND X-RAY STUDIES: No new radiographic study today. CBC shows a white count of 8180, hemoglobin 10.7, and platelet count 221,000. Creatinine 0.9. GFR is greater than 60. ASSESSMENT AND PLAN: Patient has urinary tract infection. I plan to treat the patient with ceftazidime for a total of 2 weeks. COMORBIDITIES: The patient has a neurogenic bladder and renal calculi and she is elderly. The patient does have a Port-A-Cath, but the blood cannot be drawn through it. cc: MD Amando Mc MD
[2019-03-21] MEDS: DESYREL PO SCH (20:34)
[2019-03-22] MEDS: NORCO-10 PO PRN ×5 (00:27→22:38)
[2019-03-22] MEDS: TAZIDIME 2 GM/NS 2 GM/100 ML IVPB IV SCH ×3 (01:13→17:08)
[2019-03-22] MEDS: POTASSIUM CHLORIDE IV SCH ×2 (07:03→13:24)
[2019-03-22] MEDS: D5 NS IV SCH ×2 (07:03→13:24)
[2019-03-22] MEDS: CYMBALTA PO SCH (09:07)
[2019-03-22] MEDS: COLACE PO SCH ×2 (09:07→21:10)
[2019-03-22] MEDS: MYCOSTATIN SUSP PO SCH ×4 (09:07→21:11)
[2019-03-22] MEDS: FOLIC ACID PO SCH (09:07)
[2019-03-22] MEDS: IMDUR PO SCH (09:07)
[2019-03-22] MEDS: ALDACTAZIDE 25/25 PO SCH (09:07)
[2019-03-22] MEDS: DIFLUCAN PO SCH (09:07)
[2019-03-22] MEDS: NITROGLYCERIN 0.4 MG/HR PATCH TD SCH (09:07)
[2019-03-22] MEDS: CENTRUM SILVER PO SCH (09:07)
[2019-03-22] MEDS: LASIX PO SCH ×2 (09:07→21:11)
[2019-03-22] MEDS: DITROPAN PO SCH ×3 (09:08→21:11)
[2019-03-22] MEDS: ZOFRAN ODT SL SCH ×3 (09:08→17:08)
[2019-03-22] MEDS: ASPIRIN PO SCH (09:08)
[2019-03-22] MEDS: VITAMIN B-12 PO SCH (09:08)
[2019-03-22] MEDS: KLOR-CON PO SCH ×2 (09:08→21:10)
[2019-03-22] MEDS: LIORESAL PO SCH ×3 (09:08→21:11)
[2019-03-22] MEDS: PROTONIX PO SCH (09:09)
[2019-03-22] MEDS: REQUIP PO SCH ×2 (09:09→21:10)
[2019-03-22] MEDS: UROCIT-K PO SCH ×2 (09:09→17:08)
[2019-03-22] MEDS: LACTULOSE PO SCH (09:26)
[2019-03-22] MEDS: MIRALAX PO SCH (09:27)
--- NOTE | 2019-03-22 09:30 | PROGRESS NOTE ---
DATE: 03/21/2019 Ms. Heredia is doing somewhat better. She had lithotripsy done by Dr. Hancock. Four stones were crushed. Her general condition is about the same. She had UTI because of the possible stones and obstruction related to stones. General condition is unchanged. We will continue with the current management. cc: Amando Berman MD
--- NOTE | 2019-03-22 09:31 | PROGRESS NOTE ---
DATE: 03/22/2019 Ms. Heredia is getting IV ceftazidime for Pseudomonas infection. Her lungs are clear. Heart sounds are normal. She has a Port-A-Cath. We cannot draw blood out of it. We can start IV on it, however. It will be checked by Dr. Walters today. -5 cc: Amando Berman MD
[2019-03-22] MEDS: LOTRIMIN 1% CREAM TOP SCH ×2 (13:30→21:55)
[2019-03-22] MEDS: XARELTO PO SCH (17:07)
[2019-03-22] MEDS: DESYREL PO SCH (21:11)
[2019-03-23] MEDS: TAZIDIME 2 GM/NS 2 GM/100 ML IVPB IV SCH ×3 (01:48→18:43)
[2019-03-23] MEDS: POTASSIUM CHLORIDE IV SCH ×2 (02:32→18:31)
[2019-03-23] MEDS: D5 NS IV SCH ×2 (02:32→18:31)
[2019-03-23] MEDS: NORCO-10 PO PRN ×4 (04:20→23:05)
--- NOTE | 2019-03-23 08:58 | GENERAL SURGERY CONSULTATION ---
DATE: 03/22/2019 The patient was seen on the evening of 03/22/2019. The note is dictated in a delayed fashion. HISTORY OF PRESENT ILLNESS: This is a 73-year-old female, well known to me, who has multiple medical issues, including poor peripheral access, who had a port placed back, it looks like in 06/2018. She was admitted for a urinary tract infection, which she has chronically, as well as nephrolithiasis. She has a suprapubic catheter, and it was found that the port would not withdraw. It flushes, and its access lines are not having any signs of infection of the catheter. I was consulted for further input. PAST MEDICAL HISTORY: Recurrent urinary tract infections. She has incomplete quadriplegia, multiple spinal issues. PAST SURGICAL HISTORY: Extensive orthopedic operations, including multiple vascular access procedures. SOCIAL HISTORY: Pretty much bedridden. has . FAMILY HISTORY: Reviewed and noncontributory. REVIEW OF SYSTEMS: Ten-point negative. PHYSICAL EXAMINATION: Vital Signs: She is afebrile, pulse 79, blood pressure 120/70, oxygen saturation 96%. General: She is alert. She is being cleaned up currently. Extremities: Her right port is accessed. There is no cellulitis. There is no swelling. She does have bilateral upper extremity and lower extremity edema with contractures. Skin: Her integument is otherwise warm and dry. Neurological: She has contractures and weakness in all extremities, and near- complete paresis in her lower extremities. Peripheral Vascular: Otherwise well perfused. LABORATORY DATA: White count is 8, hematocrit is 34. Creatinine is 0.8. UA on admission was floridly positive. ASSESSMENT AND PLAN: This is a 73-year-old female with multiple medical issues. Her port is not withdrawing blood, and fortunately this is relatively common for a port that has been in as long as her has, but it is flushing with no signs of infection. I would advise against any procedures at this point. I would recommend peripheral sticks for blood draws as indicated. Will continue to follow along. cc: MD Amando Nichole MD
--- NOTE | 2019-03-23 09:29 | PROGRESS NOTE ---
DATE: 03/23/2019 SUBJECTIVE: Ms. Heredia has Pseudomonas aeruginosa UTI. She is supposed to be treated for 2 more weeks with ceftazidime. She is followed by Dr. Elaine. She has problems with Port-A-Cath. She cannot draw blood out, and if Dr. Walters thinks we need to replace it, then I think we need to put a new [id number]. We probably will go ahead and culture the tip of the current one. cc: Amando Berman MD
[2019-03-23] MEDS: UROCIT-K PO SCH ×2 (09:47→18:42)
[2019-03-23] MEDS: FOLIC ACID PO SCH (09:48)
[2019-03-23] MEDS: IMDUR PO SCH (09:48)
[2019-03-23] MEDS: ASPIRIN PO SCH (09:48)
[2019-03-23] MEDS: KLOR-CON PO SCH ×2 (09:49→20:47)
[2019-03-23] MEDS: ZOFRAN ODT SL SCH ×3 (09:49→18:41)
[2019-03-23] MEDS: PROTONIX PO SCH (09:49)
[2019-03-23] MEDS: CYMBALTA PO SCH (09:49)
[2019-03-23] MEDS: REQUIP PO SCH ×2 (09:50→20:47)
[2019-03-23] MEDS: MYCOSTATIN SUSP PO SCH ×4 (09:50→23:12)
[2019-03-23] MEDS: LASIX PO SCH ×2 (09:50→20:47)
[2019-03-23] MEDS: CENTRUM SILVER PO SCH (09:50)
[2019-03-23] MEDS: VITAMIN B-12 PO SCH (09:51)
[2019-03-23] MEDS: COLACE PO SCH ×2 (09:51→20:47)
[2019-03-23] MEDS: DIFLUCAN PO SCH (09:51)
[2019-03-23] MEDS: MIRALAX PO SCH (09:54)
[2019-03-23] MEDS: LACTULOSE PO SCH (09:57)
[2019-03-23] MEDS: NITROGLYCERIN 0.4 MG/HR PATCH TD SCH (10:18)
[2019-03-23] MEDS: LIORESAL PO SCH ×3 (10:18→20:47)
[2019-03-23] MEDS: DITROPAN PO SCH ×3 (10:29→20:47)
[2019-03-23] MEDS: ALDACTAZIDE 25/25 PO SCH (10:30)
--- NOTE | 2019-03-23 14:52 | INFECTIOUS DISEASE PROGRESS NO ---
DATE: 03/23/2019 PRESENT ILLNESS: Ms. Heredia is being treated for a Proteus and Pseudomonas urinary tract infection. MEDICATIONS: She is receiving ceftazidime 2 g IV every 8 hours. Today is day 5 of a 14 day treatment. PHYSICAL EXAMINATION: Vital Signs: Temperature is 97.4 degrees, pulse rate 64, respiratory rate 24, blood pressure 122/83, O2 saturation is 100% on room air. General: This is a chronically ill- appearing, elderly female. She is lying in the bed, currently in no acute distress. HEENT: Oral mucous membranes are pink and moist. Conjunctivae are pale. Cardiovascular: Heart rate is regular. Respiratory: Lung sounds are bilaterally clear to auscultation. No work of breathing is noted. Abdomen: Soft, round, and nontender. Bowel sounds are active. Integumentary: There is a suprapubic catheter site without edema, erythema, or drainage noted. There is also a Port-A- Cath site to the right chest. That site is without edema, erythema, or drainage. Neurologic: She is awake, alert, and oriented. She has decreased mobility, and only able to use the right upper extremity. LABORATORY AND X-RAY: None available today. ASSESSMENT AND PLAN: Ms. Heredia is being treated for a urinary tract infection. Today is day 5 of ceftazidime, which we will continue. She will need a total of 14 days of treatment. These plans have been discussed with and recommended by Dr. Elaine. COMORBIDITIES: For Ms. Heredia include that she is elderly with a suprapubic catheter, renal calculi, recurrent UTIs and incomplete quadriplegia. Dictated by BABS Martins for Lucio Elaine MD cc: MD Amando Mc MD [facility] HOSPITALDeirdre
[2019-03-23] MEDS: LOTRIMIN 1% CREAM TOP SCH ×2 (15:05→20:48)
[2019-03-23] MEDS: XARELTO PO SCH (18:41)
--- NOTE | 2019-03-23 20:19 | GENERAL SURGERY PROGRESS NOTE ---
DATE: 03/23/2019 SUBJECTIVE: The patient says she feels better. No fevers overnight. Strength is improving. No tachycardia. Blood pressure 120/74. Right port accessed is flushing well with no cellulitis. LABS: Reviewed. White count is 8 on the 3rd. Her microbiology: Urine is showing Proteus and Pseudomonas. ASSESSMENT AND PLAN: A 73-year-old female with poor peripheral access. Multiple medical issues. As of now, her port is not withdrawing but it is flushing without resistance. We will continue for now with no signs of infection. Discussed with the patient. cc: MD Amando Nichole MD
[2019-03-23] MEDS: DESYREL PO SCH (20:47)
[2019-03-24] MEDS: TAZIDIME 2 GM/NS 2 GM/100 ML IVPB IV SCH ×2 (01:59→09:08)
[2019-03-24] MEDS: NORCO-10 PO PRN ×3 (05:04→13:37)
[2019-03-24] MEDS: IMDUR PO SCH (09:20)
[2019-03-24] MEDS: PROTONIX PO SCH (09:21)
[2019-03-24] MEDS: DITROPAN PO SCH (09:21)
[2019-03-24] MEDS: KLOR-CON PO SCH (09:21)
[2019-03-24] MEDS: DIFLUCAN PO SCH (09:22)
[2019-03-24] MEDS: FOLIC ACID PO SCH (09:22)
[2019-03-24] MEDS: CYMBALTA PO SCH (09:22)
[2019-03-24] MEDS: LIORESAL PO SCH (09:22)
[2019-03-24] MEDS: VITAMIN B-12 PO SCH (09:22)
[2019-03-24] MEDS: REQUIP PO SCH (09:23)
[2019-03-24] MEDS: CENTRUM SILVER PO SCH (09:23)
[2019-03-24] MEDS: ASPIRIN PO SCH (09:23)
[2019-03-24] MEDS: MYCOSTATIN SUSP PO SCH ×2 (09:23→13:39)
[2019-03-24] MEDS: LASIX PO SCH (09:23)
[2019-03-24] MEDS: NITROGLYCERIN 0.4 MG/HR PATCH TD SCH (09:23)
[2019-03-24] MEDS: ALDACTAZIDE 25/25 PO SCH (09:23)
[2019-03-24] MEDS: ZOFRAN ODT SL SCH ×2 (09:23→13:39)
[2019-03-24] MEDS: COLACE PO SCH (09:24)
[2019-03-24] MEDS: LACTULOSE PO SCH (09:25)
--- NOTE | 2019-03-24 09:27 | INFECTIOUS DISEASE PROGRESS NO ---
DATE: 03/24/2019 The patient has a Proteus and Pseudomonas symptomatic urinary tract infection. She is receiving ceftazidime at a dose of 2 grams IV every 8 hours. I put in a consult for [employer] Service to consult the company that the patient uses for IV medications. As mentioned above, I specifically put in for ceftazidime 2 grams IV every 8 hours for 9 days. The patient has a Port-A-Cath in place, so she will be able to receive her IV antibiotics through the Port-A-Cath. cc: MD Amando Mc MD
[2019-03-24] MEDS: LOTRIMIN 1% CREAM TOP SCH (09:29)
[2019-03-24] MEDS: UROCIT-K PO SCH (09:30)
--- NOTE | 2019-03-24 09:33 | PROGRESS NOTE ---
DATE: 03/24/2019 SUBJECTIVE: Ms. Heredia is doing better. Her condition is stable. Vital signs are stable. Discussed with Dr. Walters. He does not want to change the Port-A-Cath at the present time since it is working. She is worried about blood drawing at the end of 3 months, . Dr. Elaine is going to make arrangements for ceftazidime for 8 more days. cc: Amando Berman MD [facility]
[2019-03-24] MEDS: MIRALAX PO SCH (09:51)
[2019-03-24] MEDS: D5 NS IV SCH (09:52)
[2019-03-24] MEDS: POTASSIUM CHLORIDE IV SCH (09:52)
[2019-03-24 13:53] VITALS: BP 113/82
--- NOTE | 2019-03-24 15:16 | DISCHARGE SUMMARY ---
ADMISSION DATE: 03/14/2019 DISCHARGE DATE: 03/24/2019 ADDENDUM TO DIAGNOSIS: Her urinary tract infection is probably secondary from kidneys and bladder stones. It is obstructive uropathy. cc: Amando Berman MD
--- NOTE | 2019-03-25 02:21 | DISCHARGE SUMMARY ---
ADMISSION DATE: 03/14/2019 DISCHARGE DATE: 03/24/2019 BRIEF HISTORY: Ms. Heredia is a 73-year-old white female who was admitted with Pseudomonas UTI not responding to oral drugs. Pseudomonas started to respond to ceftazidime which was continued, and a chest x-ray was unremarkable. She had a problem with the Port-A-Cath, we could not drsw blood; She also had a consult with Dr. Elaine who suggested the ceftazidime is still to be continued for about 8 more days IV. She had a GI consult because of regurgitation and difficulty swallowing. She did have some food particles when EGD was performed, and it was scheduled for later on and the food impaction was removed. I will continue the proton pump inhibitors as further suggested. She was seen by Dr. Hancock who did a lithotripsy for bladder and right kidney stones, and he changed the suprapubic catheter. His hsd suggested potassium citrate 15 mEq twice a day. They are going to continue the current management and send her home, followed by [facility]. FINAL DIAGNOSES: Pseudomonas urinary tract infection. She had 2 UTIs because of the recurrent stones status post lithotripsy. Status post EGD for impaction off of the lower esophagus by the food, namely macaroni, and the main problem was recurrent urinary tract infection and ceftazidime will be continued. cc: Amando Berman MD [facility]
== END 2019-03-24 14:54 | disposition home health service (06) | DRG 691 ==
LOC: DIRADM 12:58 → 1N 14:40
PROVIDERS: ADMIT Internal Medicine; ATTEND Internal Medicine
PROC: UR.ESWL (2019-03-17 09:55)

== ENCOUNTER 2019-06-01 10:20 | Inpatient (IN) ==
[2019-06-01] MEDS ORDERED: MAXIPIME 1 GM in NS 50 ML IV SCH (13:30)
[2019-06-01] MEDS ORDERED: TOBRAMYCIN IV PER PHARMACY MISC SCH (13:45)
--- NOTE | 2019-06-01 13:52 | Diag Imaging Result Doc PS360 ---
EXAM: CHEST-1 VIEW INDICATION: UTI/Pneumonia TECHNIQUE: One view COMPARISON: 03/14/2019 FINDINGS: The right chest port is in stable position. The lung volumes are low. The lungs are grossly clear. There is no discrete pleural fluid collection or pneumothorax. There is stable metallic clips projecting over the chest and spinal rods are in place. The cardiomediastinal silhouette and central vasculature are grossly unremarkable. IMPRESSION: Low lung volumes but no definite acute pathology, otherwise. Electronically signed by Buck Silva 06/01/2019 1:50 PM
--- NOTE | 2019-06-01 13:59 | EKG Report ---
Test Performed on : 06/01/2019 1:55:21 PM Test Reason : UTI/Pneumonia Blood Pressure : / mmHG Vent. Rate : 068 BPM Atrial Rate : 068 BPM P-R Int : 172 ms QRS Dur : 076 ms QT Int : 418 ms P-R-T Axes : 026 038 031 degrees QTc Int : 444 ms Normal sinus rhythm. Low voltage QRS Borderline ECG When compared with ECG of 14-MAR-2019 16:02, T wave inversion no longer evident in Inferior leads T wave inversion no longer evident in Lateral leads QT has shortened Confirmed by Hannah WALL, Gregorio Baez ([id number]) on 06/02/2019 3:40:43 PM
[2019-06-01 14:34] LABS: BASO# 0.02 X1000 (0.0-0.2); BASO% 0.2 % (0.0-0.8); EOS% 1.1 % (0.0-10.0); HEMATOCRIT 31.6 % (37.0-47.0); HEMOGLOBIN 9.6 g/dL (12.0-16.0); IMM GRAN# 0.02 X1000 (0.0-0.04); IMM GRAN% 0.2 % (0.0-0.5); LYMPH# 1.78 X1000 (1.2-3.4); LYMPH% 20.4 % (20.5-51.1); MCH 25.1 PG (27-31); MCHC 30.4 g/dL (33-37); MCV 82.5 FL (81-99); MONO# 0.64 X1000 (0.11-0.59); MONO% 7.3 % (1.7-9.3); MPV 10.9 FL (7.4-10.4); NEUT# 6.15 X1000 (1.4-6.5); NEUT% 70.8 % (42.2-75.2); PLT 267 X1000 (130-400); RBC 3.83 XMIL (4.2-5.4); RDW 16.3 % (11.5-14.5); WBC 8.71 X1000 (4.8-10.8)
[2019-06-01 14:56] LABS: ALB/GLOB RATIO 1.2; ALBUMIN 3.7 g/dL (3.5-5.0); CALCIUM 8.6 mg/dL (8.8-10.2); POTASSIUM 3.7 mmol/L (3.5-5.1); TOTAL BILIRUBIN 0.19 mg/dL (0.20-1.00); TOTAL PROTEIN 6.8 g/dL (6.3-8.3)
[2019-06-01] MEDS ORDERED: NS IV SCH (16:00)
[2019-06-01] MEDS ORDERED: TOBRAMYCIN IV SCH (16:00)
[2019-06-01] MEDS ORDERED: NS 500 ML ONE (17:40)
[2019-06-01 18:51] LABS: URINE SOURCE CATH
[2019-06-01 19:02] LABS: BILIRUBIN URINE NEGATIVE (NEGATIVE); BLOOD URINE SMALL (NEGATIVE); COLOR YELLOW; GLUCOSE URINE NEGATIVE (NEGATIVE); KETONE URINE NEGATIVE (NEGATIVE); LEUKOCYTES URINE LARGE (NEGATIVE); NITRITE URINE POSITIVE (NEGATIVE); PH URINE 7.5; PROTEIN URINE TRACE mg/dL (NEGATIVE); SP GRAVITY URINE 1.009; TURBIDITY URINE HAZY (CLEAR); UROBILINOGEN URINE NORMAL (NORMAL)
[2019-06-01 19:03] LABS: UR EPITHELIAL CELLS <10 /HPF (<10); URINE BACTERIA 1+ /HPF; URINE RBC <10 /HPF (<10); URINE WBC TNTC /HPF (<10)
[2019-06-01] MEDS: DESYREL PO SCH (21:16)
[2019-06-01] MEDS: NORCO-10 PO PRN (21:16)
[2019-06-01] MEDS: LIORESAL PO SCH (21:16)
[2019-06-01] MEDS: KLONOPIN PO PRN (21:16)
[2019-06-01] MEDS: REQUIP PO SCH (22:25)
[2019-06-02] MEDS: NORCO-10 PO PRN ×6 (01:44→23:33)
[2019-06-02] MEDS: LIORESAL PO SCH ×3 (08:40→21:50)
[2019-06-02] MEDS: REQUIP PO SCH ×2 (08:40→21:50)
--- NOTE | 2019-06-02 09:36 | PROGRESS NOTE ---
DATE: 06/02/2019 Ms. Heredia has Pseudomonas UTI. We are giving her IV tobramycin at the present time. She has significant dehydration with elevated BUN, normal creatinine, and has some fungal infection in the groin area. She also has a large abdominal wall hernia. She is on IV tobramycin, and we are starting IV fluids to correct the dehydration. Once we get the cultures back, we will ask for ID consult on her. -7 cc: Amando Berman MD
--- NOTE | 2019-06-02 09:37 | HISTORY AND PHYSICAL ---
HISTORY OF PRESENT ILLNESS: Ms. Heredia, who is a 73-year-old, white female, is admitted because of acute UTI. She has a chronic indwelling suprapubic catheter. She has been having symptoms with persistent nausea and low-grade fever. She was found to have pseudomonas sensitive to cefepime as well as tobramycin. However, she is allergic to cefepime. We are going to have her admitted for IV antibiotic therapy. PAST HISTORY: Multiple spine surgeries in the lumbar, thoracic, and cervical spine. She had multiple abdominal surgeries and had a plastic surgery on her abdomen too. Now, she has developed an abdominal wall hernia. She is totally bedridden. Other details of personal, past, and family history can be obtained from the previous admissions. REVIEW OF SYSTEMS: Other than nausea and low-grade fever, it is noncontributory. She has been worried about the abdominal wall hernia. PHYSICAL EXAMINATION: VITAL SIGNS: Reveal temperature normal, pulse 58 per minute, respiratory rate 19, blood pressure 104/61. HEENT: Head normocephalic. Pupils PERRLA. Fundus examination not done. NECK: Supple. JVP normal. ENT: Examination unremarkable. There is no evidence of lymphadenopathy, thyroid enlargement, pedal edema, calf tenderness, anemia, cyanosis, or clubbing. Pedal pulses well felt. BREASTS: Examination normal. CHEST: Normal to inspection. LUNGS: Clear to auscultation. CARDIOVASCULAR: PMI in the normal position. Heart sounds normal. No murmur, gallop, or rub noted. ABDOMEN: Obese. She has an abdominal wall hernia on the right side. It is a large hernia. There is no guarding, rigidity, free fluid, masses, or organomegaly. Bowel sounds normal. She has a suprapubic catheter. She has a history of multiple stones and is followed by Dr. Hancock. NEUROLOGICAL EXAMINATION: The patient is bedridden. Speech normal. Higher functions, she has early dementia and gets intermittent confusion. Cranial nerves normal. Motor and sensory system examination reveals hypertonia in the extremities. She has some tremors in both upper extremities. Deep tendon reflexes are sluggish. Plantars downgoing. Skull and spine exam reveals multiple scars over the cervical, lumbar, and thoracic spine. No cerebellar signs or signs of meningeal irritation. LOCOMOTOR EXAMINATION: Unremarkable. SKIN EXAMINATION: Unremarkable. CLINICAL IMPRESSION: Acute urinary tract infection. The patient has chronic indwelling catheter in the suprapubic system with a suprapubic cystostomy, has history of multiple stones. PLAN: We will start intravenous antibiotics and intravenous fluids. cc: Amando Berman MD
[2019-06-02] MEDS: D5 1/2 NS + KCL 10 MEQ 1,000 ML IV SCH (09:52)
[2019-06-02] MEDS: KLONOPIN PO PRN ×2 (12:32→21:52)
[2019-06-02] MEDS ORDERED: AYR NASAL SPRAY NAS PRN (13:57)
[2019-06-02] MEDS ORDERED: CALMOSEPTINE OINTMENT TOP PRN (13:57)
[2019-06-02] MEDS ORDERED: TYLENOL PO PRN (13:57)
[2019-06-02] MEDS: CYMBALTA PO SCH (15:04)
[2019-06-02] MEDS: IMDUR PO SCH (15:04)
[2019-06-02] MEDS: KLOR-CON PO SCH ×2 (15:05→21:50)
[2019-06-02] MEDS: VITAMIN B-12 PO SCH (15:05)
[2019-06-02] MEDS: DITROPAN PO SCH ×2 (15:05→21:51)
[2019-06-02] MEDS: ASPIRIN PO SCH (15:06)
[2019-06-02] MEDS: DIFLUCAN PO SCH (15:06)
[2019-06-02] MEDS: LACTULOSE PO SCH (15:06)
[2019-06-02] MEDS: ALDACTAZIDE 25/25 PO SCH (15:37)
[2019-06-02] MEDS: NITROGLYCERIN 0.4 MG/HR PATCH TD SCH (15:57)
[2019-06-02] MEDS: UROCIT-K PO SCH (17:56)
[2019-06-02] MEDS: COLACE PO SCH (21:50)
[2019-06-02] MEDS: DESYREL PO SCH (21:50)
[2019-06-02] MEDS: LASIX PO SCH (21:51)
[2019-06-02] MEDS: MYCOSTATIN POWDER TOP SCH (21:53)
[2019-06-03] MEDS: D5 1/2 NS + KCL 10 MEQ 1,000 ML IV SCH (03:19)
[2019-06-03] MEDS: NORCO-10 PO PRN ×4 (03:20→21:23)
[2019-06-03] MEDS: PROTONIX PO SCH (06:16)
[2019-06-03 07:21] LABS: CREATININE 1.1 mg/dL (0.5-0.9); RANDOM TOBRAMYCIN 2.14 ug/mL
[2019-06-03] MEDS ORDERED: TOBRAMYCIN 100 MG in NS 100 ML IV SCH (10:00)
[2019-06-03] MEDS: ALDACTAZIDE 25/25 PO SCH ×2 (11:36)
[2019-06-03] MEDS: KLONOPIN PO PRN (11:37)
[2019-06-03] MEDS: VITAMIN B-12 PO SCH (11:37)
[2019-06-03] MEDS: THERA M PLUS PO SCH (11:37)
[2019-06-03] MEDS: DIFLUCAN PO SCH (11:38)
[2019-06-03] MEDS: IMDUR PO SCH (11:40)
[2019-06-03] MEDS: LIORESAL PO SCH ×3 (11:41→21:13)
[2019-06-03] MEDS: LACTULOSE PO SCH (11:41)
[2019-06-03] MEDS: LASIX PO SCH ×2 (11:41→21:13)
[2019-06-03] MEDS: DITROPAN PO SCH ×3 (11:41→21:12)
[2019-06-03] MEDS: KLOR-CON PO SCH ×2 (11:41→21:13)
[2019-06-03] MEDS: ASPIRIN PO SCH (11:41)
[2019-06-03] MEDS: CYMBALTA PO SCH (11:42)
[2019-06-03] MEDS: COLACE PO SCH ×2 (11:42→21:13)
[2019-06-03] MEDS: UROCIT-K PO SCH ×2 (11:42→16:19)
--- NOTE | 2019-06-03 12:06 | PROGRESS NOTE ---
DATE: 06/03/2019 SUBJECTIVE: Ms. Heredia had chest pain last night. Her culture still needs some more incubation and we have started tobramycin. I have asked for Dr. Elaine to see her for Pseudomonas UTI, which she has recurrent. She has multiple prostheses in her body too and had a suprapubic catheter. Overall condition is otherwise stable. Last night, she had chest pain which was relieved with nitroglycerin spray. -1 cc: Amando Berman MD
[2019-06-03] MEDS: NITROGLYCERIN 0.4 MG/HR PATCH TD SCH (13:11)
[2019-06-03] MEDS ORDERED: BLISTEX MEDICATED BERRY LIP BALM TOP PRN (13:15)
[2019-06-03] MEDS ORDERED: TAZIDIME 2 GM/NS 2 GM/100 ML IVPB IV SCH (14:15)
[2019-06-03] MEDS: LINZESS PO SCH (16:19)
[2019-06-03] MEDS: TAZIDIME 2 GM/NS 2 GM/100 ML IVPB IV SCH (16:26)
[2019-06-03] MEDS: MIRALAX PO SCH (16:27)
[2019-06-03] MEDS: MYCOSTATIN POWDER TOP SCH ×2 (16:27→21:38)
[2019-06-03] MEDS: REQUIP PO SCH ×2 (16:27→21:12)
--- NOTE | 2019-06-03 17:18 | INFECTIOUS DISEASE CONSULT REP ---
DATE: 06/03/2019 CONCLUSION: The patient is admitted the hospital with a urinary tract infection. Her last infection was caused by Proteus and Pseudomonas. The patient has an altered mental status when she takes cefepime, but she has tolerated ceftazidime well in the past. RECOMMENDATIONS: I started the patient on ceftazidime pending cultures. PRESENT ILLNESS: The patient was vague historian. She noticed that she is passing stones in her urine. She has had fever and suprapubic pain and back pain in the past 1 to 2 weeks. The patient's CBC shows a white count of 8710, hemoglobin 9.6, platelet count 267,000. Creatinine is 1. GFR is 55. Liver function studies are normal. Urinalysis showed white cells and bacteria. Urine culture is growing a gram-negative christo. [employer] HISTORY: She is a 6, para 5, AB1. PREVIOUS HOSPITALIZATIONS AND OPERATIONS: Patient has had 5 labor and deliveries and a miscarriage. She has had multiple admissions for urinary tract infection and for removing stones in the urinary tract. The patient has had metal placed in her spine. She also has metal in her left shoulder. The patient also has a suprapubic catheter in place. She has had surgery on her right hip and there were screws put in to the hip. The patient had a Port-A-Cath on the left side which removed because it became infected. She now has a Port-A-Cath on the right side of her chest. MEDICAL DISEASES: Positive for neurogenic bladder and renal calculi. INFECTIOUS DISEASE HISTORY: Positive for recurrent urinary tract infections, pneumonia, infected Port-A-Cath, the patient also has had fungemia and because of the metal in her I have kept her on low dose fluconazole to prevent any flare up of any remaining fungal infection on her metal. FAMILY HISTORY: Positive for diabetes mellitus, cancer and end-stage renal disease. SOCIAL HISTORY: [place] Her daughter lives with her. She has a cat as a pet. HOME MEDICATIONS: Include baclofen, Klonopin, Cymbalta, Diflucan, Lasix, hydrocodone, Isordil, Linzess, Protonix, Xarelto, ropinirole, spironolactone/hydrochlorothiazide and Desyrel. ALLERGIES: The patient had adverse reaction to cefepime manifested by hallucination. She also has an allergy to codeine, Demerol, Reglan, penicillin and sulfa. REVIEW OF SYSTEMS: Eyes and ears: Patient has decreased vision and hearing. Neck: No pain. GI: Patient has difficulties getting food down. She does better on liquids and a soft diet. She is not having diarrhea. : See present illness. Bones, joints, muscles: Patient has metal in her shoulder and in her spine. Integument: No rashes. Neurologic: Patient has decreased vision and hearing. She is bed-bound. Patient cannot move her left arm and both legs but she can move her right arm. INFECTIOUS DISEASE HISTORY: Positive for recurrent urinary tract infections and pneumonia. Also she has had Port-A-Cath infection. She had a fungemia and because of that, she is on long-term treatment with fluconazole. FAMILY HISTORY: Positive for diabetes mellitus, cancer and end-stage renal disease. Thank you for the consult. cc: MD Amando Mc MD
[2019-06-03] MEDS: DESYREL PO SCH ×2 (21:13→21:22)
[2019-06-04] MEDS: TAZIDIME 2 GM/NS 2 GM/100 ML IVPB IV SCH ×4 (01:12→23:59)
[2019-06-04] MEDS: D5 1/2 NS + KCL 10 MEQ 1,000 ML IV SCH ×2 (04:33→17:59)
[2019-06-04] MEDS: NORCO-10 PO PRN ×4 (04:39→21:17)
[2019-06-04] MEDS: PROTONIX PO SCH (06:38)
[2019-06-04 07:59] LABS: ALB/GLOB RATIO 1.1; ALBUMIN 3.4 g/dL (3.5-5.0); CALCIUM 8.4 mg/dL (8.8-10.2); CREATININE 1.1 mg/dL (0.5-0.9); POTASSIUM 2.9 mmol/L (3.5-5.1); TOTAL BILIRUBIN 0.18 mg/dL (0.20-1.00); TOTAL PROTEIN 6.4 g/dL (6.3-8.3)
[2019-06-04] MEDS: UROCIT-K PO SCH ×2 (09:03→16:34)
[2019-06-04] MEDS: ALDACTAZIDE 25/25 PO SCH (09:03)
[2019-06-04] MEDS: LASIX PO SCH ×2 (09:03→21:11)
[2019-06-04] MEDS: ASPIRIN PO SCH (09:04)
[2019-06-04] MEDS: IMDUR PO SCH ×2 (09:04→12:52)
[2019-06-04] MEDS: THERA M PLUS PO SCH (09:04)
[2019-06-04] MEDS: DITROPAN PO SCH ×3 (09:05→21:11)
[2019-06-04] MEDS: COLACE PO SCH ×2 (09:05→21:11)
[2019-06-04] MEDS: KLOR-CON PO SCH ×2 (09:05→21:11)
[2019-06-04] MEDS: CYMBALTA PO SCH (09:05)
[2019-06-04] MEDS: VITAMIN B-12 PO SCH (09:06)
[2019-06-04] MEDS: DIFLUCAN PO SCH (09:06)
[2019-06-04] MEDS: LIORESAL PO SCH ×3 (09:06→21:11)
[2019-06-04] MEDS: MIRALAX PO SCH (09:07)
[2019-06-04] MEDS: LACTULOSE PO SCH (09:10)
[2019-06-04] MEDS: MYCOSTATIN POWDER TOP SCH ×2 (09:10→21:12)
[2019-06-04] MEDS: NITROGLYCERIN 0.4 MG/HR PATCH TD SCH ×2 (09:11→12:52)
[2019-06-04] MEDS: REQUIP PO SCH ×2 (10:48→21:10)
[2019-06-04] MEDS: LINZESS PO SCH (10:51)
[2019-06-04] MEDS: KLONOPIN PO PRN ×2 (16:37→21:18)
--- NOTE | 2019-06-04 16:47 | PROGRESS NOTE ---
DATE: 06/04/2019 SUBJECTIVE: The patient is well known from the previous admissions, admitted by Dr. Berman for UTI and electrolytic abnormalities. REVIEW OF SYSTEMS: No significant complaints. PAST MEDICAL HISTORY: Reviewed. PAST SURGICAL HISTORY: Reviewed. MEDICINES: Reviewed. ALLERGIES: Penicillin, meperidine. PHYSICAL EXAMINATION: Vital signs: Temperature is 98.6 degrees, pulse 67, blood pressure 140/70. General: Chronically debilitated, bedridden. Port-A-Cath seen on the right side. Chest: Clear. Heart: Sounds are regular. Abdomen: SPC catheter was present, morbidly obese. Extremities: Had a scar present on the right knee. LABORATORY DATA: Today sodium 137, potassium 2.9, BUN 29, creatinine 1.1, glucose 114. LFTs were normal. Urinalysis positive for Pseudomonas aeruginosa and basically resistant to Levaquin. ASSESSMENT AND PLAN: 1. Hypokalemia. Replace the potassium today. 2. Urinary tract infection with Pseudomonas with underlying kidney stone disease, on ceftazidime 2 g IV q.8. 3. Constipation. On Linzess and lactulose. Continue on IV fluids and Lasix 40 twice daily, that might causing the low potassium. 4. Chronic insomnia, on Desyrel. 5. Multiple surgeries. 6. Chronic pain. 7. Gastrointestinal prophylaxis with Protonix, and will follow up. LEVEL OF DOCUMENTATION: 25 minutes. cc: MD Amando Almazan MD
[2019-06-04] MEDS: POTASSIUM CHLORIDE 60 MEQ in NS 500 ML IV SCH ×2 (17:58→23:59)
[2019-06-04] MEDS: DESYREL PO SCH (21:11)
[2019-06-05] MEDS: D5 1/2 NS + KCL 10 MEQ 1,000 ML IV SCH ×3 (00:03→18:04)
[2019-06-05] MEDS: NORCO-10 PO PRN ×5 (01:45→22:01)
[2019-06-05] MEDS: PROTONIX PO SCH (06:00)
[2019-06-05] MEDS: CYMBALTA PO SCH (08:50)
[2019-06-05] MEDS: REQUIP PO SCH ×2 (08:50→21:09)
[2019-06-05] MEDS: KLONOPIN PO PRN ×2 (08:50→22:01)
[2019-06-05] MEDS: LIORESAL PO SCH ×3 (08:51→21:09)
[2019-06-05] MEDS: IMDUR PO SCH (08:51)
[2019-06-05] MEDS: THERA M PLUS PO SCH (08:51)
[2019-06-05] MEDS: ASPIRIN PO SCH (08:51)
[2019-06-05] MEDS: DITROPAN PO SCH ×3 (08:51→21:09)
[2019-06-05] MEDS: VITAMIN B-12 PO SCH (08:51)
[2019-06-05] MEDS: LASIX PO SCH ×2 (08:51→21:09)
[2019-06-05] MEDS: LINZESS PO SCH (08:52)
[2019-06-05] MEDS: COLACE PO SCH ×2 (08:52→21:09)
[2019-06-05] MEDS: UROCIT-K PO SCH ×2 (08:53→18:05)
[2019-06-05] MEDS: ALDACTAZIDE 25/25 PO SCH (08:53)
[2019-06-05] MEDS: NITROGLYCERIN 0.4 MG/HR PATCH TD SCH (08:54)
[2019-06-05] MEDS: MYCOSTATIN POWDER TOP SCH ×2 (08:58→21:10)
[2019-06-05] MEDS: LACTULOSE PO SCH (08:58)
[2019-06-05] MEDS: MIRALAX PO SCH (08:59)
[2019-06-05] MEDS: DIFLUCAN PO SCH (09:14)
[2019-06-05] MEDS: TAZIDIME 2 GM/NS 2 GM/100 ML IVPB IV SCH ×2 (09:14→15:17)
[2019-06-05] MEDS: KLOR-CON PO SCH ×2 (09:14→21:09)
[2019-06-05] MEDS: ZOFRAN ODT SL PRN (10:29)
--- NOTE | 2019-06-05 12:06 | PROGRESS NOTE ---
DATE: 06/05/2019 SUBJECTIVE: The patient complains of lacrimal duct was stopped up on the right side, some ulcers in the mouth, I did not see any thrush, and nausea. REVIEW OF SYSTEMS: Rest of the review of systems is normal. PHYSICAL EXAMINATION: Temperature is 98 degrees, pulse 60, blood pressure is stable. Chronically bedridden. Not in respiratory distress. Pain is adequately controlled. He had a port on the right side and SPC catheter. Rest of the exam, no change. INVESTIGATIONS: Yesterday, potassium was low. ASSESSMENT AND PLAN: 1. Pseudomonas urinary tract infection. As per Dr. Elaine, continue on ceftazidime 2 g intravenous every 8 hours. 2. Hypokalemia. Replace the potassium. 3. Nystatin or lidocaine as needed for pain in the mouth ulcers. 4. Constipation. Prophylaxis was given. Continue present treatment. 5. We will check the labs in the morning. Dr. Berman is going to follow up. LEVEL OF DOCUMENTATION: 25 minutes. cc: MD Amando Almazan MD
--- NOTE | 2019-06-05 13:58 | INFECTIOUS DISEASE PROGRESS NO ---
DATE: 06/05/2019 PRESENT ILLNESS: The patient has a Pseudomonas urinary tract infection. The patient also told me today that her suprapubic catheter has to be changed tomorrow by Dr. Hancock. Patient had a fungemia and this has cleared. However the patient has a lot of metal in her, specially in the left shoulder, and the metal could have become infected while the patient was fungemic. MEDICATIONS: The patient is on ceftazidime 2 g IV every 8 hours. This is day 2 of treatment with that antibiotic. The patient is on fluconazole because the metal she has in her could have become infected when the patient had a Andressa fungemia and because of that, the patient is on long-term fluconazole p.o. PHYSICAL EXAMINATION: Vital signs: Temperature is 98 degrees, pulse 66, respirations 20, blood pressure 95/60. General: This is an ill-appearing elderly female. She is in no acute distress. Head, eyes, ears, nose and throat: She can hear my spoken words and see near objects. The patient says that she feels like she has some secretions in her throat but she cannot get them up. Neck: No stiffness. Lungs: Clear to auscultation. Cardiovascular: Heart rate is regular. Abdomen: Soft and nontender. A suprapubic tube is in place. The site is not erythematous or purulent. Neurologic: The patient is paralyzed except for the use of her right arm. Thorax: The patient has a Port-A-Cath on the right side. The site is not erythematous or tender. LAB AND X-RAY: The patient's creatinine is 1.1. GFR is 49. Alkaline phosphatase is 107. ASSESSMENT AND PLAN: Patient has a Pseudomonas urinary tract infection. I plan to treat the patient for a total of 14 days with ceftazidime. She is on day 2 of that antibiotic currently. The patient told me that tomorrow is time for her suprapubic tube to be changed by Dr. Hancock. I have put an order in the computer for Dr. Hancock tomorrow morning at 8 a.m. to let him know that the suprapubic tube needs to be changed. patient previously was fungemic and she may have gotten the metal in her infected and because of that she is on long-term p.o. Ancef in case there is still some fungal organisms on the metal that is in her. COMORBIDITIES: The patient has a neurogenic bladder and renal calculi. 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 The patient is elderly. cc: MD Amando Mc MD
[2019-06-05] MEDS: DESYREL PO SCH (21:09)
[2019-06-06] MEDS: TAZIDIME 2 GM/NS 2 GM/100 ML IVPB IV SCH ×3 (00:18→15:59)
[2019-06-06] MEDS: NORCO-10 PO PRN ×4 (04:38→18:46)
[2019-06-06] MEDS: D5 1/2 NS + KCL 10 MEQ 1,000 ML IV SCH (04:38)
[2019-06-06] MEDS: PROTONIX PO SCH (06:02)
[2019-06-06 07:05] LABS: BASO# 0.02 X1000 (0.0-0.2); BASO% 0.3 % (0.0-0.8); EOS# 0.13 X1000 (0.0-0.7); EOS% 1.9 % (0.0-10.0); HEMATOCRIT 29.5 % (37.0-47.0); HEMOGLOBIN 8.9 g/dL (12.0-16.0); LYMPH# 1.25 X1000 (1.2-3.4); LYMPH% 18.7 % (20.5-51.1); MCHC 30.2 g/dL (33-37); MCV 82.9 FL (81-99); MONO# 0.39 X1000 (0.11-0.59); MONO% 5.8 % (1.7-9.3); MPV 11.3 FL (7.4-10.4); NEUT# 4.89 X1000 (1.4-6.5); NEUT% 73.3 % (42.2-75.2); PLT 222 X1000 (130-400); RBC 3.56 XMIL (4.2-5.4); WBC 6.68 X1000 (4.8-10.8)
[2019-06-06 07:33] LABS: CALCIUM 8.5 mg/dL (8.8-10.2); CREATININE 1.1 mg/dL (0.5-0.9); MAGNESIUM 1.7 mg/dL (1.5-2.7); POTASSIUM 3.8 mmol/L (3.5-5.1)
[2019-06-06] MEDS: LASIX PO SCH ×2 (09:43→21:15)
[2019-06-06] MEDS: DITROPAN PO SCH ×3 (09:43→21:15)
[2019-06-06] MEDS: REQUIP PO SCH ×2 (09:43→21:15)
[2019-06-06] MEDS: IMDUR PO SCH (09:43)
[2019-06-06] MEDS: DIFLUCAN PO SCH (09:43)
[2019-06-06] MEDS: ALDACTAZIDE 25/25 PO SCH (09:43)
[2019-06-06] MEDS: KLOR-CON PO SCH ×2 (09:43→21:15)
[2019-06-06] MEDS: VITAMIN B-12 PO SCH (09:44)
[2019-06-06] MEDS: NITROGLYCERIN 0.4 MG/HR PATCH TD SCH (09:44)
[2019-06-06] MEDS: CYMBALTA PO SCH (09:44)
[2019-06-06] MEDS: THERA M PLUS PO SCH (09:44)
[2019-06-06] MEDS: UROCIT-K PO SCH ×2 (09:44→15:59)
[2019-06-06] MEDS: ASPIRIN PO SCH (09:44)
[2019-06-06] MEDS: LIORESAL PO SCH (09:44)
--- NOTE | 2019-06-06 09:44 | PROGRESS NOTE ---
DATE: 06/06/2019 Ms. Heredia had a CBC done. Hemoglobin went down from 9.6 to 8.9, however, white count is still normal. Electrolyte status is normal. Her creatinine is 1.1. Magnesium was 1.7. The liver enzymes especially alkaline phosphatase was slightly elevated, that is good because of osteoporosis that she has. She has 1+ bacteria in the urine. She has been on tobramycin as well as ceftazidime. Microbiology revealed Pseudomonas aeruginosa as expected, which is sensitive to cefepime and tobramycin, which she is being seen by Dr. Elaine who started her on ceftazidime at 2 g IV q.8 hs. She is off tobramycin. We will continue with the current management. She has some basal congestion. We will try to get some breathing treatment to her. -1 cc: Amando Berman MD
[2019-06-06] MEDS: MIRALAX PO SCH (09:45)
[2019-06-06] MEDS: COLACE PO SCH ×2 (09:45→21:15)
[2019-06-06] MEDS: MYCOSTATIN POWDER TOP SCH ×2 (09:45→21:16)
[2019-06-06] MEDS: LACTULOSE PO SCH (09:45)
[2019-06-06] MEDS: LINZESS PO SCH (09:46)
[2019-06-06] MEDS: DUONEB (A & A) INH PRN (10:35)
[2019-06-06] MEDS: KLONOPIN PO PRN ×2 (10:57→21:15)
[2019-06-06] MEDS: ZANAFLEX PO SCH ×3 (13:04→21:21)
[2019-06-06] MEDS: MYCOSTATIN SUSP PO SCH ×3 (15:58→21:21)
--- NOTE | 2019-06-06 19:58 | INFECTIOUS DISEASE PROGRESS NO ---
DATE: 06/06/2019 PRESENT ILLNESS: The patient has Pseudomonas aeruginosa urinary tract infection. She also appears to have developed oral candidiasis. MEDICATIONS: The patient is on ceftazidime 2 g IV every 8 hours. The patient takes long-term fluconazole hopefully to prevent flare up of her Andressa infection that may have landed on some of the patient's metal that is in her. I plan to start the patient on nystatin swish and swallow because the patient appears to have developed oral candidiasis. PHYSICAL EXAMINATION: Vital Signs: Temperature is 98.1 degrees, pulse 69, respirations 17, blood pressure 122/94. General: This is an ill-appearing elderly female. She is in no acute distress. Head/eyes/ears/nose/throat: She can hear my spoken words and see near objects. She has some white and brown patches in her mouth. Neck: No pain with movement of the neck. Lungs: Clear to auscultation. Cardiovascular: Regular heart rate. Abdomen: Soft and nontender. A suprapubic tube is in place. Neurologic: The patient is paralyzed except for the use of her right arm. Thorax: The patient has a Port-A-Cath present on the right side. The site is not erythematous or purulent. LAB AND X-RAY: CBC shows a white count of 6680, hemoglobin 8.9, and platelet count 222,000. Creatinine is 1.1. GFR is 49. There is no new radiographic study today. ASSESSMENT AND PLAN: I plan to continue ceftazidime for a total of 2 weeks for the patient's Pseudomonas urinary tract infection. She appears to be developing also oral candidiasis for which I have started nystatin swish and swallow. As mentioned above, she is on long-term fluconazole preventive medication. She had a fungemia and organisms undoubtedly have been on the patient's metal that is in her. The long-term p.o. fluconazole is to hopefully prevent the infections from becoming active. COMORBIDITIES: The patient has a neurogenic bladder and renal calculi. She is paralyzed in her legs and left arm. The patient also is elderly. cc: MD Amando Mc MD
[2019-06-06] MEDS: DESYREL PO SCH (21:15)
[2019-06-07] MEDS: NORCO-10 PO PRN ×4 (00:38→22:18)
[2019-06-07] MEDS: TAZIDIME 2 GM/NS 2 GM/100 ML IVPB IV SCH ×3 (00:39→16:11)
[2019-06-07] MEDS: D5 1/2 NS + KCL 10 MEQ 1,000 ML IV SCH ×2 (00:41→16:54)
--- NOTE | 2019-06-07 05:15 | CONSULTATION ---
DATE OF CONSULTATION: 06/06/2019 CHIEF COMPLAINT: History of indwelling suprapubic tube. HISTORY OF PRESENT ILLNESS: Ms. Heredia is a 73-year-old who is well known to the Urology Service and is a patient of Dr. Hancock. The patient has a history of indwelling suprapubic tube. She was recently found to have a pseudomonas infection, and was admitted for IV antibiotics. The patient has had multiple admissions for UTI's over the past several months. The patient recently underwent a right extracorporeal shock lithotripsy and diagnostic cystoscopy on 03/17/[address] Hancock. The patient had multiple stones within the right kidney that were treated. The patient was admitted to the hospital last week for infection. The patient had a urine culture that grew Pseudomonas, and has been treated since then. Today is the day she due to have her suprapubic tube changed by home nursing and would like her suprapubic tube changed today. PAST MEDICAL HISTORY: 1. Nephrolithiasis. 2. Bladder stones. 3. Neurogenic bladder with suprapubic tube. 4. Quadriplegia. 5. Recurrent blood clots. PAST SURGICAL HISTORY: 1. Multiple spine surgeries. 2. Percutaneous coronary intervention. 3. Gastric surgery. 4. Abdominoplasty. 5. Knee and hip replacement. 6. Multiple kidney stone procedures. ALLERGIES: 1. Codeine. 2. Demerol. 3. Reglan. 4. Penicillin. 5. Cefepime HOME MEDICATIONS: 1. Baclofen. 2. Klonopin. 3. Cymbalta. 4. Diflucan. 5. Lasix. 6. Hydrocodone. 7. Flonase. 8. Protonix. 9. Xarelto. 10. Allopurinol. 11. Spironolactone. 12. Hydrochlorothiazide. 13. Desyrel. FAMILY HISTORY: Denies family of malignancy. SOCIAL HISTORY: Denies alcohol, tobacco, or illicit drug use. REVIEW OF SYSTEMS: A 12 point review of systems performed with all pertinent positives and negatives in HPI. PHYSICAL EXAMINATION: Vital Signs: Temperature 98.2, heart rate 65, blood pressure 104/70, and oxygen 97% on room air. General: Patient in no acute distress resting on the bed alert and oriented x3. Respiratory: Good respiratory effort without audible wheezing or rales. HEENT: Normocephalic, atraumatic. Pupils equal, round, and reactive to light. Mucous membranes moist with normal dentition. Neck: Trachea midline. Cardiovascular: Regular rate and rhythm. 1+ lower extremity edema to the knees. Abdomen: Soft, nontender, and nondistended. No palpable masses or hepatosplenomegaly. : No suprapubic tenderness. SP tube in place draining clear yellow urine. A small amount of sediment present. No CVA tenderness. Musculoskeletal: The patient has quadriplegia with minimal mobility of upper extremities with no mobility of lower extremities on exam. Neurologic: Alert and oriented. Skin: No skin lesions or rashes. LABORATORY DATA: Hemoglobin 8.9, hematocrit 29.5, sodium 137, potassium 3.8, chloride 99, bicarb 28, BUN 21, creatinine 1.1, and calcium 8.5. Urinalysis on admission showed trace protein with a small amount of blood, positive nitrites, large amount of leukocytes, sja-[id number]-[id number]-count white blood cells, and 1+ bacteria. Urine culture in 2019 shows Pseudomonas sensitive to amikacin, cefepime, gentamicin, tobramycin and Zosyn, resistant to Levaquin. ASSESSMENT AND PLAN: Ms. Heredia is a 73-year-old well known to Urology office due to episodes of recurrent infection and kidney stone. The patient underwent surgery by Dr. Hancock on 03/17/2019 for right kidney stone. The patient is doing relatively well since then. However, she is admitted on 06/01/2019 with concern for another infection. The patient is due to have her suprapubic tube changed today. The patient was admitted for Pseudomonas infection, and has been treated. Infectious Disease asked for her suprapubic tube to be exchanged. The patient had a 20- Scottish catheter in place. This was deflated and completely removed. Using sterile technique a new 20-Scottish catheter was inserted with return of approximately 10 mL of thin light pink urinary output with no evidence of any clots. It was inflated with 10 mL of sterile water, and placed to gravity drainage. The patient tolerated the procedure well, and the catheter was attached to a StatLock on the lower extremity. We will continue gravity drainage for suprapubic tube. We will plan for regular tube exchanges per home health. Continue antibiotics per Infectious Disease. Dr. Hancock will continue to monitor. Please call with questions or concerns. cc: MD Amando Ramirez MD MTDD
[2019-06-07] MEDS: PROTONIX PO SCH (06:42)
[2019-06-07] MEDS: DUONEB (A & A) INH PRN (08:02)
[2019-06-07] MEDS: UROCIT-K PO SCH ×2 (08:40→16:54)
[2019-06-07] MEDS: LACTULOSE PO SCH (08:48)
[2019-06-07] MEDS: CYMBALTA PO SCH (08:48)
[2019-06-07] MEDS: NITROGLYCERIN 0.4 MG/HR PATCH TD SCH (08:48)
[2019-06-07] MEDS: IMDUR PO SCH (08:49)
[2019-06-07] MEDS: KLOR-CON PO SCH ×2 (08:49→22:19)
[2019-06-07] MEDS: LINZESS PO SCH (08:49)
[2019-06-07] MEDS: DITROPAN PO SCH ×3 (08:49→22:19)
[2019-06-07] MEDS: MYCOSTATIN SUSP PO SCH ×4 (08:49→22:18)
[2019-06-07] MEDS: DIFLUCAN PO SCH (08:49)
[2019-06-07] MEDS: ASPIRIN PO SCH (08:49)
[2019-06-07] MEDS: VITAMIN B-12 PO SCH (08:50)
[2019-06-07] MEDS: ZANAFLEX PO SCH ×3 (08:50→22:19)
[2019-06-07] MEDS: COLACE PO SCH ×2 (08:50→22:19)
[2019-06-07] MEDS: LASIX PO SCH ×2 (08:50→22:19)
[2019-06-07] MEDS: THERA M PLUS PO SCH (08:50)
[2019-06-07] MEDS: ALDACTAZIDE 25/25 PO SCH (08:50)
[2019-06-07] MEDS: REQUIP PO SCH ×2 (08:50→22:19)
--- NOTE | 2019-06-07 09:53 | PROGRESS NOTE ---
DATE: 06/07/2019 SUBJECTIVE: Ms. Heredia has some bladder spasms. Other than that, she is doing fairly well. PLAN: We had to change her muscle relaxers yesterday as baclofen was not working. She is getting IV ceftazidime for Pseudomonas UTI and is being followed by Dr. Elaine. -1 cc: Amando Berman MD
[2019-06-07] MEDS: MIRALAX PO SCH (11:35)
[2019-06-07] MEDS: MYCOSTATIN POWDER TOP SCH (11:48)
[2019-06-07] MEDS: ZOFRAN ODT SL PRN (19:38)
[2019-06-07] MEDS: DESYREL PO SCH (22:19)
[2019-06-07] MEDS: KLONOPIN PO PRN (22:26)
[2019-06-08] MEDS: TAZIDIME 2 GM/NS 2 GM/100 ML IVPB IV SCH ×4 (00:24→23:47)
[2019-06-08] MEDS: NORCO-10 PO PRN ×6 (02:30→22:44)
[2019-06-08] MEDS: PROTONIX PO SCH (06:30)
--- NOTE | 2019-06-08 09:32 | PROGRESS NOTE ---
DATE: 06/08/2019 Ms. Heredia had suprapubic catheter changed yesterday. Her vital signs are stable. She is on IV ceftazidime for Pseudomonas UTI. Overall condition is unchanged. Will continue with the current management. cc: Amando Berman MD
--- NOTE | 2019-06-08 10:19 | Diag Imaging Result Doc PS360 ---
ELBOW 2 VIEWS LEFT - 06/08/2019 INDICATION: pain deformity TECHNIQUE: COMPARISON: 01/05/2019 FINDINGS: Positioning is extremely improper making the exam overall suboptimal. There is a stable christo that is protruding out of the bone distally. There is also stable sideplate and several cerclage wires. These are stable in configuration. There is stable extensive soft tissue density at the lateral distal humerus mainly at the metadiaphysis. No new fractures. No definite dislocation. IMPRESSION: No obvious change from prior. Electronically signed by Darryl Moore 06/08/2019 10:16 AM
--- NOTE | 2019-06-08 10:20 | Diag Imaging Result Doc PS360 ---
WRIST 2 VIEWS-LEFT - 06/08/2019 INDICATION: pain deformity TECHNIQUE: COMPARISON: 09/13/2018 FINDINGS: Positioning is extremely improper. Bones are severely osteoporotic. There is no obvious change from prior. IMPRESSION: Nondiagnostic. Electronically signed by Darryl Moore 06/08/2019 10:18 AM
[2019-06-08] MEDS: KLONOPIN PO PRN (10:39)
[2019-06-08] MEDS: LACTULOSE PO SCH ×2 (10:39→11:07)
[2019-06-08] MEDS: UROCIT-K PO SCH ×2 (10:40→17:58)
[2019-06-08] MEDS: THERA M PLUS PO SCH (10:41)
[2019-06-08] MEDS: IMDUR PO SCH (10:41)
[2019-06-08] MEDS: ZANAFLEX PO SCH ×3 (10:41→21:25)
[2019-06-08] MEDS: COLACE PO SCH ×2 (10:42→21:25)
[2019-06-08] MEDS: KLOR-CON PO SCH ×2 (10:42→21:26)
[2019-06-08] MEDS: DITROPAN PO SCH ×3 (10:42→21:26)
[2019-06-08] MEDS: VITAMIN B-12 PO SCH (10:43)
[2019-06-08] MEDS: REQUIP PO SCH ×2 (10:43→21:26)
[2019-06-08] MEDS: DIFLUCAN PO SCH (10:44)
[2019-06-08] MEDS: LASIX PO SCH ×2 (10:45→21:26)
[2019-06-08] MEDS: CYMBALTA PO SCH (10:45)
[2019-06-08] MEDS: LINZESS PO SCH (10:46)
[2019-06-08] MEDS: ASPIRIN PO SCH (10:46)
[2019-06-08] MEDS: ALDACTAZIDE 25/25 PO SCH (10:47)
[2019-06-08] MEDS: NITROGLYCERIN 0.4 MG/HR PATCH TD SCH (10:48)
[2019-06-08] MEDS: MYCOSTATIN SUSP PO SCH ×4 (10:48→21:26)
[2019-06-08] MEDS: MIRALAX PO SCH ×2 (10:48→11:07)
[2019-06-08] MEDS: MYCOSTATIN POWDER TOP SCH ×4 (10:52→22:33)
[2019-06-08] MEDS: D5 1/2 NS + KCL 10 MEQ 1,000 ML IV SCH (11:01)
--- NOTE | 2019-06-08 15:06 | INFECTIOUS DISEASE PROGRESS NO ---
DATE: 06/08/2019 PRESENT ILLNESS: Ms. Heredia is being treated for a Pseudomonas urinary tract infection, as well as an oral candidiasis. MEDICATIONS: She is receiving ceftazidime 2 g IV every 8 hours. She is also on low-dose long- term fluconazole 100 mg by mouth daily for a previous fungemia. There is also nystatin swish and swallow for the oral candidiasis. PHYSICAL EXAMINATION: Vital Signs: Temperature is 98.2 degrees, pulse rate 100, respiratory rate 20, blood pressure 117/63, O2 saturation is 100% on room air. General: This is a chronically ill- appearing, elderly female. She is lying in bed, currently in no acute distress. HEENT: Atraumatic, normocephalic. Oral mucous membranes are pink and moist. Conjunctivae are pale. Neck: Neck has a decrease in suppleness. Trachea is midline. Respiratory: Lung sounds are clear to auscultation in the upper lobes. Diminished in the bases. Cardiovascular: Heart rate is regular. Abdomen: Soft, round, and tender to palpation. There is a suprapubic catheter in place. Site is without edema or erythema. There is some mild, clotted blood to the insertion site. Neurologic: She has a lower extremity paralysis and is unable to use the left upper extremity which has palpable and visible metal to the left upper arm. However, it has not come through the skin. She is drowsy and lethargic but arousable and appropriate. LABORATORY AND X-RAY: No labs available today. She did have an elbow and wrist x-ray. Both showed no obvious change from prior. ASSESSMENT AND PLAN: Ms. Heredia is receiving ceftazidime for the Pseudomonas urinary tract infection which we plan to treat for a total of 2 weeks. There is also an oral candidiasis and we will continue nystatin swish and swallow for that. She is also on long-term fluconazole use for a previous fungemia, which we will also continue. These plans have been discussed with and recommended by Dr. Elaine. COMORBIDITIES: For Ms. Heredia include that she is elderly, with decreased mobility, neurogenic bladder, and renal calculi. Dictated by BABS Martins for Lucio Elaine MD cc: MD Amando Mc MD MTDD
--- NOTE | 2019-06-08 15:52 | ORTHOPAEDICS CONSULTATION ---
DATE: 06/08/2019 CHIEF COMPLAINT: Left upper extremity pain at this time. HISTORY OF PRESENT ILLNESS: Ms. Heredia is a 73-year-old female who was admitted because of recent UTI. She reports she has had pain in this elbow for some time now. She reports about 10 years ago she had surgery to reconstruct a fracture that she had in the left humerus region. 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 PAST MEDICAL HISTORY: Positive for neurogenic bladder and renal calculus. REVIEW OF SYSTEMS: A 10-point review of systems were performed, pertinent positives listed in HPI. PHYSICAL EXAMINATION: Vital signs: Temperature 98.0, pulse rate 54, respiratory rate 16, blood pressure 102/68, oxygen saturation 100% on room air. HEENT: Head is atraumatic, normocephalic. Neck: Supple. Lungs: Equal chest expansion, rise, and fall. Cardiovascular: Regular rate and rhythm. Abdomen: Large. Soft, nontender. She does have a hernia present on the right side of her abdomen. Left upper extremity exam: There is obvious deformity of the left elbow and wrist. There is palpable metal that can be a potential for puncturing through the skin. There is good sensation to the left upper extremity. There is good radial pulse. There is good capillary refill in the fingers. There is decreased range of motion to the wrist and elbow with slight contraction to the left wrist. IMAGING: Images of the left humerus and elbow region show ORIF fixation of the humerus with christo placement. The christo seems to have migrated out of the bone and will likely need to be fixed in the future. 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 PLAN: Will plan on referring her to [facility] to let the trauma guys take a look at her. We recommend Dr. Andino for this type of surgery and removal of the christo and hardware. The patient understands this. We will go ahead and place her in a splint at this time with a sling. She can follow up with us as needed for her other medical problems. Dictated by BABS Darden for Buck Sahu MD cc: BABS Darden MD Amit V. Vora, MD
[2019-06-08] MEDS: DESYREL PO SCH (21:26)
[2019-06-09] MEDS: KLONOPIN PO PRN ×3 (01:39→22:47)
[2019-06-09] MEDS: NORCO-10 PO PRN ×5 (02:47→20:07)
[2019-06-09] MEDS: D5 1/2 NS + KCL 10 MEQ 1,000 ML IV SCH ×2 (02:50→18:20)
[2019-06-09] MEDS: PROTONIX PO SCH (06:52)
[2019-06-09] MEDS ORDERED: CHLORASEPTIC SORE THROAT LOZENGE MT PRN (09:09)
--- NOTE | 2019-06-09 10:27 | ORTHOPAEDICS PROGRESS NOTE ---
DATE: 06/09/2019 Ms. Heredia is seen in consultation regarding hardware failure about the left arm. This does appear to be prominent over the arm. We will need to consider referral of this in the future for hardware removal by 1 of the orthopedic traumatologist. We will be available for this as needed. cc: MD Amando Muñoz MD
[2019-06-09] MEDS: TAZIDIME 2 GM/NS 2 GM/100 ML IVPB IV SCH ×2 (11:20→16:12)
[2019-06-09] MEDS: LACTULOSE PO SCH (12:12)
[2019-06-09] MEDS: MIRALAX PO SCH (12:12)
[2019-06-09] MEDS: MYCOSTATIN SUSP PO SCH ×4 (12:13→20:05)
[2019-06-09] MEDS: UROCIT-K PO SCH ×2 (12:14→16:14)
[2019-06-09] MEDS: CYMBALTA PO SCH (12:14)
[2019-06-09] MEDS: COLACE PO SCH ×2 (12:14→20:06)
[2019-06-09] MEDS: THERA M PLUS PO SCH (12:15)
[2019-06-09] MEDS: DIFLUCAN PO SCH (12:15)
[2019-06-09] MEDS: ASPIRIN PO SCH (12:15)
[2019-06-09] MEDS: KLOR-CON PO SCH ×2 (12:15→20:08)
[2019-06-09] MEDS: VITAMIN B-12 PO SCH (12:15)
[2019-06-09] MEDS: DITROPAN PO SCH ×3 (12:15→20:06)
[2019-06-09] MEDS: LASIX PO SCH ×2 (12:16→20:06)
[2019-06-09] MEDS: IMDUR PO SCH (12:16)
[2019-06-09] MEDS: ZANAFLEX PO SCH ×3 (12:16→20:06)
[2019-06-09] MEDS: ALDACTAZIDE 25/25 PO SCH (12:16)
[2019-06-09] MEDS: REQUIP PO SCH ×2 (12:16→20:06)
[2019-06-09] MEDS: LINZESS PO SCH (12:17)
[2019-06-09] MEDS: NITROGLYCERIN 0.4 MG/HR PATCH TD SCH (12:18)
[2019-06-09] MEDS: MYCOSTATIN POWDER TOP SCH (12:19)
--- NOTE | 2019-06-09 15:37 | PROGRESS NOTE ---
DATE: 06/09/2019 Chief complaint is for a sore throat. Throat is congested. Her lungs are clear. Heart sounds are normal. Overall condition is unchanged. She is on IV ceftazidime for Pseudomonas UTI. Overall condition is unchanged. We will continue with the current management. -3 cc: Amando Berman MD
[2019-06-09] MEDS: DESYREL PO SCH (20:06)
[2019-06-10] MEDS: NORCO-10 PO PRN ×4 (00:59→20:31)
[2019-06-10] MEDS: TAZIDIME 2 GM/NS 2 GM/100 ML IVPB IV SCH ×4 (01:05→23:28)
[2019-06-10] MEDS: PROTONIX PO SCH ×2 (05:35→06:49)
[2019-06-10] MEDS: MYCOSTATIN POWDER TOP SCH ×2 (05:36→09:13)
[2019-06-10] MEDS: DUONEB (A & A) INH PRN ×3 (07:43→20:04)
[2019-06-10] MEDS: KLOR-CON PO SCH ×2 (09:00→20:30)
[2019-06-10] MEDS: THERA M PLUS PO SCH (09:00)
[2019-06-10] MEDS: LASIX PO SCH ×2 (09:01→20:30)
[2019-06-10] MEDS: ALDACTAZIDE 25/25 PO SCH (09:01)
[2019-06-10] MEDS: NITROGLYCERIN 0.4 MG/HR PATCH TD SCH (09:01)
[2019-06-10] MEDS: LACTULOSE PO SCH (09:01)
[2019-06-10] MEDS: VITAMIN B-12 PO SCH (09:01)
[2019-06-10] MEDS: UROCIT-K PO SCH ×2 (09:02→17:36)
[2019-06-10] MEDS: DITROPAN PO SCH ×3 (09:02→20:31)
[2019-06-10] MEDS: COLACE PO SCH ×2 (09:02→20:31)
[2019-06-10] MEDS: REQUIP PO SCH (09:03)
[2019-06-10] MEDS: DIFLUCAN PO SCH (09:03)
[2019-06-10] MEDS: IMDUR PO SCH (09:03)
[2019-06-10] MEDS: MYCOSTATIN SUSP PO SCH ×3 (09:03→17:41)
[2019-06-10] MEDS: ASPIRIN PO SCH (09:03)
[2019-06-10] MEDS: ZANAFLEX PO SCH ×2 (09:03→15:00)
[2019-06-10] MEDS: MIRALAX PO SCH (09:04)
[2019-06-10] MEDS: LINZESS PO SCH (09:05)
[2019-06-10] MEDS: CYMBALTA PO SCH (09:12)
--- NOTE | 2019-06-10 12:46 | PROGRESS NOTE ---
DATE: 06/10/2019 Ms. Heredia's left hand which has a soft cast on is swollen. There is a blistering there. It could be because of either she was hypervolemic or because of the compression from the cast. We will ask Dr. Sahu to look at it and give his opinion. Her lungs are clear. Heart sounds are normal. She was somewhat disoriented yesterday. We are repeating the urine culture on her. She is getting ceftazidime for Pseudomonas UTI. Suprapubic catheter has been changed. Overall condition is otherwise stable. cc: Amando Berman MD
--- NOTE | 2019-06-10 12:49 | INFECTIOUS DISEASE PROGRESS NO ---
DATE: 06/10/2019 PRESENT ILLNESS: The patient is being treated for Pseudomonas urinary tract infection. She also has oral candidiasis. MEDICATIONS: The patient is receiving ceftazidime 2 g IV every 8 hours. She also is on long-term fluconazole because of a previous fungemia which may have hematogenously infected the metal in the patient. The patient also is on nystatin swish and swallow for oral candidiasis. PHYSICAL EXAMINATION: Vital Signs: Temperature is 98.6 degrees, pulse 73, respirations 20, blood pressure 120/70. General: This is an ill-appearing elderly female. She is in no acute distress. She is bedridden. Head, eyes, ears, nose, and throat: She can hear my spoken words and see near objects. I did not see any white patches in her mouth. Neck: No pain with movement. Lungs: Clear to auscultation. Cardiovascular: Heart rate is regular. Abdomen: Soft and nontender. The patient's suprapubic catheter site is not erythematous or draining. Extremities: The patient has a large dressing around her left arm. There is a large bulla on the dorsum of the hand. In the thorax patient has a right-sided Port-A-Cath in place. The site is not erythematous or swollen. LAB AND RADIOLOGY: CBC-WBC 6.68, hgb 8.9, platelets 222K. Creatinine-1.1. GFR- 49. No new radiology study today. ASSESSMENT AND PLAN: The patient has a Pseudomonas urinary tract infection and oral candidiasis. The plan is to continue ceftazidime for 7 more days to complete a 2-week treatment course. She also is on nystatin swish and swallow for oral candidiasis and finally she is on fluconazole to prevent any flare up of a possible recurrence of the patient's fungemia. COMORBIDITIES: The patient is elderly. She is bedridden. She has a neurogenic bladder and renal calculi. cc: MD Amando Mc MD MTDD
--- NOTE | 2019-06-10 13:35 | INFECTIOUS DISEASE PROGRESS NO ---
DATE: 06/10/2019 II have added doxycycline to the patient's current antibiotic in case the patient's left arm is developing a staphylococcal infection. Also, I have ordered a urine culture to see the infection is clearing up. cc: MD Amando Mc MD
[2019-06-10] MEDS: KLONOPIN PO PRN ×2 (14:49→20:30)
[2019-06-10] MEDS: DOXYCYCLINE PO SCH ×2 (17:36→20:31)
[2019-06-10] MEDS: DESYREL PO SCH (20:31)
[2019-06-11] MEDS: MYCOSTATIN POWDER TOP SCH ×3 (01:31→20:20)
[2019-06-11] MEDS: MYCOSTATIN SUSP PO SCH ×5 (01:31→20:17)
[2019-06-11] MEDS: NORCO-10 PO PRN ×5 (01:32→20:18)
[2019-06-11] MEDS: ZANAFLEX PO SCH ×4 (01:32→20:17)
[2019-06-11] MEDS: REQUIP PO SCH ×3 (01:32→20:18)
[2019-06-11] MEDS: PROTONIX PO SCH (06:16)
[2019-06-11] MEDS: CYMBALTA PO SCH (08:50)
[2019-06-11] MEDS: MIRALAX PO SCH (08:51)
[2019-06-11] MEDS: ALDACTAZIDE 25/25 PO SCH (08:51)
[2019-06-11] MEDS: THERA M PLUS PO SCH (08:52)
[2019-06-11] MEDS: UROCIT-K PO SCH ×2 (08:52→16:06)
[2019-06-11] MEDS: IMDUR PO SCH (08:53)
[2019-06-11] MEDS: ASPIRIN PO SCH (08:53)
[2019-06-11] MEDS: KLOR-CON PO SCH ×2 (08:53→20:17)
[2019-06-11] MEDS: DIFLUCAN PO SCH (08:53)
[2019-06-11] MEDS: DOXYCYCLINE PO SCH ×2 (08:53→20:18)
[2019-06-11] MEDS: DITROPAN PO SCH ×2 (08:54→16:06)
[2019-06-11] MEDS: COLACE PO SCH ×2 (08:54→20:17)
[2019-06-11] MEDS: LINZESS PO SCH (08:54)
[2019-06-11] MEDS: LASIX PO SCH ×2 (08:54→20:17)
[2019-06-11] MEDS: TAZIDIME 2 GM/NS 2 GM/100 ML IVPB IV SCH ×2 (08:54→16:05)
[2019-06-11] MEDS: VITAMIN B-12 PO SCH (08:55)
[2019-06-11] MEDS: LACTULOSE PO SCH (08:55)
[2019-06-11] MEDS: NITROGLYCERIN 0.4 MG/HR PATCH TD SCH (09:12)
--- NOTE | 2019-06-11 09:35 | PROGRESS NOTE ---
DATE: 06/11/2019 SUBJECTIVE: Patient says she had a rough night, that her arm was hurting. Finally the splint was taken off of that arm and she seems to be doing better. She tells me she has had a fractured left wrist and she has a rotator cuff tear, which she had surgery for, and that it is all just bothering her. Seems to be doing better with that now. OBJECTIVE: Vital Signs: Blood pressure is 130/80, respirations 18, pulse 57, temperature 97.8 degrees Fahrenheit. HEENT: She is normocephalic. EOMS intact. PERRLA. Throat clear. Lungs: Clear to auscultation and percussion without rhonchi, rales or wheezes. Heart: Regular rate and rhythm without murmurs, gallops or friction rubs. Abdomen: Soft. Active bowel sounds. No organomegaly or tenderness. Neurological exam: Intact grossly. Left arm shows some deformity at the left wrist. ASSESSMENT: 1. Urinary tract infection from Pseudomonas. Re-culture pending. 2. Irritation from splint, left arm. PLAN: Continue support. cc: MD Amando Yeung Jr, MD
[2019-06-11] MEDS: KLONOPIN PO PRN ×2 (14:29→20:17)
[2019-06-11] MEDS: DUONEB (A & A) INH PRN ×2 (15:42→19:51)
--- NOTE | 2019-06-11 15:49 | PROGRESS NOTE ---
DATE: 06/11/2019 SUBJECTIVE: Ms. Heredia states she is overall approximately the same. She complains of having leakage per her vagina and sensation of Arnold catheter in her vagina. She denies blood in the Arnold bag, fevers or chills. OBJECTIVE: Temperature 97.9 degrees, pulse 58, blood pressure 170/90. General: No acute distress. Abdomen: Suprapubic tube site is clean and dry. No evidence of discharge around the tube. Pelvic: Examination, which was performed with the presence of a puttier in the room, revealed no evidence of suprapubic tip in the vagina as patient had sensation of. LABORATORY DATA: New labs: None. ASSESSMENT: A 73-year-old female with persistent urinary tract infections, who had her suprapubic tube changed by Dr. Willoughby several days ago. I reassured her that her suprapubic tube was not in her vagina and it appears to drain well. We discussed that her leakage per vagina is likely from her bladder spasms. She has been on Ditropan 5 mg t.i.d. We discussed increasing the dose to 10 mg 3 times a day. We discussed side effects such as dry mouth and constipation. Her daughter, who is present at bedside, also inquired about doing upper genitourinary tract imaging. We discussed obtaining renal ultrasound and KUB in the morning. PLAN: 1. Renal ultrasound and KUB in the morning. 2. Keep suprapubic tube to gravity drainage. 3. I increased her Ditropan to 10 mg 3 times a day. cc: MD Amando Castro MD
[2019-06-11] MEDS: DESYREL PO SCH (20:17)
[2019-06-12] MEDS: TAZIDIME 2 GM/NS 2 GM/100 ML IVPB IV SCH ×3 (00:39→16:43)
[2019-06-12] MEDS: NORCO-10 PO PRN ×6 (00:42→22:06)
[2019-06-12] MEDS: PROTONIX PO SCH ×2 (05:57→19:49)
[2019-06-12] MEDS: DUONEB (A & A) INH PRN ×3 (07:50→15:27)
[2019-06-12] MEDS: CYMBALTA PO SCH (09:25)
[2019-06-12] MEDS: ZANAFLEX PO SCH ×3 (09:26→22:05)
[2019-06-12] MEDS: KLOR-CON PO SCH ×2 (09:27→22:05)
[2019-06-12] MEDS: COLACE PO SCH ×2 (09:27→22:06)
[2019-06-12] MEDS: ALDACTAZIDE 25/25 PO SCH (09:27)
[2019-06-12] MEDS: VITAMIN B-12 PO SCH (09:27)
[2019-06-12] MEDS: UROCIT-K PO SCH ×2 (09:27→16:44)
[2019-06-12] MEDS: REQUIP PO SCH ×2 (09:27→22:05)
[2019-06-12] MEDS: DIFLUCAN PO SCH (09:28)
[2019-06-12] MEDS: LACTULOSE PO SCH (09:28)
[2019-06-12] MEDS: LASIX PO SCH ×2 (09:28→22:06)
[2019-06-12] MEDS: DOXYCYCLINE PO SCH ×2 (09:28→22:05)
[2019-06-12] MEDS: IMDUR PO SCH (09:28)
[2019-06-12] MEDS: ASPIRIN PO SCH (09:28)
[2019-06-12] MEDS: THERA M PLUS PO SCH (09:28)
[2019-06-12] MEDS: DITROPAN PO SCH ×3 (09:34→16:43)
[2019-06-12] MEDS: MYCOSTATIN SUSP PO SCH ×4 (09:35→22:05)
[2019-06-12] MEDS: NITROGLYCERIN 0.4 MG/HR PATCH TD SCH (09:35)
[2019-06-12] MEDS: MIRALAX PO SCH (09:35)
[2019-06-12] MEDS: KLONOPIN PO PRN ×2 (09:58→22:06)
--- NOTE | 2019-06-12 10:12 | PROGRESS NOTE ---
DATE: 06/12/2019 SUBJECTIVE: The patient says she did not sleep well last night. She is having pains near her urinary bladder. Dr. Hancock saw her and thinks it is bladder spasms. He has ordered a renal ultrasound. He is going to check a couple of other things. OBJECTIVE: Vital Signs: Stable. HEENT: She is normocephalic. EOMS intact. PERRLA. Throat clear. Lungs: Clear to auscultation and percussion without rhonchi, rales, or wheezes. Heart: Regular rate and rhythm without murmurs, gallops, or friction rubs. Abdomen: Soft. Active bowel sounds. No organomegaly or tenderness at this point. Neurological: Intact grossly. She does have deformity of the left wrist. Vital Signs: Blood pressure 125/70, respirations 19, pulse 64, temperature 97.8 degrees Fahrenheit. Culture of urine instead of Pseudomonas showed Enterococcus this time. It is sensitive to ampicillin, vancomycin, nitrofurantoin, and penicillin G. Will add appropriate antibiotics. Right now she is on cephalosporin. ASSESSMENT: 1. Urinary tract infection. 2. Left arm pain. PLAN: As above with antibiotics. cc: MD Amando Yeung Jr, MD
--- NOTE | 2019-06-12 10:44 | Diag Imaging Result Doc PS360 ---
EXAM: US RENAL 2 (RETROPER) COMPLETE 06/12/2019 HISTORY: persistent uti, kidney stones TECHNIQUE: Renal ultrasound COMMENT: There are multiple areas of hyperechogenicity posteriorly in the central renal echocomplex of the right kidney. The right renal cortex appears somewhat hyperechoic. There is marked hydronephrosis on the left. The right kidney measures 12 x 6 x 5.1 cm the left kidney is not well demonstrated. The bladder is not distended. There is a suprapubic catheter. There are at least two stones on the right which exceed a centimeter in size and one approaching 9 mm in the mid posterior collecting system. The most recent previous study is a CT from 01/05/2019 which demonstrated multiple bilateral renal stones. At that time there was only minimal apparent hydronephrosis on the left. IMPRESSION: Right nephrolithiasis. Apparent left hydronephrosis. The possibility of medical renal disease cannot be excluded. Electronically signed by Chandan Reza 06/12/2019 10:41 AM
--- NOTE | 2019-06-12 10:45 | Diag Imaging Result Doc PS360 ---
EXAM: KUB ABDOMEN 06/12/2019 HISTORY: kidney stones, uti TECHNIQUE: KUB COMMENT: There is stool throughout the colon. There is a suprapubic tube. The stomach and small bowel are not apparently distended. There are rods and screws and other orthopedic appliances within the lumbar spine. There has been internal fixation of both proximal femora. There are some calcifications on the left which may be within the left renal collecting system. The stones on the right are not as well-demonstrated as on the previous study of 01/17/2019. There are stones apparently on the right seen on the recent ultrasound. IMPRESSION: Bilateral nephrolithiasis. Constipation. Electronically signed by Chandan Reza 06/12/2019 10:43 AM
--- NOTE | 2019-06-12 11:55 | PROGRESS NOTE ---
DATE: 06/12/2019 SUBJECTIVE: Ms. Heredia states she is feeling sleepy this morning. She denies fevers or flank pain. She had KUB and renal ultrasound this morning that was ordered by me. OBJECTIVE: Vital Signs: Temperature 97.8 degrees, pulse 64, BP 125/70. Her urine output was recorded in the amount of 2825 mL. General: No acute distress. Abdomen: Nontender, nondistended. : Suprapubic tube in place, draining straw-colored urine. MICROBIOLOGY: Her urine culture came back as Enterococcus faecalis, which is sensitive to penicillin and nitrofurantoin. Her KUB revealed bilateral renal stones. Her renal ultrasound this morning revealed right renal stones as well as smaller left renal stones. There was a report of left hydronephrosis, which is new. ASSESSMENT: A 73-year-old female with persistent urinary tract infections and neurogenic bladder and recurrent renal stones. I have reviewed the findings of the ultrasound and KUB with the patient. I personally reviewed the images. I do not appreciate on KUB, a possible ureteral stone on the left. We discussed that given her hydronephrosis, we should evaluate it further with CT scan renal stone search given the possibility of having a renal stone drop into her ureter and cause blockage, and hence worsening of her urinary tract infections. PLAN: 1. Antibiotic management per Dr. Elaine. 2. Keep suprapubic tube to gravity drainage. She reports her number of accidents due to bladder spasms has lessened, but she does reports dry mouth. 3. CT abdomen and pelvis renal stone search today. cc: MD Amando Castro MD
[2019-06-12] MEDS: MYCOSTATIN POWDER TOP SCH ×2 (13:53→22:12)
[2019-06-12] MEDS: LINZESS PO SCH (13:53)
[2019-06-12] MEDS: MACROBID PO SCH ×2 (13:53→22:05)
--- NOTE | 2019-06-12 14:32 | Diag Imaging Result Doc PS360 ---
EXAM: CT RENAL STONE SEARCH 06/12/2019 HISTORY: left hydronephrosis, kidney stones TECHNIQUE: This exam was performed using automated exposure control, adjustment of mA or kV according to patient size, and/or use of iterative reconstruction technique. COMMENT: There is dependent atelectasis and/or fibrosis in both lower lobes which has not changed significantly in appearance since the previous examination of 01/05/2019. There is a small pleural fluid collection bilaterally. There are granulomata in the spleen. There are postsurgical changes in the lumbar spine. There are multiple stones present in both kidneys. There is hydronephrosis on the left and marked left hydroureter. There is a stone in the distal ureter on the left slightly below the level of the femoral head measuring 8 mm in diameter. There is a suprapubic catheter in the bladder. The bladder is not distended. There is a fairly large amount of stool in the colon particularly the distal colon and ascending colon. There has been cholecystectomy. Compared to the previous examination the hydronephrotic changes in the left kidney are much worse with considerable cortical atrophy. There are postsurgical changes in both femoral necks. There is no evidence of bowel obstruction. IMPRESSION: Bilateral nephrolithiasis with distal left ureterolithiasis and severe hydronephrosis with cortical atrophy on the left. Electronically signed by Chandan Reza 06/12/2019 2:29 PM
[2019-06-12] MEDS: DESYREL PO SCH (22:05)
[2019-06-13] MEDS: TAZIDIME 2 GM/NS 2 GM/100 ML IVPB IV SCH ×2 (00:30→09:45)
[2019-06-13] MEDS: NORCO-10 PO PRN ×5 (02:36→21:48)
[2019-06-13] MEDS ORDERED: NITROGLYCERIN SL PRN (06:01)
[2019-06-13] MEDS: PROTONIX PO SCH (06:15)
--- NOTE | 2019-06-13 07:35 | EKG Report ---
Test Performed on : 06/13/2019 06:19:51 AM Test Reason : chest pain Blood Pressure : / mmHG Vent. Rate : 062 BPM Atrial Rate : 062 BPM P-R Int : 180 ms QRS Dur : 086 ms QT Int : 484 ms P-R-T Axes : 033 036 030 degrees QTc Int : 491 ms Normal sinus rhythm. Prolonged QT Abnormal ECG When compared with ECG of 01-JUN-2019 13:55, No significant change was found Confirmed by Gregorio Young MD ([id number]) on 06/13/2019 3:31:19 PM
[2019-06-13] MEDS: ZANAFLEX PO SCH ×3 (09:21→21:49)
[2019-06-13] MEDS: MYCOSTATIN SUSP PO SCH ×4 (09:21→21:47)
[2019-06-13] MEDS: DOXYCYCLINE PO SCH ×2 (09:21→21:49)
[2019-06-13] MEDS: IMDUR PO SCH (09:22)
[2019-06-13] MEDS: DIFLUCAN PO SCH (09:22)
[2019-06-13] MEDS: UROCIT-K PO SCH ×2 (09:22→17:15)
[2019-06-13] MEDS: VITAMIN B-12 PO SCH (09:22)
[2019-06-13] MEDS: CYMBALTA PO SCH (09:23)
[2019-06-13] MEDS: COLACE PO SCH ×2 (09:23→21:48)
[2019-06-13] MEDS: LASIX PO SCH ×2 (09:23→21:49)
[2019-06-13] MEDS: REQUIP PO SCH ×2 (09:23→21:48)
[2019-06-13] MEDS: DITROPAN PO SCH ×3 (09:23→17:15)
[2019-06-13] MEDS: THERA M PLUS PO SCH (09:24)
[2019-06-13] MEDS: MIRALAX PO SCH ×2 (09:24→09:29)
[2019-06-13] MEDS: ALDACTAZIDE 25/25 PO SCH (09:24)
[2019-06-13] MEDS: LACTULOSE PO SCH ×2 (09:24→09:28)
[2019-06-13] MEDS: MACROBID PO SCH (09:24)
[2019-06-13] MEDS: KLOR-CON PO SCH ×2 (09:24→21:49)
[2019-06-13] MEDS: ASPIRIN PO SCH (09:24)
[2019-06-13] MEDS: NITROGLYCERIN 0.4 MG/HR PATCH TD SCH (09:27)
[2019-06-13] MEDS: LINZESS PO SCH (09:29)
[2019-06-13] MEDS: MYCOSTATIN POWDER TOP SCH ×2 (09:30→21:50)
[2019-06-13] MEDS: KLONOPIN PO PRN ×2 (09:55→22:04)
--- NOTE | 2019-06-13 10:01 | PROGRESS NOTE ---
DATE: 06/13/2019 Ms. Heredia had chest pain last night. She had an EKG performed, which was unremarkable. CT scan of the kidney shows bilateral nephrolithiasis with distal left ureterolithiasis and severe hydronephrosis, with cortical atrophy on the left side. She has Enterococcus faecalis isolated this time on the urine culture. We may have to make some changes in her antibiotic therapy. We will continue with the current management. cc: Amando Berman MD
[2019-06-13] MEDS: CUBICIN 500 MG in NS 100 ML IV SCH (13:07)
--- NOTE | 2019-06-13 14:33 | INFECTIOUS DISEASE PROGRESS NO ---
DATE: 06/13/2019 PRESENT ILLNESS: The patient's Pseudomonas urinary tract infection is cleared but now she has an enterococcal urinary tract infection and she is symptomatic from it. She tells me that she had nausea and diaphoresis last night and she told me that these are the symptoms she has when she has a urinary tract infection. The patient also has oral candidiasis. MEDICATIONS: Patient had been receiving ceftazidime. The patient also is on fluconazole to prevent fungemia which may have hematogenously infected the metal in her body. The patient also is on nystatin swish and swallow for oral candidiasis. PHYSICAL EXAMINATION: Vital Signs: Temperature is 98 degrees, pulse 62, respirations 18, blood pressure 119/67. General: This is an ill-appearing elderly female. She is in no acute distress. Head/eyes/ears/nose/throat: She can hear my spoken words and see near objects. She does not have any white coating on her tongue. Neck: She does not seem to have any pain when she moves her neck. Lungs: Clear to auscultation. Cardiovascular: Regular heart rate. Abdomen: Soft and nontender. The patient has suprapubic catheter in place. The site is not erythematous or purulent. Extremities: The patient's left arm is no longer erythematous. Thorax: The patient has a right-sided Port-A-Cath in place. The site is not erythematous or purulent. Neurologic: The only extremity the patient can move is her right arm. LAB AND RADIOLOGY: CBC shows a white count of 6680, hemoglobin 8.9, platelet count 222,000. Creatinine is 1.1. GFR is 49. ASSESSMENT AND PLAN: Patient has an enterococcal urinary tract infection. I have discontinued ceftazidime and placed the patient on daptomycin. Side effect of the antibiotic, namely muscle toxicity, has been explained to the patient. She agrees with treatment. Plan also is to continue her nystatin swish and swallow and also fluconazole prophylaxis. COMORBIDITIES: The patient is elderly. She is bedridden. She has a neurogenic bladder and renal calculi. cc: MD Amando Mc MD
[2019-06-13] MEDS: DESYREL PO SCH (21:47)
[2019-06-14] MEDS: NORCO-10 PO PRN ×5 (03:20→22:21)
--- NOTE | 2019-06-14 06:29 | DISCHARGE SUMMARY ---
ADMISSION DATE: 06/01/2019 DISCHARGE DATE: ADDENDUM: Her UTI was related or secondary to indwelling urinary catheter. cc: Amando Berman MD
[2019-06-14] MEDS: PROTONIX PO SCH (07:30)
--- NOTE | 2019-06-14 09:23 | PROGRESS NOTE ---
DATE: 06/14/2019 SUBJECTIVE: Ms. Heredia has urine culture positive for enterococcus faecalis. She has been placed on doxycycline and daptomycin by Dr. Elaine. OBJECTIVE: Her renal CT scan which was done the day before yesterday has revealed bilateral nephrolithiasis with distal left ureterolithiasis and severe hydronephrosis with cortical atrophy on the left. She is followed by Dr. Hancock for this. -4 cc: Amando Berman MD
[2019-06-14] MEDS: CYMBALTA PO SCH (10:01)
[2019-06-14] MEDS: NITROGLYCERIN 0.4 MG/HR PATCH TD SCH (10:01)
[2019-06-14] MEDS: LINZESS PO SCH (10:02)
[2019-06-14] MEDS: UROCIT-K PO SCH ×2 (10:02→16:27)
[2019-06-14] MEDS: ALDACTAZIDE 25/25 PO SCH (10:03)
[2019-06-14] MEDS: DITROPAN PO SCH ×3 (10:03→16:27)
[2019-06-14] MEDS: MYCOSTATIN SUSP PO SCH ×4 (10:03→22:23)
[2019-06-14] MEDS: VITAMIN B-12 PO SCH (10:05)
[2019-06-14] MEDS: DIFLUCAN PO SCH (10:06)
[2019-06-14] MEDS: REQUIP PO SCH ×2 (10:06→22:22)
[2019-06-14] MEDS: KLOR-CON PO SCH ×2 (10:06→22:21)
[2019-06-14] MEDS: IMDUR PO SCH (10:06)
[2019-06-14] MEDS: ASPIRIN PO SCH (10:07)
[2019-06-14] MEDS: DOXYCYCLINE PO SCH (10:07)
[2019-06-14] MEDS: LASIX PO SCH ×2 (10:07→22:22)
[2019-06-14] MEDS: THERA M PLUS PO SCH (10:07)
[2019-06-14] MEDS: ZANAFLEX PO SCH ×3 (10:07→22:22)
[2019-06-14] MEDS: COLACE PO SCH ×2 (10:07→22:23)
[2019-06-14] MEDS: MYCOSTATIN POWDER TOP SCH (10:09)
[2019-06-14] MEDS: MIRALAX PO SCH (10:10)
[2019-06-14] MEDS: LACTULOSE PO SCH (10:11)
[2019-06-14] MEDS: CUBICIN 500 MG in NS 100 ML IV SCH (11:47)
[2019-06-14] MEDS: KLONOPIN PO PRN (14:05)
[2019-06-14] MEDS: ZOFRAN ODT SL PRN (16:54)
--- NOTE | 2019-06-14 18:21 | PROGRESS NOTE ---
DATE: 06/14/2019 SUBJECTIVE: Ms. Heredia reports she is feeling about the same. Per her daughter, she has had some chills. She denies flank pain. I ordered a CT scan on 06/12/2019 secondary to a renal ultrasound showing left hydroureteronephrosis. CT scan revealed 8 mm left distal ureteral stone as well as several renal stones bilaterally. The stone is causing obstruction and severe hydronephrosis which undoubtedly contributes to her UTI. OBJECTIVE: Vital Signs: Temperature 97.8 degrees, pulse 60, blood pressure 190/52. General: No acute distress. Pleasant female. Abdomen: Nontender, protuberant, soft to touch. : Suprapubic tube in place draining straw-colored urine. PERTINENT LABS: None today. 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 She has 8 mm ureteral stone in the distal ureter with severe hydronephrosis and cortical thinning. I have discussed with the patient and her daughter that eventually this stone will cause complete atrophy of the kidney, and she would benefit from endoscopic retrieval. We discussed that, if possible, I will try to go into the kidney and address the renal stones as well on the left side. We discussed the risks of the procedure including, but not limited to, bleeding, infection, injury to the bladder, injury to adjacent structures, inability to remove the stone fragments, and need for additional interventions. She voiced understanding and wants to proceed, so did her daughter. PLAN: 1. N.p.o. after midnight. 2. To operating room tomorrow for cystoscopy, left ureteroscopy, laser lithotripsy, stone basket extraction, placement of left ureteral stent. cc: MD Amando Castro MD
[2019-06-14] MEDS: DUONEB (A & A) INH PRN (19:32)
[2019-06-14] MEDS: DESYREL PO SCH (22:22)
[2019-06-15] MEDS: NORCO-10 PO PRN ×3 (05:42→20:32)
[2019-06-15] MEDS: MYCOSTATIN POWDER TOP SCH ×3 (06:59→21:30)
[2019-06-15 07:28] LABS: CALCIUM 8.3 mg/dL (8.8-10.2); POTASSIUM 3.1 mmol/L (3.5-5.1)
[2019-06-15] MEDS: PROTONIX PO SCH (07:29)
[2019-06-15] MEDS ORDERED: DIPRIVAN 1% ONE (07:29)
[2019-06-15] MEDS ORDERED: SUFENTA ONE (07:31)
[2019-06-15] MEDS ORDERED: EPHEDRINE ONE ×2 (08:34→08:46)
[2019-06-15 08:58] LABS: BASO# 0.01 X1000 (0.0-0.2); BASO% 0.2 % (0.0-0.8); EOS# 0.06 X1000 (0.0-0.7); HEMATOCRIT 34.3 % (37.0-47.0); HEMOGLOBIN 10.8 g/dL (12.0-16.0); LYMPH# 1.34 X1000 (1.2-3.4); LYMPH% 22.9 % (20.5-51.1); MCH 25.5 PG (27-31); MCHC 31.5 g/dL (33-37); MCV 80.9 FL (81-99); MONO# 0.43 X1000 (0.11-0.59); MONO% 7.3 % (1.7-9.3); MPV 12.3 FL (7.4-10.4); NEUT# 4.02 X1000 (1.4-6.5); NEUT% 68.6 % (42.2-75.2); PLT 189 X1000 (130-400); RBC 4.24 XMIL (4.2-5.4); RDW 15.6 % (11.5-14.5); WBC 5.86 X1000 (4.8-10.8)
[2019-06-15] MEDS: MYCOSTATIN SUSP PO SCH ×4 (09:05→20:31)
[2019-06-15] MEDS: ZANAFLEX PO SCH ×3 (09:05→20:31)
[2019-06-15] MEDS: DITROPAN PO SCH ×3 (09:05→18:06)
[2019-06-15] MEDS: UROCIT-K PO SCH ×2 (09:06→18:06)
--- NOTE | 2019-06-15 09:44 | PROGRESS NOTE ---
DATE: 06/15/2019 Ms. Heredia's repeat CBC was unremarkable. Her potassium is down to 3.1. She had some problems with the IV line. She has gone for cystoscopy this morning. I am going to order some oral potassium on her and we will continue the IV antibiotics, especially the daptomycin and doxycycline, as suggested by Dr. Elaine. -1 cc: Amando Berman MD
--- NOTE | 2019-06-15 09:45 | Diag Imaging Result Doc PS360 ---
EXAM: FLUROSCOPY CYSTO 06/15/2019 HISTORY: LEFT STENT PLACEMENT TECHNIQUE: One image COMMENT: There appears to be a stent in the left ureter although the lower portion of the stent is not visible and the upper portion is partially obscured by orthopedic hardware and a stimulator device. IMPRESSION: Left ureteral stent. Electronically signed by Chandan Reza 06/15/2019 9:43 AM
[2019-06-15] MEDS: DILAUDID ONE ×2 (10:00→10:07)
[2019-06-15] MEDS: CUBICIN 500 MG in NS 100 ML IV SCH (11:39)
[2019-06-15] MEDS: MIRALAX PO SCH (12:55)
[2019-06-15] MEDS: REQUIP PO SCH ×2 (12:56→20:31)
[2019-06-15] MEDS: IMDUR PO SCH (12:57)
[2019-06-15] MEDS: CYMBALTA PO SCH (12:57)
[2019-06-15] MEDS: NITROGLYCERIN 0.4 MG/HR PATCH TD SCH (12:57)
[2019-06-15] MEDS: COLACE PO SCH ×2 (12:57→20:31)
[2019-06-15] MEDS: KLONOPIN PO PRN ×2 (12:58→20:31)
[2019-06-15] MEDS: DIFLUCAN PO SCH (12:58)
[2019-06-15] MEDS: KLOR-CON PO SCH ×4 (12:58→18:07)
[2019-06-15] MEDS: LASIX PO SCH ×2 (12:59→20:31)
[2019-06-15] MEDS: ASPIRIN PO SCH (12:59)
[2019-06-15] MEDS: VITAMIN B-12 PO SCH (12:59)
[2019-06-15] MEDS: ALDACTAZIDE 25/25 PO SCH (12:59)
[2019-06-15] MEDS: THERA M PLUS PO SCH (12:59)
[2019-06-15] MEDS: LINZESS PO SCH (13:00)
[2019-06-15] MEDS: LACTULOSE PO SCH (13:00)
--- NOTE | 2019-06-15 14:24 | INFECTIOUS DISEASE PROGRESS NO ---
DATE: 06/15/2019 PRESENT ILLNESS: The patient has an enterococcal urinary tract infection. She also has oral candidiasis and finally she had a candidemia in the past. MEDICATIONS: This is day 2 of treatment with daptomycin for the patient's enterococcal urinary tract infection. The patient is on nystatin swish and swallow for her oral candidiasis. She is on fluconazole to prevent any flare up of the Andressa organism that is attached to the patient's metal when the patient had candidemia. PHYSICAL EXAMINATION: Vital Signs: Temperature is 97.6 degrees, pulse 89, respirations 20, blood pressure 114/66. General: This is an ill-appearing elderly female. She is in no acute distress. Head/eyes/ears/nose/throat: She can hear my spoken words and see near objects. She does not have any white coating on her tongue. Neck: No pain with movement. Lungs: Clear to auscultation. Abdomen: Soft and nontender. The patient's suprapubic catheter is in place. There is no erythema or purulence. Thorax: The patient has a right-sided Port-A-Cath in place. That site is not erythematous or purulent either. Neurologic: The only extremity the patient has that she can move is her right arm. LAB AND X-RAY: There is no new radiographic study. CBC shows a white count of 5860, hemoglobin 10.8 and platelet count 189,000. Creatinine is 1, GFR is 55. ASSESSMENT AND PLAN: Patient has an enterococcal urinary tract infection for which I am going to continue daptomycin. She has oral candidiasis for which I am going to continue nystatin. She is on p.o. fluconazole to prevent any flare up of a Andressa infection on the patient's metal that occurred when she had fungemia. COMORBIDITIES: The patient is elderly and she is bedridden. She has a neurogenic bladder and she had renal calculi. cc: MD Amando Mc MD MTDD
[2019-06-15] MEDS: DUONEB (A & A) INH PRN (15:48)
[2019-06-15] MEDS ORDERED: NEOSPORIN OINTMENT TUBE TOP ONE (15:58)
[2019-06-15] MEDS: ZOFRAN ODT SL PRN (20:31)
[2019-06-15] MEDS: DESYREL PO SCH (20:31)
[2019-06-15] MEDS: PERIDEX MT SCH (21:29)
[2019-06-16] MEDS: NORCO-10 PO PRN ×4 (02:36→20:50)
[2019-06-16] MEDS: PROTONIX PO SCH (06:34)
--- NOTE | 2019-06-16 09:31 | PROGRESS NOTE ---
DATE: 06/16/2019 Ms. Heredia had a cystoscopy and a stent placed in the left ureter with some pus containing urine came out during the procedure. The stone has been sent for analysis. She is on IV daptomycin and doxycycline. She is also covered for candidal infection. She has some trouble swallowing, probably due to Andressa esophagitis for which she is getting the swish and swallow nystatin suspension. Overall condition is unchanged. The swelling in the left arm has improved. There are some small necrotic areas where the blister had bursted, and a little bit of cellulitis around it. We are going to watch it closely. -2 cc: Amando Berman MD MTDD
[2019-06-16] MEDS: KLOR-CON PO SCH ×4 (09:39→17:17)
[2019-06-16] MEDS: ALDACTAZIDE 25/25 PO SCH (09:40)
[2019-06-16] MEDS: ASPIRIN PO SCH (09:40)
[2019-06-16] MEDS: COLACE PO SCH ×2 (09:40→20:50)
[2019-06-16] MEDS: UROCIT-K PO SCH ×2 (09:40→17:17)
[2019-06-16] MEDS: DITROPAN PO SCH ×3 (09:41→17:17)
[2019-06-16] MEDS: DIFLUCAN PO SCH (09:41)
[2019-06-16] MEDS: CYMBALTA PO SCH (09:41)
[2019-06-16] MEDS: LACTULOSE PO SCH (09:42)
[2019-06-16] MEDS: LINZESS PO SCH (09:42)
[2019-06-16] MEDS: IMDUR PO SCH (09:42)
[2019-06-16] MEDS: LASIX PO SCH ×2 (09:42→20:50)
[2019-06-16] MEDS: MYCOSTATIN SUSP PO SCH ×5 (09:43→20:50)
[2019-06-16] MEDS: PERIDEX MT SCH ×2 (09:43→20:51)
[2019-06-16] MEDS: MIRALAX PO SCH (09:43)
[2019-06-16] MEDS: NITROGLYCERIN 0.4 MG/HR PATCH TD SCH (09:43)
[2019-06-16] MEDS: VITAMIN B-12 PO SCH (09:44)
[2019-06-16] MEDS: THERA M PLUS PO SCH (09:44)
[2019-06-16] MEDS: ZANAFLEX PO SCH ×3 (09:45→20:50)
[2019-06-16] MEDS: REQUIP PO SCH ×2 (09:46→20:51)
[2019-06-16] MEDS: MYCOSTATIN POWDER TOP SCH (10:55)
[2019-06-16] MEDS: KLONOPIN PO PRN ×2 (10:59→20:50)
[2019-06-16] MEDS: CUBICIN 500 MG in NS 100 ML IV SCH (11:00)
[2019-06-16] MEDS: DUONEB (A & A) INH PRN (11:46)
[2019-06-16] MEDS: NS NEB INH SCH (18:51)
[2019-06-16] MEDS: XOPENEX NEB INH SCH ×2 (18:51→21:11)
[2019-06-16] MEDS: DESYREL PO SCH (20:50)
[2019-06-17] MEDS: NORCO-10 PO PRN ×4 (00:58→21:28)
[2019-06-17] MEDS: XOPENEX NEB INH SCH ×4 (03:01→21:45)
[2019-06-17] MEDS: MYCOSTATIN POWDER TOP SCH ×3 (04:03→22:00)
[2019-06-17] MEDS: PROTONIX PO SCH ×2 (05:16→07:45)
[2019-06-17] MEDS: ZOFRAN ODT SL PRN ×2 (08:40→16:09)
[2019-06-17] MEDS: KLONOPIN PO PRN (10:53)
[2019-06-17] MEDS: CUBICIN 500 MG in NS 100 ML IV SCH (11:22)
--- NOTE | 2019-06-17 12:28 | PROGRESS NOTE ---
DATE: 06/17/2019 SUBJECTIVE: Ms. Heredia said she had some vomiting which could be because the kidney stones or because of UTI. She has been having some pain in the right leg which is swollen. PLAN: I am going to check for DVT today. Overall condition is unchanged. We will continue with the current management with IV antibiotics prescribed by Dr. Elaine. We will continue to watch her closely. -2 cc: Amando Berman MD
--- NOTE | 2019-06-17 12:48 | INFECTIOUS DISEASE PROGRESS NO ---
DATE: 06/17/2019 PRESENT ILLNESS: Ms. Heredia is being treated for an enterococcal urinary tract infection as well as an oral candidiasis. The patient is status post cystoscopy with removal of left ureteral stone and stent placement. MEDICATIONS: Today is day 4 of treatment with daptomycin 500 mg IV every 24 hours. She is also receiving nystatin swish and swallow. She is also receiving fluconazole 100 mg by mouth daily. PHYSICAL EXAMINATION: Vital Signs: Temperature is 97.9 degrees, pulse rate 72, respiratory rate 20, blood pressure 103/67, O2 saturation is 100% on room air. General: This is a chronically ill- appearing elderly female. She is lying in the bed currently in no acute distress. HEENT: Atraumatic, normocephalic. Oral mucous membranes are pink and moist. Conjunctivae are pink. Neck: Has a decrease in suppleness. Cardiovascular: Heart rate is regular. Respiratory: Lung sounds are clear to auscultation bilaterally. Diminished in the bases. Abdomen: Soft, tender to palpation on the left. Bowel sounds are active. She does complain of nausea and some vomiting today. There is a suprapubic catheter in place with no erythema or drainage to the site. Integumentary: The Port-A-Cath to the right chest is without edema, erythema, or drainage to the site. Neurologic: She is awake, alert, oriented, and has paraplegia with movement mainly to the right upper extremity. LABORATORY AND X-RAY: None available today. ASSESSMENT AND PLAN: Ms. Heredia is being treated for enterococcal urinary tract infection and is receiving daptomycin which we will continue. She also has oral candidiasis which is improving, so we will continue the nystatin swish and swallow. She also receives oral fluconazole for a previous Andressa fungemia in a patient with metal in her body. These plans have been discussed with and recommended by Dr. Elaine. COMORBIDITIES: For Ms. Heredia include that she is elderly and bedridden with neurogenic bladder and suprapubic catheter. Dictated by BABS Martins for Lucio Elaine MD cc: MD Amando Mc MD [facility]
[2019-06-17] MEDS: KLOR-CON PO SCH ×3 (13:06→16:11)
[2019-06-17] MEDS: MYCOSTATIN SUSP PO SCH ×4 (13:07→21:27)
[2019-06-17] MEDS: REQUIP PO SCH ×2 (13:08→21:27)
[2019-06-17] MEDS: CYMBALTA PO SCH (13:09)
[2019-06-17] MEDS: ALDACTAZIDE 25/25 PO SCH (13:09)
[2019-06-17] MEDS: VITAMIN B-12 PO SCH (13:09)
[2019-06-17] MEDS: DITROPAN PO SCH ×3 (13:09→16:11)
[2019-06-17] MEDS: IMDUR PO SCH (13:09)
[2019-06-17] MEDS: COLACE PO SCH ×2 (13:10→21:28)
[2019-06-17] MEDS: LACTULOSE PO SCH (13:10)
[2019-06-17] MEDS: MIRALAX PO SCH (13:10)
[2019-06-17] MEDS: THERA M PLUS PO SCH (13:10)
[2019-06-17] MEDS: PERIDEX MT SCH ×2 (13:10→21:27)
[2019-06-17] MEDS: NITROGLYCERIN 0.4 MG/HR PATCH TD SCH (13:11)
[2019-06-17] MEDS: LASIX PO SCH ×2 (13:11→21:27)
[2019-06-17] MEDS: UROCIT-K PO SCH ×2 (13:11→16:12)
[2019-06-17] MEDS: ASPIRIN PO SCH (13:11)
[2019-06-17] MEDS: ZANAFLEX PO SCH ×3 (13:11→21:28)
[2019-06-17] MEDS: DIFLUCAN PO SCH (13:11)
[2019-06-17] MEDS: LINZESS PO SCH (13:20)
--- NOTE | 2019-06-17 14:37 | Diag Imaging Result Doc PS360 ---
BA SWALLOW-ESOPHAGUS - 06/17/2019 INDICATION: dysphagia, vomiting TECHNIQUE: Total fluoroscopy time was one minute 25 seconds. 46 images were obtained. COMPARISON: None FINDINGS: The patient is extremely debilitated and was recumbent for this exam. There is overall very poor motility of the esophagus with significant stasis. There is also mild, diffuse esophageal spasm. The gastroesophageal junction is grossly normally located. Examination of the stomach is normal. IMPRESSION: Poor esophageal motility with moderate diffuse esophageal spasm. Electronically signed by Darryl Moore 06/17/2019 2:35 PM
--- NOTE | 2019-06-17 15:29 | PROGRESS NOTE ---
DATE: 06/17/2019 SUBJECTIVE: Ms. Heredia reports a good night overnight. She denies flank pain. OBJECTIVE: Temperature 97.9 degrees, pulse 72, blood pressure 103/67. General: No acute distress. Abdomen: Nontender, nondistended. Genitourinary: Suprapubic tube in place draining very light pink-colored urine. PERTINENT LABORATORY DATA: None today. ASSESSMENT: A 73-year-old female who underwent left ureteroscopy with laser lithotripsy, stone basket extraction of ureteral stone, and laser lithotripsy, stone basket extraction, stent placement for left renal stones. She intraoperatively was found to have an obstructing left distal ureteral stone as well as several smaller renal stones. She is doing well from the urologic standpoint. I have discussed with the patient that we will keep the stent in her until 06/20/2019. At which point, it could be removed by pulling on the string coming out of her urethra. If the patient were to be discharged prior to 06/20/2019, I have discussed with her daughter that she could remove it at home. If she is still in the hospital on Thursday, we will instruct nursing staff to do so. PLAN: 1. No further urologic intervention needed at this time. 2. Plan would be to remove the stent by pulling the string on 06/20/2019. cc: MD Amando Castro MD
--- NOTE | 2019-06-17 17:20 | GASTROENTEROLOGY CONSULTATION ---
DATE: 06/17/2019 REASON FOR CONSULTATION: Vomiting. HISTORY OF PRESENT ILLNESS: Ms. Mitra Heredia is a 73-year-old woman with a past medical history of recurrent urinary tract infections with Pseudomonas, kidney stones, status post suprapubic catheter, neurogenic bladder, bladder stones, prior cervical neck injury, prior history of peptic ulcer disease, who presented on 06/01/2019 with recurrent urinary tract infection. The patient has been seen by ID and Urology, and she has undergone cystoscopy with ureteral stent placement and laser therapy of urethral stone for hydronephrosis. GI was consulted for nausea, vomiting, and dysphagia. This morning she had 1 episode of nausea and vomiting. She is currently tolerating her diet and her morning medications. She is on a mechanical soft diet. Her last EGD was on March 16, that showed food impaction with some mild resistance in the GE junction. No obvious strictures. There was some deformity in the pylorus and evidence of prior PEG in the past. Normal duodenum. REVIEW OF SYSTEMS: As per HPI, otherwise 12 point ROS was negative. MEDICAL HISTORY: As per HPI. Other past medical history includes multiple joint surgeries. PAST SURGICAL HISTORY: Suprapubic catheter placement, ureteral stent placement, multiple spine and lumbar surgeries and cervical spine surgeries. She had plastic surgery of abdominal wall, multiple joint surgeries, including the knee and prior surgery for staph infection of the right knee, question esophageal rupture repair in the remote past. HOME MEDICATIONS: Have not been reconciled in the chart. ALLERGIES: Meperidine, Reglan, penicillin, sulfa, cefepime, codeine. FAMILY HISTORY: No family history of GI malignancies. SOCIAL HISTORY: No smoking, alcohol or drug use. PHYSICAL EXAMINATION: Vital Signs: Temperature 97.9 degrees, heart rate 72, respiratory rate 20, blood pressure 103/67, and O2 saturation 100% on room air. General: Patient is awake, alert, oriented, no acute distress. HEENT: Sclerae anicteric. Moist mucous membranes. Neck: Supple. No JVD or lymphadenopathy. Cardiac: Regular rate and rhythm. No murmurs, rubs, or gallops. Lungs: Clear to auscultation bilaterally. Abdomen: Obese, soft, nontender, nondistended. Normoactive bowel sounds. No rebound or guarding. Midline scar noted. Suprapubic catheter in place. Extremities: No clubbing, cyanosis, or edema. Neurologic: Moving all extremities symmetrically. LABORATORIES: White count of 5.8, hemoglobin 10.8, platelets of 189,000. Sodium 139, potassium 3.1, chloride of 92, bicarbonate 27, BUN of 33, creatinine 1, glucose of 102. Microbiology: UTI noted with Pseudomonas and Enterococcus faecalis. ASSESSMENT AND PLAN: Ms. Mitra Heredia is a 73-year-old woman with a past medical history of recurrent urinary tract infections in the setting of neurogenic bladder, kidney stones, bladder stones, who is status post cystoscopy with stone ablation and left ureter stent placement. Her urine culture showing Enterococcus faecalis and Pseudomonas. She is currently on antibiotics as per Infectious Disease. She is also on nystatin. GI was consulted for nausea, vomiting, and dysphagia this morning. She reports vomiting of her breakfast per RN; however, she has been able to tolerate mechanical soft and her morning medications. I reviewed her last endoscopy report, which did not show any evidence of stricture, however, some findings suggestive possibly motility disorder. We will check an esophagram. Continue her on proton pump inhibitor, Protonix 40 mg once daily, antiemetics as needed, and current diet. We will follow with you. Please call with any questions or concerns. # N/V # Dysphagia # GERD # UTI Thank you for this consultation. cc: Amando Berman MD [facility]
[2019-06-17] MEDS: DESYREL PO SCH (21:27)
[2019-06-18] MEDS: XOPENEX NEB INH SCH ×4 (04:03→21:08)
[2019-06-18] MEDS: NORCO-10 PO PRN ×5 (04:05→21:43)
[2019-06-18] MEDS: PROTONIX PO SCH (06:17)
[2019-06-18] MEDS: KLOR-CON PO SCH ×3 (08:54→16:58)
[2019-06-18] MEDS: UROCIT-K PO SCH ×2 (08:54→16:57)
[2019-06-18] MEDS: DITROPAN PO SCH ×3 (08:55→16:57)
[2019-06-18] MEDS: VITAMIN B-12 PO SCH (08:55)
[2019-06-18] MEDS: REQUIP PO SCH ×2 (08:55→21:43)
[2019-06-18] MEDS: IMDUR PO SCH (08:55)
[2019-06-18] MEDS: ZANAFLEX PO SCH ×3 (08:55→21:43)
[2019-06-18] MEDS: ALDACTAZIDE 25/25 PO SCH (08:56)
[2019-06-18] MEDS: CYMBALTA PO SCH (08:56)
[2019-06-18] MEDS: LINZESS PO SCH (08:56)
[2019-06-18] MEDS: ASPIRIN PO SCH (08:56)
[2019-06-18] MEDS: DIFLUCAN PO SCH (08:56)
[2019-06-18] MEDS: LASIX PO SCH ×2 (08:56→21:44)
[2019-06-18] MEDS: COLACE PO SCH ×2 (08:56→21:43)
[2019-06-18] MEDS: THERA M PLUS PO SCH (08:56)
[2019-06-18] MEDS: PERIDEX MT SCH (08:57)
[2019-06-18] MEDS: NITROGLYCERIN 0.4 MG/HR PATCH TD SCH (08:57)
[2019-06-18] MEDS: MYCOSTATIN SUSP PO SCH ×4 (08:57→21:44)
[2019-06-18] MEDS: ZOFRAN ODT SL PRN ×4 (08:58→17:08)
[2019-06-18] MEDS: MYCOSTATIN POWDER TOP SCH ×2 (08:59→22:00)
[2019-06-18] MEDS: LACTULOSE PO SCH (08:59)
[2019-06-18] MEDS: MIRALAX PO SCH (08:59)
--- NOTE | 2019-06-18 12:19 | PROGRESS NOTE ---
DATE: 06/18/2019 Ms. Heredia is in about the same general condition. She is getting IV antibiotics for Enterococcus faecalis urinary tract infection. She has a stent put in the left ureter. She had vomiting spells yesterday, was seen by Dr. Renee who ordered barium swallow x-rays which revealed poor esophageal motility and diffuse spasm. She will be evaluated by the GI physicians again this morning. She is not having any problems with vomiting. Overall condition is stable. -9 cc: Amando Berman MD
[2019-06-18] MEDS: CUBICIN 500 MG in NS 100 ML IV SCH (12:40)
[2019-06-18] MEDS: KLONOPIN PO PRN ×2 (12:47→21:43)
--- NOTE | 2019-06-18 15:32 | Extremity Venous Study ---
PROCEDURE NAME: Venous U/S Right Leg - 06/17/2019 REQUESTING PHYSICIAN: Dr. Berman. PYTHON ENGINEER: Frankie. COMPARISON STUDY: From 01/18/2019. INDICATIONS: Rule out DVT. EQUIPMENT: [employer] Vivid E9 ultrasound system a 9 L-D transducer. TECHNIQUE: Images of the right lower extremity venous system with a comparison shot to the left common femoral vein were obtained in both sagittal and transverse planes. Doppler was used to evaluate veins for spontaneity, phasicity, respiratory excursion, and digital augmentation. RESULTS: Normal venous compression, normal venous flow. No obvious superficial or deep venous thrombosis noted. INTERPRETATION: Essentially normal right lower extremity venous study. cc: MD Amando Brice MD
[2019-06-18] MEDS: DESYREL PO SCH (21:43)
[2019-06-19] MEDS: NORCO-10 PO PRN ×6 (01:25→23:34)
[2019-06-19] MEDS: XOPENEX NEB INH SCH ×4 (04:43→22:27)
[2019-06-19] MEDS: PROTONIX PO SCH (06:05)
[2019-06-19] MEDS: PERIDEX MT SCH ×3 (06:18→20:56)
[2019-06-19 07:45] LABS: BASO# 0.01 X1000 (0.0-0.2); BASO% 0.1 % (0.0-0.8); EOS# 0.13 X1000 (0.0-0.7); EOS% 1.9 % (0.0-10.0); HEMATOCRIT 33.7 % (37.0-47.0); HEMOGLOBIN 10.2 g/dL (12.0-16.0); LYMPH# 1.18 X1000 (1.2-3.4); LYMPH% 17.1 % (20.5-51.1); MCH 24.6 PG (27-31); MCHC 30.3 g/dL (33-37); MCV 81.4 FL (81-99); MONO# 0.53 X1000 (0.11-0.59); MONO% 7.7 % (1.7-9.3); MPV 12.3 FL (7.4-10.4); NEUT# 5.06 X1000 (1.4-6.5); NEUT% 73.2 % (42.2-75.2); PLT 187 X1000 (130-400); RBC 4.14 XMIL (4.2-5.4); RDW 15.7 % (11.5-14.5); WBC 6.91 X1000 (4.8-10.8)
[2019-06-19 08:12] LABS: ALB/GLOB RATIO 1.4; ALBUMIN 3.9 g/dL (3.5-5.0); CALCIUM 8.6 mg/dL (8.8-10.2); POTASSIUM 2.8 mmol/L (3.5-5.1); TOTAL BILIRUBIN 0.23 mg/dL (0.20-1.00); TOTAL PROTEIN 6.7 g/dL (6.3-8.3)
[2019-06-19] MEDS: KLOR-CON PO SCH ×3 (09:44→18:41)
[2019-06-19] MEDS: LINZESS PO SCH (09:44)
[2019-06-19] MEDS: VITAMIN B-12 PO SCH (09:45)
[2019-06-19] MEDS: ZANAFLEX PO SCH ×3 (09:45→20:57)
[2019-06-19] MEDS: THERA M PLUS PO SCH (09:45)
[2019-06-19] MEDS: IMDUR PO SCH (09:45)
[2019-06-19] MEDS: LASIX PO SCH ×2 (09:45→20:57)
[2019-06-19] MEDS: COLACE PO SCH ×2 (09:45→20:57)
[2019-06-19] MEDS: UROCIT-K PO SCH ×2 (09:45→18:41)
[2019-06-19] MEDS: ZOFRAN ODT SL PRN (09:46)
[2019-06-19] MEDS: KLONOPIN PO PRN (09:46)
[2019-06-19] MEDS: CYMBALTA PO SCH (09:46)
[2019-06-19] MEDS: DITROPAN PO SCH ×3 (09:46→18:41)
[2019-06-19] MEDS: REQUIP PO SCH ×2 (09:46→20:57)
[2019-06-19] MEDS: ASPIRIN PO SCH (09:46)
[2019-06-19] MEDS: ALDACTAZIDE 25/25 PO SCH (09:46)
[2019-06-19] MEDS: DIFLUCAN PO SCH (09:46)
[2019-06-19] MEDS: LACTULOSE PO SCH (09:47)
[2019-06-19] MEDS: MYCOSTATIN SUSP PO SCH ×4 (09:47→20:57)
[2019-06-19] MEDS: MIRALAX PO SCH (09:47)
[2019-06-19] MEDS: NITROGLYCERIN 0.4 MG/HR PATCH TD SCH (09:47)
[2019-06-19] MEDS: MYCOSTATIN POWDER TOP SCH (09:47)
--- NOTE | 2019-06-19 11:16 | PROGRESS NOTE ---
DATE: 06/19/2019 Ms. Heredia's appetite is still poor. However, she is not vomiting today. Her potassium was 2.8. Hemoglobin 10.2, hematocrit 33.7, white count is 6.91. Family is requesting a chest x-ray done in the morning. We will order one on her. Overall condition is otherwise unchanged. Her extremity flow study was negative for DVT. -2 cc: Amando Berman MD
[2019-06-19] MEDS: CUBICIN 500 MG in NS 100 ML IV SCH (12:45)
[2019-06-19] MEDS: FLONASE NAS SCH (20:55)
[2019-06-19] MEDS: DESYREL PO SCH (20:57)
[2019-06-20] MEDS: NORCO-10 PO PRN ×6 (02:53→21:29)
[2019-06-20] MEDS: XOPENEX NEB INH SCH ×4 (05:29→22:24)
--- NOTE | 2019-06-20 06:17 | Diag Imaging Result Doc PS360 ---
EXAM: CHEST-PORTABLE HISTORY: poss aspiration TECHNIQUE: Single view COMPARISON: 06/01/2019 FINDINGS: Poor inspiratory effort. The patient is rotated to the right. No change in the right subclavian portacatheter. There are spinal rods and replacement of the left shoulder. The heart is borderline mildly prominent. No pulmonary edema. No consolidation. IMPRESSION: No definite infiltrates. Electronically signed by Prosper Gonzalez 06/20/2019 6:15 AM
[2019-06-20] MEDS: PROTONIX PO SCH (06:24)
[2019-06-20] MEDS: NS NEB INH SCH (07:39)
[2019-06-20] MEDS: KLOR-CON PO SCH ×3 (08:51→18:00)
[2019-06-20] MEDS: UROCIT-K PO SCH ×2 (08:51→18:01)
[2019-06-20] MEDS: ZOFRAN ODT SL PRN (09:19)
--- NOTE | 2019-06-20 09:28 | PROGRESS NOTE ---
DATE: 06/20/2019 Ms. Heredia is complaining about severe pain in both legs. Right leg was negative for DVT. I personally feel like the pain is probably coming from her back because she has severe degenerative disk disease in the lumbar spine as well as thoracic spine. Her potassium was low. We are going to repeat it. Oral intake is somewhat unsatisfactory. I talked to Dr. Hancock and he was planning to remove the stent from the left ureter. He may be doing that tomorrow. We do not know yet. If everything looks okay, we may decide to discharge her in the morning. cc: Amando Berman MD
[2019-06-20] MEDS: LINZESS PO SCH (09:38)
[2019-06-20] MEDS: CYMBALTA PO SCH (09:38)
[2019-06-20] MEDS: IMDUR PO SCH (09:38)
[2019-06-20] MEDS: VITAMIN B-12 PO SCH (09:38)
[2019-06-20] MEDS: REQUIP PO SCH ×2 (09:38→21:22)
[2019-06-20] MEDS: ALDACTAZIDE 25/25 PO SCH (09:39)
[2019-06-20] MEDS: THERA M PLUS PO SCH (09:39)
[2019-06-20] MEDS: LASIX PO SCH ×2 (09:39→21:22)
[2019-06-20] MEDS: DIFLUCAN PO SCH (09:39)
[2019-06-20] MEDS: ASPIRIN PO SCH (09:39)
[2019-06-20] MEDS: ZANAFLEX PO SCH ×3 (09:39→21:22)
[2019-06-20] MEDS: DITROPAN PO SCH ×3 (09:39→16:33)
[2019-06-20] MEDS: MYCOSTATIN SUSP PO SCH ×4 (09:40→21:21)
[2019-06-20] MEDS: LACTULOSE PO SCH ×2 (09:40→21:21)
[2019-06-20] MEDS: PERIDEX MT SCH ×2 (09:40→21:21)
[2019-06-20] MEDS: NITROGLYCERIN 0.4 MG/HR PATCH TD SCH (09:40)
[2019-06-20] MEDS: COLACE PO SCH ×2 (09:49→21:22)
[2019-06-20] MEDS: MIRALAX PO SCH ×2 (09:51→21:21)
[2019-06-20] MEDS: KLONOPIN PO PRN ×2 (12:08→21:30)
[2019-06-20] MEDS: CUBICIN 500 MG in NS 100 ML IV SCH (12:49)
--- NOTE | 2019-06-20 13:44 | GASTROENTEROLOGY PROGRESS NOTE ---
DATE: 06/20/2019 SUBJECTIVE: Ms. Kenny is a 73-year-old female resting in bed. She complained that she has no nausea but occasional vomiting, sometimes when she eats she feels like throwing up. She did eat her breakfast this morning. She has denied any abdominal pain. She also denied any bowel movements today. Last BM was 4 days ago. She also mentioned that her legs were aching bilaterally. OBJECTIVE: Vital signs: 98.5, pulse 64, respirations 18, blood pressure 100/79, oxygen saturation 97% on room air. Her weight is 168 pounds. BMI is 28.1 kg/m2. General: She is alert, oriented x3, and in no acute distress. HEENT: Pale conjunctivae, no icterus. NECK: The neck supple. Lungs: Clear to auscultation in anterior hill. Cardiovascular: Regular rate and rhythm. Abdomen: Obese, soft, nontender, nondistended. Active bowel sounds heard in all 4 quadrants. No guarding. No rebound tenderness. Midline scar noted. Suprapubic catheter in place. Extremities: No clubbing no cyanosis or edema. Pedal pulses 2+ present bilaterally. Neurologic: She is alert, oriented x3. LABS: WBC 6.1, RBC 4.14, hemoglobin 10.2, hematocrit 33.7, platelet count 187,000. Sodium 134, potassium 2.8, chloride 287, carbon dioxide 32, anion gap 15, BUN 32, creatinine 1.0, glucose 101, calcium 8.6, total bilirubin 0.23, AST 14, ALT 7, alkaline phos 109, albumin 3.9. Chest x-ray showed no definite infiltrates. Barium swallow on 06/17/2019 showed poor esophageal motility with moderate diffuse esophageal spasm. Extremity venous study showed normal venous flow. No obvious superficial or DVT noted. Urine cultures on 06/06/2019 showed Pseudomonas and enterococcus faecalis. IMPRESSION AND PLAN: UTI Nausea/Vomiting Anemia Constipation Neurogenic bladder Kidney stones Bladder stones S/P cystoscopy, stone ablation, Ureter stent placement PLAN: The patient had an EGD done in February,. The duodenum was normal. The stomach showed deformities at the pylorus. Evidence of prior PEG in the gastric body, large amount of solid food seen in the entire esophagus. No evidence of strictures or lesions seen in the distal esophagus.We will continue to follow the current plan of care. She is also getting antibiotic Cubicin 500 mg daily for her UTI, nystatin and fluconazole per ID. Patient is on Protonix 40 mg p.o. twice a day. For her constipation she is on bowel regimen MiraLAX 17 grams p.o. twice a day, Lactulose 30 ml PO BID, hold for more than 3 BM in 24 hours, Colace and Linzess 72-145 mcg QD. The patient is on multivitamin and Vitamin B12. Her H & H is 10.2 & 33.7. We will continue to monitor her CBC, BMP and follow the plan of care per PCP, ID, and Urologist. This plan was discussed with Dr. Hampton. Please call us for any further questions or concerns. Dictated by BABS Baca for Dash Hampton MD cc: MD Amando Cavanaugh MD I have seen and examined the patient myself and I agree with the above plan of care. I have discussed the above plan of care with the patient and family at bedside and all questions were answered. Please call us with any further questions. MARIO
[2019-06-20] MEDS: FLONASE NAS SCH ×2 (14:10→21:53)
--- NOTE | 2019-06-20 17:30 | INFECTIOUS DISEASE PROGRESS NO ---
DATE: 06/20/2019 PRESENT ILLNESS: Ms. Heredia has an enterococcal urinary tract infection and an oral candidiasis which is improving. She is status post cystoscopy with left ureteral stone removal and stent placement. MEDICATIONS: She is receiving daptomycin 500 mg IV every 24 hours. Today is day 7 of treatment. The patient is also receiving nystatin swish and swallow, and fluconazole 100 mg by mouth daily. PHYSICAL EXAMINATION: Vital Signs: Temperature is 98.5 degrees, pulse rate 64, respiratory rate 18, blood pressure 110/79, and O2 saturation is 97% on room air. General: This is a chronically ill-appearing, elderly female. She is lying in bed currently, in no acute distress. HEENT: Atraumatic, normocephalic. Oral mucous membranes are pink and moist. No white patches are noted. Conjunctivae are pale. Neck: The neck has a decrease in suppleness. Respiratory: Lung sounds are bilaterally clear to auscultation. No work of breathing is noted. Cardiovascular: Heart rate is regular. Abdomen: Soft and tender to palpation. Bowel sounds are active. There is a suprapubic catheter in place without any drainage or erythema noted. Integumentary: The right chest Port-A-Cath is without edema, erythema, or drainage. Neurologic: She is awake, alert, oriented, and has diminished mobility due to paraplegia to the to lower extremities, as well as left upper extremity hardware. LABORATORY AND X-RAY: None available today, but yesterday her white count was 6.91, hemoglobin 10.2, platelet count 187,000. Creatinine 1, GFR 55. Total bilirubin 0.23, AST 14, ALT 7, alkaline phosphatase 119. Chest x-ray done today showed no infiltrates. ASSESSMENT AND PLAN: Ms. Heredia has had 1 week of treatment for her enterococcal urinary tract infection using daptomycin. She will need 1 more week of treatment. She also has an oral candidiasis, and we will need to continue treatment with nystatin swish and swallow for the duration of her antibiotics. The patient is receiving daily fluconazole for a previous fungemia, which we will also continue. These plans have been discussed with and recommended by Dr. Elaine. COMORBIDITIES: The comorbidities for the patient include that she is elderly and bedridden with neurogenic bladder and suprapubic catheter. Dictated by BABS Martins for Lucio Elaine MD cc: MD Amando Mc MD [facility]
[2019-06-20] MEDS: MYCOSTATIN POWDER TOP SCH ×3 (18:14→21:58)
[2019-06-20] MEDS: DESYREL PO SCH (21:22)
[2019-06-21] MEDS: NORCO-10 PO PRN ×5 (02:01→20:35)
[2019-06-21] MEDS: XOPENEX NEB INH SCH ×4 (03:00→21:12)
[2019-06-21] MEDS: PROTONIX PO SCH ×2 (05:50→06:17)
[2019-06-21 07:17] LABS: CALCIUM 7.8 mg/dL (8.8-10.2); CREATININE 1.1 mg/dL (0.5-0.9); POTASSIUM 3.4 mmol/L (3.5-5.1)
[2019-06-21] MEDS: THERA M PLUS PO SCH (09:00)
[2019-06-21] MEDS: VITAMIN B-12 PO SCH (09:00)
[2019-06-21] MEDS: DITROPAN PO SCH ×4 (09:01→17:01)
[2019-06-21] MEDS: REQUIP PO SCH ×2 (09:01→20:34)
[2019-06-21] MEDS: LINZESS PO SCH (09:01)
[2019-06-21] MEDS: PERIDEX MT SCH (09:01)
[2019-06-21] MEDS: IMDUR PO SCH (09:01)
[2019-06-21] MEDS: KLOR-CON PO SCH ×3 (09:01→16:57)
[2019-06-21] MEDS: CYMBALTA PO SCH (09:01)
[2019-06-21] MEDS: ALDACTAZIDE 25/25 PO SCH (09:02)
[2019-06-21] MEDS: NITROGLYCERIN 0.4 MG/HR PATCH TD SCH (09:02)
[2019-06-21] MEDS: DIFLUCAN PO SCH (09:02)
[2019-06-21] MEDS: MYCOSTATIN SUSP PO SCH ×5 (09:02→20:34)
[2019-06-21] MEDS: UROCIT-K PO SCH ×2 (09:02→16:52)
[2019-06-21] MEDS: ASPIRIN PO SCH (09:02)
[2019-06-21] MEDS: LASIX PO SCH ×2 (09:02→20:35)
[2019-06-21] MEDS: COLACE PO SCH ×2 (09:02→20:34)
[2019-06-21] MEDS: LACTULOSE PO SCH ×2 (09:03→20:36)
[2019-06-21] MEDS: MIRALAX PO SCH ×2 (09:03→20:36)
[2019-06-21] MEDS: FLONASE NAS SCH ×2 (09:03→20:39)
[2019-06-21] MEDS: ZANAFLEX PO SCH ×3 (09:06→20:35)
[2019-06-21] MEDS: MYCOSTATIN POWDER TOP SCH ×2 (09:08→20:38)
[2019-06-21] MEDS: ZOFRAN ODT SL PRN (09:15)
--- NOTE | 2019-06-21 09:37 | PROGRESS NOTE ---
DATE: 06/21/2019 Ms. Heredia is getting IV therapy for Enterobacter cloacae and she is going to need it for one more week. She has candidiasis in the mouth and possibly in the esophagus. She is on Diflucan. Overall condition is otherwise unchanged. Her potassium has come back up to 3.4. I want to discharge her. However, I want to make the arrangements for home IV antibiotic therapy. I will discuss this with Dr. Elaine. -3 cc: Amando Berman MD
[2019-06-21] MEDS: CUBICIN 500 MG in NS 100 ML IV SCH (12:00)
[2019-06-21] MEDS: KLONOPIN PO PRN ×2 (12:58→20:35)
[2019-06-21] MEDS: MYCAMINE 100 MG in NS 100 ML IV SCH ×2 (12:59→13:32)
--- NOTE | 2019-06-21 15:47 | INFECTIOUS DISEASE PROGRESS NO ---
DATE: 06/21/2019 PRESENT ILLNESS: Ms. Heredia is being treated for enterococcal urinary tract infection and also has an oral candidiasis. She is status post cystoscopy with left ureteral stone removal and stent placement which has subsequently been removed. MEDICATIONS: Today, is day 8 of treatment with daptomycin 500 mg IV every 24 hours. She is also receiving nystatin swish and swallow, and a chronic dose of fluconazole 100 mg by mouth daily for previous fungemia. PHYSICAL EXAMINATION: Vital Signs: Temperature 98.1 degrees, pulse rate 59, respiratory rate 20, blood pressure 115/70, and O2 saturations 98% on room air. General: This is a chronically ill- appearing elderly female. She is lying in bed currently in no acute distress. HEENT: Atraumatic, normocephalic. Oral mucous membranes are pink and dry. Conjunctivae are pale. There is a raw lesion noted to the underneath side of her tongue. Neck: Decrease in suppleness. Respiratory: Lung sounds are clear to auscultation bilaterally. No work of breathing is noted. Cardiovascular: Heart rate is regular. Abdomen: Soft and tender to palpation on the right side. Bowel sounds are active. She has a suprapubic catheter in place. That site is without edema, erythema, or drainage. Integumentary: There is a Port-A-Cath to the right chest, that site was also without edema, erythema, or drainage. Neurologic: She is awake, alert, and oriented but forgetful. She has diminished mobility due to paraplegia and extensive left upper extremity hardware. LABORATORY AND X-RAY: No CBC today, but her creatinine is 1.1. GFR is 49. Her creatine kinase is 45. No imaging reports today. ASSESSMENT AND PLAN: Ms. Heredia has had 8 days of a 14 day treatment for her enterococcal urinary tract infection. She will need to continue daptomycin through 06/27/19. Orders have been put in for [facility] to supply her antibiotics as they normally do for her at home. Her daughter is in the room and has been instructed regarding the procedures and protocol which she is very familiar with. We will also supply her with nystatin swish and swallow to last her for a week past the end of treatment with the antibiotics. That prescription has been sent electronically to her pharmacy in [place]. She also has available at home, the fluconazole which she takes daily for the previous fungemia which we will continue. The raw area under her tongue could represent a fungal strain resistant to current regimen, so we will also add Micafungin 100mg IV daily for 2 weeks. Due to the patient's limited mobility, we will not follow up in the office. These plans have been discussed with and recommended by Dr. Elaine. COMORBIDITIES: for Ms. Heredia include that she is elderly and bedridden with neurogenic bladder and suprapubic catheter. Dictated by BABS Martins for Lucio Elaine MD cc: MD Amando Mc MD [facility]
--- NOTE | 2019-06-21 18:51 | GASTROENTEROLOGY PROGRESS NOTE ---
DATE: 06/21/2019 SUBJECTIVE: Ms. Heredia is a 73-year-old female, resting in bed. She complained of nausea but denied any vomiting and she also denied having any bowel movements today. She said she did eat breakfast fairly well. OBJECTIVE: Vital Signs: Temperature 98.1 degrees, pulse 60, respirations 18, blood pressure 113/70, oxygen saturation 94% on room air. The patient's weight is 168 pounds. BMI is 28.1 kg/m2. General: She is alert, oriented x3, and in no acute distress. HEENT: Pale conjunctivae. No icterus. PERRL. Neck: Supple. Lungs: Clear to auscultation in the anterior hill. Cardiovascular: Regular rate and rhythm. The patient has a port on the right side. Abdomen: Obese, soft, nontender. Active bowel sounds heard in all 4 quadrants. Midline scar noted. Suprapubic catheter is in place. Extremities: No clubbing, cyanosis, generalized edema in the lower extremities, unable to move left hand. Pedal pulses 2+, present bilaterally. Neuro: Alert and oriented x3. LAB: WBC is 6.91, RBC 4.14, hemoglobin 10.2, hematocrit 33.7, platelet count is 187,000. Sodium 132, potassium 3.4, chloride 98, carbon dioxide 34, anion gap 10, BUN 38, creatinine 1.1. Chest x- ray showed no definite infiltrate. IMPRESSIONS: 1. Urinary tract infection. 2. Nausea, vomiting. 3. Anemia. 4. Constipation. 5. Neurogenic bladder. 6. Kidney stones and bladder stones, status post cystoscopy, stone ablation, ureter stent placement. 7. Dysphagia PLAN: The patient had an EGD done in February 2019. The duodenum was normal. Stomach showed deformities of the pylorus. There was evidence of prior PEG in the gastric body. There was a large amount of solid food in the entire esophagus. No evidence of strictures. We will continue with the current plan of care. Patient is on Protonix 40 mg p.o. and multivitamins. For her bowel regimen she is on Linzess 74-145 mcg daily, Colace, MiraLAX and lactulose 30 ml hold if more than 3 BM's in 24 hours. She is on antibiotic Cubicin for UTI per ID. Her H & H today was 10.2 and 33.7. We will continue to monitor her CBCs and BMPs and follow the plan of care per PCP, Urologist, and ID . This plan was discussed with Dr. Renee. Please call us with any further questions or concerns. Dictated by BABS Baca for Eb Renee MD cc: Amando Berman MD Physician Attestation I have seen and examined the patient. I have discussed and reviewed the the note by Maribel BRICE and agree with findings and plan as documented. In brief, Ms. 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 Esophagram during admission shows signs of motility disorder, which was suspected previously. She also does not have dentures and has trouble chewing food. Recommend mechanical soft diet and dysphagia precautions. Continue PPI and antiemetics. Family would like to hold of on PEG tube for now. She is on bowel regimen per primary team. Will sign off. Please call with questions. MTDD
[2019-06-21] MEDS: DESYREL PO SCH (20:35)
[2019-06-22] MEDS: NORCO-10 PO PRN ×3 (00:02→06:56)
[2019-06-22] MEDS: PERIDEX MT SCH (01:13)
[2019-06-22] MEDS: XOPENEX NEB INH SCH ×2 (03:19→09:45)
[2019-06-22] MEDS: PROTONIX PO SCH (06:56)
[2019-06-22 07:40] VITALS: BP 110/70
[2019-06-22] MEDS: CYMBALTA PO SCH (08:28)
[2019-06-22] MEDS: VITAMIN B-12 PO SCH (08:28)
[2019-06-22] MEDS: MYCOSTATIN SUSP PO SCH (08:28)
[2019-06-22] MEDS: DIFLUCAN PO SCH (08:28)
[2019-06-22] MEDS: NITROGLYCERIN 0.4 MG/HR PATCH TD SCH (08:28)
[2019-06-22] MEDS: LASIX PO SCH (08:29)
[2019-06-22] MEDS: KLOR-CON PO SCH (08:29)
[2019-06-22] MEDS: REQUIP PO SCH (08:29)
[2019-06-22] MEDS: ASPIRIN PO SCH (08:29)
[2019-06-22] MEDS: THERA M PLUS PO SCH (08:29)
[2019-06-22] MEDS: DITROPAN PO SCH (08:29)
[2019-06-22] MEDS: IMDUR PO SCH (08:29)
[2019-06-22] MEDS: UROCIT-K PO SCH (08:29)
[2019-06-22] MEDS: ZANAFLEX PO SCH (08:29)
[2019-06-22] MEDS: MIRALAX PO SCH (08:29)
[2019-06-22] MEDS: LINZESS PO SCH (08:29)
[2019-06-22] MEDS: FLONASE NAS SCH (08:30)
[2019-06-22] MEDS: LACTULOSE PO SCH (08:31)
--- NOTE | 2019-06-22 09:53 | PROGRESS NOTE ---
DATE: 06/22/2019 SUBJECTIVE: Ms. Heredia is doing better. Her lungs are clear. Heart sounds are normal. Dr. Elaine is going to make arrangements for outpatient antibiotic therapy and she is going daptomycin through 06/25/2018 and orders has been put in for [facility] to supply antibiotics as they normally do for her home. A we will discharge her today. -4 cc: Amando Berman MD [facility]
[2019-06-22] MEDS: ALDACTAZIDE 25/25 PO SCH (10:02)
[2019-06-22] MEDS: MYCOSTATIN POWDER TOP SCH (10:04)
[2019-06-22] MEDS: COLACE PO SCH ×2 (10:07→10:08)
--- NOTE | 2019-06-24 05:26 | DISCHARGE SUMMARY ---
ADMISSION DATE: 06/01/2019 DISCHARGE DATE: 06/22/2019 HISTORY: Ms. Heredia is a 73-year-old white female who was admitted with resistant Pseudomonas urinary tract infection. LABORATORY DATA: In the hospital, chest x-ray revealed low lung volumes, otherwise it was negative. EKG revealed normal sinus rhythm, low voltage, borderline EKG. The wrist x-ray was negative. Elbow x-ray showed the christo that was protruding out of the bone distally and was stable sideplate and several cerclage wires. Soft tissue density was noted around the distal humerus. A renal CT scan revealed bilateral nephrolithiasis with left distal ureter lithiasis and severe hydronephrosis with cortical atrophy on the left. COURSE IN HOSPITAL: Ms. Heredia was initially treated with IV cefepime. She was seen by Dr. Elaine also. Initially, we gave her tobramycin. Dr. Elaine changed it to cefepime. She has really not been allergic to it. During this stay, she had several problems. Initially, she started having more swelling of the left arm and blistering. Orthopedic consult was made for the left arm problem. Dr. Sahu mentioned that she needed surgery, but he cannot do it here. He can refer her to [facility], however, we discussed with the family and they were somewhat reluctant to go for another extensive surgery. She had difficulty in swallowing. She had some retained food in the stomach during the last EGD that was performed. Dr. Renee had seen her, and he ordered an esophagogram. The barium swallow revealed presence of poor esophageal motility and motor diffuse esophageal spasm. She was continued on her Prilosec and Protonix, and asked to chew her food properly and then swallow slowly. No other intervention was noted. She had a change in the suprapubic catheter on account of recurrent infections. A CT scan was made and she had hydronephrosis. Dr. Hancock was called in. Dr. Hancock put a stent in the left ureter, and some infected urine came. The urine culture was repeated, and the second time it grew Enterococcus faecalis, which was treated by Dr. Elaine with the doxycycline and daptomycin. At the time of discharge, she had not received enough antibiotics. She was supposed to get IV daptomycin up to 06/27, and she decided to go home so arrangements were made by Dr. Elaine to get the home IV antibiotic therapy. She will be seen in the office at a later gina. The IV tizanidine helped her muscles spasms. She also had fungal infections in the mouth, which were treated accordingly with Diflucan. She had history of fungemia in the past. FINAL DIAGNOSES: 1. Recurrent urinary tract infections with pseudomonas and later on with E. Faecalis. with E faecalis. 2. Hydronephrosis in the left kidney with a stone in the left ureterovesical junction. The stent was put in and later on removed. She had difficulty in swallowing with esophageal spasm. 3. Swelling of the left arm with deformity of the left upper arm and possible displacement of the hardware. She will be going home and will be cared by her daughter. cc: Amando Berman MD
--- NOTE | 2019-08-24 17:31 | OPERATIVE NOTE ---
PROCEDURE DATE: 06/15/2019 SURGEON: Kavin Hancock MD PREOPERATIVE DIAGNOSES: 1. Left 8 mm distal ureteral stone. 2. Left renal stones. 3. Hydronephrosis. 4. Urinary tract infection. 5. History of recurrent urinary tract infections. POSTOPERATIVE DIAGNOSES: 1. Left 8 mm distal ureteral stone. 2. Left renal stones. 3. Hydronephrosis. 4. Urinary tract infection. 5. History of recurrent urinary tract infections. PROCEDURES PERFORMED: 1. Left ureteroscopy with laser lithotripsy of ureteral stone. 2. Laser lithotripsy and stone basket extraction of several renal stones. 3. Left ureteral stent placement. INDICATIONS: A 73-year-old female who is quadriplegic who has recurrent urolithiasis and UTIs. She has had multiple interventions for her renal stones including lithotripsy, ureteroscopy, and percutaneous nephrostolithotomy. She was admitted with another symptomatic urinary tract infection and had a CT scan on 06/12/2019 which revealed 8 mm left distal ureteral stone with hydroureteronephrosis, as well as several left renal stones and renal parenchymal thickening. She was counselled on ureteral stone causing hydronephrosis and contributing to urinary tract infections. She was counseled on ureteroscopy of both ureteral stone and attempted ureteroscopy of renal stones and wants to proceed. FINDINGS: Successful break up and removal of left distal ureteral stone, I treated a 6 mm as well as 8 mm left renal stones, adequate 6-Emirati x 24 cm ureteral stent placement. The stone fragments were sent for gross identification only and not for stone analysis. DESCRIPTION OF PROCEDURE: After obtaining informed consent, the patient was brought to the operating room. Perioperative antibiotics and general anesthesia were administered. She was placed in lithotomy position with her upper and lower extremities appropriately padded. She was prepped and draped in a sterile fashion. A 21-Emirati rigid cystoscope was introduced and the bladder was briefly inspected. We kept the suprapubic tube in place. Her bladder showed no evidence of concerning mucosal lesions. There were a few trabeculations, but no sizable diverticula noted. There were no stones within the bladder lumen. Attention was then turned to the left ureteral orifice, which was cannulated with PTFE wire. It was advanced to the level of the left renal pelvis as confirmed by fluoroscopy. This was followed by introduction of a rigid ureteroscope alongside of the wire. The stone was seen several centimeters into the ureteral orifice. It appeared to be fairly impacted with significant mucosal heaping around it. I used Zero Nitinol basket. I advanced it proximal to the stone. This was followed by introduction of 365 micron Holmium laser fiber, and using energy setting of 1 joule and a frequency of 10 hertz, we broke the ureteral stone up into smaller fragments. Following that, the fragments were extracted, and again sent off for gross identification only. I then introduced the flexible ureteroscope alongside of the wire and advanced it up to the level of the left renal pelvis. She had stones in the upper pole, as well as in the lower pole. I started with treating the stone in the upper pole. Again 365 micron laser fiber was used to break the stone up with identical settings with the holmium laser. I dressed the 6 mm stone. There was also what appeared to be a 5 to 6 mm stone which was addressed also. She had a sizeable stone in her lower pole, but due to the very acute angle to enter into the calyx despite trying retrograde flexion, I could not advance the ureteroscope into the lower pole of the kidney. Hence, after trying for several attempts, we elected to stop at the time. The flexible ureteroscope was slowly withdrawn and the entire ureter was visualized. There was no evidence of ureteral injury. There was quite a bit of mucosal edema at the level of the previous ureteral stone. We were satisfied with having addressed both ureteral stone and 2 left renal stones. We placed a 6-Emirati x 24 cm ureteral stent via the cystoscope over the wire. The proximal coil position confirmed fluoroscopically, distal coil directly visualized. The string was left attached to the stent. Bladder was emptied. Cystoscope was removed. Prior to the cystoscope removal, we made sure that the suprapubic tube remained in good position and there was no injury to the balloon of the tube. She was then extubated and taken to PACU for further recovery. ESTIMATED BLOOD LOSS: None. COMPLICATIONS: None. SPECIMENS REMOVED: Ureteral stone fragment, renal stone fragments which were sent off for gross identification only. DRAINS: A 6-Emirati x 24 cm stent. DISPOSITION: To PACU, subsequently to floor for observation with suprapubic tube to gravity drainage. cc: MD Amando Castro MD
== END 2019-06-22 10:11 | disposition home health service (06) | DRG 660 ==
LOC: OBSVTOIN 10:20 → DIRADM 10:20 → INTOOBSV 10:20 → EDIPHOLD 13:12 → 4N 16:21
PROVIDERS: ADMIT Internal Medicine; ATTEND Internal Medicine

== ENCOUNTER 2019-07-05 18:44 | Inpatient (IN) ==
[2019-07-05] MEDS ORDERED: LR 1,000 ML IV ONE (19:48)
--- NOTE | 2019-07-05 19:49 | PROVIDER DOCUMENTATION ---
HPI-Abdominal Pain/GI Problem - General Chief Complaint: Abdominal Pain Stated Complaint: generalzed pain Time Seen by Provider: 07/05/19 18:59 Source: patient, family Allergies/Adverse Reactions: Patient Allergies Allergy/AdvReac Type Severity Reaction Status Date / Time codeine [Codeine] Allergy Unknown Unknown Verified 12/28/18 17:06 meperidine HCl * Allergy Unknown Unknown Verified 12/28/18 17:06 [From Demerol] metoclopramide HCl * Allergy Unknown Unknown Verified 12/28/18 17:06 [From Reglan] Penicillins Allergy Unknown Unknown Verified 12/28/18 17:06 Sulfa (Sulfonamide Allergy Unknown Unknown Verified 12/28/18 17:06 Antibiotics) cefepime AdvReac Intermediate Unknown Verified 03/18/19 15:53 Home Medications: Home Medication List Medication Instructions Recorded Confirmed Last Taken Type Aspirin 81 mg PO QAM 07/10/18 07/05/19 06/01/19 09:30 History Isosorbide Mononitrate [Isosorbide 60 mg PO QAM 07/10/18 07/05/19 06/01/19 09:00 History Mononitrate ER] Multivitamin [Multivitamins] 1 each PO QAM 07/10/18 07/05/19 06/01/19 09:00 History Nitroglycerin [Nitroglycerin 0.4 1 each TD QAM 07/10/18 07/05/19 06/01/19 09:00 History mg/Hr Patch] Ropinirole HCl 2 mg PO BID 07/10/18 07/05/19 06/01/19 09:00 History Pantoprazole [Protonix] 40 mg PO QAM tablet 07/23/18 07/05/19 06/01/19 09:00 Rx Duloxetine [Cymbalta] 60 mg PO QAM capsule 09/14/18 07/05/19 06/01/19 09:00 Rx Fluconazole [Diflucan] 100 mg PO DAILY tablet 09/14/18 07/05/19 06/01/19 09:00 Rx Cyanocobalamin (Vitamin B-12) 2,500 mcg PO DAILY 10/13/18 07/05/19 06/01/19 09:00 History [B-12] 2500 mcg Hydrocodone/APAP 10 mg/325 mg 1 each PO Q6H PRN 10/13/18 07/05/19 06/01/19 09:00 History [[place]-10] Spironolact/Hydrochlorothiazid 1 each PO QAM 10/13/18 07/05/19 06/01/19 09:00 History [Aldactazide 25-25 Tablet] 25 mg Acetaminophen [Tylenol] 500 mg PO Q6H PRN PRN tab 10/25/18 07/05/19 05/30/19 21:30 Rx Clonazepam [Klonopin] 0.5 mg PO BID PRN PRN 12/28/18 07/05/19 05/31/19 21:00 History Linaclotide [Linzess] 1 - 2 cap PO DAILY PRN 12/28/18 07/05/19 06/01/19 08:00 History 72 mcg Potassium Chloride E.r. [Klor-Con] 10 meq PO BID 12/28/18 07/05/19 06/01/19 09:00 History Lactulose [Kristalose] 20 gm PO DAILY PRN 12/29/18 07/05/19 Unknown History Furosemide [Lasix] 40 mg PO BID tab 01/14/19 07/05/19 06/01/19 09:00 Rx Trazodone [Desyrel] 50 mg PO QHS tab 01/14/19 07/05/19 05/31/19 21:30 Rx Docusate Sodium [Colace] 100 mg PO BID cap 01/20/19 07/05/19 06/01/19 09:00 Rx Saline Nasal [place] [[place] Nasal 2 ml INTRANASAL PRN PRN bottle 03/24/19 07/05/19 05/30/19 21:00 Rx [place]] Lactobacillus Combo No.10 1 ea PO DAILY 06/01/19 07/05/19 06/01/19 09:00 History [Probiotic] Potassium Citrate E.r. [Urocit-K] 20 meq PO BID CC 06/01/19 07/05/19 06/01/19 09:00 History Benzocaine/Menthol Lozenge 1 ea MT PRN PRN box 06/22/19 07/05/19 Unknown Rx [Chloraseptic Sore Throat Lozenge] Fluticasone 50 Mcg Nasal [place] 2 spray INTRANASAL BID bottle 06/22/19 07/05/19 Unknown Rx [Flonase] Nitroglycerin Sl [Nitroglycerin] 0.4 mg SUBLINGUAL Q5M PRN PRN tab 06/22/19 07/05/19 Unknown Rx Ondansetron Odt [Zofran Odt] 4 mg SUBLINGUAL TID PRN PRN tab 06/22/19 07/05/19 Unknown Rx Nystatin 1 dose PO AC + HS 07/05/19 07/05/19 Unknown History Oxybutynin [Ditropan] 5 mg PO BID 07/05/19 07/05/19 Unknown History Polyethylene Glycol 3350 [Miralax] 17 gm PO DAILY PRN 07/05/19 07/05/19 Unknown History Tizanidine [Zanaflex] 4 mg PO BID 07/05/19 07/05/19 Unknown History - History of Present Illness-ABD Nature of Presenting Problems: 73 yr old F, with hx of recurrent UTIs, left sided paralysis; presents to the ED with complaints of hematuria and abdominal pain. The pt's daughter notes that the pt was recently discharged from the hospital with UTI, and had a different type of suprapubic catheter placed - specifically a different kind of material, not the usual latex. This change occurred last Thursday, and the pt has been complaining of increasing abdominal pain since. When the home health nurse came to change out the catheter (it is set to be changed q 3 wks), the nurse noted a large blood clot in the bag, and recommended the family come in to the ED for further evaluation. The daughter also notes that the patient has not been eating or drinking much over the past few days because of her abdominal discomfort. Abdominal Pain Onset Location: reports: suprapubic Pain Radiation: reports: RUQ, LUQ, RLQ, LLQ, chest Severity in ED: reports: moderate Onset/Duration: reports: 1 week ago Timing: reports: still present Exposure to sick contacts?: No Modifying Factors: improves with: analgesics Associated Symptoms: reports: swelling/mass in abdomen Bruising or Bleeding Gums?: No Review of Systems - Adult - REVIEW OF SYSTEMS - ADULT Constitutional: reports: no symptoms reported Eyes: reports: no symptoms reported Ears, Nose, Mouth & Throat: reports: no symptoms reported Cardiovascular: reports: no symptoms reported Respiratory: reports: no symptoms reported Gastrointestinal: reports: abdominal pain Genitourinary: reports: urgency Musculoskeletal: reports: back pain Integumentary: reports: skin sores/ulcer Neurological: reports: other (no new symptoms, pt has paralysis) Past History - Adult - PAST MEDICAL HISTORY-ADULT Review of Records: reports: Old Records Reviewed, Nursing Assessment Review Major Childhood Illnesses: reports: denies history Cardiovascular: reports: CHF Respiratory: reports: asthma, COPD Gastrointestinal: reports: denies history Obstetrical/Gynecological: reports: denies history Genitourinary: reports: chronic UTI's Musculoskeletal: reports: denies history Neurological: reports: Parkinson's, other (paralysis) Psychiatric: reports: denies history Endocrine/Immune: reports: denies history Other Conditions: reports: denies history Additional History: paralysis from left arm and bilateral legs - PRIOR SURGERIES/PROCEDURES Surgical/Procedure History: reports: cholecystectomy, tonsillectomy, hernia repair, orthopedic (extremity) (shoulder), joint replacement (TKR) - IMMUNIZATION STATUS Childhood Immunizations: See Nurse Assessment Flu Vaccine: See Nurse Assessment - FAMILY HISTORY Family History: reviewed, not pertinent Physical Exam-General - PHYSICAL EXAM-ADULT Initial Vital Signs Reviewed: Yes - CONSTITUTIONAL General Appearance: alert, mild distress - EYES Eyes: PERRL/EOMI - HEAD, EARS, NOSE, MOUTH & THROAT HENMT: normocephalic/atraumatic, other (dry mucus membranes) - RESPIRATORY Respiratory: lungs clear, normal breath sounds - CARDIOVASCULAR Cardiovascular: regular rate, rhythm - GASTROINTESTINAL (ABDOMEN) Abdominal Exam: abnormal bowel sounds (hypoactive), tenderness, hernia (pt has hx of hernia; there is a protrusion in the abdomen on the RLQ that is somewhat tender to palpation) - MUSCULOSKELETAL Extremity: no calf tenderness - SKIN Integumentary: other (frail skin, on backside, superficial abrasions, no ulcerations noted, dry, scaly hyperpigmented skin) - NEUROLOGIC Neurologic: other (baseline chronic deficits) - PSYCHIATRIC Psych/Mental Status: oriented x 3, anxious Progress - PLAN OF CARE/RESULTS Progress/Plan/Lab Results: Vital Signs - 8 hr 07/05/19 18:52 Temperature 98.2 F Pulse Rate 89 Respiratory Rate 18 Blood Pressure 112/76 O2 Sat by Pulse Oximetry 97 Orders Category Date Time Status CT ABD/PELVIS W/IV CONT ONLY [CT] Stat Exams 07/05/19 19:03 Ordered CBC WITH ELECTRONIC DIFF [HEME] Stat Lab 07/05/19 19:02 Ordered COMPREHENSIVE METABOLIC PANEL [CHEM] Stat Lab 07/05/19 19:02 Ordered URINALYSIS W/POSS RFLX CULT [URINALYSIS] Stat Lab 07/05/19 19:02 Uncollected Lr 1000 ml IV Bolus X1 Med 07/05/19 19:48 Ordered Lactated Ringers Inj [Lr] 1,000 ml IV 999 mls/hr Discussed findings of worsening hydrouretonephrosis with hospitalist; also spoke with Urology who is familiar with the pt; they agree that admission is reasonable, with Urology f/u in the AM. Hospitalist accepts admission. Result Diagrams: 07/05/19 19:38 07/05/19 19:38 - EKG 1 Time of EKG reading by physician:: 20:20 EKG Read and Signed by:: Mahamed Ortega EKG Interpretation (*Must complete 3 of following elements*): Abnormal Rate: 79 Rhythm: sinus [place]: normal QRS: normal MT Interval: normal ST Wave: non-specific ST changes - CT/MRI 1 CT Study: Abdomen, Pelvis Impression: See EMR Report CT Results: worsening right hydrouretonephrosis - CONSULTS/PCP/HOSPITALIST Notification #1 *Consult/PCP/Hospitalist*: Dr. Tim Time Discussed: 22:40 Consult Disposition: Admit #2 Consult: Dr. Willoughby (Urology) Time Discussed: 23:10 Reason/Comments: Agrees that admission is reasonable; states that Dr. Hancock will f/u in AM Departure - Departure Date of Disposition Decision: 07/06/19 Time of Disposition Decision: 01:17 DIAGNOSIS: Abdominal pain UTI (urinary tract infection) Qualifiers: Urinary tract infection type: acute cystitis Hematuria presence: without hematuria Qualified Code(s): N30.00 - Acute cystitis without hematuria Disposition: ADMITTED INPATIENT 09 Certified Medical Emergency: Emergent Condition: Fair Referrals and Follow-Ups: Amando Berman MD [Primary Care Provider] - - Critical Care Note This patient required my direct & personal management of CC.: No Attestation - Physician/ YOKO Attestation Patient care was provided by Advanced Practice Provider:: No The physician spent face to face time with patient:: Yes Advanced Practice Provider documentation review:: Supervising physician onsite and consulted in the evaluation and care of this patient. The physician did have a face to face encounter with the patient.
[2019-07-05] MEDS ORDERED: NORCO-10 PO ONE (19:59)
[2019-07-05 20:02] LABS: BASO# 0.01 X1000 (0.0-0.2); BASO% 0.1 % (0.0-0.8); EOS# 0.05 X1000 (0.0-0.7); EOS% 0.4 % (0.0-10.0); HEMATOCRIT 32.7 % (37.0-47.0); HEMOGLOBIN 10.5 g/dL (12.0-16.0); LYMPH# 1.46 X1000 (1.2-3.4); LYMPH% 10.3 % (20.5-51.1); MCH 25.3 PG (27-31); MCHC 32.1 g/dL (33-37); MCV 78.8 FL (81-99); MONO# 0.74 X1000 (0.11-0.59); MONO% 5.2 % (1.7-9.3); MPV 10.6 FL (7.4-10.4); NEUT# 11.94 X1000 (1.4-6.5); PLT 332 X1000 (130-400); RBC 4.15 XMIL (4.2-5.4); RDW 15.5 % (11.5-14.5)
[2019-07-05 20:07] LABS: URINE SOURCE CATH
[2019-07-05 20:10] LABS: BILIRUBIN URINE NEGATIVE (NEGATIVE); BLOOD URINE NEGATIVE (NEGATIVE); COLOR YELLOW; GLUCOSE URINE NEGATIVE (NEGATIVE); KETONE URINE NEGATIVE (NEGATIVE); LEUKOCYTES URINE LARGE (NEGATIVE); NITRITE URINE NEGATIVE (NEGATIVE); PH URINE 7.5; PROTEIN URINE TRACE mg/dL (NEGATIVE); TURBIDITY URINE HAZY (CLEAR); UR EPITHELIAL CELLS <10 /HPF (<10); URINE BACTERIA NEGATIVE /HPF; URINE RBC <10 /HPF (<10); URINE WBC TNTC /HPF (<10); UROBILINOGEN URINE NORMAL (NORMAL)
[2019-07-05 20:14] LABS: ALB/GLOB RATIO 1.3; ALBUMIN 3.8 g/dL (3.5-5.0); CALCIUM 8.8 mg/dL (8.8-10.2); CREATININE 1.2 mg/dL (0.5-0.9); POTASSIUM 3.2 mmol/L (3.5-5.1); TOTAL BILIRUBIN 0.2 mg/dL (0.20-1.00); TOTAL PROTEIN 6.8 g/dL (6.3-8.3)
[2019-07-05] MEDS ORDERED: XYLOCAINE-MPF 1% INJ ONE (20:29)
[2019-07-05] MEDS ORDERED: ROCEPHIN IV ONE (20:29)
--- NOTE | 2019-07-05 22:01 | EKG Report ---
Test Performed on : 07/05/2019 8:17:10 PM Test Reason : abdominal pain Blood Pressure : / mmHG Vent. Rate : 079 BPM Atrial Rate : 079 BPM P-R Int : 168 ms QRS Dur : 078 ms QT Int : 298 ms P-R-T Axes : 041 028 002 degrees QTc Int : 341 ms Normal sinus rhythm. ST & T wave abnormality, consider inferior ischemia Abnormal ECG When compared with ECG of 13-JUN-2019 06:19, Nonspecific T wave abnormality now evident in Anterolateral leads QT has shortened Unconfirmed Result
--- NOTE | 2019-07-05 22:04 | Diag Imaging Result Doc PS360 ---
CT ABD/PELVIS W/IV CONT ONLY - 07/05/2019 INDICATION: abdominal pain, hematuria COMPARISON: 06/12/2019 FINDINGS: No infiltrates in the lung bases. There are bilateral renal stones stable from prior. There is a stable obstructing left distal ureter stone. Stable severe left hydroureteronephrosis. There is moderate right hydroureteronephrosis. Stable suprapubic catheter. The urinary bladder appears collapsed. There is extremely severe constipation with rectal stool impaction. There are extensive surgical changes to the spine and hips. IMPRESSION: Obstructing left distal ureter stone stable from prior. Worsening right hydroureteronephrosis. The reason is not obvious. Extremely severe constipation with rectal stool impaction. This exam was performed using automated exposure control, adjustment of mA or kV according to patient size, and/or use of iterative reconstruction technique Electronically signed by Darryl Moore 07/05/2019 10:01 PM
[2019-07-05] MEDS ORDERED: NS 50 ML ONE (22:18)
[2019-07-06] MEDS ORDERED: FLEET MINERAL OIL ENEMA PR ONE (02:56)
[2019-07-06] MEDS ORDERED: KLOR-CON PO ONE (03:16)
[2019-07-06] MEDS ORDERED: TYLENOL PO PRN (03:17)
[2019-07-06] MEDS ORDERED: NS 1,000 ML IV SCH (04:15)
[2019-07-06] MEDS: ZANAFLEX PO PRN (05:39)
[2019-07-06] MEDS: NORCO-10 PO PRN ×3 (05:39→20:00)
[2019-07-06 08:50] LABS: BASO# 0.01 X1000 (0.0-0.2); BASO% 0.1 % (0.0-0.8); EOS# 0.02 X1000 (0.0-0.7); EOS% 0.2 % (0.0-10.0); HEMATOCRIT 30.8 % (37.0-47.0); HEMOGLOBIN 9.6 g/dL (12.0-16.0); IMM GRAN# 0.02 X1000 (0.0-0.04); IMM GRAN% 0.2 % (0.0-0.5); LYMPH% 13.1 % (20.5-51.1); MCH 24.4 PG (27-31); MCHC 31.2 g/dL (33-37); MCV 78.4 FL (81-99); MONO# 0.43 X1000 (0.11-0.59); MONO% 4.3 % (1.7-9.3); MPV 10.4 FL (7.4-10.4); NEUT# 8.15 X1000 (1.4-6.5); NEUT% 82.1 % (42.2-75.2); PLT 330 X1000 (130-400); RBC 3.93 XMIL (4.2-5.4); RDW 15.2 % (11.5-14.5); WBC 9.93 X1000 (4.8-10.8)
[2019-07-06] MEDS ORDERED: LINZESS PO PRN (09:00)
[2019-07-06] MEDS: MYCOSTATIN SUSP PO SCH ×4 (10:00→19:59)
[2019-07-06] MEDS: DIFLUCAN PO SCH (10:04)
[2019-07-06] MEDS: COLACE PO SCH ×2 (10:04→20:00)
[2019-07-06] MEDS: PRILOSEC PO SCH (10:04)
[2019-07-06] MEDS: CULTURELLE PO SCH (10:04)
[2019-07-06] MEDS: MIRALAX PO SCH (10:04)
[2019-07-06] MEDS: DITROPAN PO SCH ×2 (10:04→19:59)
[2019-07-06] MEDS: MYCOSTATIN POWDER TOP SCH ×2 (10:14→19:59)
[2019-07-06 10:17] LABS: CALCIUM 8.6 mg/dL (8.8-10.2)
--- NOTE | 2019-07-06 10:29 | HISTORY AND PHYSICAL ---
PRIMARY CARE PROVIDER: Dr. Amando Berman. UROLOGIST: Dr. Hancock. PERFORATOR TYPIST: Dr. Renee. DATE AND TIME: 07/06/2019 at 0300. CHIEF COMPLAINT: Abdominal pain. HISTORY OF PRESENT ILLNESS: Ms Heredia is a 73-year-old female who has a history of multiple medical problems. Please see past medical history list below, though most pertinently, she does have an history of left-sided paralysis with resultant neurogenic bladder secondary to a fall for which she sustained a cervical neck injury. She does now have a suprapubic catheter in place and does have problems with recurrent urinary tract infections. She has a history of known renal, renal stones, lithotripsies, and has had stent placement secondary to this. She also has had problems with recurrent urinary tract infections for which she is followed by Dr. Elaine for as well. Most recently, she has had urine cultures that were positive for enterococcal faecalis and Pseudomonas. She just did complete a regimen of daptomycin IV since her most recent discharge. She is on chronic fluconazole for history of fungemia. She also has been treated for problems with oral candidiasis and sores as well and she does have continued problems with constipation. The patient's daughter states that approximately 1 week ago on Thursday she did have her suprapubic catheter replaced and they did replace it with a different type catheter. She said usually they have a latex catheter that is very flexible. They did place a non latex catheter that was made of a harder material. She stated that since they placed it that her mother did complain about discomfort and Thursday she began having problems with not having any urine output from her catheter. She states this continued to decline over the weekend and on Thursday, the 05 of July, the home health nurse came back out to draw some blood and do some labs and she had her look at the catheter and ultimately did replace it and when they replaced it, there was a large blood clot noted from what I understand, near where the eyelets are on the catheter tip. They have replaced it since then and her Arnold catheter is still draining well at this time. Her bag was almost completely full of urine when I was at bedside though she still was having some pain in her back as well as right side flank pain. She also is complaining of just generalized diffuse abdominal pain. The patient has not had a bowel movement since Thursday from what I understand and does have continued problems with constipation and takes multiple medicines for this. Though she is complaining of pressure and pain in her rectal area and her abdomen is distended and does have some generalized tenderness noted, though does have bowel sounds present. Her daughter states that she has been giving her regular medicines for her bowel regimen, though they have not been helping. The patient states that since she has been having abdominal pain that she has not been eating and drinking well either. They did decide to hold her Lasix, which was probably a good idea given that she has not had great oral intake. The patient does complain of some chronic sinus congestion, nonproductive cough, and chronic pain. Outside of her abdominal pain other than this did not report any other symptoms. She denied any fever, body aches, chills. She denied any shortness of breath, chest or chest pain. She denied any nausea or vomiting. She has been constipated and has not reported any diarrhea. She has had the urinary symptoms as mentioned above and she does have chronic swelling in her bilateral lower extremities. Her daughter states that her right leg does stay more swollen than her left though she reports that her legs actually look better at this time. Upon evaluation in the ER, she was noted to have some mild leukocytosis with a white blood cell count of 14,200, hemoglobin and hematocrit are stable. Chemistry revealed maybe some mild dehydration. She did have a slightly low sodium, potassium, and chloride. She does have maybe a slight acute kidney injury as well with a bump in her creatinine from her baseline of 1.0 to 1.2. Urinalysis did show large leukocytes, and too numerous to count white blood cells. It was negative for ketones, blood or nitrites as well as bacteria. Though given her abdominal pain and reported constipation, I did perform a CT of the abdomen and pelvis with IV contrast only which did show an obstructing left distal ureter stone which is stable from prior. There was worsening right hydroureteronephrosis. The reason for this though was not obvious. There was also noted to be extreme severe constipation with rectal stool impaction. The ER physician did consult Dr. Willoughby who is on-call for Dr. Hancock. He did think that the patient did need to be admitted for evaluation by Dr. Hancock in the morning as well as for treatment for her constipation. The patient was placed inpatient admission for further treatment and evaluation. REVIEW OF SYSTEMS: A 14 point review of systems was conducted with the patient and all were negative except for pertinent positives mentioned in the HPI. PAST MEDICAL HISTORY: 1. History of left-sided paralysis with resultant neurogenic bladder secondary to a fall with cervical injury. 2. Neurogenic bladder now with suprapubic catheter. 3. Recurrent urinary tract infections. 4. Recurrent renal and bladder stones status post lithotripsy and stent placement. 5. Recent urinary tract infections positive for enterococcal faecalis and Pseudomonas. 6. Hypertension. 7. Degenerative disk disease. 8. Chronic pain. 9. Multiple orthopedic surgeries. 10. Osteoporosis. 11. Dementia. 12. Depression and anxiety. 13. History of fungemia. 14. History of congestive heart failure. 15. History of diverticulosis and diverticular bleed. 16. Chronic constipation. 17. Recurrent problems with oral candidiasis. PAST SURGICAL HISTORY: 1. Right femoral neck fracture. 2. History of lithotripsies and a renal stent placements with Dr. Hancock. 3. Cervical fusion. 4. Thoracic and lumbar spine surgery. 5. Left shoulder arthroplasty, which I understand that the patient has had a hardware failure and that the christo in her left upper arm seems has reportedly migrated out of the bone. Though she has been evaluated by orthopedic surgery for this recently in May 2019. 6. Abdominal hernia repair. 7. Hysterectomy. 8. Knee replacement. 9. History of placement of suprapubic catheter. SOCIAL HISTORY: The patient has no known alcohol, tobacco, or illicit drug use. She does live with her daughter who helps take care of her. She does have home health that comes out and checks on her. She is unfortunately bed-bound secondary to her cervical injury. FAMILY HISTORY: Positive for coronary artery disease. ALLERGIES: Patient has allergies to codeine, Demerol, Reglan, penicillin, sulfa and Cefepime. HOME MEDICATIONS: 1. Aspirin 81 mg p.o. daily. 2. Chloraseptic sore throat lozenge 1 by mouth p.r.n. as needed. 3. Klonopin 0.5 mg p.o. b.i.d. p.r.n. for anxiety. 4. Vitamin B12 2500 mcg p.o. daily. 5. Colace 100 mg p.o. b.i.d. 6. Cymbalta 60 mg p.o. daily. 7. Diflucan 100 mg p.o. daily. 8. Flonase intranasal spray 2 sprays intranasally b.i.d. 9. Lasix 40 mg p.o. b.i.d. 10. [place] 10 mg 1 p.o. q.6 hours p.r.n. 11. Isosorbide mononitrate extended release 60 mg p.o. q.a.m. 12. Probiotic 1 capsule p.o. daily. 13. Lactulose 20 g p.o. daily p.r.n. for constipation. 14. Linzess 1 to 2 capsules p.o. daily p.r.n. for constipation. 15. Multivitamin 1 tablet p.o. q.a.m. 16. Nitroglycerin 0.4 mg sublingual q.5 minutes p.r.n. as directed for chest pain. 17. Nystatin solution 5 mL p.o. 4 times a day as directed. 18. Zofran ODT 4 mg sublingual t.i.d. p.r.n. for nausea. 19. Ditropan 5 mg p.o. b.i.d. 20. Protonix 40 mg p.o. q.a.m. 21. MiraLAX 17 g p.o. daily p.r.n. constipation. 22. Potassium chloride extended release. The patient has both 10 mEq p.o. b.i.d. and 20 mEq p.o. b.i.d. in her list, though I am not sure which dose the patient takes. This does need to be confirmed. 23. Ropinirole 2 mg p.o. b.i.d. 24. Saline nasal spray 2 mL intranasally p.r.n. for nasal dryness and irritation. 25. Aldactazide 25/25 mg tablet 1 tablet p.o. q.a.m. 26. Zanaflex 2 mg p.o. b.i.d. 27. Trazodone 50 mg p.o. at bedtime. DIAGNOSTIC DATA/LABORATORY RESULTS: White blood cell count is 14,200, hemoglobin 10.5, hematocrit 32.7, platelet count is 332,000. Sodium 131, potassium 3.2, chloride 84, serum bicarbonate is 29, BUN 47, creatinine 1.2 with a GFR of 44, glucose 115, calcium 8.8, magnesium 1.9. Liver function tests within normal limits. Her alkaline phosphatase slightly elevated at 142. Urinalysis was obtained via catheter was positive for trace protein, large leukocytes, too numerous to count white blood cells. It was negative for glucose, ketones, blood, nitrites, or bacteria. CT of the abdomen and pelvis with IV contrast only did show no infiltrates in the lung bases. There is an obstructing left distal ureter stone, stable from prior. Though she does have worsening right hydroureteronephrosis, it was noted that the reason was not obvious. There was also extremely severe constipation with rectal stool impaction. PHYSICAL EXAMINATION: VITAL SIGNS: Temperature is 98.2 degrees, heart rate 82, respirations 16, blood pressure is 137/87, oxygen saturation is 95% on room air. GENERAL: Ms. Heredia is a very pleasant elderly female who is resting in the ER stretcher. She was having some abdominal pain. There was not any distress. She was alert and oriented to person, place, time, and situation. HEENT: Head is atraumatic, normocephalic. Pupils are equal, round, reactive to light, were 3 mm bilaterally and brisk. Oral mucosa was slightly dry. She does have a sore/lesion noted to the underneath side of her tongue. Her daughter states this has been there and has slightly worsened though I did not see any white plaques at this time noted to her oral mucosa. NECK: Supple. Trachea midline. CARDIOVASCULAR: Patient has S1-S2 present. No murmurs, gallops, rubs appreciated with a regular rate and rhythm. PULMONARY: Patient has symmetrical chest expansion bilaterally. Lung sounds are clear to auscultation in bilateral full hill. ABDOMEN: Is soft, though it is distended. She did report generalized tenderness upon palpation. Bowel sounds were present in all 4 quadrants, were normoactive. The patient also does have a suprapubic catheter noted. There was some very light brown dried drainage noted just around the catheter site. There is no overt erythema or warmth noted. The patient also does have an abdominal hernia noted as well, though this was reducible upon palpation. GENITOURINARY: Upon admission the patient does have a suprapubic catheter in place. It is draining well at this time. She did have a full Arnold drainage bag noted upon my examination. There is some cloudy yellow urine noted to Arnold drainage bag. EXTREMITIES: The patient does complete paralysis of her left upper extremity and does have some partial paralysis in her left lower extremity. She does have chronic swelling noted to bilateral lower extremities. Her daughter states that this is always worse in her right leg compared to the left. The left she has just a trace to 1+ pitting edema in the right she has 2+ pitting edema. Her daughter states that her swelling does appear to be at baseline, is not worsened. Radial and pedal pulses are 2+ bilaterally. INTEGUMENTARY: The patient's skin is pink, warm and dry though she does have reported a pressure wound noted to her back in the buttock. She also does have cutaneous candidiasis noted to skin folds in the groin area as well as to underneath bilateral breasts. She did appear to have what I was told by her daughter with nystatin powder in place. I was not able to view the patient's pressure wounds that are reported by her daughter due to the patient is in pain at this time and is difficult to turn. They are going to have to turn her to administer an enema when she arrives to the floor. I will consult with the nurse upon their findings of the patient's skin assessment, though we have placed an order for wound care consult as well. NEUROLOGICAL: Patient is alert and oriented to person, place, time, and situation. As previously mentioned, she does have some complete paralysis in her left upper extremity, some partial paralysis in her left lower extremity and does have a moderate contracture noted to her right arm. Though other than this, she does not have any neurological deficits noted. ASSESSMENT AND PLAN: 1. Worsening right hydroureteronephrosis. It was noted on the CT that the cause of this is uncertain at this time though the patient does have a history of renal stones, which have had to have surgical lithotripsy, basket removal and stent placement in the past. Also, she did recently have her suprapubic catheter replaced with a different type of Arnold and on the daughter's request, they did change it back to her old Arnold type. When they did there was a large clot that was noted to be blocking the eyelets on the catheter tip. The patient had also had decreased urine output in her Arnold drainage bag though her daughter states that since replacing her catheter that she has been have good urine output. This could have been secondary to catheter obstruction. We have placed a consult with Dr. Hancock. We will await his evaluation and further recommendations for management. 2. Urinary tract infection with a history of recurrent urinary tract infections for which she has been recently positive with enterococcal faecalis and Pseudomonas. She did just complete an antibiotic regimen of IV daptomycin. She is followed by Dr. Elaine with Infectious Disease. For treatment of this, the patient did receive a 1 time dose of Rocephin IV 1 g in the ER though given her history of recurrent UTIs and antibiotic resistance and allergies I have placed a consult with Dr. Elaine. We will await before ordering any further antibiotics and allow him to evaluate the patient and choose what he thinks is best for her. The patient did receive an antibiotic this morning. We have placed a urine culture. We are awaiting these results at this time. 3. History of neurogenic bladder. 4. History of chronic constipation with a CT finding today that showed severe extremely severe constipation with a rectal stool impaction. The patient is reporting abdominal pain, cramping, and rectal pressure. We are going to administer a mineral oil enema. We have placed orders for the patient to have a rectal disimpaction performed and we have continued her bowel regimen of Linzess, Colace and MiraLAX. We have also placed a consult with Dr. Renee, her sharepoint analyst. We will await his evaluation and further recommendations as well. 5. Mild fluid volume depletion. The patient did receive 1 L of lactated Ringer's in the ER. We will continue with 1 more additional 1 L bag of normal saline slowly at 75 mL per hour. I have held the patient's Lasix at this time. I do feel like she is a little dehydrated. Though she does have a history of congestive heart failure we will continue to monitor her fluid volume status closely. We will do strict intake and output as well as daily weight. 6. Chronic pain. Unfortunately, the patient's chronic pain use is contributory to her constipation, though she will still need something to help control her pain. Given this, we did go ahead and continue her regularly prescribed [place], though as previously mentioned, we are implementing a bowel regimen as well as enema and disimpaction for her constipation and stool impaction. We will continue to monitor closely. 7. Deep vein thrombosis prophylaxis provided with sequential compression devices. The patient has been placed on the medical floor with telemetry. She will have vital signs q.4 hours. She will be on a mechanical soft diet. We will repeat a CBC and BMP in the morning. Her potassium was slightly low. We have replaced this. Further orders and recommendations pending hospital course, diagnostic studies, and physician evaluation. Dictated by BABS Burkett for Cooper Tim MD I have performed a face to face diagnostic evaluation. Labs/ Xray- reviewed, Exam- Chest- clear, CV- regular. A/P- Rt hydroureteronephrosis- Admit, NPO, Urology consult. Dr. Tim cc: MD Amando Floyd MD [facility]
[2019-07-06 10:32] LABS: POTASSIUM 3.7 mmol/L (3.5-5.1)
[2019-07-06] MEDS: TAZIDIME 2 GM/NS 2 GM/100 ML IVPB IV SCH ×2 (10:43→17:55)
--- NOTE | 2019-07-06 12:02 | PROGRESS NOTE ---
DATE: 07/06/2019 Ms. Heredia was admitted yesterday with severe abdominal pain. She had hydronephrosis on the right side. She still has an obstructing left ureteric stone. She was constipated. She usually has chronic urinary tract infection. She was placed on ceftriaxone initially, and now she has been placed by Dr. Elaine on ceftazidime every 8 hours. We are going to have GI as well as Urology consult on her. cc: Amando Berman MD
[2019-07-06] MEDS: DUONEB (A & A) INH PRN (15:00)
--- NOTE | 2019-07-06 17:47 | GASTROENTEROLOGY CONSULTATION ---
DATE: 07/06/2019 REASON FOR CONSULTATION: Constipation and rectal stool impaction. HISTORY OF PRESENT ILLNESS: Ms. Kenny is a 73-year-old female with the past medical history of recurrent UTI with Pseudomonas, kidney stones, bladder stones, neurogenic bladder status post suprapubic catheter, prior cervical neck injury, shoulder injuries and history of peptic ulcer disease presented to the ER yesterday at 5:30 with complaints of stool impaction. She also complained of an odor in her urine. The patient was recently admitted in the hospital on 06/01/2019 with recurrent urinary tract infection. The patient was seen by Infectious Disease and Urology. She underwent a cystoscopy with ureteral stent placements, and laser therapy of ureteral stones for hydroureteronephrosis. GI was also consulted for nausea, vomiting, and dysphagia. We had done an EGD in on 03/16/2019. The findings were large amount of solid food in the entire esophagus spanning from the upper esophagus to the GEJ consistent with food impaction. No esophageal strictures or lesions noted in the stomach. There was a deformity found at the pylorus in the stomach. There was an evidence of prior PEG seen in the gastric body. Duodenum was normal. No biopsies were taken. 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 She has a port on the right chest wall, and a suprapubic pubic catheter in the mid abdominal area. The abdomen and pelvis CT was done yesterday, and it showed that she had obstructing left distal ureteral stone which was stable from the prior, worsening right hydroureteronephrosis and extremely severe constipated with rectal stool impaction. PAST MEDICAL HISTORY: Recurrent UTI's, Kidney stones and bladder stones s/p stent placement and lithotripsy, neurogenic bladder s/p suprapubic catheter, hypertension, depression, anxiety, osteoporosis, CHF,back, neck and shoulder problems, peptic ulcer disease, oral candidiasis, and chronic pain. PAST SURGICAL HISTORY: Hysterectomy, suprapubic catheter placement, urethral stent placement, multiple spine, lumbar and cervical fusions, plastic surgery of the abdominal wall, multiple joint surgeries knee and shoulder and surgery for staph infection of the right knee. ALLERGIES: Patient is allergic to meperidine, Reglan, penicillin, sulfa, cefepime, and codeine. FAMILY HISTORY: No significant GI malignancies. SOCIAL HISTORY: She is a and lives with her daughter. 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 She has denied any alcohol, tobacco or illicit drug uses. HOME MEDICATIONS: 1. Aspirin 81 mg daily. 2. Isosorbide mononitrate 60 mg daily. 3. Multivitamin 1 tablet daily. 4. Nitroglycerin 0.4 mg daily. 5. Ropinirole HCL 2 mg twice a day. 6. Protonix 40 mg daily. 7. Cymbalta 40 mg daily. 8. Fluconazole 100 mg daily. 9. Vitamin B12 2500 mcg daily. 10. Spironolactone/hydrochlorothiazide 1 tablet daily. 11. Hydrocodone/acetaminophen 1 tablet daily. 12. Acetaminophen 500 mg every 6 hours as needed. 13. Linzess 1 to 2 capsules daily. 14. Clonazepam 0.5 mg twice a day as needed. 15. Potassium chloride 10 mEq twice a day. 16. Lactulose 20 g p.o. daily as needed. 17. Trazodone 50 mg p.o. at bedtime. 18. Lasix 40 mg p.o. twice a day. 19. Colace 100 mg p.o. twice a day. 20. Saline nasal spray as needed. 21. Probiotics 1 tablet twice daily. 22. Potassium titrate 20 mEq p.o. daily. 23. Nitroglycerin sublingual as needed. 24. Benzocaine/menthol lozenges 1 as needed. 25. Flonase 2 sprays twice a day. 26. Zofran 4 mg sublingual 3 times a day as needed. 27. Nystatin 100,000 units/one dose before meals and bedtime. 28. Ditropan 5 mg twice a day. 29. Tizanidine 4 mg twice a day. 30. MiraLAX 17 g daily as needed. REVIEW OF SYSTEMS: As per HPI. Otherwise, 12 point review of system is negative. PHYSICAL EXAMINATION: Vital Signs: Temperature 98.4 degrees, pulse 78, respirations 16, blood pressure 115/67, oxygen saturation 97% on room air. The patient's weight is 161 pounds. BMI is 26.1 kg/m2. General: She is alert and oriented x3, and in no acute distress. HEENT: Pale conjunctivae. No icterus. PERRL. Neck: Supple. Lungs: Clear to auscultation in the anterior and posterior hill. Cardiovascular: Regular rate and rhythm. Abdomen: Obese. Soft. Distended and tender on the right side. Active bowel sounds heard in all 4 quadrants. Midline scar from previous surgeries noted. Suprapubic catheter in place. Extremities: No clubbing. No cyanosis. Generalized edema in the lower extremities. Pedal pulses +1 bilaterally. Neurologic: Alert and oriented x3. Nonfocal. Cranial nerves 2 to 12 grossly intact. LABORATORY: WBCs are 9.93, RBC 3.93, hemoglobin 9.6, hematocrit 30.8, and platelet count is 330,000. Sodium 131, potassium 3.2, chloride 84, carbon dioxide 20, anion gap 18, BUN 47, creatinine 1.2, glucose 1.5, calcium is 8.5, total bilirubin 0.20, AST 14, ALT 7, alkaline phos 142, and albumin 3.8. Urinalysis showed trace of protein, large amount of leukocytes. Abdomen and pelvis CT showed obstructing left distal ureteral stone, stable from the prior worsening right hydroureter nephrosis. Severe constipation with rectal stool impaction noted. IMPRESSION AND PLAN: Severe constipation Fecal impaction UTI Neurogenic bladder Kidney and bladder stones Chronic pain PLAN: Ms. Kenny is a 73 year old female with history of recurrent UTI, multiple joint surgeries, kidney and bladder stones and neurogenic bladder. GI has been consulted for constipation and fecal impaction. Nursing staff has performed manual impaction at least 4 times and was successful in removing small amount of stools. The patient is currently on MiraLAX 17 grams p.o. daily and Linzess 72 mcg daily PRN, Colace 100 mg BID and Culturelle per PCP. Patient received one fleet enema this morning. We have ordered a KUB of the abdomen for tomorrow morning. She is on IV fluids NS @ 75 mls/hr She is also receiving antibiotic IV Tazidime for her UTI per ID. Urology is also seeing patient and will do a cystoscopy, left ureteroscopy, lased lithotripsy and stone basket extract and sten placement. We will continue to monitor. We will continue to monitor the patient, follow the plan of care per PCP, urologist, and ID. This plan was discussed with Dr. Renee. Thank you for your consult. Please call us for any further questions or concerns. Dictated by BABS Baca for Eb Renee MD cc: Amando Berman MD Physician Attestation I have seen and examined the patient. I have discussed and reviewed the the note by Maribel BRICE and agree with findings and plan as documented. Presents with constipation for several days. She has had longstanding constipation, which is not new. She is having small bowel movements with fecal manual disimpaction, enemas, and bowel regimen. Continue miralax, Linzess, prn enemas. No additional benefit with colace; will stop. We can titrate Linzess and increase miralax to twice daily as needed. Continue IVFs. Continue mechanical soft diet Will follow with you. MTDD
--- NOTE | 2019-07-06 20:54 | INFECTIOUS DISEASE PROGRESS NO ---
DATE: 07/06/2019 PRESENT ILLNESS: The patient has a urinary tract infection. RECOMMENDATIONS: I have placed the patient on ceftazidime pending culture results. MEDICATIONS: I have started the patient on ceftazidime. PHYSICAL EXAMINATION: Vital Signs: Temperature is 98.2 degrees, pulse 80, respirations 18, blood pressure 126/73. The patient weighs 161 pounds. General: This is an ill-appearing elderly female. She is in no acute distress. Head, eyes, ears, nose, and throat: She can hear my spoken words and see near objects. Neck: No pain with movement of her neck. Lungs: Clear to auscultation. Cardiovascular: Heart rate is regular. Abdomen: Soft and not tender. There is a suprapubic catheter in place. The site is not erythematous or purulent. Neurologic: The patient is awake. She has a triplegia, meaning that she can almost only move her right arm, and with the left arm and both legs she can barely move them. The patient does not have any tremor. LAB AND X-RAY: The patient's CBC shows a white count of 14,200, hemoglobin 10.5, platelet count 332,000. The patient's creatinine is 1.2. The GFR is 44. The patient's alkaline phosphatase is 142. Urinalysis showed white cells but no bacteria. Urine cultures pending. CT scan showed severe constipation and an obstructive left ureter. ASSESSMENT AND PLAN: The patient has fever, elevated white count and suprapubic and back pain. She is also nauseated. All of these symptoms occurred when she had a urinary tract infection. Therefore, I think she has 1 now. My plan is to continue to treat the patient with ceftazidime pending culture results. Some of the side effects of the antibiotic including rash and diarrhea have been explained to the patient who agrees with treatment. COMORBIDITIES: The patient is elderly. She has nephrolithiasis, neurogenic bladder, and triplegia also. cc: MD Amando Mc MD
--- NOTE | 2019-07-06 21:07 | CONSULTATION ---
DATE OF CONSULTATION: 07/06/2019 CONSULTING PHYSICIAN: Dr. Berman. REASON FOR CONSULTATION: Left hydronephrosis, left ureteral stone, gross hematuria. HISTORY OF PRESENT ILLNESS: A 73-year-old female who has a complex urologic history, but in summary, has recurrent kidney stones secondary to poor fluid intake as well as being paraplegic. She also has neurogenic bladder which has been managed with suprapubic tube. She most recently was admitted by Dr. Berman for a urinary tract infection with imaging on 06/12/2019, revealing an 8 mm left distal ureteral stone with significant hydroureteronephrosis. There were also bilateral renal stones. There was no evidence of right hydroureteronephrosis. She underwent cystoscopy with left ureteroscopy, laser lithotripsy of ureteral stone, as well as laser lithotripsy and stone basket extraction of several renal stones, and left ureteral stent placement on 06/15/2019. She was ultimately discharged home and did well until yesterday, when she reports abdominal distention, suprapubic pain, and left flank pain. She reportedly had her suprapubic tube exchanged and experienced quite a bit of pain and hematuria at that time. She underwent evaluation with CT scan on 07/05/2019, which revealed persistent left hydroureteronephrosis and another ureteral stone in a similar location. It is smaller than 8 mm. There are fewer stones in the left renal pelvis. She now also has right hydroureteronephrosis to the level of the bladder. She currently complains of left intermittent flank pain. She denies fevers, nausea, vomiting, or hematuria in the urinary bag. PAST MEDICAL HISTORY: Urolithiasis with renal stones and bladder stones, neurogenic bladder with suprapubic tube, paraplegia, recurrent blood clots. PAST SURGICAL HISTORY: Knee arthroplasty, hip arthroplasty, abdominoplasty, gastric surgery, percutaneous coronary intervention, multiple spine surgeries, multiple procedures for renal and bladder stones including PCNL, ureteroscopy, extracorporeal shockwave lithotripsy, and cystolitholapaxy. ALLERGIES: Cefepime, penicillin, Reglan, Demerol, and codeine. HOME MEDICATIONS: Desyrel, hydrochlorothiazide, spironolactone, allopurinol, Protonix, Flonase, Lasix, Diflucan, Cymbalta, Klonopin, baclofen. FAMILY HISTORY: No history of malignancies. SOCIAL HISTORY: She does not smoke, consume alcohol, or use illicit drugs. REVIEW OF SYSTEMS: Reviewed and 12 systems negative, except for noted in the HPI, as well as patient elicits difficulty swallowing. PHYSICAL EXAMINATION: Temperature 94 degrees, pulse 78, blood pressure 115/67.General: No acute distress. Pleasant female. HEENT: Atraumatic. Cardiovascular: Regular rhythm. Pulmonary: Bilateral breath sounds, decreased bilaterally. Abdomen: Soft, protuberant, nontender to palpation. Suprapubic site is clean, dry, and intact. There is straw-colored urine in the bag. There is no blood, no clots, or calcifications noted. Back: No CVA tenderness. Dermatologic: No obvious skin rashes. Neurologic: Alert and oriented x3. PERTINENT LABORATORY: White cell count of 10,000, creatinine is 1.2. Urinalysis is positive for white cells, a few red cells, but negative for bacteria. PERTINENT IMAGES: CT abdomen and pelvis with IV contrast on 07/05/2019, reported bilateral hydronephrosis with ureteral dilation and left ureteral stone, as well as bilateral renal stones. ASSESSMENT: A pleasant, 73-year-old female with recurrent urolithiasis, who recently had left ureteroscopy for ureteral and renal stones. At that time, we had the stone sent off for analysis, and I felt confident that we removed the entire ureteral stone and addressed some of the renal stones. I have explained to the patient that her left hydronephrosis and ureteral stone are in a very similar location as previously, is likely one of the renal stones that fell down and was lodged in the similar area. We also discussed her right hydroureteronephrosis down to the level of the bladder is likely secondary to what she reports as abdominal distention and clogged up suprapubic tube at the time. I did not appreciate any stones in the right ureter. We discussed that given her hydroureteronephrosis on the left and obstructive changes, she would benefit from left ureteroscopy with laser lithotripsy and stone basket extraction. She is in agreement. She does have left flank pain. We discussed risks of the procedure including, but not limited to, bleeding, infection, injury to adjacent structure, inability to remove the stone, need for additional interventions. She voiced understanding and wants to proceed. PLAN: 1. NPO after midnight. 2. To operating room tomorrow for cystoscopy, left ureteroscopy, laser lithotripsy and stone basket extraction, stent placement. I have explained to the patient that at this time, I would recommend keeping the stent in there for 2 to 3 weeks. She is in agreement. Thank you for the consultation. cc: MD Amando Castro MD
[2019-07-07] MEDS: TAZIDIME 2 GM/NS 2 GM/100 ML IVPB IV SCH ×3 (00:54→16:48)
[2019-07-07] MEDS: NORCO-10 PO PRN ×2 (02:05→17:42)
[2019-07-07] MEDS: MYCOSTATIN SUSP PO SCH ×4 (06:55→20:56)
[2019-07-07] MEDS: PRILOSEC PO SCH (06:56)
[2019-07-07] MEDS ORDERED: VERSED ONE (07:59)
[2019-07-07] MEDS ORDERED: ZOFRAN ONE (08:31)
[2019-07-07] MEDS ORDERED: DECADRON ONE (08:31)
[2019-07-07] MEDS ORDERED: SUFENTA ONE (08:33)
[2019-07-07] MEDS ORDERED: QUELICIN (DOSE) ONE ×2 (08:33)
[2019-07-07] MEDS ORDERED: XYLOCAINE-MPF 2% ONE (08:33)
[2019-07-07] MEDS ORDERED: DIPRIVAN 1% ONE (08:33)
--- NOTE | 2019-07-07 09:46 | Diag Imaging Result Doc PS360 ---
EXAM: FLUROSCOPY CYSTO 07/07/2019 HISTORY: LEFT STENT PLACEMENT, LEFT LASER LITHO, LEFT STONE BASKET EXTRACT TECHNIQUE: 33 images, 8.1 mGy, 39 seconds fluoroscopy time. COMMENT: Ureteroscopy with stone extraction and stent placement was performed by Dr. Hancock. IMPRESSION: Left ureteral stent placement. Electronically signed by Chandan Reza 07/07/2019 9:44 AM
[2019-07-07] MEDS: MIRALAX PO SCH (10:16)
[2019-07-07] MEDS: CULTURELLE PO SCH (10:16)
[2019-07-07] MEDS: DIFLUCAN PO SCH (10:16)
[2019-07-07] MEDS: DITROPAN PO SCH ×2 (10:16→20:56)
[2019-07-07] MEDS: MYCOSTATIN POWDER TOP SCH ×2 (10:16→20:58)
[2019-07-07] MEDS: KLONOPIN PO SCH ×2 (11:08→20:56)
[2019-07-07] MEDS: ZANAFLEX PO PRN ×2 (11:08→21:36)
--- NOTE | 2019-07-07 12:20 | PROGRESS NOTE ---
DATE: 07/07/2019 SUBJECTIVE: Ms. Heredia has normal electrolytes. Her BUN and creatinine are improving. She has hydronephrosis on the right kidney and possibly a stone in the left ureter. She is in the OR for a urologic procedure by Dr. Hancock. She was also seen by Dr. Eb Renee for severe constipation. His recommendations are noted. She still is impacted. Overall condition is otherwise unchanged. She continues to have a large amount of leukocytes in the urine, however, nitrites are negative. SUMMARY: We are going to continue the current management on her with cefepime. -4 cc: Amando Berman MD
--- NOTE | 2019-07-07 12:37 | Diag Imaging Result Doc PS360 ---
EXAM: KUB ABDOMEN HISTORY: Constipation and fecal impaction TECHNIQUE: Two views COMPARISON: 07-07-19 FINDINGS: There is a large amount of stool throughout the colon. No bowel obstruction. No organomegaly. There is a left ureteral stent. There are multiple surgical clips throughout the abdomen and pelvis. There has been extensive surgery to the lumbar spine and to each hip. IMPRESSION: Prominent constipation Electronically signed by Prosper Gonzalez 07/07/2019 12:35 PM
[2019-07-07] MEDS: ZOFRAN IV PRN (15:36)
--- NOTE | 2019-07-07 15:57 | GASTROENTEROLOGY PROGRESS NOTE ---
DATE: 07/07/2019 SUBJECTIVE: Ms. Kenny is a 73-year-old female resting in bed, nursing staff feeding the patient. The patient just came back from her procedure done by the urologist. She is a little bit drowsy. She has denied any nausea, vomiting, and did have 1 bowel movement today. OBJECTIVE: Vital Signs: Temperature 97.6 degrees, pulse 64, respirations 20, blood pressure 131/73, oxygen saturation 94% on room air. The patient's weight is 164 pounds. BMI is 26.5 kg/m2. General: She is alert, oriented x2, drowsy, and in no acute distress. HEENT: Pale conjunctivae. No icterus. PERRL. Neck: Supple. Lungs: Clear to auscultation in the anterior hill. Cardiovascular: Regular rate and rhythm. Abdomen: Obese, soft, distended, nontender. Active bowel sounds heard in all 4 quadrants. Midline scar from the previous surgeries. Suprapubic catheter in place. Extremities: No clubbing, no cyanosis. Generalized edema in the lower extremities. Pedal pulses +1 bilaterally. Neurologic: She is alert, oriented x2. IMAGING STUDIES AND LABORATORY DATA: WBCs 9.93, RBCs 3.93, hemoglobin 9.6, hematocrit 30.8, platelet count 330,000. Sodium 134, potassium 3.7, chloride 89, carbon dioxide 30, anion gap 15, BUN 39, creatinine 1, glucose 114, calcium 8.6. Fluoroscopic cystoscopy showed left ureteral stent placement. Abdomen x-ray showed prominent constipation. IMPRESSION: 1. Severe constipation. 2. Fecal impaction. 3. Urinary tract infection. 4. Neurogenic bladder. 5. Kidney and bladder stones. 6. Chronic pain. PLAN: Ms. Kenny is a 73-year-old female who presented to the hospital with severe constipation and fecal impaction. Manual fecal impactions were done yesterday by nursing staff. The nurse was able to get little bit of stool at a time and attempted it almost 4 times. The patient received 1 enema yesterday. She is currently on Linzess 72 mcg p.o. daily as needed, MiraLAX 17 grams p.o. daily for her constipation. She is also on IV fluids normal saline at 75 mL. She is receiving antibiotics IV Tazidime her UTI per Infectious Disease. The urology team has seen her today and performed a cystoscopy, left ureteroscopy. If the patient has persistent constipation and impaction, we will increase her MiraLAX and titrate her Linzess. We will continue to monitor the patients bowel movement and follow the plan of care per PCP. This plan was discussed with Dr. Renee. Please call us for any further questions or concerns. Dictated by BABS Baca for Eb Renee MD cc: Amando Berman MD Physician Attestation I have seen and examined the patient. I have discussed and reviewed the note by Maribel BRICE and agree with findings and plan as documented. Fecal impaction improved with disimpaction. Continue aggressive bowel regimen. Will follow. MTDD
--- NOTE | 2019-07-07 16:13 | EKG Report ---
Test Performed on : 07/07/2019 3:51:40 PM Test Reason : bradycardia , back pain Blood Pressure : / mmHG Vent. Rate : 043 BPM Atrial Rate : 043 BPM P-R Int : 198 ms QRS Dur : 084 ms QT Int : 554 ms P-R-T Axes : 023 075 067 degrees QTc Int : 468 ms Critical Test Result: Low HR Marked sinus bradycardia. Abnormal ECG When compared with ECG of 05-JUL-2019 20:17, (Unconfirmed) Significant changes have occurred Confirmed by Hammad WALL, P.J.M ([id number]) on 07/08/2019 5:39:14 PM
--- NOTE | 2019-07-07 18:49 | OPERATIVE NOTE ---
PROCEDURE DATE: 07/07/2019 SURGEON: Kavin Hancock MD PREOPERATIVE DIAGNOSES: 1. Bilateral hydronephrosis. 2. Left ureteral stone. 3. Left renal stones. POSTOPERATIVE DIAGNOSES: 1. Bilateral hydronephrosis. 2. Left ureteral stone. 3. Left renal stones. PROCEDURE: 1. Cystoscopy. 2. Left ureteroscopy. 3. Laser lithotripsy. 4. Stone basket extraction. 5. Placement 6-Sri Lankan, 24 cm ureteral stent. INDICATIONS: A 73-year-old female with a complex urologic history with recurrent urolithiasis. She most recently was admitted to the hospital and found to have an 8 mm left ureteral stone for which she underwent ureteroscopy with laser lithotripsy and stone basket extraction of both ureteral stone and several renal stones. Those were sent off for gross identification. She was discharged home and did well until developing a clogged suprapubic tube as well as left flank pain. She was admitted and CT scan revealed bilateral hydronephrosis as well as a 6 mm left distal ureteral stone with hydroureteronephrosis proximally and several renal stones. I have discussed with the family that she likely had 1 of the renal stones fall and get lodged in a similar location. She was counselled on intervention. FINDINGS: There was a 6 mm stone in the distal ureter approximately 4 cm away from the ureteral orifice. The fragments were sent off for gross identification. Flexible ureteroscopy and renoscopy revealed a large amount of cloudy material in the renal pelvis which was evacuated and some of it was sent off for culture. Given that large amount of cloudy and purulent appearing urine in her renal pelvis, we did not treat the renal stones due to poor visualization and concern for her not to become septic. I was not able to perform right retrograde pyelogram, as I could never identify her right ureteral orifice due to significant heaping mucosal edema from a UTIs and suprapubic tube. PROCEDURE IN DETAIL: After obtaining informed consent, the patient brought to the operating room. Perioperative antibiotics and general endotracheal anesthesia were administered. She was placed in modified lithotomy position as her extremities are contracted. She was appropriately padded. She was prepped and draped in sterile fashion. A 21-Sri Lankan rigid cystoscope was used to gain access to the bladder via her urethra after her suprapubic tube was clamped. Examination of bladder revealed a suprapubic tube in good location, no evidence of blood clots. I was able to see the left ureteral orifice. Her right ureteral orifice could not be seen as she has a large amount of heaping mucosal edema overlying the right joselo trigone and it appeared that the tip of the suprapubic tube was very close to that area and likely resulted in mucosal irritation. I have spent some time using sensor and PTFE wires trying to cannulate what I perceive could be a right ureteral orifice, but eventually we aborted that. Her left ureteral orifice was cannulated with PTFE wire, but the wire came to a resistance several centimeters into the orifice. Hence, I used the rigid ureteroscope with a wire in it and introduced it into the left ureteral orifice. Then under direct vision, I was able to advance the wire to the level renal pelvis. Again, approximately 4 cm away from the ureteral orifice the stone was seen. It caused quite a bit of mucosal edema. A 0 Nitinol basket was placed and the stone was secured. A 365 micron Holmium laser fiber was used to break the stone up into small fragments. The stone fragments were retrieved with the basket and sent off for gross determination only. Ureteroscopy up to the level of the proximal ureter showed no evidence of residual stone fragments and no evidence of ureteral injury. Given that she had several renal stones and one of the caused her this problem and I planned to perform a renoscopy and lithotripsy of some of the renal stones. I switched to a flexible ureteroscope and I advanced it over the wire into the renal pelvis after a second PTFE wire was placed. Her renal pelvis was very cloudy with thick purulent material filling most of the renal pelvis. I evacuated approximately 80 mL of cloudy urine. Some of the urine and material was sent off for urine culture. I still could not clearly visualize all the calices due to the cloudy urine and, hence, I did not want to increase the risk of the patient becoming seconds septic by working on an infected kidney. The flexible ureteroscope was then slowly withdrawn and given the significant mucosal edema, we elected to place ureteral stent. In a standard fashion 6-Sri Lankan, 24 cm stent was advanced over the wire via the cystoscope with the proximal coil position confirmed fluoroscopically, distal coil directly visualized. The string was left attached to the stent. She was extubated and taken to PACU for further recovery. Her suprapubic tube was unclamped. ESTIMATED BLOOD LOSS: None. COMPLICATIONS: None. DRAINS: 1. Suprapubic tube which was not changed during the procedure. 2. A 6-Sri Lankan-24 cm stent. SPECIMENS: Left ureteral stone fragments which were sent off for gross identification only. DISPOSITION: To PACU and subsequently floor with suprapubic tube to gravity drainage. I have discussed with the family preoperatively that we would plan keeping the stent in for 2 weeks and have home health remove the stent by pulling the string. cc: MD Amando Castro MD
[2019-07-07] MEDS: PERIDEX MT SCH (20:56)
[2019-07-08] MEDS: NORCO-10 PO PRN ×4 (00:29→18:56)
[2019-07-08] MEDS: TAZIDIME 2 GM/NS 2 GM/100 ML IVPB IV SCH ×3 (01:19→16:43)
[2019-07-08] MEDS: PRILOSEC PO SCH (06:24)
[2019-07-08] MEDS: MYCOSTATIN SUSP PO SCH ×4 (06:24→22:34)
[2019-07-08] MEDS: CULTURELLE PO SCH (09:49)
[2019-07-08] MEDS: KLONOPIN PO SCH ×2 (09:49→22:34)
[2019-07-08] MEDS: DIFLUCAN PO SCH (09:50)
[2019-07-08] MEDS: PERIDEX MT SCH ×2 (09:50→22:35)
[2019-07-08] MEDS: MIRALAX PO SCH ×2 (09:50→22:34)
[2019-07-08] MEDS: DITROPAN PO SCH ×2 (09:53→22:39)
[2019-07-08] MEDS: ZANAFLEX PO PRN ×2 (09:53→22:34)
[2019-07-08] MEDS: MYCOSTATIN POWDER TOP SCH ×2 (10:00→22:34)
--- NOTE | 2019-07-08 14:21 | PROGRESS NOTE ---
DATE: 07/08/2019 Ms. Heredia had a procedure done yesterday, a urology procedure with cystoscopy. She had lithotripsy done and ureteroscopy done. She has bilateral hydronephrosis and left-sided ureteric stone. She had urine culture grew Pseudomonas sensitive to ceftazidime, which is given 2 g IV q. 8 hours under direction of Dr. Elaine. She still has constipation. I am going to increase the Linzess to 145 mcg daily. She is on polyethylene glycol 17 g b.i.d. Overall condition is otherwise unchanged. We will continue with the current management. cc: Amando Berman MD
--- NOTE | 2019-07-08 17:21 | GASTROENTEROLOGY PROGRESS NOTE ---
DATE: 07/08/2019 SUBJECTIVE: Ms. Kenny is a 73-year-old female, resting in bed. The patient had 1 bowel movement yesterday, and is complaining that she is not getting enough of her pain medications, and she was requesting if any changes can be done. OBJECTIVE: Vital Signs: Temperature 97.9 degrees, pulse 63, respirations 15, blood pressure 128/65, oxygen saturation 97% on room air. Her weight is 163 pounds. BMI is 26.3 kg/m2. General: She is alert, oriented x3, in no acute distress. HEENT: Pale conjunctivae. No icterus. PERRL. Neck: Supple. Lungs: Clear to auscultation in the anterior hill. Cardiovascular: Regular rate and rhythm. Abdomen: Obese, soft, distended, nontender. Active bowel sounds heard in all 4 quadrants. Midline scar from previous surgeries. Suprapubic catheter in place. Extremities: No clubbing, no cyanosis. Generalized edema in the lower extremities bilaterally. Pedal pulses 1+ present bilaterally. Neurologic: She is alert, oriented x3. LABORATORY DATA: Her CBC is from 07/06/2019. WBC is 9.93, RBC 3.93, hemoglobin 9.6, hematocrit 30.8, platelet count 130,000. Sodium 134, potassium is 3.7, chloride 89, carbon dioxide 30, anion gap 15, BUN 39, creatinine 1.0, glucose 114, calcium 8.6, total bilirubin is 0.20, AST 14, ALT is 7, alkaline phos 142. IMAGING: Abdomen x-ray showed prominent constipation. Fluoroscopy yesterday showed left ureteral stent placement. IMPRESSION AND PLAN: Severe constipation Fecal impaction UTI Neurogenic bladder Kidney and bladder stones Chronic pain PLAN: Ms. Kenny is a 73-year-old female who came to the hospital with severe constipation and fecal impaction. Nursing staff has been doing manual impaction and trying to get out a little bit of stool at the time. The patient did have 1 bowel movement yesterday. We have changed the Linzess 72 mcg daily, she was getting PRN daily. We have also giving her Miralax BID. Patient is still constipated. She is on antibiotic for her UTI per ID. Urology is also following the patient, and yesterday they did cystoscopy, left urethroscopy, laser lithotripsy, stone basket extraction and placement of urethral stent. We will continue to monitor her bowel movements and follow the plan of care per PCP. This plan was discussed with Dr. Renee. Please call us for any further questions or concerns. Dictated by BABS Baca for Eb Renee MD cc: Amando Berman MD Physician Attestation I have seen and examined the patient. I have discussed and reviewed the note by Maribel BRICE and agree with findings and plan as documented. In brief, Ms. Kenny is a 73 year old woman who presented to GI service with fecal impaction s/p disimpaction. Her KUB continues to show constipation. She is receiving Linzess 72 mcg daily. We have scheduled Miralax BID. Will add dulcolax supp prn for constipation. Treatment of UTI and bladder stones noted. She has chronic microcytic anemia. No recent anemia workup done. She has history of folate deficiency in the past. Will check iron studies, B12, and folate. [facility]
--- NOTE | 2019-07-08 20:24 | INFECTIOUS DISEASE PROGRESS NO ---
DATE: 07/08/2019 PRESENT ILLNESS: The patient has a Pseudomonas urinary tract infection. MEDICATIONS: The patient is receiving ceftazidime. This is day 2 of treatment with ceftazidime. PHYSICAL EXAMINATION: Vital Signs: Temperature is 97.9 degrees, pulse 63, respirations 15, blood pressure 128/65. General: This is an ill-appearing, elderly female. She is in no acute distress. Head/eyes/ears/nose/throat: She can hear my spoken words and see near objects. She does not have any white patches on her tongue. Neck: No pain with movement. Lungs: Clear to auscultation. Cardiovascular: Heart rate is regular. Abdomen: Soft and nontender. The patient has a suprapubic catheter in place. There is no purulence or erythema. Neurologic: Patient is awake. She can move her right arm well, but the other arm and both legs she can barely move. She does not have a tremor. LAB AND RADIOLOGY: CBC shows a white count of 9930, hemoglobin 9.6, platelet count is 330,000. Creatinine is 1. GFR is 55. Urine culture grew Pseudomonas. IMAGING: The patient does not have a radiographic study done for today. ASSESSMENT AND PLAN: The patient has a Pseudomonas urinary tract infection. My plan is to continue with ceftazidime for a total of 2 weeks. COMORBIDITIES: The patient is elderly. She has nephrolithiasis, neurogenic bladder, and she has triplegia, meaning that she has minimal movement of her left arm and both legs. cc: MD Amando Mc MD
[2019-07-08] MEDS ORDERED: DULCOLAX PR PRN (22:41)
[2019-07-09] MEDS: NORCO-10 PO PRN ×4 (01:21→21:31)
[2019-07-09] MEDS: TAZIDIME 2 GM/NS 2 GM/100 ML IVPB IV SCH ×3 (01:23→17:33)
[2019-07-09] MEDS: PRILOSEC PO SCH ×2 (04:36→06:01)
[2019-07-09] MEDS: MYCOSTATIN SUSP PO SCH ×5 (04:36→21:31)
[2019-07-09] MEDS: LINZESS PO SCH ×2 (04:36→06:01)
[2019-07-09] MEDS ORDERED: LINZESS PO SCH (07:00)
[2019-07-09 07:23] LABS: FERRITIN 199 ng/mL (13-150)
[2019-07-09 07:32] LABS: IRON SATURATION 22 %; TIBC 153 ug/dL; TOTAL IRON 33 ug/dL (49-151); UNBOUND IRON 120 ug/dL (112-346)
[2019-07-09] MEDS: CULTURELLE PO SCH (09:25)
[2019-07-09] MEDS: DIFLUCAN PO SCH (09:25)
[2019-07-09] MEDS: KLONOPIN PO SCH ×2 (09:25→21:25)
[2019-07-09] MEDS: PERIDEX MT SCH ×2 (09:25→21:31)
[2019-07-09] MEDS: DITROPAN PO SCH ×2 (09:25→21:30)
[2019-07-09] MEDS: MIRALAX PO SCH ×2 (09:26→21:32)
[2019-07-09] MEDS: ZANAFLEX PO PRN ×2 (10:46→23:54)
[2019-07-09] MEDS: ZOFRAN IV PRN (10:46)
[2019-07-09] MEDS: MYCOSTATIN POWDER TOP SCH ×2 (13:43→21:31)
[2019-07-09] MEDS ORDERED: LACTULOSE PO PRN (15:05)
[2019-07-09] MEDS: IMDUR PO SCH (16:18)
[2019-07-09] MEDS: CYMBALTA PO SCH (16:18)
[2019-07-09] MEDS: UROCIT-K PO SCH (19:00)
[2019-07-09] MEDS: REQUIP PO SCH (21:30)
[2019-07-09] MEDS: KLOR-CON PO SCH (21:30)
[2019-07-09] MEDS: DESYREL PO SCH (21:31)
[2019-07-09] MEDS: LASIX PO SCH (21:31)
[2019-07-09] MEDS: FLONASE NAS SCH ×2 (21:39→23:54)
--- NOTE | 2019-07-09 22:30 | PROGRESS NOTE ---
DATE: 07/09/2019 SUBJECTIVE: She is a 73-year-old, white female, readmitted to the hospital on 07/06/2019, for UTI and constipation. Interval history was reviewed. The daughter was at bedside. Complains of constipation. REVIEW OF SYSTEMS: No chest pain, shortness of breath. PAST MEDICAL HISTORY: Reviewed. PAST SURGICAL HISTORY: Reviewed. MEDICINES: Reviewed. ALLERGIES: Reviewed. OBJECTIVE: vital signs: Temperature is 97 degrees, pulse is 78, blood pressure is stable. The patient is bedridden with multiple surgeries. Port was placed. SPC catheter was noted. LABORATORY DETAILS: White cell count 9, hematocrit 30, platelets 330,000. SMA 7, BUN 39, creatinine 1.0. Iron 33, vitamin B12 is 2000, folate 35.6. Urine cultures reported Pseudomonas aeruginosa. IMAGING: CT scan of the abdomen and pelvis: Obstruction of left distal ureter with a stone, worsening of the right hydronephrosis, severe constipation. ASSESSMENT: 1. Bilateral hydronephrosis due to left ureteral and renal stones. Status post cystoscopy, left ureteroscopy, laser lithotripsy, stone basket extraction with double-J stent. 2. Constipation. 3. Urinary tract infection due to Pseudomonas. 4. Yeast infection, on Diflucan. PLAN OF CARE: 1. IV ceftazidime 2 g q.8. 2. Good results of constipation with Linzess, lactulose, MiraLAX. 3. Reconcile home medicines. 4. We will check the labs in the morning. LEVEL OF DOCUMENTATION: 25 minutes. cc: MD Amando Almazan MD
[2019-07-10] MEDS: TAZIDIME 2 GM/NS 2 GM/100 ML IVPB IV SCH ×3 (01:24→17:07)
[2019-07-10] MEDS: NORCO-10 PO PRN ×4 (03:31→23:28)
[2019-07-10] MEDS: MYCOSTATIN SUSP PO SCH ×4 (06:17→20:34)
[2019-07-10] MEDS: LINZESS PO SCH (06:17)
[2019-07-10] MEDS: PRILOSEC PO SCH (06:17)
[2019-07-10 07:10] LABS: BASO# 0.02 X1000 (0.0-0.2); BASO% 0.3 % (0.0-0.8); EOS% 1.6 % (0.0-10.0); HEMATOCRIT 30.2 % (37.0-47.0); HEMOGLOBIN 9.2 g/dL (12.0-16.0); LYMPH# 1.64 X1000 (1.2-3.4); MCH 24.7 PG (27-31); MCHC 30.5 g/dL (33-37); MONO# 0.49 X1000 (0.11-0.59); MONO% 7.8 % (1.7-9.3); NEUT# 4.05 X1000 (1.4-6.5); NEUT% 64.3 % (42.2-75.2); PLT 249 X1000 (130-400); RBC 3.73 XMIL (4.2-5.4)
[2019-07-10 07:39] LABS: AGAP 12; BUN 19 mg/dL (8-22); CALCIUM 8.6 mg/dL (8.8-10.2); CHLORIDE 102 mmol/L (98-107); COSMO 283; CREATININE 0.7 mg/dL (0.5-0.9); ESTIMATED GFR > 60; GLUCOSE 91 mg/dL (70-104); POTASSIUM 3.5 mmol/L (3.5-5.1); SODIUM 141 mmol/L (136-145); TCO2 27 mmol/L (25-35)
[2019-07-10] MEDS: UROCIT-K PO SCH ×2 (09:40→17:07)
[2019-07-10] MEDS: KLONOPIN PO SCH ×2 (09:42→20:35)
[2019-07-10] MEDS: KLOR-CON PO SCH ×2 (09:42→20:35)
[2019-07-10] MEDS: IMDUR PO SCH (09:43)
[2019-07-10] MEDS: ALDACTAZIDE 25/25 PO SCH (09:43)
[2019-07-10] MEDS: ZOFRAN IV PRN (09:46)
[2019-07-10] MEDS: CYMBALTA PO SCH (09:48)
[2019-07-10] MEDS: ASPIRIN PO SCH (09:49)
[2019-07-10] MEDS: CULTURELLE PO SCH (09:49)
[2019-07-10] MEDS: REQUIP PO SCH ×2 (09:50→20:34)
[2019-07-10] MEDS: LASIX PO SCH ×2 (09:50→20:34)
[2019-07-10] MEDS: DIFLUCAN PO SCH (09:50)
[2019-07-10] MEDS: FLONASE NAS SCH ×2 (09:51→20:34)
[2019-07-10] MEDS: MIRALAX PO SCH ×2 (09:52→23:29)
[2019-07-10] MEDS: PERIDEX MT SCH ×2 (09:52→20:34)
[2019-07-10] MEDS: DITROPAN PO SCH ×2 (10:00→20:35)
[2019-07-10] MEDS: VITAMIN B-12 PO SCH (11:18)
[2019-07-10] MEDS: MYCOSTATIN POWDER TOP SCH ×2 (11:40→20:35)
[2019-07-10] MEDS: ZANAFLEX PO PRN (11:40)
--- NOTE | 2019-07-10 11:55 | PROGRESS NOTE ---
DATE: 07/10/2019 SUBJECTIVE: The patient has explosive diarrhea with a lot of smelling, PHYSICAL EXAMINATION: Vital Signs: Temperature is 97 degrees, pulse 65. Vitals are stable. Physical examination with no change. INVESTIGATIONS: White cell count 6.3, hematocrit 30, platelets 249,000. SMA 7 was normal. ASSESSMENT AND PLAN: 1. Constipation, resolved and due to chronic pain therapy. Needs to continue bowel regimen. 2. Urinary tract infection due to Pseudomonas from kidney stone disease. Started on IV ceftazidime. 3. Restart home medications and port on the right side stable and continue present treatment. LEVEL OF DOCUMENTATION: 25 minutes. cc: MD Amando Almazan MD MTDD
[2019-07-10] MEDS: DESYREL PO SCH (20:35)
[2019-07-11] MEDS: TAZIDIME 2 GM/NS 2 GM/100 ML IVPB IV SCH ×3 (00:57→17:05)
[2019-07-11] MEDS: DUONEB (A & A) INH PRN (02:14)
[2019-07-11] MEDS: MYCOSTATIN SUSP PO SCH ×6 (05:44→21:48)
[2019-07-11] MEDS: LINZESS PO SCH ×2 (05:44→06:38)
[2019-07-11] MEDS: NORCO-10 PO PRN ×3 (05:44→17:06)
[2019-07-11] MEDS: PRILOSEC PO SCH ×2 (05:44→06:39)
--- NOTE | 2019-07-11 09:05 | Diag Imaging Result Doc PS360 ---
EXAM: CT RENAL STONE SEARCH - 07/11/2019 HISTORY: evaluate right hydronephrosis TECHNIQUE: CT renal stone search without contrast COMPARISON: 07/05/2019 CT abdomen/pelvis with IV contrast FINDINGS: There has been interval placement of a double pigtail left ureteral stent. There is mild left hydronephrosis which has decreased. There are nonobstructing stones in the left kidney. The largest left renal stone is located at the upper. There has been interval essential resolution of hydronephrosis and ureterectasis on the right. There are nonobstructing stones in the right kidney, the largest of which measures 7 mm. There is a suprapubic Arnold catheter in urinary bladder. There is an apparent 3 mm stone in the midline inferior urinary bladder lumen. There is no evidence of bowel obstruction. There is less retained fecal debris in the colon compared to prior. There is no free air. IMPRESSION: Interval placement of a double pigtail left ureteral stent, with associated substantial decrease in left hydronephrosis. Nonobstructing stones in left kidney. Interval resolution of right hydronephrosis. Nonobstructing stones in right kidney. Apparent 3 mm stone in midline inferior urinary bladder lumen. This exam was performed using automated exposure control, adjustment of mA or kV according to patient size, and/or use of iterative reconstruction technique. Electronically signed by Fab Feliciano 07/11/2019 9:01 AM
--- NOTE | 2019-07-11 09:19 | PROGRESS NOTE ---
DATE: 07/11/2019 Ms. Heredia has Pseudomonas isolated. She had a renal CT done today. She opened up. The constipation is resolving, and she had diarrhea. Overall condition is unchanged. We are going to continue with IV cefepime for Pseudomonas UTI. -8 cc: Amando Berman MD
[2019-07-11] MEDS: MIRALAX PO SCH (10:48)
[2019-07-11] MEDS: UROCIT-K PO SCH ×2 (11:23→17:06)
[2019-07-11] MEDS: MYCOSTATIN POWDER TOP SCH ×3 (11:23→21:48)
[2019-07-11] MEDS: CYMBALTA PO SCH (11:23)
[2019-07-11] MEDS: ALDACTAZIDE 25/25 PO SCH (11:24)
[2019-07-11] MEDS: DITROPAN PO SCH ×3 (11:24→21:47)
[2019-07-11] MEDS: VITAMIN B-12 PO SCH (11:24)
[2019-07-11] MEDS: ASPIRIN PO SCH (11:24)
[2019-07-11] MEDS: REQUIP PO SCH ×3 (11:24→21:48)
[2019-07-11] MEDS: KLONOPIN PO SCH ×3 (11:24→21:48)
[2019-07-11] MEDS: KLOR-CON PO SCH ×3 (11:24→21:49)
[2019-07-11] MEDS: LASIX PO SCH ×3 (11:24→21:48)
[2019-07-11] MEDS: DIFLUCAN PO SCH (11:24)
[2019-07-11] MEDS: IMDUR PO SCH (11:24)
[2019-07-11] MEDS: PERIDEX MT SCH ×4 (11:25→21:48)
[2019-07-11] MEDS: CULTURELLE PO SCH (11:25)
[2019-07-11] MEDS: FLONASE NAS SCH ×3 (11:37→21:47)
[2019-07-11] MEDS: ZANAFLEX PO PRN (12:04)
--- NOTE | 2019-07-11 15:25 | GASTROENTEROLOGY PROGRESS NOTE ---
DATE: 07/11/2019 SUBJECTIVE: Ms. Kenny is a 73-year-old female, resting in bed. The patient has denied any nausea, vomiting, or abdominal pain. She did mention having 3 bowel movements yesterday. OBJECTIVE: Vital signs temperature 98.1 degrees, pulse 98, respirations 24, blood pressure 115/72, oxygen saturation 100%. She is on room air. Her weight is 161 pounds. BMI is 26.1 kg/m2. General: She is alert, oriented x3, and in no acute distress. HEENT: Pale conjunctivae, no icterus, PERRL. Neck: Is supple. Lungs: Clear to auscultation in the anterior hill. Cardiovascular. Patient is tachycardic. Abdomen is obese, soft, mildly distended, nontender. Active bowel sounds heard in all 4 quadrants. Midline scar from previous surgeries. Suprapubic catheter in place. Extremities: No clubbing, no cyanosis. Generalized edema in the lower extremities. Pedal pulses 2+ present bilaterally. Neurologic: She is alert, oriented x3. LABORATORY DATA: WBCs 6.30, RBC 3.73, hemoglobin 9.2, hematocrit 30.2, platelet count 249,000. Sodium 141, potassium 3.5, chloride 102 carbon dioxide is 27, anion gap 12, BUN 19, creatinine 0.7, glucose 91, calcium 8.6. IMAGING: Renal CT showed interval placement of the double J left ureteral stent with associated substantial decrease in the left hydronephrosis, nonobstructing stone in the left kidney. Interval resolution of the right hydronephrosis, nonobstructing stone in the right kidney, apparent 3 mm stones in the midline inferior urinary bladder lumen. IMPRESSION/PLAN: Severe constipationes Fecal impaction UTI Neurogenic bladder Kidney and bladder stone Chronic pain PLAN: Ms. Kenny is a 73-year-old female,GI is seeing her for fecal impaction and constipation. The patient's constipation is currently getting resolved. She had 3 bowel movements yesterday. We will continue with the current plan of care. We have discontinued her Miralax and Dulcolax, we will continue with Linzess 145 mcg p.o. daily for her constipation. The patient is also on lactulose 30 mL p.r.n. Patient is receiving ceftazidime for her UTI per PCP. She is receiving Prilosec 20 mg daily. We will continue to monitor the patient and follow the plan of care per PCP. This plan was discussed with Dr. Heredia. Please call us for any further questions or concerns. Dictated by BABS Baca for Roselyn Heredia MD cc: MD Amando Waller MD MTDD
--- NOTE | 2019-07-11 19:49 | INFECTIOUS DISEASE PROGRESS NO ---
DATE: 07/11/2019 PRESENT ILLNESS: The patient has a Pseudomonas urinary tract infection which is symptomatic. MEDICATIONS: This is day 5 of treatment with ceftazidime. PHYSICAL EXAMINATION: Vital Signs: Temperature is 98.5 degrees, pulse 82, respirations 20, blood pressure 135/78. General: This is an ill-appearing, lethargic elderly female. She is in no acute distress. Head/eyes/ears/nose/throat: She is very lethargic. She briefly woke up but then went back to sleep. There is no drainage from the nose or ears. Neck: No pain with movement. Lungs: Clear to auscultation. Cardiovascular: Heart rate is regular. Abdomen: Soft and nontender. The patient has a suprapubic catheter in place. The catheter site is not erythematous or purulent. Neurologic: Patient is lethargic. The last time I saw her she was moving her right arm well and she can barely move both legs and the left arm. LAB AND RADIOLOGY: Renal CT scan showed marked decrease in the left hydronephrosis and complete clearance of the right hydronephrosis. Stool for Clostridium difficile toxin and antigen is negative. CBC shows a white count of 6300, hemoglobin 9.2, and platelet count 249,000. Creatinine is 0.7, GFR is greater than 60. ASSESSMENT AND PLAN: The patient has a pseudomonas UTI. I will continue ceftazidime for 9 more days to complete a 2 week treatment program. COMORBIDITIES: The patient is elderly. She does have nephrolithiasis now only 1 stone is present and it is not blocking the kidney. The patient does have a neurogenic bladder and she has a triplegia, which means that she can move only 1 of her 4 extremities. Specifically, she can move her right arm but barely move her left arm and both legs. cc: MD Amando Mc MD MTDD
[2019-07-11] MEDS: DESYREL PO SCH ×2 (19:54→21:47)
[2019-07-12] MEDS: TAZIDIME 2 GM/NS 2 GM/100 ML IVPB IV SCH ×2 (01:09→09:40)
[2019-07-12] MEDS: NORCO-10 PO PRN ×2 (01:22→09:41)
[2019-07-12] MEDS: LINZESS PO SCH (06:36)
[2019-07-12] MEDS: MYCOSTATIN SUSP PO SCH (06:36)
[2019-07-12] MEDS: PRILOSEC PO SCH (06:36)
[2019-07-12] MEDS: MYCOSTATIN POWDER TOP SCH (09:40)
[2019-07-12] MEDS: REQUIP PO SCH (09:41)
[2019-07-12] MEDS: CULTURELLE PO SCH (09:41)
[2019-07-12] MEDS: ASPIRIN PO SCH (09:41)
[2019-07-12] MEDS: UROCIT-K PO SCH (09:41)
[2019-07-12] MEDS: DITROPAN PO SCH (09:41)
[2019-07-12] MEDS: DIFLUCAN PO SCH (09:41)
[2019-07-12] MEDS: VITAMIN B-12 PO SCH (09:41)
[2019-07-12] MEDS: IMDUR PO SCH (09:41)
[2019-07-12] MEDS: KLOR-CON PO SCH (09:41)
[2019-07-12] MEDS: ALDACTAZIDE 25/25 PO SCH (09:42)
[2019-07-12] MEDS: LASIX PO SCH (09:42)
[2019-07-12] MEDS: CYMBALTA PO SCH (09:42)
[2019-07-12] MEDS: PERIDEX MT SCH (09:43)
[2019-07-12] MEDS: KLONOPIN PO SCH (09:50)
[2019-07-12] MEDS: FLONASE NAS SCH (09:50)
--- NOTE | 2019-07-12 11:39 | PROGRESS NOTE ---
DATE: 07/12/2019 SUBJECTIVE: Ms. Heredia is doing fairly well as far as GI problems are concerned. She had Pseudomonas UTI, and it has been advised to continue the IV antibiotics for about 8 more days. Her C diff stool studies are negative. Repeat renal scan shows that she has now only 1 stone which is in the bladder, and it is not obstructing anything. The stent was seen, and the left hydronephrosis has decreased. There are some nonobstructing stones in the left kidney. Once the IV medications are made for home IV antibiotic therapy we will discharge her. cc: Amando Berman MD MTDD
--- NOTE | 2019-07-12 11:55 | GASTROENTEROLOGY PROGRESS NOTE ---
DATE: 07/12/2019 SUBJECTIVE: Ms. Kenny is a 73-year-old female resting in bed. The patient has denied any nausea, vomiting, or abdominal pain, but she did complain about her breakfast saying that she did not want to eat that breakfast. The patient had a few bowel movements yesterday but she has denied any today. OBJECTIVE: Vital signs: 98.4, pulse 77, respirations 14, blood pressure 111/82, oxygen saturation 98% on room air. Her weight is 161 pounds, BMI is 26.1 kg/m2. General: She is alert and oriented x3 and in no acute distress. HEENT: Pale conjunctivae. No icterus. PERRL. Neck: Supple. Lungs: Clear to auscultation in the anterior hill. Cardiovascular: Regular rate and rhythm. Abdomen: Obese, soft, distended, nontender. Active bowel sounds heard in all 4 quadrants. Midline scar from the previous surgeries. Suprapubic catheter in place. Extremities: No clubbing. No cyanosis. Generalized edema in the lower extremities. Pedal pulses 2+ present bilaterally. Neurologic: The patient is alert and oriented x3. LABORATORY: WBC is 6.30, RBC 3.73, hemoglobin 9.2, hematocrit 30.2, platelet count is 249. Sodium 141, potassium 3.5, chloride 102, carbon dioxide 27, anion gap 12, BUN 19, creatinine 0.7, calcium 8.6. A renal CT showed interval placement of the double-J left ureteral stent with associated substantial decrease in the left hydronephrosis, nonobstructing stones in the left kidney. IMPRESSION AND PLAN: 1. Severe constipation. 2. Fecal impaction. 3. Urinary tract infection. 4. Neurogenic bladder. 5. Kidney and bladder stones. 6. Chronic pain. PLAN: Ms. Kenny is a 73-year-old female who GI is following her for fecal impaction and constipation. The patient's constipation is currently getting resolved. She had a few bowel movements yesterday. The patient Clostridium difficile toxin and antigen were negative. The patient's urine culture showed Pseudomonas aeruginosa. The patient is receiving antibiotic, Tazidime per Infectious Disease. The patient is on Linzess for her bowel movements and she is getting p.r.n. lactulose 30 mL as needed for her constipation. The patient is going to get discharged today. We will continue to follow the plan of care per PCP and Infectious Disease. This plan was discussed with Dr. Renee. Please call for any further questions or concerns. Dictated by BABS Baca for Eb Renee MD cc: Amando Berman MD Physician Attestation I have seen and examined the patient. I have discussed and reviewed the note by Maribel BRICE and agree with findings and plan as documented. Fecal impaction resolved. Abdomen NT. Recommend continue Linzess at home and miralax 17gm PO BID. She can take lactulose as needed. MTDD
[2019-07-12 12:32] VITALS: BP 90/59
--- NOTE | 2019-07-14 05:01 | DISCHARGE SUMMARY ---
ADMISSION DATE: 07/05/2019 DISCHARGE DATE: 07/12/2019 DIAGNOSIS OF ADMISSION: Severe abdominal pain. LABORATORY DATA: In the hospital, CT scan of the abdomen revealed obstructing left ureteral stone, stable. There was worsening right hydroureter nephrosis,severe constipation as a result of stool impaction. The repeat renal CT revealed interval placement of this double pigtail left ureteral stent with associated substantial decrease in the left hydronephrosis, obstructing stone in the left kidney as well as a 3 mm stone in the mid and inferior urinary bladder lumen. PROCEDURES: She had a procedure of cystoscopy, left ureteroscopy, stone basket extraction and placement of 6-Maltese 24 cm ureteral stent, left ureteral stone, bilateral hydronephrosis. EKG revealed normal sinus rhythm, S and T abnormality consider inferior ischemia. OTHER LABORATORY DATA: Revealed leukocytosis, white count of 14.2. Chemistry revealed normal electrolytes, BUN was 39, creatinine 1.0. Repeat BUN was 19, creatinine was 0.7. Total iron was 33, TIBC was 153. Unsaturated iron binding capacity was 120 and ferritin was 199. B12 level was more than 2000. Folate level was 35.9. Urinalysis had revealed too numerous WBCs. However, there were no bacteria in the urine noted. Microbiology revealed Pseudomonas aeruginosa isolated from urine specimen 2 times. HOSPITAL COURSE: She was admitted. She was placed on cefepime. Dr. Elaine was consulted, who suggested that she needed antibiotics for about 2 weeks and after discharge she will be getting the cefepime at home for about 7 days at least. She had severe constipation and we tried a double dose of MiraLAX as well as Linzess. Finally, she opened up and had good bowel movements. During this stay, she was seen by Dr. Hancock, who did put a ureteral stent. She will be followed by him later on. FINAL DIAGNOSES: 1. Abdominal pain secondary from severe constipation. 2. Left ureteral stones and bilateral hydronephrosis. 3. Pseudomonas urinary tract infection. She will be followed by me as well as Dr. Elaine, Dr. Hancock and Dr. Renee in the future. cc: Amando Berman MD
--- NOTE | 2019-07-23 16:26 | DISCHARGE SUMMARY ---
ADMISSION DATE: 07/05/2019 DISCHARGE DATE: 07/12/2019 ADDITION TO DISCHARGE SUMMARY: Ms. Heredia had UTI. She has a known chronic indwelling suprapubic catheter and we have changed quite frequently. She was treated with ceftazidime for Pseudomonas infection. The infection could very well be related to indwelling urinary catheter. cc: Amando Berman MD
== END 2019-07-12 13:28 | disposition home health service (06) | DRG 660 ==
LOC: SUPCPDRO → ED 18:44 → EDIPHOLD 07-06 02:41 → SUATTDRO 07-06 02:41 → 4N 07-06 04:20
PROVIDERS: ADMIT Internal Medicine; ATTEND Internal Medicine

== ENCOUNTER 2019-09-21 14:13 | Inpatient (IN) ==
[2019-09-21] MEDS ORDERED: D5 1/2 NS + KCL 10 MEQ 1,000 ML IV SCH (16:45)
[2019-09-21] MEDS: MAXIPIME 2 GM/NS 2 GM/100 ML IVPB IV SCH (18:00)
[2019-09-21] MEDS ORDERED: LINZESS PO PRN (18:47)
[2019-09-21] MEDS ORDERED: NITROGLYCERIN SL PRN (18:47)
[2019-09-21] MEDS ORDERED: TYLENOL PO PRN (18:47)
--- NOTE | 2019-09-21 19:58 | HISTORY AND PHYSICAL ---
HISTORY OF PRESENT ILLNESS: Ms. Heredia, who is a 73-year-old white female, comes to the emergency room with acute urinary tract infection. She had a urinalysis and culture done at [facility]. It grew Pseudomonas. She has chronic indwelling catheter, suprapubic catheter, and has been getting recurrent UTI with Pseudomonas. She usually has Pseudomonas drugs and they work only for a short time. She is bed ridden, has a Arnold catheter, has recurrent multiple stones in both kidneys and ureters at times. She has some hydroureter and hydronephrosis especially on the left side. She has been being in followed by Dr. Hancock. She also is followed by Dr. Renee for her difficulty in swallowing and usually seen by Dr. Elaine while she is in the hospital. OTHER PAST HISTORY: Reveal her medical illnesses reveal history of hypertension, recurrent chest pains. She has a history of decubitus sores, lymphedema on the on the left side and joselo- Parkinson disease with tremors on the left side. PAST SURGICAL HISTORY: Of multiple spine surgeries on both lumbar as well as cervical and dorsal spine and she had at least around 17 spine surgeries. She had multiple abdominal surgeries for hernias and reconstructive surgery also. Had multiple joint surgeries on both knees as well as on the hip. She had left shoulder replacement done and had hardware coming down almost towards her elbow close to the elbow on the left side. She has been seen by many orthopedic surgeons in the past. ALLERGIES: She is allergic to penicillin. MEDICATIONS: She is on multiple medications. She is dependent on pain medication. She is on Diflucan all the time for fungemia in the past and on account of her having Port-A-Cath and multiple processes in the joints, she has been on Diflucan practically all the time. Her other details are noncontributory. REVIEW OF SYSTEMS: Other than intermittent low-grade fever and mild dysuria, she also has some difficulty in swallowing. History of weight loss and dehydration. PHYSICAL EXAMINATION: VITAL SIGNS: Reveal temperature normal at the present time. Pulse 86 per minute, respiratory rate 20 per minute, blood pressure 108/67. HEAD: Normocephalic. Pupils PERRLA. Fundus examination not done. NECK: Supple JVP normal. ENT: Examination unremarkable. There is no evidence of lymphadenopathy, thyroid enlargement. EXTREMITIES: There is no pedal edema at the present time. However, she has edema of the left upper extremity. She has deformity with the hardware coming down over the left elbow area. BREAST EXAM: Not done. CHEST: Normal inspection.Lungs: Clear to auscultation. Heart: PMI in the normal position. Heart sounds normal. No murmur, gallop or rub noted. Abdomen: Nondistended. Reveals multiple scars from previous surgery. She has a suprapubic catheter. Abdomen is soft. No guarding, rigidity, free fluid, masses, or organomegaly. Bowel sounds normal. Rectal: Deferred. ADDICTION MEDICINE PHYSICIAN: Higher functions in normal, cranial nerves normal. Motor and sensory system examination reveals hypotonia. She has some coarse tremors in the upper extremities. Deep tendon reflexes are sluggish. Plantars downgoing. Musculoskeletal: Skull and spine examination reveals multiple scars and movements are painful. Detailed examination could not be done. Gait cannot be checked. Multiple joint examination reveals painful movements. She is completely bed ridden and there is minimal dehydration present. PLAN: To start IV cefepime. I ordered a culture again and get a blood culture also done. We will consult Dr. Elaine as well as Dr. Hancock and Dr. Renee. cc: Amando Berman MD
[2019-09-21] MEDS: ZANAFLEX PO SCH (22:11)
[2019-09-21] MEDS: KLOR-CON PO SCH (22:11)
[2019-09-21] MEDS: LASIX PO SCH (22:11)
[2019-09-21] MEDS: DESYREL PO SCH (22:11)
[2019-09-21] MEDS: MYCOSTATIN SUSP PO SCH (22:11)
[2019-09-21] MEDS: REQUIP PO SCH (22:36)
[2019-09-21] MEDS: NORCO-10 PO PRN (22:36)
[2019-09-21] MEDS: DITROPAN PO SCH (22:54)
[2019-09-22] MEDS: PROTONIX PO SCH ×2 (05:31→07:03)
[2019-09-22] MEDS: MYCOSTATIN SUSP PO SCH ×5 (05:31→22:07)
[2019-09-22] MEDS: MAXIPIME 2 GM/NS 2 GM/100 ML IVPB IV SCH (05:31)
[2019-09-22] MEDS: NORCO-10 PO PRN ×3 (05:31→21:17)
--- NOTE | 2019-09-22 06:33 | Diag Imaging Result Doc PS360 ---
CHEST-PORTABLE - 09/22/2019 INDICATION: routine COMPARISON: 06/20/2019 FINDINGS: Stable right chest port in good position. Heart size appears normal. No infiltrates. No pneumothorax or pleural effusion. IMPRESSION: No acute disease or change from prior. Electronically signed by Darryl Moore 09/22/2019 6:31 AM
[2019-09-22 08:25] LABS: ALB/GLOB RATIO 1.4; ALBUMIN 3.8 g/dL (3.5-5.0); MAGNESIUM 1.9 mg/dL (1.5-2.7); POTASSIUM 3.3 mmol/L (3.5-5.1); TOTAL BILIRUBIN 0.34 mg/dL (0.20-1.00); TOTAL PROTEIN 6.6 g/dL (6.3-8.3)
[2019-09-22 08:33] LABS: BASO# 0.02 X1000 (0.0-0.2); BASO% 0.2 % (0.0-0.8); EOS# 0.11 X1000 (0.0-0.7); EOS% 1.3 % (0.0-10.0); HEMATOCRIT 34.1 % (37.0-47.0); HEMOGLOBIN 10.6 g/dL (12.0-16.0); LYMPH# 1.75 X1000 (1.2-3.4); MCH 24.7 PG (27-31); MCHC 31.1 g/dL (33-37); MCV 79.3 FL (81-99); MONO# 0.59 X1000 (0.11-0.59); MONO% 6.8 % (1.7-9.3); MPV 11.4 FL (7.4-10.4); NEUT# 6.26 X1000 (1.4-6.5); NEUT% 71.7 % (42.2-75.2); PLT 234 X1000 (130-400); RDW 15.8 % (11.5-14.5); WBC 8.73 X1000 (4.8-10.8)
--- NOTE | 2019-09-22 09:51 | PROGRESS NOTE ---
DATE: 09/22/2019 SUBJECTIVE: Ms. Heredia is feeling better. Her potassium was 3.3. We have changed IV fluids for her to have more potassium. The cultures are pending today. Initial urine culture was positive for Pseudomonas, sensitive to cefepime. She has taken cefepime the past. She has been complaining about constipation, which probably is opioid related. She has MiraLAX and Linzess, which has not worked. We are going to probably try to give her an enema. cc: Amando Berman MD
[2019-09-22] MEDS: REQUIP PO SCH ×2 (10:06→22:07)
[2019-09-22] MEDS: NITROGLYCERIN 0.4 MG/HR PATCH TD SCH (10:08)
[2019-09-22] MEDS: LASIX PO SCH ×2 (10:08→22:07)
[2019-09-22] MEDS: ALDACTAZIDE 25/25 PO SCH (10:09)
[2019-09-22] MEDS: ASPIRIN PO SCH (10:09)
[2019-09-22] MEDS: ZANAFLEX PO SCH ×2 (10:09→22:07)
[2019-09-22] MEDS: DITROPAN PO SCH ×2 (10:09→22:06)
[2019-09-22] MEDS: DIFLUCAN PO SCH (10:10)
[2019-09-22] MEDS: VITAMIN B-12 PO SCH (10:11)
[2019-09-22] MEDS: CULTURELLE PO SCH (10:11)
[2019-09-22] MEDS: UROCIT-K PO SCH ×2 (10:11→17:52)
[2019-09-22] MEDS: CYMBALTA PO SCH (10:11)
[2019-09-22] MEDS: KLOR-CON PO SCH ×2 (10:11→22:07)
[2019-09-22] MEDS: IMDUR PO SCH (10:12)
[2019-09-22] MEDS: THERA M PLUS PO SCH (10:12)
[2019-09-22] MEDS: D5 1/2 NS + KCL 30 MEQ 1,000 ML IV SCH (11:17)
--- NOTE | 2019-09-22 12:59 | Diag Imaging Result Doc PS360 ---
KUB ABDOMEN - 09/22/2019 INDICATION: kidney stones COMPARISON: 07/07/2019 FINDINGS: The patient is heavily rotated. The patient is also very large. Stable bilateral hip hardware. Stable extensive thoracolumbar spine hardware. Stable device at the left lower quadrant of the abdomen. The abdominal organs are very difficult to identify given the patient's size and rotation. There is a calcification in the left upper quadrant which may represent a left renal stone. This measures 13 mm. No obvious bowel obstruction or free air. IMPRESSION: Probable left renal stone. Electronically signed by Darryl Moore 09/22/2019 12:57 PM
--- NOTE | 2019-09-22 13:00 | Diag Imaging Result Doc PS360 ---
US RENAL 2 (RETROPER) COMPLETE - 09/22/2019 INDICATION: kidney stones, UTI, pls assess for hydronephrosis TECHNIQUE: COMPARISON: CT from 07/11/2019 FINDINGS: The exam is extremely challenging due to the patient's large size and condition. There is no obvious hydronephrosis. Renal sizes are grossly normal. The right kidney measures about 10 x 4.9 x 4.5 cm. The left kidney measures about 9.6 x 4.8 x 4.6 cm. IMPRESSION: No hydronephrosis. Electronically signed by Darryl Moore 09/22/2019 12:58 PM
[2019-09-22] MEDS: KLONOPIN PO PRN ×2 (14:50→22:07)
[2019-09-22] MEDS ORDERED: CALMOSEPTINE OINTMENT TOP PRN (15:18)
[2019-09-22] MEDS: TAZIDIME 2 GM/NS 2 GM/100 ML IVPB IV SCH (17:51)
--- NOTE | 2019-09-22 18:08 | GASTROENTEROLOGY CONSULTATION ---
DATE: 09/22/2019 REASON FOR CONSULT: Dysphagia. HISTORY OF PRESENT ILLNESS: Ms. Kenny is a 73-year-old, female, who has a past medical history of hypertension, recurrent UTIs with pseudomonas, kidney stones, bladder stones, neurogenic bladder, status post suprapubic catheter, prior cervical neck injury, shoulder injuries, and history of peptic ulcer disease. The patient is currently back in the hospital since yesterday with UTI and also complains of difficulty swallowing. The patient is being followed by Dr. Hancock for her kidney problems. 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 She also mentioned that she has not had a bowel movement in 7 days. Patient was in the hospital in June 2019, GI saw her for nausea, vomiting and dysphagia. Large amount of solid food was found in the entire esophagus spanning from the upper esophagus to the GEJ consistent with food impaction. No esophageal strictures or lesions noted in the stomach. There was a deformity found at the pylorus in the stomach.There was an evidence of prior PEG seen in the gastric body. Duodenum was normal, no biopsies were taken. PAST MEDICAL HISTORY: Recurrent UTI's, Kidney stones, bladder stones, stents placement, lithotripsy, neurogenic bladder s/p suprapubic catheter, hypertension, depression, anxiety, osteoporosis, CHF, back, neck and shoulder problems, PUD, oral candidiasis and chronic pain. PAST SURGICAL HISTORY: Hysterectomy, suprapubic catheter placement, urethral stent placement, multiple spine, lumbar and cervical fusions, plastic surgery of the abdominal wall, multiple joint surgeries with knee and shoulder, and surgery for staph infection of the right knee. ALLERGIES: Meperidine, Reglan, penicillin, sulfa, cefepime, and codeine. FAMILY HISTORY: No significant GI malignancies. SOCIAL HISTORY: The patient is a , lives with her daughter. 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 She has denied any alcohol, tobacco, or illicit use. HOME MEDICATIONS: Aspirin 81 mg daily, isosorbide mononitrate 60 mg p.o. daily, multivitamin 1 tablet daily, nitroglycerin 1 tablet transdermal, ropinirole HCL 2 mg p.o. twice a day, Protonix 40 mg p.o. daily, Cymbalta 60 mg p.o. daily, fluconazole 100 mg p.o. daily, vitamin B12, 2500 mcg p.o. daily, Aldactazide 25/25 tablet 25 mg p.o. daily, hydrocodone/acetaminophen 1 tablet every 6 hours as needed, acetaminophen 500 mg 1 tablet every 6 hours as needed, Linzess 72 mcg p.o. daily, clonazepam 0.5 mg twice a day, potassium chloride 10 mEq twice a day, trazodone 50 mg p.o. at bedtime, Lasix 40 mg p.o. daily, probiotic 1 capsule daily, nasal spray 2 sprays twice a day, Zofran 4 mg sublingual 3 times a day as needed, nystatin 1 dose p.o., Ditropan 5 mg p.o. daily, Zanaflex 4 mg p.o. twice a day, and MiraLAX 17 grams p.o. daily. REVIEW OF SYSTEMS: Paralyses in the left arm and weakness in the lower extremities, bed ridden. PHYSICAL EXAMINATION: Vital Signs: Temperature 97.7 degrees, pulse 54, respirations 16, blood pressure 93/60, oxygen saturation 90% on room air. The patient's weight is 162 pounds. BMI is 26.2 kg/m2. General: She is alert and oriented x3, in no acute distress. HEENT: Pale conjunctivae. No icterus. PERRLA. neck: Supple. Lungs: Clear to auscultation. Cardiovascular: Bradycardic. Abdomen: Soft, mildly tender. Abdominal hernia noted on the right side of the abdomen. Suprapubic catheter in place. Extremities: No clubbing. No cyanosis. Generalized edema in both lower extremities with lower extremity weakness as well as left hand is weak. LABORATORY DATA: WBC is 8.73, RBC 4.30, hemoglobin 10.6, hematocrit of 34.1, platelet count is 234,000. Sodium 133, potassium 3.3, chloride 88, carbon dioxide 31, anion gap 14, BUN 32, creatinine 1.0, glucose 130, calcium 9.0, magnesium 1.9, total bilirubin 0.34. AST 14, ALT 10, alkaline phosphatase is 122. IMAGING: Renal ultrasound has shown no hydronephrosis. Abdomen x-ray has shown probable left renal stone. Chest x-ray has shown no acute disease or change from the prior. IMPRESSION AND PLAN: 1. Dysphagia. 2. Constipation. 3. Urinary tract infection. 4. Fecal Impaction 5. Presence of suprapubic catheter 6. Anemia 7. H/o prior food impactions requiring EGD PLAN: Ms. Kenny is a 73-year-old, female, with a history of frequent urinary tract infection, status post suprapubic catheter, with left- sided weakness. Gastroenterology has been consulted for her dysphagia. We plan to do an EGD tomorrow to find out the cause of her dysphagia. The patient is currently constipated. We have given her a one-time dose of 2 soapsuds enemas. The patient is also on Linzess as needed, MiraLAX as needed. She is on PPIs daily. We have discussed the risks, benefits, and alternatives of the procedure with the patient. Further plan of care will be based on the EGD findings. This plan was discussed with Dr. Hampton. Thank you for your consult. Please call us for any further questions or concerns. Dictated by BABS Baca for Dash Hampton MD cc: MD Amando Cavanaugh MD I have seen and examined the patient myself and I agree with the above plan of care. Please call us with any questions or concerns.Follow up in clinic in 4-6 weeks. MTDD
--- NOTE | 2019-09-22 18:38 | INFECTIOUS DISEASE PROGRESS NO ---
DATE: 09/22/2019 PRESENT ILLNESS: Ms. Heredia is being treated for a gram-negative christo urinary tract infection, which is most likely a Pseudomonas. She also has a history of fungemia as well as or oral candidiasis. MEDICATIONS: She is receiving cefepime 2 g IV every 12 hours, fluconazole 100 mg by mouth every day, and nystatin swish and swallow. PHYSICAL EXAMINATION: Vital Signs: Temperature is 98.4 degrees, pulse rate 72, respiratory rate 16, blood pressure 87/52, O2 saturation is 91% on room air. General: This is a chronically ill- appearing, elderly female. She is lying in the bed, currently in no acute distress. HEENT: Atraumatic, normocephalic. Oral mucous membranes are pink and moist with some mild lesions noted to the tongue which she states have improved. Conjunctivae are pale. Neck: Has some decrease in suppleness. Trachea is midline. Cardiovascular: Heart rate is regular S1-S2 noted. Respiratory: Lung sounds are bilaterally clear to auscultation. No work of breathing is noted. Abdomen: Soft and obese with some tenderness noted to the right side. Bowel sounds are active. There is a suprapubic catheter in place without any erythema, edema or drainage to the site. Integumentary: Skin is warm, dry, and pale. There is a Port-A-Cath in place to the right chest, without edema, erythema, or drainage. Neurologic: She is awake, alert, oriented, and able to move her right upper extremity with paresthesia noted to the right hand. She has hardware in her left upper extremity which is palpable, and has extremely limited mobility due to that. There is also bilateral footdrop with lower extremity paraplegia. LABORATORY AND X-RAY: Today her white count is 8.73 hemoglobin 10.6, platelet count 234,000 creatinine is 1 with a GFR of 55. Total bilirubin is 0.34, AST 14, ALT 10, alkaline phosphatase 122. She has a gram-negative christo growing in her urine and blood cultures are pending. Chest x- ray on admission showed no acute disease and no infiltrates. Abdominal x-ray showed a probable left renal stone measuring 13 mm. Renal ultrasound showed no hydronephrosis. ASSESSMENT AND PLAN: Ms. Heredia has a gram-negative christo urinary tract infection, which most likely will be a Pseudomonas, as seen in her previous admissions. Her previous susceptibilities show a lower DEDE with use of ceftazidime, and we will also prefer ceftazidime due to a decreased chance of altered sensorium. Because her GFR is acceptable, we will increase the dose to 2 g IV every 8 hours. We agree with continuing Diflucan for her previous fungemia as well as nystatin swish and swallow for the oral candidiasis. For now, we will be awaiting the final report of her urinalysis. These plans have been discussed with and recommended by Dr. Elaine. COMORBIDITIES: For Ms. Heredia include that she is elderly and bedridden with a history of multiple urinary tract infections. Dictated by BABS Martins for Lucio Elaine MD cc: MD Amando Mc MD MTDD
[2019-09-22] MEDS: DESYREL PO SCH (22:07)
[2019-09-23] MEDS: D5 1/2 NS + KCL 30 MEQ 1,000 ML IV SCH ×3 (01:41→23:15)
[2019-09-23] MEDS: TAZIDIME 2 GM/NS 2 GM/100 ML IVPB IV SCH ×3 (01:42→16:45)
[2019-09-23] MEDS: CHLORASEPTIC SORE THROAT LOZENGE MT PRN ×2 (04:32→11:07)
[2019-09-23] MEDS: NORCO-10 PO PRN ×3 (04:32→20:03)
[2019-09-23] MEDS: PROTONIX PO SCH ×2 (06:10→20:02)
[2019-09-23] MEDS: MYCOSTATIN SUSP PO SCH ×4 (06:10→20:05)
[2019-09-23] MEDS: KLONOPIN PO PRN ×2 (06:10→16:50)
[2019-09-23] MEDS ORDERED: DIPRIVAN 1% ONE ×2 (08:28→08:48)
--- NOTE | 2019-09-23 09:20 | ENDOSCOPY OPERATIVE NOTE ---
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 PROCEDURE PERFORMED: EGD w/ biopsy and EGD w/ balloon dilation of esophagus MEDICATIONS: Per Anesthesia ESTIMATED BLOOD LOSS: None CONSENT: The patient understands the risks and benefits of the procedure and understands that these r isks include, but are not limited to: sedation, allergic reaction, infection, perforation and/or bleeding. Alternative means of evaluation and treatment include, among others: physical exam, x-rays, and/or surgical intervention. The patient elects to proceed with this endoscopic procedure. DESCRIPTION OF PROCEDURE: During pre-op preparation period all mechanical and medical equipment was c hecked for proper function. Hand hygiene and appropriate measures for infection prevention was taken. After the risks, benefits and alternatives of the procedure were thoroughly explained, Informed consent was verified, confirmed and timeout was successfully executed by the treatment team. The patient was anesthetized with topical anesthesia and the QU84-[id number] ([id number]) endoscope was introduced through the mouth and advanced to the second portion of the duoden um. Retroflexion was performed in the stomach and revealed no abnormalities. The gastroscope was then slowly withdraw n and removed. The patient's toleration of the procedure was good. ESOPHAGUS: Pill foreign body was found in the mid esophagus. Multiple non-bleeding, shallow and kat an-based ulcers ranging between 3-7mm in size were found in the mid esophagus and distal esophagus. Biopsies were ta maría at edge of the ulcers. The z-line was noted at 40cm from the incisors. The z-line appeared normal. Using a TTS-B alloon the stricture was dilated up to 20mm. The balloon was held inflated for 30 seconds. Following this dila tion, there was a small amount of heme. STOMACH: Mild gastritis (inflammation) was found in the gastric body and gastric antrum. DUODENUM: The duodenum was normal. ADVERSE EVENTS: There were no complications. IMPRESSIONS: 1. Pill foreign body was found in the mid esophagus 2. Multiple ulcers ranging between 3-7mm in size were found in the mid esophagus and distal esophagu s; biopsies were taken 3. Gastritis (inflammation) was found in the gastric body and gastric antrum 4. The duodenum was normal RECOMMENDATIONS: 1. Await biopsy results 2. Avoid NSAIDs Pantoprazole 40mg PO BID for 3 months Advance to mechanical soft diet Will sign off. Please call with questions, follow-up with Dr. Renee in 4-6 weeks. REPEAT EXAM: Return in 3 months for EGD. Eb Renee MD eSigned: Eb Renee MD 09/23/2019 9:19 AM CC: CPT CODES: 1. 03165 Upper gastrointestinal endoscopy including esophagus, stomach, and either th e duodenum and/or jejunum as appropriate; with biopsy, single or multiple 2. 60734 Upper gastrointestinal endoscopy including esophagus, stomach, and either the duodenum and/ or jejunum as appropriate; with balloon dilation of esophagus (less than 30 mm diameter) ICD CODES: 787.20 Dysphagia,unspecified 787.02 Nausea 787.03 Vomiting,unspecified 535.50 Unspecified gastritis and gastroduodenitis (without hemorrhage) The ICD and CPT codes recommended by this software are interpretations from the data that the [facility] staff has captured with the software. The verification of the translation of this report to the ICD and CPT co ching and modifiers is the sole responsibility of the health care institution and practicing physician where this report was generated. [employer] will not be held responsible for the validity of the ICD and CPT codes i ncluded on this report. [employer] assumes no liability for data contained or not contained herein. CPT is a registered tra demark of the [employer]. PATIENT NAME: Mitra Heredia MR#: [id number]
[2019-09-23] MEDS: UROCIT-K PO SCH ×2 (11:04→20:03)
[2019-09-23] MEDS: DIFLUCAN PO SCH (11:05)
[2019-09-23] MEDS: ALDACTAZIDE 25/25 PO SCH (11:05)
[2019-09-23] MEDS: KLOR-CON PO SCH ×2 (11:05→20:05)
[2019-09-23] MEDS: REQUIP PO SCH ×2 (11:05→20:00)
[2019-09-23] MEDS: VITAMIN B-12 PO SCH (11:06)
[2019-09-23] MEDS: CULTURELLE PO SCH (11:06)
[2019-09-23] MEDS: LASIX PO SCH ×2 (11:06→20:05)
[2019-09-23] MEDS: CYMBALTA PO SCH (11:06)
[2019-09-23] MEDS: IMDUR PO SCH (11:06)
[2019-09-23] MEDS: DITROPAN PO SCH ×2 (11:06→20:05)
[2019-09-23] MEDS: ASPIRIN PO SCH (11:07)
[2019-09-23] MEDS: THERA M PLUS PO SCH (11:07)
[2019-09-23] MEDS: ZANAFLEX PO SCH ×2 (11:07→20:05)
--- NOTE | 2019-09-23 12:47 | CONSULTATION ---
DATE OF CONSULTATION: 09/22/2019 CONSULTING PHYSICIAN: Dr. Berman. REASON FOR CONSULTATION: Consultation for history of kidney stones, recurrent UTIs, acute UTI. HISTORY OF PRESENT ILLNESS: A 73-year-old female who is well known to me secondary to neurogenic bladder, multiple urolithiasis and chronic UTIs. Her neurogenic bladder is managed with suprapubic tube. She continues to have significant symptomatic urinary tract infections. She has had multiple procedures for kidney stones. Most recently, she had ureteroscopy with lithotripsy, stone basket extraction, stent on the left side secondary to 7 mm left ureteral stone. She was admitted with another urinary tract infection. She reports 2-week history of right-sided flank pain that is radiating toward her abdomen. She states the pain is sharp, intermittent and moderate in severity. Nothing made it better. Nothing made it worse. She reported associated darker-appearing urine. She denied nausea or vomiting. She denied fevers or chills. She denied hematuria in her bag. PAST MEDICAL HISTORY: Recurrent blood clots, urolithiasis, neurogenic bladder, hypertension, GERD, neuropathy. PAST SURGICAL HISTORY: Knee arthroplasty, hip arthroplasty, abdominoplasty, gastric surgery, percutaneous coronary intervention, multiple spine surgeries, multiple procedures for kidney and bladder stones. ALLERGIES: Codeine, Reglan, Demerol, penicillin, cefepime. HOME MEDICATIONS: Aspirin, ISMN, multivitamin, nitroglycerin, ropinirole, Protonix, Cymbalta, spironolactone-hydrochlorothiazide, Mclean, Linzess, Klonopin, potassium chloride, Desyrel, Lasix, probiotics, potassium citrate, nitroglycerin, fluticasone, Ditropan, Zanaflex, MiraLAX. FAMILY HISTORY: Negative for malignancies. SOCIAL HISTORY: She does not smoke. Denies illicit drug or alcohol use. REVIEW OF SYSTEMS: Twelve systems negative, except for the HPI, as well as persistent trouble swallowing. PHYSICAL EXAMINATION: Vital Signs: T 98.4 degrees, P 72, BP 87/52. General: No acute distress. Pleasant female. Neck: Her trachea is midline. No deviations or masses noted. Cardiovascular: Regular rhythm. Pulmonary: Bilateral breath sounds. Abdomen: Soft, protuberant, nontender to palpation. The suprapubic tube is in place draining straw-colored urine. Back: No CVA tenderness. : Bladder nontender by palpation. Dermatologic: No obvious skin rashes. Neurologic: Alert and oriented x3. Psychiatric: Appropriate mood and affect. PERTINENT LABS: White cell count was 9000, creatinine is 1.0. PERTINENT IMAGES: None. ASSESSMENT: A 73-year-old female with urinary tract infections, neurogenic bladder and multiple recurrent kidney stones, as well as bladder stones. She has had numerous CT scans over a fairly short period of time. We discussed that we would start with evaluation with KUB and a renal ultrasound in order to decrease her exposure to radiation given her right flank pain and history of stones. PLAN: 1. Renal ultrasound. 2. KUB. 3. Will reassess after the imaging is done to see if she has any obstructing ureteral stones. Thank you for the consultation. cc: MD Amando Castro MD
--- NOTE | 2019-09-23 15:26 | PROGRESS NOTE ---
DATE: 09/23/2019 Ms. Heredia had a EGD done. There was a solid pill obstructing the esophagus. She also has some small esophageal ulcers as per endoscopy by . Her prealbumin level is 21.7, which is indicative of possibly mild protein depletion. She is getting IV cefepime I am for a Pseudomonas UTI, which she we are going to continue. -2 cc: Amando Berman MD
[2019-09-23] MEDS: DUONEB (A & A) INH SCH ×2 (16:40→21:20)
--- NOTE | 2019-09-23 16:50 | PROGRESS NOTE ---
DATE: 09/23/2019 Ms. Heredia had her endoscopy done. She is resting. She states her right flank pain is better. She denies blood in her suprapubic tube. OBJECTIVE: Vitals: Temperature 98.1 degrees, pulse 73, blood pressure 129/71. General: In no acute distress. Abdomen: Nontender, nondistended. Genitourinary: Suprapubic tube draining straw-colored urine. LABORATORY: Urine culture grew Pseudomonas aeruginosa. IMAGING: Her renal ultrasound on 09/22/2019 showed no evidence of hydronephrosis. Her KUB showed a left renal stone. ASSESSMENT: A 73-year-old female with recurrent urinary tract infections, stones, and neurogenic bladder. I have discussed with her that given the fact that she has no hydronephrosis or evidence of ureteral stone, we would not proceed with urologic intervention and observe her for now, as she has had so many interventions recently. She is in agreement. She states her right flank pain is better. PLAN: 1. No urologic intervention needed at this time. 2. I will see her on an outpatient basis in the near future with followup. 3. Thank you for consultation. Call with questions as needed. cc: MD Amando Castro MD
[2019-09-23] MEDS: DESYREL PO SCH (20:02)
--- NOTE | 2019-09-23 20:04 | INFECTIOUS DISEASE PROGRESS NO ---
DATE: 09/23/2019 PRESENT ILLNESS: The patient has a Pseudomonas urinary tract infection. She has had this organism for a long time. Previously, she has also had a fungemia. MEDICATIONS: The patient is on ceftazidime 2 gm IV every 8 hours. She also is on fluconazole to prevent any flare up from the patient's prior fungemia, especially if the fungal infection is on any of her metal, in case it has infected any of her metal structures she has in her body. PHYSICAL EXAMINATION: Vital Signs: Temperature is 98.1 degrees, pulse 73, respirations 16, blood pressure 129/71. General: This is an ill-appearing, elderly female, she is in no acute distress. Head/eyes/ears/nose/throat: She can hear my spoken words and see near objects. She does not have any white coating of her tongue. Neck: The patient has limited movement of her neck. Lungs: Clear to auscultation. Cardiovascular: Heart rate is regular. Abdomen: Soft and nontender. Thorax: The patient has a Port-A-Cath present on the right side. The site is not erythematous or purulent. Neurologic: The patient is arousable. She can only move her left arm. LAB AND X-RAY: There are no new lab studies today, except that the urine culture did grow out Pseudomonas as it has many times and the blood cultures are negative. ASSESSMENT AND PLAN: Patient has a Pseudomonas urinary tract infection. My plan is to continue ceftazidime. Also, my plan is to continue fluconazole for the patient's prevention of fungal infections becoming active if there are any on her metal structures in her body. COMORBIDITIES: The patient is elderly, she is bedridden and she has a history of multiple urinary tract infections, most commonly with Pseudomonas. cc: MD Amando Mc MD
[2019-09-23] MEDS: NITROGLYCERIN 0.4 MG/HR PATCH TD SCH (23:12)
[2019-09-24] MEDS: TAZIDIME 2 GM/NS 2 GM/100 ML IVPB IV SCH ×3 (01:26→17:59)
[2019-09-24] MEDS: NORCO-10 PO PRN ×4 (02:12→23:57)
[2019-09-24] MEDS: D5 1/2 NS + KCL 30 MEQ 1,000 ML IV SCH ×3 (02:13→22:48)
[2019-09-24] MEDS: DUONEB (A & A) INH SCH ×4 (03:20→21:15)
[2019-09-24] MEDS: KLONOPIN PO PRN ×2 (04:54→22:26)
[2019-09-24] MEDS: MYCOSTATIN SUSP PO SCH ×5 (04:55→20:46)
[2019-09-24] MEDS: UROCIT-K PO SCH ×2 (08:30→17:58)
[2019-09-24] MEDS: THERA M PLUS PO SCH (09:30)
[2019-09-24] MEDS: ASPIRIN PO SCH (09:30)
[2019-09-24] MEDS: CYMBALTA PO SCH (09:30)
[2019-09-24] MEDS: REQUIP PO SCH ×2 (09:30→20:47)
[2019-09-24] MEDS: IMDUR PO SCH (09:30)
[2019-09-24] MEDS: DIFLUCAN PO SCH (09:30)
[2019-09-24] MEDS: VITAMIN B-12 PO SCH (09:30)
[2019-09-24] MEDS: ZANAFLEX PO SCH ×2 (09:30→20:46)
[2019-09-24] MEDS: ALDACTAZIDE 25/25 PO SCH (09:30)
[2019-09-24] MEDS: KLOR-CON PO SCH ×2 (09:30→20:46)
[2019-09-24] MEDS: PROTONIX PO SCH ×2 (09:30→20:46)
[2019-09-24] MEDS: LASIX PO SCH ×2 (09:30→20:46)
[2019-09-24] MEDS: CULTURELLE PO SCH (09:30)
[2019-09-24] MEDS: DITROPAN PO SCH ×2 (09:30→20:47)
[2019-09-24] MEDS: NITROGLYCERIN 0.4 MG/HR PATCH TD SCH (13:52)
--- NOTE | 2019-09-24 19:05 | PROGRESS NOTE ---
DATE: 09/24/2019 SUBJECTIVE: This is a 73-year-old white female who is well known to this hospital. She was admitted on 09/21/[address] Berman. She was seen by multiple consultants which include Dr. Elaine, Dr. Hampton, Dr. Hancock. The patient was admitted for dysphagia, UTI. The patient does not offer any complaints. PAST MEDICAL HISTORY: Reviewed. PAST SURGICAL HISTORY: Reviewed. MEDICINES: Reviewed. ALLERGIES: Codeine, Demerol and penicillin. OBJECTIVE: Vital Signs: Temperature is 98.2, pulse 76, blood pressure is 129/57. General: Basically bedridden. Chest: Port seen on the right side of the chest, SBC catheter. Bilateral air entry distant. Cardiovascular: Distant heart sounds. Abdomen: Belly is soft, nontender. Extremities: Flaccid. INVESTIGATIONS: White cell count 8.7, hematocrit 34, platelets 234. SMA 7: Sodium 133, potassium 3.3, prealbumin 21.7. Urine cultures grew Pseudomonas aeruginosa. Blood cultures are negative. ASSESSMENT AND PLAN: 1. Recurrent urinary tract infection due to kidney stone disease. Currently patient is receiving ceftazidime 2 grams IV every 8 hours. 2. Oral thrush, on Diflucan. 3. Hydration with IV fluids. 4. Care of the skin, bladder, and bowels. 5. Chronic constipation, on Linzess and MiraLAX. 6. Hypokalemia. Replace the potassium. 7. Chronic pain, on hydrocodone. 8. Chronic insomnia, on Desyrel. 9. Dysphagia. Esophagogastroduodenoscopy was done. Continue on proton pump inhibitor and mechanical soft diet. LEVEL OF DOCUMENTATION: Twenty-five minutes. cc: MD Amando Almazan MD
[2019-09-24] MEDS: DESYREL PO SCH (20:46)
[2019-09-25] MEDS: TAZIDIME 2 GM/NS 2 GM/100 ML IVPB IV SCH ×3 (01:21→16:40)
[2019-09-25] MEDS: DUONEB (A & A) INH SCH ×4 (03:05→21:30)
[2019-09-25] MEDS ORDERED: CHLORASEPTIC SPRAY MT PRN (05:45)
[2019-09-25] MEDS: NORCO-10 PO PRN ×3 (06:10→18:12)
[2019-09-25] MEDS: MYCOSTATIN SUSP PO SCH ×4 (06:10→20:21)
[2019-09-25] MEDS: D5 1/2 NS + KCL 30 MEQ 1,000 ML IV SCH ×2 (06:11→19:48)
[2019-09-25] MEDS: NITROGLYCERIN 0.4 MG/HR PATCH TD SCH ×2 (09:58→11:41)
[2019-09-25] MEDS: KLOR-CON PO SCH ×2 (09:58→20:21)
[2019-09-25] MEDS: CULTURELLE PO SCH (09:58)
[2019-09-25] MEDS: CYMBALTA PO SCH (09:58)
[2019-09-25] MEDS: PERIDEX MT SCH ×2 (09:59→20:21)
[2019-09-25] MEDS: THERA M PLUS PO SCH (09:59)
[2019-09-25] MEDS: VITAMIN B-12 PO SCH (09:59)
[2019-09-25] MEDS: DIFLUCAN PO SCH (09:59)
[2019-09-25] MEDS: PROTONIX PO SCH ×2 (09:59→20:21)
[2019-09-25] MEDS: LASIX PO SCH ×2 (09:59→20:21)
[2019-09-25] MEDS: UROCIT-K PO SCH ×2 (10:00→16:48)
[2019-09-25] MEDS: DITROPAN PO SCH ×2 (10:00→20:21)
[2019-09-25] MEDS: ALDACTAZIDE 25/25 PO SCH (10:00)
[2019-09-25] MEDS: REQUIP PO SCH ×2 (10:00→20:21)
[2019-09-25] MEDS: ASPIRIN PO SCH (10:00)
[2019-09-25] MEDS: IMDUR PO SCH (10:01)
[2019-09-25] MEDS: ZANAFLEX PO SCH ×2 (10:01→20:21)
[2019-09-25] MEDS: KLONOPIN PO PRN ×2 (11:56→19:48)
--- NOTE | 2019-09-25 15:19 | PROGRESS NOTE ---
DATE: 09/25/2019 SUBJECTIVE: The patient is eating well looking for lunch. EGD findings discussed. No dysphagia. REVIEW OF SYSTEMS: None reported. OBJECTIVE: Vital Signs: Temperature is 98.5 degrees, pulse 55, blood pressure is 102/59. HEENT: Within normal limits. Port on the right side. Chest: Bilateral air entry. Heart: Sounds are regular. Belly is soft. SPC catheter is present. Bedridden basically. LABORATORY DATA: Prealbumin 21.7. Urine cultures Pseudomonas aeruginosa. Blood cultures were negative. ASSESSMENT AND PLAN: 1. Dysphagia. Esophagogastroduodenoscopy findings unremarkable. Advance the diet as tolerated. 2. Recurrent urinary tract infection due to Pseudomonas due to kidney stone disease status post suprapubic catheter. Currently on ceftazidime 2 g IV q.6. Continue IV fluids. 3. Care of the skin, bladder, and bowels and Dr. Berman is going to follow up and no significant changes noted. LEVEL OF DOCUMENTATION: 25 minutes. cc: MD Amando Almazan MD
[2019-09-25] MEDS: DESYREL PO SCH (20:22)
[2019-09-25] MEDS: MIRALAX PO PRN (20:30)
[2019-09-26] MEDS: NORCO-10 PO PRN ×4 (00:40→20:58)
[2019-09-26] MEDS: TAZIDIME 2 GM/NS 2 GM/100 ML IVPB IV SCH ×4 (00:41→23:01)
[2019-09-26] MEDS: DUONEB (A & A) INH SCH ×4 (03:43→22:49)
[2019-09-26] MEDS: MYCOSTATIN SUSP PO SCH ×5 (06:05→20:58)
[2019-09-26] MEDS: D5 1/2 NS + KCL 30 MEQ 1,000 ML IV SCH ×3 (06:05→23:01)
[2019-09-26] MEDS: VITAMIN B-12 PO SCH (08:33)
[2019-09-26] MEDS: ZANAFLEX PO SCH ×2 (08:34→20:58)
[2019-09-26] MEDS: DIFLUCAN PO SCH (08:34)
[2019-09-26] MEDS: KLOR-CON PO SCH ×2 (08:34→20:57)
[2019-09-26] MEDS: REQUIP PO SCH ×2 (08:35→20:58)
[2019-09-26] MEDS: NITROGLYCERIN 0.4 MG/HR PATCH TD SCH ×2 (08:35→09:06)
[2019-09-26] MEDS: CULTURELLE PO SCH (08:36)
[2019-09-26] MEDS: IMDUR PO SCH (08:36)
[2019-09-26] MEDS: CYMBALTA PO SCH (08:36)
[2019-09-26] MEDS: LASIX PO SCH ×2 (08:36→20:57)
[2019-09-26] MEDS: ASPIRIN PO SCH (08:36)
[2019-09-26] MEDS: THERA M PLUS PO SCH (08:36)
[2019-09-26] MEDS: PROTONIX PO SCH ×2 (08:36→20:58)
[2019-09-26] MEDS: PERIDEX MT SCH ×2 (08:37→21:05)
[2019-09-26] MEDS: UROCIT-K PO SCH ×2 (08:37→17:28)
[2019-09-26] MEDS: ALDACTAZIDE 25/25 PO SCH (08:37)
[2019-09-26] MEDS: DITROPAN PO SCH ×2 (09:04→20:58)
--- NOTE | 2019-09-26 09:14 | PROGRESS NOTE ---
DATE: 09/26/2019 SUBJECTIVE: She is running low-grade fever. She has a UTI with Pseudomonas infection. She has been getting ceftazidime which we are going to continue. She has a consultation with Dr. Hancock. -5 cc: Amando Berman MD
[2019-09-26] MEDS: KLONOPIN PO PRN ×2 (12:52→22:45)
--- NOTE | 2019-09-26 14:55 | INFECTIOUS DISEASE PROGRESS NO ---
DATE: 09/26/2019 PRESENT ILLNESS: The patient has a Pseudomonas urinary tract infection. She has had this for a long time and periodically it flares up. The patient in the past has had fungemia. MEDICATIONS: The patient is on ceftazidime for the Pseudomonas urinary tract infections. The patient is on long-term fluconazole to prevent any flare up from the patient's metal that may have become infected when the patient was fungemic. PHYSICAL EXAMINATION: Vital Signs: Temperature is 98 degrees, pulse 57, respirations 16, blood pressure 114/61. General: This is an ill-appearing elderly female. She is in no acute distress. Head/eyes/ears/nose/throat: She can hear my spoken words and see near objects. There was no drainage from the nose or ears. She does not have any white coating on her tongue. Neck: The patient has limited movement. Lungs: Clear to auscultation. Cardiovascular: Heart rate is regular. Abdomen: Soft and nontender. Thorax the patient has a Port-A-Cath present on the right side. The site is not swollen or tender or purulent. The patient has a suprapubic catheter in place. The site is not erythematous or purulent. Neurologic: The patient can only move her left arm. She cannot move the other arm or her legs LAB AND X-RAY: There is no lab for today. Blood cultures are negative. Urine culture grew Pseudomonas. ASSESSMENT AND PLAN: The patient has a Pseudomonas urinary tract infection. I would suggest continuing the patient on ceftazidime for a total of 3 weeks. COMORBIDITIES: The patient is elderly. She is bedridden and she has a history of multiple urinary tract infections most commonly with Pseudomonas. I am signing off the patient's case. If the patient is going to go home on IV antibiotics page me and I can set up for the for the patient to do her antibiotics at home. cc: MD Amando Mc MD
[2019-09-26] MEDS: DESYREL PO SCH (20:58)
[2019-09-27] MEDS: DUONEB (A & A) INH SCH ×4 (03:42→23:07)
[2019-09-27] MEDS: NORCO-10 PO PRN ×3 (04:55→20:37)
[2019-09-27] MEDS: TAZIDIME 2 GM/NS 2 GM/100 ML IVPB IV SCH ×3 (04:56→18:11)
[2019-09-27] MEDS: D5 1/2 NS + KCL 30 MEQ 1,000 ML IV SCH ×2 (04:56→13:41)
[2019-09-27] MEDS: MYCOSTATIN SUSP PO SCH ×4 (06:03→20:37)
[2019-09-27] MEDS: PROTONIX PO SCH ×2 (08:43→20:37)
[2019-09-27] MEDS: UROCIT-K PO SCH ×2 (08:43→18:10)
[2019-09-27] MEDS: IMDUR PO SCH (08:44)
[2019-09-27] MEDS: ALDACTAZIDE 25/25 PO SCH (08:44)
[2019-09-27] MEDS: VITAMIN B-12 PO SCH (08:44)
[2019-09-27] MEDS: CYMBALTA PO SCH (08:45)
[2019-09-27] MEDS: CULTURELLE PO SCH (08:45)
[2019-09-27] MEDS: LASIX PO SCH ×2 (08:45→20:36)
[2019-09-27] MEDS: ASPIRIN PO SCH (08:45)
[2019-09-27] MEDS: THERA M PLUS PO SCH (08:45)
[2019-09-27] MEDS: DITROPAN PO SCH ×2 (08:45→20:37)
[2019-09-27] MEDS: ZANAFLEX PO SCH ×2 (08:46→20:36)
[2019-09-27] MEDS: KLOR-CON PO SCH ×2 (08:46→20:36)
[2019-09-27] MEDS: DIFLUCAN PO SCH (08:46)
[2019-09-27] MEDS: REQUIP PO SCH ×2 (08:47→20:36)
[2019-09-27] MEDS: PERIDEX MT SCH ×3 (08:47→20:36)
[2019-09-27] MEDS: NITROGLYCERIN 0.4 MG/HR PATCH TD SCH ×2 (08:47→11:30)
[2019-09-27] MEDS: MIRALAX PO PRN (11:00)
--- NOTE | 2019-09-27 11:08 | PROGRESS NOTE ---
DATE: 09/27/2019 Ms. Heredia is feeling better. She has been afebrile now. Her potassium was 3.3 year earlier. She says she has some respiratory and nasal congestion. We will start Flonase and repeat her Chem- 7 as well as CBC. cc: Amando Berman MD
[2019-09-27] MEDS: FLONASE NAS SCH (11:29)
[2019-09-27 11:43] LABS: BASO# 0.01 X1000 (0.0-0.2); BASO% 0.2 % (0.0-0.8); EOS# 0.22 X1000 (0.0-0.7); EOS% 3.7 % (0.0-10.0); HEMATOCRIT 31.2 % (37.0-47.0); HEMOGLOBIN 9.9 g/dL (12.0-16.0); LYMPH# 1.26 X1000 (1.2-3.4); LYMPH% 21.4 % (20.5-51.1); MCH 24.9 PG (27-31); MCHC 31.7 g/dL (33-37); MCV 78.4 FL (81-99); MONO# 0.39 X1000 (0.11-0.59); MONO% 6.6 % (1.7-9.3); MPV 11.4 FL (7.4-10.4); NEUT# 4.01 X1000 (1.4-6.5); NEUT% 68.1 % (42.2-75.2); PLT 220 X1000 (130-400); RBC 3.98 XMIL (4.2-5.4); RDW 15.8 % (11.5-14.5); WBC 5.89 X1000 (4.8-10.8)
[2019-09-27] MEDS: KLONOPIN PO PRN (15:11)
[2019-09-27] MEDS: DESYREL PO SCH (20:37)
[2019-09-28] MEDS: TAZIDIME 2 GM/NS 2 GM/100 ML IVPB IV SCH ×3 (02:29→18:18)
[2019-09-28] MEDS: NORCO-10 PO PRN ×4 (03:21→21:47)
[2019-09-28] MEDS: D5 1/2 NS + KCL 30 MEQ 1,000 ML IV SCH ×2 (03:40→16:08)
[2019-09-28] MEDS: KLONOPIN PO PRN (03:52)
[2019-09-28] MEDS: DUONEB (A & A) INH SCH ×4 (03:52→22:01)
[2019-09-28] MEDS: MYCOSTATIN SUSP PO SCH ×4 (06:22→21:46)
[2019-09-28 07:21] LABS: BASO# 0.01 X1000 (0.0-0.2); BASO% 0.2 % (0.0-0.8); EOS# 0.17 X1000 (0.0-0.7); EOS% 2.9 % (0.0-10.0); HEMATOCRIT 29.3 % (37.0-47.0); HEMOGLOBIN 9.1 g/dL (12.0-16.0); LYMPH% 23.5 % (20.5-51.1); MCH 24.5 PG (27-31); MCHC 31.1 g/dL (33-37); MCV 78.8 FL (81-99); MONO# 0.38 X1000 (0.11-0.59); MONO% 6.4 % (1.7-9.3); MPV 11.3 FL (7.4-10.4); PLT 213 X1000 (130-400); RBC 3.72 XMIL (4.2-5.4); RDW 15.7 % (11.5-14.5); WBC 5.96 X1000 (4.8-10.8)
[2019-09-28 07:56] LABS: AGAP 9; BUN 19 mg/dL (8-22); CALCIUM 8.3 mg/dL (8.8-10.2); CHLORIDE 96 mmol/L (98-107); COSMO 270; CREATININE 0.8 mg/dL (0.5-0.9); ESTIMATED GFR > 60; GLUCOSE 118 mg/dL (70-104); POTASSIUM 4.1 mmol/L (3.5-5.1); SODIUM 133 mmol/L (136-145); TCO2 28 mmol/L (25-35)
[2019-09-28] MEDS: CULTURELLE PO SCH (08:34)
[2019-09-28] MEDS: REQUIP PO SCH ×2 (08:34→21:46)
[2019-09-28] MEDS: ASPIRIN PO SCH (08:35)
[2019-09-28] MEDS: IMDUR PO SCH (08:35)
[2019-09-28] MEDS: VITAMIN B-12 PO SCH (08:35)
[2019-09-28] MEDS: PROTONIX PO SCH ×2 (08:35→21:47)
[2019-09-28] MEDS: CYMBALTA PO SCH (08:35)
[2019-09-28] MEDS: LASIX PO SCH ×2 (08:35→21:46)
[2019-09-28] MEDS: THERA M PLUS PO SCH (08:36)
[2019-09-28] MEDS: ALDACTAZIDE 25/25 PO SCH (08:36)
[2019-09-28] MEDS: DITROPAN PO SCH ×2 (08:36→21:52)
[2019-09-28] MEDS: NITROGLYCERIN 0.4 MG/HR PATCH TD SCH ×2 (08:36→08:46)
[2019-09-28] MEDS: DIFLUCAN PO SCH (08:36)
[2019-09-28] MEDS: KLOR-CON PO SCH ×2 (08:36→21:47)
[2019-09-28] MEDS: UROCIT-K PO SCH ×2 (08:37→18:17)
[2019-09-28] MEDS: PERIDEX MT SCH ×2 (08:37→21:47)
[2019-09-28] MEDS: FLONASE NAS SCH (08:37)
[2019-09-28] MEDS: ZANAFLEX PO SCH ×2 (09:46→21:47)
--- NOTE | 2019-09-28 10:09 | PROGRESS NOTE ---
DATE: 09/28/2019 Ms. Heredia is recovering from UTI Pseudomonas infection. She is getting IV cefepime, and she did have some sinus infection the other day. She has been seen by Dr. Hancock also. Renal ultrasound did not reveal any evidence of hydronephrosis, not any stones. She is being followed by Dr. Elaine also. We will consider about discharging the patient in next day or 2. cc: Amando Berman MD
[2019-09-28] MEDS: DESYREL PO SCH (21:46)
[2019-09-29] MEDS: NORCO-10 PO PRN ×3 (03:22→20:31)
[2019-09-29] MEDS: DUONEB (A & A) INH SCH ×2 (03:41→10:48)
[2019-09-29] MEDS: TAZIDIME 2 GM/NS 2 GM/100 ML IVPB IV SCH ×3 (04:31→18:11)
[2019-09-29] MEDS: D5 1/2 NS + KCL 30 MEQ 1,000 ML IV SCH ×2 (06:04→18:11)
[2019-09-29] MEDS: MYCOSTATIN SUSP PO SCH ×4 (06:04→20:31)
[2019-09-29] MEDS: FLONASE NAS SCH (10:02)
[2019-09-29] MEDS: REQUIP PO SCH ×2 (10:03→20:31)
[2019-09-29] MEDS: LASIX PO SCH ×2 (10:03→20:33)
[2019-09-29] MEDS: IMDUR PO SCH (10:03)
[2019-09-29] MEDS: ALDACTAZIDE 25/25 PO SCH (10:03)
[2019-09-29] MEDS: CULTURELLE PO SCH (10:04)
[2019-09-29] MEDS: VITAMIN B-12 PO SCH (10:04)
[2019-09-29] MEDS: ZANAFLEX PO SCH ×2 (10:04→20:32)
[2019-09-29] MEDS: ASPIRIN PO SCH (10:04)
[2019-09-29] MEDS: DITROPAN PO SCH ×2 (10:04→20:33)
[2019-09-29] MEDS: KLOR-CON PO SCH ×2 (10:04→20:32)
[2019-09-29] MEDS: PROTONIX PO SCH ×2 (10:04→20:33)
[2019-09-29] MEDS: THERA M PLUS PO SCH (10:04)
[2019-09-29] MEDS: DIFLUCAN PO SCH (10:04)
[2019-09-29] MEDS: CYMBALTA PO SCH (10:05)
[2019-09-29] MEDS: PERIDEX MT SCH ×2 (10:05→20:32)
[2019-09-29] MEDS: NITROGLYCERIN 0.4 MG/HR PATCH TD SCH (10:05)
[2019-09-29] MEDS ORDERED: ZOFRAN IV PRN (11:30)
[2019-09-29] MEDS ORDERED: ZOFRAN PO SCH (12:00)
--- NOTE | 2019-09-29 12:29 | PROGRESS NOTE ---
DATE: 09/29/2019 Ms. Heredia is very nauseous this morning. She is admitted with a UTI. Her potassium is 4.1. General condition is unchanged. She was seen. She says her suprapubic catheter needed to be changed. Dr. Hancock will follow her about that. We will continue the rest of the therapy on her, probably discharge her in the morning if she continues to do well. cc: Amando Berman MD
--- NOTE | 2019-09-29 13:02 | OPERATIVE NOTE ---
PROCEDURE DATE: 09/29/2019 PREOPERATIVE DIAGNOSES: 1. Neurogenic bladder. 2. Recurrent urinary tract infections. 3. Indwelling suprapubic tube. POSTOPERATIVE DIAGNOSES: 1. Neurogenic bladder. 2. Recurrent urinary tract infections. 3. Indwelling suprapubic tube. PROCEDURE PERFORMED: Exchange of suprapubic tube. INDICATIONS: A 73-year-old female with neurogenic bladder that is managed with a suprapubic tube. She was admitted for a UTI, and it is time for her to have her suprapubic tube exchanged. Dr. Berman, her family doctor, had requested for the tube to be exchanged. FINDINGS: Findings successful exchange of 20-Congolese suprapubic tube. DESCRIPTION OF PROCEDURE: After educating the patient on the risks, she was prepped and draped in a sterile fashion. The old suprapubic tube was removed. There was 9 mL in the balloon. I introduced a 20-Congolese Arnold catheter, and instilled 5 mL of sterile water into the balloon. The tube appeared to be sitting in a good position, and drainage of urine was noted upon placement to gravity drainage. She tolerated the procedure well. COMPLICATIONS: None. DISPOSITION: She will have her next tube exchange by Home Health as previously ordered. No new urologic intervention is needed. Please call with questions. cc: MD Amando Castro MD
[2019-09-29] MEDS ORDERED: NS NEB INH SCH (14:00)
[2019-09-29] MEDS: ATROVENT NEB INH SCH ×2 (16:25→22:47)
[2019-09-29] MEDS: XOPENEX NEB INH SCH ×2 (16:25→22:47)
[2019-09-29] MEDS ORDERED: ZOFRAN PO PRN (18:10)
[2019-09-29] MEDS: DESYREL PO SCH (20:32)
[2019-09-29] MEDS ORDERED: KLOR-CON PO SCH (21:00)
[2019-09-29] MEDS: KLONOPIN PO PRN (22:00)
[2019-09-30] MEDS: TAZIDIME 2 GM/NS 2 GM/100 ML IVPB IV SCH ×2 (01:03→09:34)
[2019-09-30] MEDS: XOPENEX NEB INH SCH ×2 (04:14→10:01)
[2019-09-30] MEDS: ATROVENT NEB INH SCH ×2 (04:14→10:01)
[2019-09-30] MEDS: NORCO-10 PO PRN ×2 (05:04→13:14)
[2019-09-30] MEDS: MYCOSTATIN SUSP PO SCH ×2 (06:51→11:23)
[2019-09-30] MEDS: D5 1/2 NS + KCL 30 MEQ 1,000 ML IV SCH ×2 (08:14→09:41)
[2019-09-30] MEDS: FLONASE NAS SCH (09:36)
[2019-09-30] MEDS: REQUIP PO SCH (09:37)
[2019-09-30] MEDS: NITROGLYCERIN 0.4 MG/HR PATCH TD SCH (09:37)
[2019-09-30] MEDS: IMDUR PO SCH (09:38)
[2019-09-30] MEDS: CYMBALTA PO SCH (09:38)
[2019-09-30] MEDS: DIFLUCAN PO SCH (09:38)
[2019-09-30] MEDS: DITROPAN PO SCH (09:39)
[2019-09-30] MEDS: ALDACTAZIDE 25/25 PO SCH (09:39)
[2019-09-30] MEDS: CULTURELLE PO SCH (09:39)
[2019-09-30] MEDS: ASPIRIN PO SCH (09:39)
[2019-09-30] MEDS: ZANAFLEX PO SCH (09:39)
[2019-09-30] MEDS: LASIX PO SCH (09:39)
[2019-09-30] MEDS: PROTONIX PO SCH (09:39)
[2019-09-30] MEDS: KLOR-CON PO SCH (09:39)
[2019-09-30] MEDS: VITAMIN B-12 PO SCH (09:39)
[2019-09-30] MEDS: THERA M PLUS PO SCH (09:39)
[2019-09-30] MEDS: PERIDEX MT SCH (09:50)
[2019-09-30 11:32] VITALS: BP 112/66
--- NOTE | 2019-09-30 22:05 | DISCHARGE SUMMARY ---
ADMISSION DATE: 09/21/2019 DISCHARGE DATE: 09/30/2019 DIAGNOSIS OF ADMISSION: Ms. Heredia, who is a 73-year-old white female, was admitted with dehydration, acute as well as acute on chronic Pseudomonas urinary tract infection. LABORATORY DATA IN THE HOSPITAL: The hospital abdominal x-ray revealed left renal stone. Chest x- ray was no acute disease noted. She had a Arnold catheter. She had a catheter changed from the suprapubic catheter site. He also had an EGD done by Dr. Eb Renee who did find an impacted pill in the esophagus. He also saw multiple non-bleeding, small, clean based ulcers. Urine culture grew Pseudomonas. CBC revealed anemia, hemoglobin 9.1. Electrolytes initially revealed hypokalemia, potassium 3.3 and it came back up to 4.1. The BUN had gone down from 32 to 19 after proper hydration. She was given ceftazidime namely cefepime and she was followed by Dr. Elaine for a Pseudomonas UTI, who usually follows her. She will be seen in the office on p.r.n. basis. FINAL DIAGNOSIS: 1. Acute UTI Pseudomonas. 2. Recurrent esophageal ulcers with impacted foreign body in the esophagus. 3. Left-sided kidney stone, nonobstructing. 4. COPD and has some issues with increasing shortness of breath. She was given Xopenex. We will make arrangements with [facility] later on. cc: Amando Berman MD
--- NOTE | 2019-10-08 09:06 | DISCHARGE SUMMARY ---
ADMISSION DATE: 09/21/2019 DISCHARGE DATE: 09/30/2019 ADDENDUM TO DISCHARGE SUMMARY: The patient had urinary tract infection with Pseudomonas and urinary tract infection was due to suprapubic catheter an/or kidney stones. cc: Amando Berman MD
== END 2019-09-30 13:30 | disposition home health service (06) | DRG 699 ==
LOC: DIRADM 14:13 → EDIPHOLD 15:39 → 4N 21:19
PROVIDERS: ADMIT Internal Medicine; ATTEND Internal Medicine